=== PATIENT | male | born 1990 | race Caucasian/White ===

== ENCOUNTER 2023-02-23 17:54 | Emergency (ER) | payer OTHER, SELFPAY ==
[2023-02-23 18:06] VITALS: BP 142/93; PULSE 103; RESP 18; TEMP 36.3; O2SAT 97
[2023-02-23 18:07] VITALS: BP 142/93; PULSE 103; RESP 18; TEMP 36.3; O2SAT 97
--- NOTE | 2023-02-23 18:28 | ED.EAR ---
HPI - Ear Problem General Chief complaint: Ear Stated complaint: Right Ear Irritation Time Seen by Provider: 02/23/23 18:18 Source: patient and RN notes reviewed Mode of arrival: ambulatory Limitations: no limitations History of Present Illness HPI Narrative: Patient presents today complaining of mild right ear pain with clear discharge x2 days with muffled hearing. Denies recent illness. He has tried no [id number] interventions prior to arrival. Related Data Allergies Allergy/AdvReac Type Severity Reaction Status Date / Time cefaclor [From Ceclor] AdvReac Mild Hives Verified 02/23/23 18:19 Review of Systems Review of Systems: CONSTITUTIONAL: Denies body aches, fever, chills, or sweats. EYES: Denies visual changes, redness, or discharge. ENT: Denies rhinorrhea, congestion, sore throat. + right ear discomfort and drainage CARDIOVASCULAR: Denies chest pain, palpitations, or edema. RESPIRATORY: Denies cough or dyspnea. GASTROINTESTINAL: Denies abdominal pain, nausea, vomiting, or diarrhea. GENITOURINARY: Denies dysuria or hematuria. SKIN: Denies rash, itching, or wounds. MUSCULOSKELETAL: Denies back pain, joint pain, or myalgia. NEUROLOGIC: Denies headache, numbness, tingling, or weakness. PSYCH: Denies depression or anxiety. PMFSH Comments At time of signature, I have reviewed and agree with nursing past medical, surgical, social and family history unless otherwise noted. Please see nursing chart for further information. There is no relevant family history pertinent to the presenting complaint Exam Narrative: GENERAL: Well-appearing, well-nourished, and in no acute distress. HEAD: Normocephalic, atraumatic. EYES: EOMI. No redness or drainage. Conjunctivae normal. ENT: Mucous membranes pink and moist. Nares clear. No rhinorrhea. TMs normal bilaterally. Right ear canal is moist with clear fluid and scantly erythematous.+ mild tragal tenderness. The robin is slightly erythematous and edematous with crusting clear drainage. NECK: Normal AROM. CHEST: No respiratory distress. EXTREMITIES: Normal range of motion. No edema. SKIN: Warm, dry, no rash. Capillary refill normal. Normal skin turgor. NEURO: No focal deficits. Alert and oriented x3. Gait steady. PSYCH: Normal affect. No signs of depression or anxiety. Course Course Level of Care: Express Care Visit Vital Signs Vital signs: Vital Signs Temperature 97.3 F L 02/23/23 18:06 Pulse Rate 103 H 02/23/23 18:06 Respiratory Rate 18 02/23/23 18:06 Blood Pressure 142/93 H 02/23/23 18:06 Pulse Oximetry 97 02/23/23 18:06 Oxygen Delivery Room Air 02/23/23 18:06 Temperature 97.3 F L 02/23/23 18:07 Pulse Rate 103 H 02/23/23 18:07 Respiratory Rate 18 02/23/23 18:07 Blood Pressure 142/93 H 02/23/23 18:07 Pulse Oximetry 97 02/23/23 18:07 Oxygen Delivery Room Air 02/23/23 18:07 Reviewed Medical Decision Making MDM Narrative Medical decision making narrative: Patient will be treated with Ciprodex for his otitis externa. Will also give him a prescription for mupirocin to apply to the external portion of the ear that the drops will not cover. Differential Diagnosis Differential Diagnosis: Otitis media, otitis externa, ruptured TM, serous otitis, eustachian tube dysfunction, cerumen impaction Vital Signs Vital Signs: Vital Signs Temperature 97.3 F L 02/23/23 18:06 Pulse Rate 103 H 02/23/23 18:06 Respiratory Rate 18 02/23/23 18:06 Blood Pressure 142/93 H 02/23/23 18:06 Pulse Oximetry 97 02/23/23 18:06 Oxygen Delivery Room Air 02/23/23 18:06 Temperature 97.3 F L 02/23/23 18:07 Pulse Rate 103 H 02/23/23 18:07 Respiratory Rate 18 02/23/23 18:07 Blood Pressure 142/93 H 02/23/23 18:07 Pulse Oximetry 97 02/23/23 18:07 Oxygen Delivery Room Air 02/23/23 18:07 Critical Care Time Critical Care Time Critical Care Time: No Discharge Plan Discharge Clinical Impression
== END 2023-02-23 18:36 | disposition home or self-care (01) ==
PROVIDERS: Emergency Provider Nurse Practitioner
DX: H60.501 Unspecified acute noninfective otitis externa, right ear (principal)
CPT/HCPCS: 99203; G0463

== ENCOUNTER 2024-03-02 15:17 | Emergency (ER) | payer SELFPAY ==
--- NOTE | ~2024-03-02 | XR_ITS ---
CHEST RADIOGRAPH, PA AND LATERAL CLINICAL HISTORY: productive cough . COMPARISON: None available TECHNIQUE: PA and lateral views of the chest. FINDINGS The cardiomediastinal silhouette is unremarkable. The lungs are clear. Visualized osseous structures and soft tissues are unremarkable. IMPRESSION: No focal infiltrate or effusion. Reviewed, dictated and finalized at location A. [facility] ADMINISTRATOR
[2024-03-02 16:07] VITALS: BP 143/89; PULSE 114; RESP 18; TEMP 36.5; O2SAT 99
--- NOTE | 2024-03-02 16:20 | ED_ITS ---
HPI - URI/Sore Throat General Chief Complaint: Upper Respiratory Infection <Brooke Camp PA-C - Last Filed: 03/03/24 14:46> Stated Complaint: COUGH,CONGESTION <STEVE Sterling Last Filed: 03/03/24 14:46> Time Seen by Provider: 03/02/24 16:20 <Brooke Camp PA-C - Last Filed: 03/03/24 14:46> Focused HPI: This is a 33 year old male that presents to the ER for cough, congestion. Ongoing over the last couple of days. Reports subjective fevers. Reports a headache, otalgia. GENERAL: Well-appearing, well-nourished, and in no acute distress. HEAD: Normocephalic, atraumatic. CHEST: Clear to auscultation. ?No respiratory distress. HEART: Regular rate and rhythm.? NEURO: ?Alert and oriented x3. Patient screened in triage and initial orders placed.? ?Additional care and disposition to be based upon?diagnostic testing and treatment. <STEVE Sterling Last Filed: 03/03/24 14:46> Source: patient <STEVE House Last Filed: 03/02/24 20:16> Mode of arrival: ambulatory <STEVE House Last Filed: 03/02/24 20:16> Limitations: no limitations <STEVE House Last Filed: 03/02/24 20:16> History of Present Illness HPI Narrative: Agree with triage note above <STEVE House Last Filed: 03/02/24 20:16> Related Data Allergies/Adverse Reactions: Allergies Allergy/AdvReac Type Severity Reaction Status Date / Time cefaclor (From [facility]) AdvReac Mild Hives Verified 03/02/24 15:17 <STEVE Sterling Last Filed: 03/03/24 14:46> Review of Systems Review of Systems: All systems as dictated in HPI <STEVE House Last Filed: 03/02/24 20:16> PMFSH Past Medical History Medical History: Medical History (Updated 03/03/24 @ 14:46 by Brooke Camp PA-C) History of hypertension <Brooke Camp PA-C - Last Filed: 03/03/24 14:46> Social History Social History: Social History (Updated 03/03/24 @ 14:46 by Brooke Camp PA-C) Substance use: never <Brooke Camp PA-C - Last Filed: 03/03/24 14:46> Exam Narrative: GENERAL: Well-appearing, well-nourished, and in no acute distress. HEAD: Normocephalic, atraumatic. EYES: PERRLA and EOMI. ENT: Nares clear, no rhinorrhea or epistaxis. Mucous membranes moist. Oropharynx without tonsillar hypertrophy exudate or other lesions. NECK: Supple. No adenopathy or masses. CHEST: No respiratory distress. Clear to auscultation. No wheezes rales or rhonchi HEART: Regular rate and rhythm. No murmur heard. Normal peripheral pulses. ABDOMEN: Soft, nontender, nondistended, normal active bowel sounds. MSK: Normal range of motion. No edema. SKIN: Warm, dry, no rash. NEURO: Alert and oriented x4. No focal deficits. PSYCH: Normal mood and affect. <Janes Pickens PA-C - Last Filed: 03/02/24 20:16> Course Vital Signs Vital signs: Vital Signs Temperature 97.7 F 03/02/24 16:07 Pulse Rate 114 H 03/02/24 16:07 Respiratory Rate 18 03/02/24 16:07 Blood Pressure 143/89 H 03/02/24 16:07 Pulse Oximetry 99 03/02/24 16:07 Temperature 98.2 F 03/02/24 20:19 Pulse Rate 101 H 03/02/24 20:19 Respiratory Rate 16 03/02/24 20:19 Blood Pressure 143/94 H 03/02/24 20:19 Pulse Oximetry 96 03/02/24 20:19 Oxygen Delivery Room Air 03/02/24 20:18 <Brooke Camp PA-C - Last Filed: 03/03/24 14:46> Vital Signs Temperature 97.7 F 03/02/24 16:07 Pulse Rate 114 H 03/02/24 16:07 Respiratory Rate 18 03/02/24 16:07 Blood Pressure 143/89 H 03/02/24 16:07 Pulse Oximetry 99 03/02/24 16:07 Temperature 98.2 F 03/02/24 20:19 Pulse Rate 101 H 03/02/24 20:19 Respiratory Rate 16 03/02/24 20:19 Blood Pressure 143/94 H 03/02/24 20:19 Pulse Oximetry 96 03/02/24 20:19 Oxygen Delivery Room Air 03/02/24 20:18 <Janes Pickens PA-C - Last Filed: 03/02/24 20:16> MDM - URI/Sore Throat MDM Narrative Medical decision making narrative: This is a 33-year-old male who presents to the ED for chief complaint of upper respiratory infection symptoms including cough and congestion. Vitals are stable. Viral swabs are negative. Chest x-ray shows no acute findings. Presentation consistent with viral syndrome. Patient will be discharged in stable condition. Supportive measures discussed and return precautions given. Patient is understanding and agreeable with plan for discharge with PCP follow-up. <STEVE Hosue Last Filed: 03/02/24 20:16> Differential Diagnosis Differential diagnosis: Likely upper respiratory infection, otitis media, sinusitis, viral infection, bronchitis, influenza and pharyngitis <Janes Pickens PA-C - Last Filed: 03/02/24 20:16> Lab Data Labs: Lab Results 03/02/24 Range/Units 16:10 Influenza A (RT-PCR) Negative (Negative) Influenza B (RT-PCR) Negative (Negative) RSV (RT-PCR) Negative (Negative) SARS-CoV-2 RNA (RT-PCR) Negative (Negative) <Brooke Camp PA-C - Last Filed: 03/03/24 14:46> Lab Results 03/02/24 Range/Units 16:10 Influenza A (RT-PCR) Negative (Negative) Influenza B (RT-PCR) Negative (Negative) RSV (RT-PCR) Negative (Negative) SARS-CoV-2 RNA (RT-PCR) Negative (Negative) <STEVE House Last Filed: 03/02/24 20:16> Imaging Data Radiologist's impression: ITS Impressions Chest X-Ray 03/02/24 17:16 IMPRESSION: No focal infiltrate or effusion. <STEVE Sterling Last Filed: 03/03/24 14:46> Critical Care Time Critical Care Time Critical Care Time: No <STEVE Sterling Last Filed: 03/03/24 14:46> Discharge Plan Discharge Clinical Impression: Upper respiratory infection Qualifiers: URI type: unspecified viral URI Qualified Code(s): J06.9 - Acute upper respiratory infection, unspecified <STEVE Sterling Last Filed: 03/03/24 14:46> Patient Disposition: Home, Self-Care <STEVE Sterling Last Filed: 03/03/24 14:46> Condition: Stable <STEVE Sterling Last Filed: 03/03/24 14:46> Instructions: Antibiotic Form, Viral Syndrome (ED) <STEVE Sterling Last Filed: 03/03/24 14:46> Additional Instructions: You were seen in the ER today for cough congestion. Your workup is reassuring. X-rays clear and viral swabs are all negative. This is probably still a viral illness which will resolve on its own in the next week. Continue to stay well hydrated. Use Tessalon Perles as needed for cough. If you have any new or worsening symptoms please return to the ER for further evaluation. <Brooke Camp PA-C - Last Filed: 03/03/24 14:46> Patient Language: Ivorian <STEVE Sterlnig Last Filed: 03/03/24 14:46> Prescriptions: New benzonatate 200 mg capsule 200 mg PO BID PRN (Reason: cough) Qty: 20 0RF No Action mupirocin 2 % ointment 1 applic topical BID 7 Days Qty: 22 0RF ciprofloxacin-dexamethasone 0.3-0.1 % drops,suspension 4 drp RIGHT EAR Q12H 7 Days Qty: 7.5 0RF <STEVE Sterling Last Filed: 03/03/24 14:46> Follow-up/Referrals: [facility], [Primary Care Provider] - <Brooke Camp PA-C - Last Filed: 03/03/24 14:46> Stand Alone Forms: Work/School Release IP <Brooke Camp PA-C - Last Filed: 03/03/24 14:46> Time of Disposition: 20:12 <Brooke Camp PA-C - Last Filed: 03/03/24 14:46> 20:12 <Janes Pickens PA-C - Last Filed: 03/02/24 20:16>
[2024-03-02 16:50] LABS: Influenza A QL RT-PCR Negative (Negative); Influenza B QL RT-PCR Negative (Negative); RSV RNA, RT-PCR Negative (Negative); SARS-CoV-2 RNA PCR Negative (Negative)
[2024-03-02 20:19] VITALS: BP 143/94; PULSE 101; RESP 16; TEMP 36.8; O2SAT 96
--- OUTSIDE RECORDS SUMMARY | 2024-03-09 02:34 | XMS_ITS | Continuity of Care Document ---
Author Name [facility] Organization [facility] Care Team Providers Care Data Integration Developer Name Role Phone [facility] Unavailable Unavailable Problems Combined list of problems from Department of Defense and Veterans Affairs facilities. It does not include entries that were removed or entered in error. Problem Status Onset Date Problem Type Date of Resolution Comments Source Morbid obesity Active 4 Diagnosis [facility] Obstructive sleep apnea Active 4 Diagnosis [facility] Hypertension Active 4 Diagnosis [facility] Morbid obesity Active 4 Diagnosis [facility] Obstructive sleep apnea Active 4 Diagnosis [facility] ASSESSMENT, PRE-DEPLOYMENT, DOCUMENTED ON [id number] Active 4 Diagnosis [facility] Hyperlipidemia Active 4 Diagnosis [facility] Obesity, class 3 Active 4 Diagnosis [facility] Encounter for issue of other medical certificate [facility] for issue of repeat prescription Inactive 1 Condition [facility] Encounter for immunization Inactive 1 Condition DoD Sprain of other specified parts of left knee Active 1 Condition DoD Other sprain of left hip Inactive 1 Condition DoD Pain in right ankle and joints of right foot Inactive 0 Condition DoD Pain in left knee Active 0 Condition DoD Cough Inactive 0 Condition DoD Nasal congestion Inactive 0 Condition DoD Dietary counseling and surveillance Active 9 Condition DoD Cellulitis of left finger Active Condition DoD 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 Inactive Condition DoD refractive error - hypermetropia Active Condition DoD visit for: services flight physical Active Condition DoD upper respiratory infection Inactive Condition DoD Outpatient Physician Consultation Active Condition DoD closed fracture phalanges right first toe Inactive Condition DoD closed fracture right first toe proximal phalanx Inactive Condition DoD visit for: screening exam hypertension Inactive Condition DoD visit for: services physical Active Condition DoD Patient Education Active Condition DoD Guidance: Concerns About Unsafe Sexual Practices Inactive Condition DoD visit for: administrative purpose Inactive Condition DoD joint pain, localized in the knee Active Condition DoD visit for: services physical accession Active Condition DoD ASSESSMENT, PRE-DEPLOYMENT, [place]ED ON [id number] Active Condition [facility] Chondromalacia, left knee Active Condition [facility] Hyperlipidemia Active Condition [facility] Hypertension Active Condition [facility] Morbid obesity Active Condition [facility] Obstructive sleep apnea Active Condition [facility] Prediabetes Active Condition [facility] Medications Combined list of outpatient medications from Department of Defense and Veterans Affairs facilities.Medications provided include 1) outpatient medications from the last 15 months, and 2) patient-reported medications. Medication Details Route Status Patient Instructions Prescription Expires Prescription Number Last Dispense Date Ordering Provider Order Date Order Qty Source amLODIPine 10 mg tablet 10 mg, Oral, # 30 EA, 3 total refill(s ), Hard Stop Oral (given by mouth) Ordered 02/10/2025 30.0 Ambul at ory Pharmac y CIPROFLOXAC IN-DEXAMETH ASONE (ciprofloxa luigi HCl/dexamet hasone), 0.3 %-0.1%, DROPS SUSP, OTIC (EAR), SANDOZ, 7.5 ml DROP BTL Active [id number] 02/25/20 2 3 2022 7.5 Pharmac y Data Transac tion Service Facilit y dexAMETHaso ne 0.5 mg tablet See Instruct ions, Oral, # 2 EA, 0 total refill(s ), Hard Stop Oral (given by mouth) Complet ed 02/13/2024 2.0 Ambulat ory Pharmac y Diclofenac Sodium 0.01mg/mg, Gel/Jelly, Topical Avoid exposure to sun.For external use.Do not take if . Active 05/29/2024 [id number] 4 2023 100 [facility] [place] ([facility]) meloxicam 15 mg oral tablet 1 tab(s), Oral, Daily, # 30 tab(s), 0 total refill(s ), Maintena nce, 1 tab(s) Oral Daily, Pharmacy : [facility] Oral (given by mouth) Discont inued 08/01/2023 30.0 [facility] MUPIROCIN (MUPIROCIN) , 2%, OINT.(GM), TOPICAL, TEVA [place], 22 g TUBE Active [id number] 3 2022 22 Pharmac y Data Transac tion Service Facilit y Voltaren 1% topical gel See instruct ions, Apply 2 grams (upper extremit ies) or 4 grams (lower extremit ies) to affected area topicall y four times daily as needed for pain. Max total body dose of 32 grams per day, # 100 g, 0 total refill(s ), Maintena nce, Apply 2 grams (upper extremit ies) or 4 grams (lower extremit ies) to affected area topicall y four times daily as needed for pain. Max total body dose of 32 grams per day, Pharmacy : [facility] Discont inued 06/26/2023 100.0 [facility] Allergies, Adverse Reactions, Alerts Combined list of allergies from Department of Defense and Veterans Affairs facilities. It does not include entries that were removed or entered in error. Substance Category Reaction Severity Reaction type Status Date Reported Comments Source CECLOR (CEFACLOR) Drug allergy (disorder) Unknown active 0 [place] [address] cefaclor Propensity to adverse reactions to substance Unknown Active 0 [facility] Immunizations Combined list of available immunizations from the Department of Defense and Veterans Affairs facilities. Immunization Series Date Given Administered By Site Reaction Lot Number CVX Code Drug In Service Education Teacher Status Comments Source influenza virus vaccine, inactivated 2023 IHSAN HORTA [id number] complet ed influenza virus vaccine, inactivat ed 12/18/23 Recorded [facility] influenza virus vaccine, inactivated 2022 IHSAN HORTA [place], right (delt oid) [id number] [employer] complet ed influenza virus vaccine, inactivat ed 01/07/23 Given [facility] SARS-COV-2 (COVID-19) vaccine, mRNA, spike protein, LNP, preservative free, 30 mcg/0.3mL dose 2 2021 [id number] Pfizer, Inc (PFR) complet ed SARS-COV- 2 (COVID-19 ) vaccine, mRNA, spike protein, LNP, preservat danyell free, 30 mcg/0.3mL dose DoD COVID Vaccine Pfizer 2021 ALEXRGARCIAFA NTAUZZI [id number] complet ed Result Comment: Route: Unknown Manufactu rer: [employer] (PFR) 0055C[facility]3 [facility] Influenza, injectable, quadrivalent, preservative free 1 2020 [id number] 150 InstantLuxe (SKB) complet ed Influenza , injectabl e, quadrival ent, preservat danyell free DoD influenza, injectable, quadrivalent- pf 2020 ALEXRGARCIAFA NTAUZZI [id number] 150 complet ed Result Comment: Route: Unknown Manufactu rer: I Do Now I Don't (SKB) 0055C-3 [facility] SARS-CoV-2 (COVID-19) Ad26 vaccine, rec 2020 [id number] complet ed SARS-CoV- 2 (COVID-19 ) Ad26 vaccine, rec 05/05/20 Given Ambulat ory Pharmac y SARS-COV-2 (COVID-19) vaccine, vector non-replicati ng, recombinant spike protein-Ad26, preservative free, 0.5 mL 1 2020 [id number] 212 [facility] (JSN) comple t ed SARS-COV- 2 (COVID-19 ) vaccine, vector non-repli cating, recombina nt spike protein-A d26, preservat danyell free, 0.5 mL DoD influenza, injectable, quadrivalent- pf 2019 [id number] 150 Seqirus complet ed influenza , injectabl e, quadrival ent-pf 12/25/19 Given Ambulat ory Pharmac y Influenza, injectable, quadrivalent, preservative free 1 2019 [id number] 506 150 Seqirus (SEQ) complet ed Influenza , injectabl e, quadrival ent, preservat danyell free DoD influenza, seasonal, [place], quadrivalent, 0.5mL dose, no preservative 1 2019 [id number] 201 Sanofi Pasteur (PMC) complet ed influenza , seasonal, [place], quadrival ent, 0.5mL dose, no preservat danyell DoD poliovirus vaccine, inactivated 2019 [id number] 10 sanofi pasteur complet ed polioviru s vaccine, inactivat ed 08/05/19 Given Ambulat ory Pharmac y measles virus vaccine 0 2019 05 () Not Given measles virus vaccine DoD rubella virus vaccine 0 2019 06 () Not Given rubella virus vaccine DoD mumps virus vaccine 0 2019 07 () Not Given mumps virus vaccine DoD poliovirus vaccine, inactivated 2 2019 [id number] 10 Sanofi Pasteur (PMC) complet ed polioviru s vaccine, inactivat ed DoD typhoid Vi capsular polysaccharid e vac 2019 [id number] 101 sanofi pasteur complet ed typhoid Vi capsular polysacch aride vac 07/07/19 Given Ambulat ory Pharmac y yellow fever vaccine 2019 [id number] 37 sanofi pasteur complet ed yellow fever vaccine 07/07/19 Given Ambulat ory Pharmac y yellow fever vaccine 1 2019 [id number] 37 Sanofi Pasteur (PMC) complet ed yellow fever vaccine DoD typhoid Vi capsular polysaccharid e vaccine 2 2019 [id number] 101 Sanofi Pasteur (PMC) complet ed typhoid Vi capsular polysacch aride vaccine DoD tetanus-dipht h toxoids (Td) adult/adol 2019 [id number] 09 sanofi pasteur complet ed tetanus-d iphth toxoids (Td) adult/ado l 04/23/19 Given Ambulat ory Pharmac y tetanus and diphtheria toxoids, adsorbed, preservative free, for adult use (2 Lf of tetanus toxoid and 2 Lf of diphtheria toxoid) 2 2019 [id number] 09 Sanofi Pasteur (PMC) complet ed tetanus and diphtheri a toxoids, adsorbed, preservat danyell free, for adult use (2 Lf of tetanus toxoid and 2 Lf of diphtheri a toxoid) DoD influenza, injectable, quadrivalent- pf 2018 [id number] 150 Seqirus complet ed influenza , injectabl e, quadrival ent-pf 12/25/18 Given Ambulat ory Pharmac y Influenza, injectable, quadrivalent, preservative free 11 10/31/ 2019 [id number] 150 Seqirus (SEQ) complet ed Influenza , injectabl e, quadrival ent, preservat danyell free DoD influenza, injectable, quadrivalent- pf 2017 [id number] 150 GlaxoSmithKli ne complet ed influenza , injectabl e, quadrival ent-pf 12/16/17 Given Ambulat ory Pharmac y Influenza, injectable, quadrivalent, preservative free 0 2017 [id number] 150 SmithKline (SKB) complet ed Influenza , injectabl e, quadrival ent, preservat danyell free DoD Influenza, inj, MDCK, quadrivalent- pf [id number] 171 Seqirus complet ed Influenza , inj, MDCK, quadrival ent-pf 12/10/16 Given Ambulat ory Pharmac y Influenza, injectable, Madin [place] Canine Kidney, preservative free, quadrivalent 9 [id number] 171 Seqirus (SEQ) comple t ed Influenza , injectabl e, Madin [place] Canine Kidney, preservat danyell free, quadrival ent DoD anthrax vaccine 2015 [id number] 24 Emergent Biosolutions complet ed anthrax vaccine 02/13/16 Given Ambulat ory Pharmac y anthrax vaccine 3 2015 [id number] 24 [employer]gent [employer] [place] (MIP) complet ed anthrax vaccine DoD influenza, seasonal, injectable-pf 2015 [id number] 140 GlaxoSmithKli ne complet ed influenza , seasonal, injectabl e-pf 12/30/15 Given Ambulat ory Pharmac y Influenza, seasonal, injectable, preservative free 8 2015 [id number] 140 SmithKline (SKB) complet ed Influenza , seasonal, injectabl e, preservat danyell free DoD anthrax vaccine 2015 [id number] 24 [employer]gent [employer] complet ed anthrax vaccine 08/09/15 Given Ambulat ory Pharmac y anthrax vaccine 2 2015 [id number] 24 [employer] [place] (MIP) complet ed anthrax vaccine DoD anthrax vaccine 2015 [id number] 24 Emergent Biosolutions complet ed anthrax vaccine 06/17/15 Given Ambulat ory Pharmac y vaccinia (smallpox) vaccine 2015 VV03-01 9-C 75 sanofi pasteur complet ed vaccinia (smallpox ) vaccine 06/17/15 Given Ambulat ory Pharmac y anthrax vaccine 1 2015 [id number] 24 Emergent BioDefense [facility] complet ed anthrax vaccine DoD vaccinia (smallpox) vaccine 0 2015 VV03-01 9-C 75 Sanofi Pasteur (PMC) complet ed vaccinia (smallpox ) vaccine DoD Jamaican Encephalitis IM 2015 [id number] [id number] 134 Valneva complet ed Jamaican Encephali tis IM 06/02/15 Given Ambulat ory Pharmac y Jamaican Encephalitis vaccine for intramuscular administratio n 3 2015 [id number] 4E 134 EpiCrystals Biomedical (INT) complet ed [place] Encephali tis vaccine for intramusc ular administr ation DoD influenza, live, intranasal,qu adrivalent 2014 [id number] 149 Incredible Labs Inc comple t ed influenza , live, intranasa l,quadriv alent 12/22/14 Given Ambulat ory Pharmac y typhoid Vi capsular polysaccharid e vac 2014 [id number] 101 sanofi pasteur complet ed typhoid Vi capsular polysacch aride vac 12/22/14 Given Ambulat ory Pharmac y typhoid Vi capsular polysaccharid e vaccine 1 2014 [id number] 101 Sanofi Pasteur (PMC) complet ed typhoid Vi capsular polysacch aride vaccine DoD influenza, live, intranasal, quadrivalent 7 2014 [id number] 149 Thinque Systems, Inc. (MED) complet ed influenza , live, intranasa l, quadrival ent DoD Jamaican Encephalitis IM 2014 [id number] 3E 134 Valneva complet ed Jamaican Encephali tis IM 05/14/14 Given Ambulat ory Pharmac y Jamaican Encephalitis vaccine for intramuscular administratio n 2 2014 [id number] 3E 134 IntercEffector Therapeutics Biomedical (INT) complet ed Jamaican Encephali tis vaccine for intramusc ular administr ation DoD Jamaican Encephalitis IM 2014 [id number] 0E 134 Valneva complet ed Jamaican Encephali tis IM 03/19/14 Given Ambulat ory Pharmac y Jamaican Encephalitis vaccine for intramuscular administratio n 0 2014 [id number] 0E 134 Intercell Biomedical (INT) complet ed [place] Encephali tis vaccine for intramusc ular administr ation DoD influenza, live, intranasal,qu adrivalent 2013 [id number] 149 Medimmune Inc comple t ed influenza , live, intranasa l,quadriv alent 12/16/13 Given Ambulat ory Pharmac y influenza, live, intranasal, quadrivalent 6 2013 [id number] 149 MedImmune, Inc. (MED) complet ed influenza , live, intranasa l, quadrival ent DoD influenza, live, intranasal,qu adrivalent 2012 [id number] 149 Medimmune Inc comple t ed influenza , live, intranasa l,quadriv alent 12/01/12 Given Ambulat ory Pharmac y influenza, live, intranasal, quadrivalent 0 2012 [id number] 149 MedImmune, Inc. (MED) complet ed influenza , live, intranasa l, quadrival ent DoD measles virus vaccine 0 2012 05 () Not Given measles virus vaccine DoD rubella virus vaccine 0 2012 06 () Not Given rubella virus vaccine DoD influenza virus vaccine, live 2011 [id number] 111 Medimmune Inc comple t ed influenza virus vaccine, live 11/30/11 Given Ambulat ory Pharmac y influenza virus vaccine, live, attenuated, for intranasal use 1 2011 [id number] 111 MedImmune, Inc. (MED) complet ed influenza virus vaccine, live, attenuate d, for intranasa l use DoD influenza virus vaccine, live 2010 [id number] 111 Medimmune Inc comple t ed influenza virus vaccine, live 11/21/10 Given Ambulat ory Pharmac y influenza virus vaccine, live, attenuated, for intranasal use 3 2010 [id number] 111 MedImmune, Inc. (MED) complet ed influenza virus vaccine, live, attenuate d, for intranasa l use DoD hepatitis A-hepatitis B vaccine 2009 [id number] 6BB 104 GlaxoSmithKli vt complet ed hepatitis A-hepatit is B vaccine 01/31/10 Given Ambulat ory Pharmac y hepatitis A and hepatitis B vaccine 3 2009 [id number] 6BB 104 [facility] hepatitis A and hepatitis B vaccine DoD influenza virus vaccine, live 2009 [id number] 111 Medimmune Inc comple t ed influenza virus vaccine, live 01/17/10 Given Ambulat ory Pharmac y influenza virus vaccine, live, attenuated, for intranasal use 1 2009 [id number] 111 Thinque Systems, Inc. (MED) complet ed influenza virus vaccine, live, attenuate d, for intranasa l use DoD hepatitis A-hepatitis B vaccine 2009 [id number] 7AA 104 GlaxoSmithKli ne complet ed hepatitis A-hepatit is B vaccine 05/02/09 Given Ambulat ory Pharmac y hepatitis A and hepatitis B vaccine 2 2009 [id number] 7AA 104 SmithKline (SKB) complet ed hepatitis A and hepatitis B vaccine DoD hepatitis A-hepatitis B vaccine 2009 [id number] 4AA 104 GlaxoSmithKli ne complet ed hepatitis A-hepatit is B vaccine 03/17/09 Given Ambulat ory Pharmac y measles, mumps and rubella virus vaccine 1 2009 03 () Not Given measles, mumps and rubella virus vaccine DoD varicella virus vaccine 1 2009 21 () Not Given varicella virus vaccine DoD hepatitis A and hepatitis B vaccine 1 2009 [id number] 4AA 104 SmithKline (SKB) complet ed hepatitis A and hepatitis B vaccine DoD tuberculin purified protein derivative 2009 [id number] 96 sanofi pasteur complet ed tuberculi n purified protein derivativ e 03/13/09 Given Ambulat ory Pharmac y meningococcal A,C,Y,W-135 (MCV4P) 2009 [id number] 114 sanofi pasteur complet ed meningoco ccal A,C,Y,W-1 35 (MCV4P) 03/11/09 Given Ambulat ory Pharmac y influenza virus vaccine,split 2009 [id number] 1A 15 CSL Behring complet ed influenza virus vaccine,s plit 03/11/09 Given Ambulat ory Pharmac y poliovirus vaccine, inactivated 2009 [id number] 10 sanofi pasteur complet ed polioviru s vaccine, inactivat ed 03/11/09 Given Ambulat ory Pharmac y Novel influenza-H1N 1-09, injectable 2009 [id number] 1 127 Novartis Pharmaceutica complet ed Novel influenza -[id number], injectabl e 03/11/09 Given Ambulat ory Pharmac y tetanus, diphtheria, acellular pertu is 2009 [id number] 5CA 115 GlaxoSmithKli ne complet ed tetanus, diphtheri a, acellular pertussis 03/11/09 Given Ambulat ory Pharmac y poliovirus vaccine, inactivated 1 2009 [id number] 10 Sanofi Pasteur (PMC) complet ed polioviru s vaccine, inactivat ed DoD influenza virus vaccine, split virus (incl. purified surface antigen)-reti red CODE 1 2009 [id number] 1A 15 [employer]. (CS) complet ed influenza virus vaccine, split virus (incl. purified surface antigen)- retired CODE DoD meningococcal polysaccharid e (groups A, C, Y and W-135) diphtheria toxoid conjugate vaccine (MCV4P) 1 2009 [id number] 114 Sanofi Pasteur (PMC) complet ed meningoco ccal polysacch aride (groups A, C, Y and W-135) diphtheri a toxoid conjugate vaccine (MCV4P) DoD tetanus toxoid, reduced diphtheria toxoid, and acellular pertu is vaccine, adsorbed 1 2009 [id number] 5CA 115 InstantLuxe (SKB) complet ed tetanus toxoid, reduced diphtheri a toxoid, and acellular pertussis vaccine, adsorbed DoD Novel influenza-H1N 1-09, injectable 1 2009 [id number] 1 127 Novartis Nominum Scotty. (NOV) complet ed Novel influenza -U0Q5-99, injectabl e DoD Results Combined list of recent chemistry, hematology and other laboratory results from Department of Defense and Veterans Affairs, ranging from 15 months to all on record, depending upon the facility. Order Name Results Value Reference Range Date Interpretation Specimen Comments Source Infectiou s Disease HIV-1/O/2 Non-Re active 7 ( 4 10:11 AM) 06/25 N Interpretiv e Data: INTERPRETAT ION: This method is a screening procedure for the detection of HIV p24 Antigen and Antibodies to HIV-1, including Group O, and/or HIV-2. NON-REACTIV E: HIV-1 antigen and HIV-1 / HIV-2 antibodies were not detected. No laboratory evidence of HIV infection. A negative test result does not exclude the possibility of exposure to or infection with HIV. HIV antibodies and/or p24 antigen may be undetectabl e in some stages of the infection and in some clinical conditions. If acute HIV infection is suspected, consider submitting another specimen to a reference laboratory for HIV-1 RNA. SCREEN REACTIVE - CONFIRMATIO N TO FOLLOW: Possible presence of HIV-1antibo dies, HIV-2 antibodies and/or HIV-1 p24 antigen. Specimen will reflex to the confirmatio n testing that fulfills the Center for Disease Control and Prevention' s HIV diagnostic algorithm. Refer to [facility] Lab Guide for additional information : [email or web address] x Testing performed by [employer] in[facility] richardson. [facility] Chemistry eGFR CKD EPI 91 mL/min /1.73_ m2 05/07 Interpretiv e Data: Estimated Glomerular Filtration Rate (eGFR) calculated using the 2020 Chronic Kidney Disease-Epi demiology (CKD-EPI) Collaborati on creatinine equation; units of measure are mL/min/1.73 m2. Results are only valid for adults (>=18 years) whose serum creatinine is in steady state. eGFR calculation s are not valid for patients with acute kidney injury and for patients on dialysis. Creatinine- based estimates of kidney function may also be inaccurate in patients with reduced creatinine generation due to decreased muscle mass (e.g., malnutritio n, severe hypoalbumin emia, sarcopenia, chronic neuromuscul ar disease, amputations , severe heart failure or liver disease) and in patients with increased creatinine generation due to increased muscle mass (e.g., muscle builders, anabolic steroids) or increased dietary intake. CKD is diagnosed based on abnormaliti es of kidney structure or function, present for >3 months, with implication s for health and disease. CKD is classified and staged based on cause, eGFR and albuminuria (quantified as urine albumin to creatinine ratio). An eGFR >60 mL/min/1.73 m2 in the absence of increased urine albumin excretion or structural abnormaliti es does not CKD. eGFR provides only an estimate of measured GFR within +/- 30% for most patients. As mentioned, nutritional status and muscle mass, among many factors, may lead to inaccuracy in the estimate. Consider ordering the creatinine- cystatin C panel if better accuracy is needed for clinical decision-adeel minor. eGFR (mL/min/1.7 3 m2) CKD stage Interpretat ion Normal 60-89 Mild decrease 45-59 Mild to moderate decrease 30-44 Moderate to severe decrease 15-29 Severe decrease <15 Kidney failure [facility] Hemoglobin A1c 5.8 % 4.0 - 5.6 05/07 H Interpretiv e Data: Normal: 4.0 - 5.6% Increased Risk: 5.7 - 6.4% Diabetic Range: e 6.5% For patients without diabetes, the normal range for the hemoglobin A1c test is between 4% and 5.6%. Hemoglobin A1c levels between 5.7% and 6.4% indicate increased risk of diabetes, and levels of 6.5% or higher indicate diabetes. Because studies have repeatedly shown that out-of-cont rol diabetes results in complicatio ns from the disease, the goal for people with diabetes is a hemoglobin A1c less than 7%. The higher the hemoglobin A1c, the higher the risks of developing complicatio ns related to diabetes. If confirmatio n is needed, consider recalling the patient and ordering Hemoglobin Electrophor esis. [facility] eAvg Glucose 120 mg/dL 05/07 [facility] TSH 1.760 mIU/L 0.270 - 4.200 05/07 N Interpretiv e Data: Recommend: TPO/Thyrope roxidase Antibody when TSH result is > 4.2 uIU/mL [facility] Protein Total 7.2 g/dL 6.4 - 8.3 05/07 N [facility] Sodium 139 mmol/L 136 - 145 05/07 N [facility] Potassium Lvl 3.5 mmol/L 3.5 - 5.1 05/07 N [facility] Glucose Lvl 83 mg/dL 74 - 99 05/07 N [facility] Creatinine Level 1.10 mg/dL 0.72 - 1.25 05/07 N [facility] CO2 25 mmol/L 22 - 29 05/07 N [facility] Chloride 101 mmol/L 98 - 107 05/07 N [facility] Calcium 9.4 mg/dL 8.4 - 10.2 05/07 N [facility] BUN/Creat Ratio 11 mg/dL 12 - 20 05/07 L [facility] BUN 12 mg/dL 8 - 26 05/07 N [facility] Bilirubin Total 0.6 mg/dL 0.2 - 1.2 05/07 N [facility] AST 44 U/L 5 - 34 05/07 H [facility] ALT 96 U/L 5 - 55 05/07 H [facility] Alk Phos 64 U/L 40 - 150 05/07 N [facility] Albumin 4.10 g/dL 3.50 - 5.20 05/07 N [facility] AGAP 13.00 0.00 - 15.00 05/07 N [facility] Triglycerid es 137 mg/dL 7 - 149 05/07 N Interpretiv e Data: AGES 0-9: Desirable: < 75 mg/dL Borderline High: 75-99 mg/dL High: >/= 100 mg/dL AGES 10-19: Desirable: < 90 mg/dL Borderline High: 90-129 mg/dL High: >/= 130 mg/dL ADULTS: Desirable: < 150 mg/dL Borderline High: 150-199 mg/dL High: >/= 240 mg/dL Very High: >/= 500 mg/dL [facility] LDL/HDL 3 05/07 [facility] LDL 163 mg/dL 100 - 130 05/07 H Interpretiv e Data: AGES 0-19: Desirable: < 110 mg/dL Borderline High: 110-129 mg/dL High: >/= 130 mg/dL ADULTS: Desirable: <100 mg/dL Near/above optimal: 100-130 mg/dL Borderline High: 131-159 mg/dL High: 160-189 mg/dL Very High: e190 mg/dL [facility] Chemistry HDL Cholesterol 50 mg/dL 40 - 59 05/07 N Interpretiv e Data: HDL (HIGH DENSITY LIPOPROTEIN ): ADULTS: Low: < 40 mg/dL High: >/= 60 mg/dL AGES 0 -19: Low: < 40 mg/dL Borderline Low: 40 - 45 mg/dL Acceptable: > 45 mg/dL [facility] Chemistry Cholesterol Total 218 mg/dL 05/07 H Interpretiv e Data: According to the [place] [employer] : AGES 0-19: Desirable: < 170 mg/dL Borderline High: 170-199 mg/dL High Blood Cholesterol : >/= 200 mg/dL ADULTS: Desirable < 200 mg/dL Borderline High: 200-239 mg/dL High Blood Cholesterol : >/= 240 mg/dL [facility] Chemistry Chol/HDL 4 mg/dL 05/07 [facility] Vital Signs Combined list of inpatient and outpatient Vital Signs from Department of Defense and Veterans Affairs, ranging from 12 months to all on record, depending upon the facility. Vital Sign Value Date Comments Source Peripheral Pulse Rate 97bpm 12/11/2023 13:40:00 Ambulatory Pharmacy Respiratory Rate 18br/min 12/11/2023 13:40:00 Ambulatory Pharmacy Temperature Oral 36.8Cel 12/11/2023 13:40:00 Ambulatory Pharmacy BP Site 12/11/2023 13:40:00 Ambul atory Pharmacy Blood Pressure Manual 12/11/2023 13:40:00 Ambulatory Pharmacy Systolic Blood Pressure 154mm[Hg] 12/11/2023 13:40:00 Ambulatory Pharmacy Diastolic Blood Pressure 89mm[Hg] 12/11/2023 13:40:00 Ambulatory Pharmacy Mean Arterial Pressure, Calc 111mm[Hg] 12/11/2023 13:40:00 Ambulatory P harmacy Systolic Blood Pressure 128mm[Hg] 05/03/2023 15:08:00 Ambulatory Pharmacy Diastolic Blood Pressure 89mm[Hg] 05/03/2023 15:08:00 Ambulatory Pharmacy Mean Arterial Pressure, Calc 102mm[Hg] 05/03/2023 15:08:00 Ambulatory P harmacy Peripheral Pulse Rate 110bpm 05/03/2023 15:08:00 Ambulatory Pharmacy Respiratory Rate 16br/min 05/03/2023 15:08:00 Ambulatory Pharmacy BP Site 05/03/2023 15:08:00 Ambul atory Pharmacy Blood Pressure Manual 05/03/2023 15:08:00 Ambulatory Pharmacy Systolic Blood Pressure 134mm[Hg] 12/11/2023 13:47:00 Ambulatory Pharmacy Diastolic Blood Pressure 86mm[Hg] 12/11/2023 13:47:00 Ambulatory Pharmacy BP Site 12/11/2023 13:47:00 Ambul atory Pharmacy Mean Arterial Pressure, Calc 102mm[Hg] 12/11/2023 13:47:00 Ambulatory P harmacy Systolic Blood Pressure 151mm[Hg] 02/12/2024 14:44:00 Ambulatory Pharmacy Diastolic Blood Pressure 77mm[Hg] 02/12/2024 14:44:00 Ambulatory Pharmacy Peripheral Pulse Rate 116bpm 02/12/2024 14:44:00 Ambulatory Pharmacy Vital Signs Comments 02/12/2024 14:44:00 Ambulatory Pharmacy Mean Arterial Pressure, Calc 102mm[Hg] 02/12/2024 14:44:00 Ambulatory P harmacy Temperature Oral 36.8Cel 02/12/2024 14:44:00 Ambulatory Pharmacy Respiratory Rate 16br/min 02/12/2024 14:44:00 Ambulatory Pharmacy Encounters Combined list of: 1) Encounters from Department of Veterans Affairs facilities going back up to thelast 18 months. 2) Encounters from the Department of Defense facilities going back up to 280 months. Location Location Details Encounter Type Encounter Number Reason For Visit Attending Provider ADM Date DC Date Status Disposition [place] [address](Opt ometry Clinic [facility]) OUTPATIENT [id number] SAMINA WEST 03/18 Released w/o Limitations [facility] [place] [address](O ptometr y Clinic [facility] [address]([facility]) OUTPATIENT [id number] -0900 F/U BILAT KNEE PAIN (320/20 2) JEFFERSON AGUILAR 04/05 Released with Work/Duty Limitations [facility] [place] [address](T [facility] d) [facility] Geovani CALLAWAY ([facility])(Hea lthcare Integrato rs) OUTPATIENT [id number] FTAC Feb 03 RICKY CHONG 02/01 Released w/o Limitations [facility] Geov[facility] CALL[place] ([facility])(H ealthca re Integra tors) [facility] Medical [facility] Geovani CALL[facility]AY [facility]Sco tt Flight Medicine Tm) OUTPATIENT [id number] FTAC - Vitals KWABENA MEDINA 02/02 Released w/o Limitations [facility] Geovani CALLAWAY ([facility])(S cott Flight Medicin e Tm) [address] [place] [address] Group Geovani CALLAWAY ([facility])(Fam autumn Med Tm B Non-AD BCC) OUTPATIENT [id number] [facility]/PHA RAMIN JARRELL 02/12 Released w/o Limitations [address] [place] [address] Group Ge[employer] CALL[place]AY ([facility])(F amily Med Tm B Non-AD BCC) [address] [place] [address] Group [facility] GILLILANDB ([facility])(Fam autumn Med Tm B Non-AD BCC) OUTPATIENT [id number] PHA Require ments RAMIN JARRELL 02/22 Released w/o Limitations [facility] Ge[facility] GILLILANDB ([facility])(F amily Med Tm B Non-AD BCC) [facility] Ge[facility] GILLILANDB ([facility])(Fam autumn Med Tm B Non-AD BCC) OUTPATIENT [id number] f/u for back issues, er visit [phone] RAMIN JARRELL 06/13 Released w/o Limitations [address] [place] [address] Group Ge[facility] GILLILAND[facility] ([facility])(F amily Med Tm B Non-AD BCC) [address] [place] [address] Ge[facility]ani GILLILANDB ([facility])(Fam autumn Med Tm B Non-AD BCC) OUTPATIENT [id number] right foot, big toe pain, ROLDAN BEJARANO 01/24 Released with Work/Duty Limitations [facility] Group Ge[facility] [place] ([facility])(F amily Med Tm B Non-AD BCC) [address] [place] [address] Ge[facility]ani GILILLANDB ([facility])(Phy sical Therapy) OUTPATIENT [id number] right great toe HERSON CHOE 01/24 Released with Work/Duty Limitations [address] [place] [address] Group Ge[facility]ani GILLILANDB ([facility])(P hysical Therapy ) [address] [place] [address] [employer] GILLILAND[facility] ([facility])(Fam autumn Med Tm B Non-AD BCC) TELE CONSULT [id number] Notes Entered by: YIAMA MARTIN 30 Jan 2012 1030 ------- ------- ------- ------- -- Network Results -Podiat ry 2 ROLDAN BEJARANO 01/[address] [place] [address] [facility] ([facility])(F amily Med Tm B Non-AD BCC) [address] [place] [address] [facility] GILLIL[facility] ([facility])(Fam autumn Med Tm B Non-AD BCC) TELE CONSULT [id number] Notes Entered by: JEANCARLOS SMITH 09 Mar 2012 193 ------- ------- ------- ------- -- DHC/PHA ROLDAN BEJARANO 03/10 [employer] Geovani GILLILANDBenson ([facility])(F amily Med Tm B Non-AD BCC) [employer] Geovani [place] ([facility])(Fam autumn Med Tm B Non-AD BCC) OUTPATIENT [id number] yr face to face PHA [phone] ROLDAN BEJARANO 03/24 Released w/o Limitations [employer] Geovani GILLILANDBenson ([facility])(F amily Med Tm B Non-AD BCC) [employer]([facility] Clinic) OUTPATIENT [id number] elizabeth pope/TRENTON Emmanuel 07/01 Released w/o Limitations [employer]([facility]) [employer](Opt ometry Clinic) OUTPATIENT [id number] eYE EXAM SABAS GUIDRY 12/15 Released w/o Limitations [employer](O ptometr y Clinic) [employer]([facility]) OUTPATIENT [id number] Notes Entered by: FIDEL VILLEGAS 16 Apr 2013 08 ------- ------- ------- ------- -- FIDEL Neal 04/15 Released w/o Limitations [employer](P ublic Health) [employer](Opt ometry Clinic) OUTPATIENT [id number] SHRADDHA Heck 05/14 Released w/o Limitations [employer](O ptometr y Clinic) [employer]([facility]) OUTPATIENT [id number] Notes Entered by: JUDY FRANKLIN 24 May 2014 1231 ------- ------- ------- ------- -- JUDY WEAVER 05/24 Released w/o Limitations [employer](P ublic Health) [employer](Aer omedical Services) OUTPATIENT [id number] Notes Entered by: SELWYN MULLINS 05 Jan 2015 1553 ------- ------- ------- ------- -- Finger pain ANGEL LUISDee JEANCARLOS Knowles 01/05 Released w/o Limitations [facility] Service s) [facility]) OUTPATIENT [id number] Notes Entered by: ROCCO AGUILAR 23 Jun 2015 1516 ------- ------- ------- ------- -- Web Manuel COLBY AGUILAR 06/22 Released w/o Limitations [facility]) [facility]) OUTPATIENT [id number] Notes Entered by: KATELYNN LEPE 30 Jan 2016 1055 ------- ------- ------- ------- -- Blurry Vision MARY HUMPHRIES 01/29 Released w/o Limitations [facility]) [facility]) TELE CONSULT [id number] Notes Entered by: Mario RODRIGUEZ 22 May 2016 1347 ------- ------- ------- ------- -- PCS DAISYAN STEWART VILLAVICENCIO 05/22 Other Not Elsewhere Classified [facility]) [facility]) OUTPATIENT [id number] Notes Entered by: Benson BARDALES 13 Jul 2016 1456 ------- ------- ------- ------- -- PRASAD KIM 07/13 Released w/o Limitations [facility]) [facility](In and Out Hayes Jara) TELE CONSULT [id number] Notes Entered by: CARA HOLLAND 01 Aug 20164 ------- ------- ------- ------- -- Medical Out-Pro cessing CARA HOLLAND 08/01 Advice Assessment [employer](I n and Out Process ing [place]) [facility] In & Out-Proce ssing Clinic) TELE CONSULT [id number] Notes Entered by: FIDELIA LASSITER 15 Sep 2016 1728 ------- ------- ------- ------- -- Chema warner In Process ing LUCIANA LASSITER 09/15 [facility] In & Out-Pro cessing Clinic) [facility] Clinical Pharmacy Care) OUTPATIENT [id number] Notes Entered by: OLVIN BOOTH ED 02 Jan 2017 0844 ------- ------- ------- ------- -- cold clinic ROBERTO CARLOS SANTIAGO 01/02 [facility] Limitations [facility] Clinica l Pharmac y Care) [facility] [place] ([facility] OUTPATIENT [id number] right ankle pain MINNIE STUART 09/02 Released w/o Limitations [facility]([facility] Home Port Clinic ([facility])) [facility] OP Medicine Clinic) OUTPATIENT [id number] Notes Entered by: CELESTE GIPSON 23 Sep 2017 1310 ------- ------- ------- ------- -- CELESTE Guevara 09/23 [facility] w/o Limitations [facility] Base OP Medicin e Clinic) [facility] Element C-1) OUTPATIENT [id number] PARIS MURRY 09/24 Released w/o Limitations [facility] Element C-1) [facility] Emergency [facility]) OUTPATIENT [id number] Notes Entered by: AMOR LEW 29 Jan 2018 1155 ------- ------- ------- ------- -- 27y/o M Clogged ear STEF BARRERA 01/29 Released w/o Limitations [facility] Emergen cy Room) [facility] Element C-1) OUTPATIENT [id number] ! 1200 ongoing R ankle issues HERSON MARY 03/07 Released w/o Limitations [facility] Element C-1) [facility] Element C-1) TELE CONSULT [id number] Notes Entered by: BHARATI TYSON 12 Mar 2018 1046 ------- ------- ------- ------- -- Profile extensi on IRWIN KONG 03/12 [facility] Element C-1) [facility] Physical Therapy) OUTPATIENT [id number] right ankle pain STEVE LUNDBERG 04/08 Released w/o Limitations [facility](N Physica l Therapy ) [facility] Physical Therapy) OUTPATIENT [id number] r ankle STEVE LUNDBERG 08/01 Released w/o Limitations [facility](N Physica l Therapy ) [facility] Physical Therapy) OUTPATIENT [id number] L knee, R ankle FTR w/ KIRSTEN Campos 08/12 Released w/o Limitations [facility](N Physica l Therapy ) [facility] Physical Therapy) OUTPATIENT [id number] KEVYN NICHOLS 08/18 Released w/o Limitations [facility](N Physica l Therapy ) [facility] Physical Therapy) OUTPATIENT [id number] STEVE LUNDBERG 09/03 Released w/o Limitations [facility] Physica l Therapy ) [facility] Base OP Medicine Clinic) OUTPATIENT [id number] Notes Entered by: VASILE BARDALES 10 Sep 2018 1031 ------- ------- ------- ------- -- A VASILE BARDALES 09/10 Released w/o Limitations [facility] Base OP Medicin e Clinic) [facility] Physical Therapy) OUTPATIENT [id number] [facility] LIV 09/30 Released w/o Limitations [facility] Physica l Therapy ) [facility] Physical Therapy) OUTPATIENT [id number] [facility] LIV 10/02 Released w/o Limitations [facility] Physica l Therapy ) [facility] Disenroll ment) OUTPATIENT [id number] VIRTUAL PHA ARJUN EBN M 10/08 Released w/o Limitations [facility] Disenro llment) [facility] Physical Therapy) OUTPATIENT [id number] [facility] LIV 10/14 Released w/o Limitations [facility] Physica l Therapy ) [facility] Physical Therapy) OUTPATIENT [id number] [facility] LIV 10/16 Released w/o Limitations [facility] Physica l Therapy ) [facility] Physical Therapy) OUTPATIENT [id number] [facility] LIV 10/23 Released w/o Limitations [facility] Physica l Therapy ) [facility] Physical Therapy) OUTPATIENT [id number] lower back follow up/Maj Lundberg's patient MARLYS HENAO 11/05 Released w/o Limitations [facility] Physica l Therapy ) [facility] Physical Therapy) OUTPATIENT [id number] [facility] LIV 11/17 Released w/o Limitations [facility] Physica l Therapy ) [facility] Physical Therapy) OUTPATIENT [id number] knee ETHEL CHAUHANDee GUILLERMO 11/20 Released w/o Limitations [facility] Physica l Therapy ) [facility] Physical Therapy) OUTPATIENT [id number] knee LUCIANA BELL LIV 11/24 Released w/o Limitations [facility] Physica l Therapy ) [facility] Physical Therapy) OUTPATIENT [id number] Resched uled Nov MARLYS HENAO 12/09 Released w/o Limitations [facility] Physica l Therapy ) [facility] Physical Therapy) OUTPATIENT [id number] alter g TIENKIRSTEN 01/16 Released w/o Limitations [facility] Physica l Therapy ) [facility] Physical Therapy) OUTPATIENT [id number] AlterG (sched more Txs & sched f/u /Col ) SANDRA MCCLAIN 03/05 Released w/o Limitations [facility] Physica l Therapy ) [facility] Physical Therapy) OUTPATIENT [id number] Fatmata DAVIS, MCKEON D 03/10 Released w/o Limitations [facility] Physica l Therapy ) [facility] Physical Therapy) OUTPATIENT [id number] AlterG DAVIS, MCKEON D 03/13 Released w/o Limitations [facility] Physica l Therapy ) [facility] Physical Therapy) OUTPATIENT [id number] SegundoLUCIANA REMY LIV 03/17 Released w/o Limitations [facility] Physica l Therapy ) [facility] Physical Therapy) OUTPATIENT [id number] SegundoLUCIANA REMY LIV 03/19 Released w/o Limitations [facility] Physica l Therapy ) [facility] Physical Therapy) OUTPATIENT [id number] LINDA Hoffman 03/26 Released w/o Limitations [facility] Physica l Therapy ) [facility] Physical Therapy) OUTPATIENT [id number] ftr followi carin Pope (Col Henao's patient ) NOE HOWELL 04/02 Released w/o Limitations [facility] Physica l Therapy ) [facility] Physical Therapy) OUTPATIENT [id number] L knee MCCLAIN, SANDRA C 04/15 Released w/o Limitations [facility] Physica l Therapy ) [facility] Physical Therapy) OUTPATIENT [id number] L knee MCCLAIN, SANDRA C 04/17 Released w/o Limitations [facility] Physica l Therapy ) [facility] Optometry ) OUTPATIENT [id number] annual eye exam/gl COLBY Macario 04/23 Released w/o Limitations [facility] Optomet ry) [facility](N Physical Therapy) OUTPATIENT [id number] L knee w in clinic ftr, not post op allowed by NOE Burnett 04/24 Released w/o Limitations [facility](N Physica l Therapy ) [facility] OP Medicine Clinic) TELE CONSULT [id number] Notes Entered by: DESHAWN MILES MIN 08 Jul 2019 0853 ------- ------- ------- ------- -- 422 - PCS RAMAN Shaw 07/07 [facility] OP Medicin e Clinic) [facility] OP Medicine Clinic) OUTPATIENT [id number] DRDONNELL [phone] VASILE BARDALES 07/12 Released w/o Limitations [facility] Base OP Medicin e Clinic) Theater Facility OUTPATIENT [id number] Theater Provider 11/26 Released w/o Limitations [facility] OUTPATIENT [id number] Theater Provider 11/29 Released w/o Limitations [facility] OUTPATIENT [id number] Theater Provider 12/27 Released w/o Limitations [facility] OUTPATIENT [id number] Theater Provider 01/03 Released w/o Limitations [facility] OUTPATIENT [id number] Theater Provider 03/10 Released w/o Limitations [facility] OUTPATIENT [id number] Theater Provider 03/24 Released with Work/Duty Limitations [facility] OUTPATIENT [id number] Theater Provider 05/05 Released w/o Limitations [facility] OUTPATIENT [id number] Theater Provider 05/07 Admitted Theater Facilit y [facility] Medical [facility]) OUTPATIENT [id number] MHA/PHA LAMINE Mcgovern 05/11 Released w/o Limitations [facility] Medical [facility]) Theater Facility OUTPATIENT [id number] Theater Provider 05/16 Released with Work/Duty Limitations [facility] OUTPATIENT [id number] Theater Provider 05/16 Released with Work/Duty Limitations [facility] Theater Facility OUTPATIENT [id number] Theater Provider 08/30 Released w/o Limitations Theater Facilit y [place] [facility] Clinic) OUTPATIENT [id number] 5 Flores BELLA 2 RATNA MARES 10/12 [place]ased w/o Limitations [place] [facility]) [place] [facility] Flight Medicine) OUTPATIENT [id number] physica l therapy referra l (cont issue from [facility]) OLVIN ROBINS 10/14 Released w/o Limitations [place] [facility] Flight Medicin e) [place] [facility] Physical Medicine) OUTPATIENT [id number] JASMYN RODRIGUEZ PT 11/24 Released w/o Limitations [place] [facility] Physica l Medicin e) [place] [facility] Physical Medicine) OUTPATIENT [id number] With TSgt Nohemi at the gym 929 JEANCARLOS RECINOS 11/28 Released w/o Limitations [place] [facility] Physica l Medicin e) [place] [facility]) OUTPATIENT [id number] 1 JENA [id number] RATNA MARES P 12/11 Released w/o Limitations [place] [facility]) [place]( Pandemic Virus) TELE CONSULT [id number] Notes Entered by: Magnolia GAGE 10 Mar 2021 1311 ------- ------- ------- ------- -- KARELY SERRANO 03/10 [place] [facility] Virus) [place] [facility] Physical Medicine) OUTPATIENT [id number] JASMYN RODRIGUEZ PT 04/20 Released w/o Limitations [place] [facility] Physica l Medicin e) [place] [facility]) OUTPATIENT [id number] Notes Entered by: SE TAWANA MARES P 27 Apr 2021 1354 ------- ------- ------- ------- -- flores krishna [facility] [phone] RATNA MARES 04/27 Released w/o Limitations [place] [facility]) [place] [facility] Physical Medicine) OUTPATIENT [id number] JASMYN RODRIGUEZ PT 05/30 Released w/o Limitations [place] [facility] Physica l Medicin e) [place] [facility]) OUTPATIENT [id number] PHAQ REVIEW [place] 06/13 Released w/o Limitations [place] [facility]) [place] [facility] Physical Medicine) TELE CONSULT [id number] RAYMONDJASMYN TORRES PT 07/19 [place] [facility] Physica l Medicin e) [place] [facility] Physical Medicine) OUTPATIENT [id number] Previou s Col Skabelu nd patient DANILO HERNÁNDEZ 08/09 Released w/o Limitations [place] [facility] Physica l Medicin e) [place] [facility] Physical Medicine) OUTPATIENT [id number] DANILO HERNÁNDEZ 08/23 Released w/o Limitations [place] [facility] Physica l Medicin e) [place]( B Optometry ) OUTPATIENT [id number] roucatalina jonas eye exam/ 5 7213 SABAS GUIDRY 09/15 Released w/o Limitations [place] [facility] Optomet ry) [place] [facility] BHOP) OUTPATIENT [id number] sleep disorde r MOI GANT 10/02 Released w/o Limitations [place] [facility] BHOP) [place] [facility]) TELE CONSULT [id number] Notes Entered by: JOHN PAUL LIND 04 Oct 2021 0838 ------- ------- ------- ------- -- Sleep Apnea Inquiry WILLA VAIL JR 10/03 [place]) [place] [facility] Physical Medicine) OUTPATIENT [id number] RENEA ZABALA 10/12 Released w/o Limitations [place] [facility] Physica l Medicin e) [place]( Pandemic Virus) TELE CONSULT [id number] Notes Entered by: RAMSEY WHEELER 16 Oct 2021 1131 ------- ------- ------- ------- -- BML-FAWADShailesh AGUIRREMEDELMINNIE AgudeloAISHA 10/16 Released to Self Care [facility] [place] [facility] jose Virus) [place]( [facility] Medicine [facility]) OUTPATIENT [id number] [phone] Dr. Loni méndez said to message you to get a sleep study done WILLA VAIL JR 11/15 Released w/o Limitations [place] [facility]) [place] [facility] Medicine [facility]) OUTPATIENT [id number] [phone] Follow Up with PCM ОЛЕГ Mojica 01/03 Released w/o Limitations [place] [facility]) [place]( [facility]) TELE CONSULT [id number] Notes Entered by: JOSHUA CHAPIN UNITejinder 09 Jan 2022 0905 ------- ------- ------- ------- -- Report from Sleep Clinic [facility] 022 WILLA VAIL JR 01/09 [place] [facility] [place] Medicine [facility]) OUTPATIENT [id number] Notes Entered by: LILIAN HANKS 11 Jan 2022 0837 ------- ------- ------- ------- -- 3-day BP check [place] 01/10 Released w/o Limitations [place]([facility] [place] [facility]) OUTPATIENT [id number] SM yes// appt f/u ОЛЕГ STEWART 01/29 Released w/o Limitations [place]([facility] [place]) OUTPATIENT [id number] [phone] Maj Stewart request ed a face to face meeting ОЛЕГ STEWART 02/06 Released w/o Limitations [place]([facility] [place] [facility] Nutrition al Medicine) OUTPATIENT [id number] Essenti al (primar y) hyperte nsKAREN Paniagua 02/09 Released w/o Limitations [place]([facility] [place]) TELE CONSULT [id number] Notes Entered by: ОЛЕГ STEWART 09 Feb 2022 1656 ------- ------- ------- ------- -- Lab results ОЛЕГ STEWART 02/09 [place] [place] [facility]) OUTPATIENT [id number] Weight Managem ent f/u BALA GLASS 03/19 Released w/o Limitations [place] [place]) TELE CONSULT [id number] Notes Entered by: ОЛЕГ STEWART 19 Mar 2022 1348 ------- ------- ------- ------- -- Lab results KATH WADDELL 03/[address] [place]([facility] [place] [facility] Physical Medicine) OUTPATIENT [id number] RENEA ZABALA 04/04 Released w/o Limitations [place]([facility] [place] [facility] Nutrition [facility]) OUTPATIENT [id number] Weight loss f/u BALA GLASS 05/10 Released w/o Limitations [place] [place] [facility]) OUTPATIENT [id number] (rebmonica mack ) f/u appt/ 1 [id number] ОЛЕГ STEWART 06/12 Released w/o Limitations [place]([facility] [place]) OUTPATIENT [id number] Notes Entered by: SE TAWANA MARES P 13 Jun 2022 0821 ------- ------- ------- ------- -- flores krishna [facility] [phone] RATNA MARES 06/12 Released w/o Limitations [place]([facility]) [place] [facility] Nutrition [facility]) OUTPATIENT [id number] Weight Managem ent f/u BALA GLASS 07/02 Released w/o Limitations [place] [place] [facility] Nutrition [facility]) OUTPATIENT [id number] weight loss f/u BALA GLASS 08/31 Released w/o Limitations [place] [place] [facility] OUTPATIENT [id number] PHAQ WILLA DAS JR 08/31 Released w/o Limitations [place]([facility] [place] [facility] Physical Medicine) OUTPATIENT [id number] JAY ARMSTRONG 09/04 Released w/o Limitations [place] [place] [facility] Physical Medicine) OUTPATIENT [id number] JAY ARMSTRONG 09/21 Released w/o Limitations [place] [place] [facility] Physical Medicine) OUTPATIENT [id number] JAY ARMSTRONG 09/26 Released w/o Limitations [place] [id number] th [facility] [facility] Between Visit [id number] 01/29 Discharge Disposition: Home or Self Care [facility] Out[facility] [id number] [facility] er for issue of other medical certifi pierce [place]OPLES RPUTNAM 02/09 Discharge Disposition: Home or Self Care 7379C-L [facility] [id number] Obesity , class 3 CHIKIS MMENDOZA 02/09 Discharge Disposition: Home or Self Care [address] [place] [address] [facility] [phone] Essenti al (primar y) hyperte nsion,O bstruct danyell sleep apnea (adult) (pediat ghanshyam), AURELIA Sagastume, PRE-[place] [id number], Hyperli pidemia , unspeci fied,Mo rbid (severe ) obesity due to excess calorie s SANDRA ORGAN 02/11 Discharge Disposition: Home or Self Care [address] [place] [address] [facility] [phone] Morbid (severe ) obesity due to excess calorie s,Obstr uctive sleep apnea (adult) (pediat ghanshyam) SANDRA ORGAN 02/13 Discharge Disposition: Home or Self Care [address] [place] [address] Procedures Combined list of: 1) Procedures from Department of Veterans Affairs facilities going back up to thelast 18 months, not all VA non-surgical procedures are included; 2) All procedures from the Department of Defense facilities. Procedure Procedure Type Code Date Perfomer Comments Sourc e ADMINISTRATION OF PATIENT-FOCUSED HEALTH RISK ASSESSMENT INSTRUMENT (EG, HEALTH HAZARD APPRAISAL) WITH SCORING AND DOCUMENTATION, PER STANDARDIZED INSTRUMENT 2016 [facility] INCISION AND DRAINAGE OF ABSCESS (EG, CARBUNCLE, SUPPURATIVE HIDRADENITIS, CUTANEOUS OR SUBCUTANEOUS ABSCESS, CYST, FURUNCLE, OR PARONYCHIA); SIMPLE OR SINGLE 2014 DoD OPHTHALMIC ULTRASOUND, ECHOGRAPHY, DIAGNOSTIC; CORNEAL PACHYMETRY, UNILATERAL OR BILATERAL (DETERMINATION OF CORNEAL THICKNESS) 2014 DoD FITTING OF SPECTACLES, EXCEPT FOR APHAKIA; MONOFOCAL 2012 DoD THERAPEUTIC PROCEDURE, 1 OR MORE AREAS, EACH 15 MINUTES; GAIT TRAINING (INCLUDES STAIR CLIMBING) 2011 [facility] ADMINISTRATION OF PATIENT-FOCUSED HEALTH RISK ASSESSMENT INSTRUMENT (EG, HEALTH HAZARD APPRAISAL) WITH SCORING AND DOCUMENTATION, PER STANDARDIZED INSTRUMENT 2020 [facility] FITTING OF SPECTACLES, EXCEPT FOR APHAKIA; MONOFOCAL 2009 [facility] THERAPEUTIC, PROPHYLACTIC, OR DIAGNOSTIC INJECTION (SPECIFY SUBSTANCE OR DRUG); SUBCUTANEOUS OR INTRAMUSCULAR 2009 [facility] THERAPEUTIC PROCEDURE, 1 OR MORE AREAS, EACH 15 MINUTES; THERAPEUTIC EXERCISES TO DEVELOP STRENGTH AND ENDURANCE, RANGE OF MOTION AND FLEXIBILITY 2022 [facility] THERAPEUTIC PROCEDURE, 1 OR MORE AREAS, EACH 15 MINUTES; THERAPEUTIC EXERCISES TO DEVELOP STRENGTH AND ENDURANCE, RANGE OF MOTION AND FLEXIBILITY 2022 [facility] ADMINISTRATION OF PATIENT-FOCUSED HEALTH RISK ASSESSMENT INSTRUMENT (EG, HEALTH HAZARD APPRAISAL) WITH SCORING AND DOCUMENTATION, PER STANDARDIZED INSTRUMENT 2022 [facility] THERAPEUTIC PROCEDURE,1 OR MORE AREAS,EACH 15 MINUTES;NEUROMUSCULA R REEDUCATION OF MOVEMENT,BALANCE,SALVAGE GRINDER RDINATION,KINESTHETI C SENSE,POSTURE,AND/OR PROPRIOCEPTION FOR SITTING AND/OR STANDING ACTIVITIES 2022 [facility] MEDICAL NUTRITION THERAPY; RE-ASSESSMENT AND INTERVENTION, INDIVIDUAL, [id number] WITH THE PATIENT, EACH 15 MINUTES 2022 [facility] MEDICAL NUTRITION THERAPY; RE-ASSESSMENT AND INTERVENTION, INDIVIDUAL, [id number] WITH THE PATIENT, EACH 15 MINUTES 2022 [facility] ADMINISTRATION OF PATIENT-FOCUSED HEALTH RISK ASSESSMENT INSTRUMENT (EG, HEALTH HAZARD APPRAISAL) WITH SCORING AND DOCUMENTATION, PER STANDARDIZED INSTRUMENT 2022 [facility] MEDICAL NUTRITION THERAPY; RE-ASSESSMENT AND INTERVENTION, INDIVIDUAL, [id number] WITH THE PATIENT, EACH 15 MINUTES 2022 [facility] THERAPEUTIC PROCEDURE,1 OR MORE AREAS,EACH 15 MINUTES;NEUROMUSCULA R REEDUCATION OF MOVEMENT,BALANCE,SALVAGE GRINDER RDINATION,KINESTHETI C SENSE,POSTURE,AND/OR PROPRIOCEPTION FOR SITTING AND/OR STANDING ACTIVITIES 2022 [facility] TELE ASSESS & MGT SRV PROV QUAL NONPHYS HLTH CARE PRO TO EST PAT,PARENT,GUARD NOT ORIG REL ASSESS & MGT SRV PROV W/IN PREV 7 DAYS NOR LEAD ASSESS & MGT SRV/PX W/IN NXT 24 HR/SOON APT;5-10 MIN MED DIS 2022 [facility] MEDICAL NUTRITION THERAPY; GROUP (2 OR MORE INDIVIDUAL(S)), EACH 30 MINUTES 2021 [facility] ELECTROCARDIOGRAM, ROUTINE ECG WITH AT LEAST 12 LEADS; WITH INTERPRETATION AND REPORT 2021 [facility] THERAPEUTIC PROCEDURE, 1 OR MORE AREAS, EACH 15 MINUTES; THERAPEUTIC EXERCISES TO DEVELOP STRENGTH AND ENDURANCE, RANGE OF MOTION AND FLEXIBILITY 2021 [facility] BRIEF EMOTIONAL/BEHAVIORAL ASSESSMENT (EG, DEPRESSION INVENTORY, ATTENTION-DEFICIT/HY PERACTIVITY DISORDER [ADHD] SCALE), WITH SCORING AND DOCUMENTATION, PER STANDARDIZED INSTRUMENT 2021 [facility] OPHTHALMIC ULTRASOUND, ECHOGRAPHY, DIAGNOSTIC; CORNEAL PACHYMETRY, UNILATERAL OR BILATERAL (DETERMINATION OF CORNEAL THICKNESS) 2021 [facility] NEEDLE INSERTION(S) WITHOUT INJECTION(S); 3 OR MORE MUSCLES 2021 [facility] NEEDLE INSERTION(S) WITHOUT INJECTION(S); 1 OR 2 MUSCLE(S) 2021 [facility] ADMINISTRATION OF PATIENT-FOCUSED HEALTH RISK ASSESSMENT INSTRUMENT (EG, HEALTH HAZARD APPRAISAL) WITH SCORING AND DOCUMENTATION, PER STANDARDIZED INSTRUMENT 2021 [facility] RE-EVAL,PHYSICAL THERAPY EST PLAN OF CARE,REQ:EXAM,REV,HX & USE,STAND TESTS &MARGY REQ;REV PLAN OF CARE USING STAND PAT ASSESS INSTR &/MARGY ASSESS FUNC OUTCOME TYP,20 MIN SPENT [id number] W PAT&/FAM 2021 [facility] BRIEF COMM TECH-BASE SERV,E.G. VIRT CHK-IN,BY PHYS/OTH QUAL HCP,RPT E&M SERV,PROV TO EST PT,NOT ORIG FRM REL E/M SERV PROV W/IN PREV 7DAY NOR LEAD TO E/M SRV/PX W/IN NEXT 24HR/SOON FARTUN; 5-10 MIN DISC 2021 DoD THERAPEUTIC PROCEDURE, 1 OR MORE AREAS, EACH 15 MINUTES; THERAPEUTIC EXERCISES TO DEVELOP STRENGTH AND ENDURANCE, RANGE OF MOTION AND FLEXIBILITY 2021 DoD BRIEF COMM TECH-BASE SERV,E.G. VIRT CHK-IN,BY PHYS/OTH QUAL HCP,RPT E&M SERV,PROV TO EST PT,NOT ORIG FRM REL E/M SERV PROV W/IN PREV 7DAY NOR LEAD TO E/M SRV/PX W/IN NEXT 24HR/SOON FARTUN; 5-10 MIN DISC 2020 DoD THERAPEUTIC PROCEDURE, 1 OR MORE AREAS, EACH 15 MINUTES; THERAPEUTIC EXERCISES TO DEVELOP STRENGTH AND ENDURANCE, RANGE OF MOTION AND FLEXIBILITY 2020 DoD THERAPEUTIC PROCEDURE, 1 OR MORE AREAS, EACH 15 MINUTES; THERAPEUTIC EXERCISES TO DEVELOP STRENGTH AND ENDURANCE, RANGE OF MOTION AND FLEXIBILITY 2020 [facility] ADMINISTRATION OF PATIENT-FOCUSED HEALTH RISK ASSESSMENT INSTRUMENT (EG, HEALTH HAZARD APPRAISAL) WITH SCORING AND DOCUMENTATION, PER STANDARDIZED INSTRUMENT 2020 [facility] ADMINISTRATION OF PATIENT-FOCUSED HEALTH RISK ASSESSMENT INSTRUMENT (EG, HEALTH HAZARD APPRAISAL) WITH SCORING AND DOCUMENTATION, PER STANDARDIZED INSTRUMENT 2019 [facility] PSYCHOLOGICAL OR NEUROPSYCHOLOGICAL TEST ADMINISTRATION, WITH SINGLE AUTOMATED, STANDARDIZED INSTRUMENT VIA ELECTRONIC PLATFORM, WITH AUTOMATED RESULT ONLY 2019 [facility] PSYCHIATRIC EVALUATION OF HOSPITAL RECORDS, OTHER PSYCHIATRIC REPORTS, PSYCHOMETRIC AND/OR PROJECTIVE TESTS, AND OTHER ACCUMULATED DATA FOR MEDICALDIAGNOSTIC PURPOSES 2019 DoD THERAPEUTIC PROCEDURE, 1 OR MORE AREAS, EACH 15 MINUTES; GAIT TRAINING (INCLUDES STAIR CLIMBING) 2019 [facility] FITTING OF SPECTACLES, EXCEPT FOR APHAKIA; MONOFOCAL 2019 DoD THERAPEUTIC PROCEDURE,1 OR MORE AREAS,EACH 15 MINUTES;NEUROMUSCULA R REEDUCATION OF MOVEMENT,BALANCE,SALVAGE GRINDER RDINATION,KINESTHETI C SENSE,POSTURE,AND/OR PROPRIOCEPTION FOR SITTING AND/OR STANDING ACTIVITIES 2019 DoD THERAPEUTIC PROCEDURE,1 OR MORE AREAS,EACH 15 MINUTES;NEUROMUSCULA R REEDUCATION OF MOVEMENT,BALANCE,SALVAGE GRINDER RDINATION,KINESTHETI C SENSE,POSTURE,AND/OR PROPRIOCEPTION FOR SITTING AND/OR STANDING ACTIVITIES 2019 DoD THERAPEUTIC PROCEDURE, 1 OR MORE AREAS, EACH 15 MINUTES; THERAPEUTIC EXERCISES TO DEVELOP STRENGTH AND ENDURANCE, RANGE OF MOTION AND FLEXIBILITY 2019 DoD THERAPEUTIC PROCEDURE, 1 OR MORE AREAS, EACH 15 MINUTES; GAIT TRAINING (INCLUDES STAIR CLIMBING) 2019 DoD THERAPEUTIC PROCEDURE, 1 OR MORE AREAS, EACH 15 MINUTES; GAIT TRAINING (INCLUDES STAIR CLIMBING) 2019 DoD THERAPEUTIC PROCEDURE, 1 OR MORE AREAS, EACH 15 MINUTES; GAIT TRAINING (INCLUDES STAIR CLIMBING) 2019 DoD THERAPEUTIC PROCEDURE, 1 OR MORE AREAS, EACH 15 MINUTES; GAIT TRAINING (INCLUDES STAIR CLIMBING) 2019 DoD THERAPEUTIC PROCEDURE, 1 OR MORE AREAS, EACH 15 MINUTES; GAIT TRAINING (INCLUDES STAIR CLIMBING) 2019 DoD THERAPEUTIC PROCEDURE, 1 OR MORE AREAS, EACH 15 MINUTES; GAIT TRAINING (INCLUDES STAIR CLIMBING) 2019 DoD THERAPEUTIC PROCEDURE, 1 OR MORE AREAS, EACH 15 MINUTES; GAIT TRAINING (INCLUDES STAIR CLIMBING) 2018 DoD THERAPEUTIC PROCEDURE, 1 OR MORE AREAS, EACH 15 MINUTES; THERAPEUTIC EXERCISES TO DEVELOP STRENGTH AND ENDURANCE, RANGE OF MOTION AND FLEXIBILITY 2018 DoD THERAPEUTIC PROCEDURE,1 OR MORE AREAS,EACH 15 MINUTES;NEUROMUSCULA R REEDUCATION OF MOVEMENT,BALANCE,SALVAGE GRINDER RDINATION,KINESTHETI C SENSE,POSTURE,AND/OR PROPRIOCEPTION FOR SITTING AND/OR STANDING ACTIVITIES 2018 DoD THERAPEUTIC PROCEDURE,1 OR MORE AREAS,EACH 15 MINUTES;NEUROMUSCULA R REEDUCATION OF MOVEMENT,BALANCE,SALVAGE GRINDER RDINATION,KINESTHETI C SENSE,POSTURE,AND/OR PROPRIOCEPTION FOR SITTING AND/OR STANDING ACTIVITIES 2018 DoD THERAPEUTIC PROCEDURE,1 OR MORE AREAS,EACH 15 MINUTES;NEUROMUSCULA R REEDUCATION OF MOVEMENT,BALANCE,SALVAGE GRINDER RDINATION,KINESTHETI C SENSE,POSTURE,AND/OR PROPRIOCEPTION FOR SITTING AND/OR STANDING ACTIVITIES 2018 DoD STRAPPING; KNEE 2018 DoD THERAPEUTIC ACTIVITIES, DIRECT (ONE-ON-ONE) PATIENT CONTACT (USE OF DYNAMIC ACTIVITIES TO IMPROVE FUNCTIONAL PERFORMANCE), EACH 15 MINUTES 2018 DoD THERAPEUTIC ACTIVITIES, DIRECT (ONE-ON-ONE) PATIENT CONTACT (USE OF DYNAMIC ACTIVITIES TO IMPROVE FUNCTIONAL PERFORMANCE), EACH 15 MINUTES 2018 [facility] ADMINISTRATION OF PATIENT-FOCUSED HEALTH RISK ASSESSMENT INSTRUMENT (EG, HEALTH HAZARD APPRAISAL) WITH SCORING AND DOCUMENTATION, PER STANDARDIZED INSTRUMENT 2018 DoD THERAPEUTIC ACTIVITIES, DIRECT (ONE-ON-ONE) PATIENT CONTACT (USE OF DYNAMIC ACTIVITIES TO IMPROVE FUNCTIONAL PERFORMANCE), EACH 15 MINUTES 2018 DoD THERAPEUTIC ACTIVITIES, DIRECT (ONE-ON-ONE) PATIENT CONTACT (USE OF DYNAMIC ACTIVITIES TO IMPROVE FUNCTIONAL PERFORMANCE), EACH 15 MINUTES 2018 DoD THERAPEUTIC ACTIVITIES, DIRECT (ONE-ON-ONE) PATIENT CONTACT (USE OF DYNAMIC ACTIVITIES TO IMPROVE FUNCTIONAL PERFORMANCE), EACH 15 MINUTES 2018 [facility] ONLINE ASSESS &MANAG SERV PROVIDE,A QUAL NONPHYS HCP TO AN ESTABLISHED PAT/GUARDIAN,NOT ORIGINAT [facility] RELAT ASSESS &MANAG SERV PROVIDE W/IN THE PREV 7 DAYS,USE THE [employer] 2018 [facility] RE-EVAL,PHYSICAL THERAPY EST PLAN OF CARE,REQ:EXAM,REV,HX & USE,STAND TESTS &MARGY REQ;REV PLAN OF CARE USING STAND PAT ASSESS INSTR &/MARGY ASSESS FUNC OUTCOME TYP,20 MIN SPENT [id number] W PAT&/FAM 2018 [facility] THERAPEUTIC PROCEDURE, 1 OR MORE AREAS, EACH 15 MINUTES; THERAPEUTIC EXERCISES TO DEVELOP STRENGTH AND ENDURANCE, RANGE OF MOTION AND FLEXIBILITY 2018 [facility] THERAPEUTIC PROCEDURE, 1 OR MORE AREAS, EACH 15 MINUTES; THERAPEUTIC EXERCISES TO DEVELOP STRENGTH AND ENDURANCE, RANGE OF MOTION AND FLEXIBILITY 2018 [facility] THERAPEUTIC PROCEDURE, 1 OR MORE AREAS, EACH 15 MINUTES; THERAPEUTIC EXERCISES TO DEVELOP STRENGTH AND ENDURANCE, RANGE OF MOTION AND FLEXIBILITY 2018 [facility] CRUTCHES UNDERARM, OTHER THAN WOOD, ADJUSTABLE OR FIXED, PAIR, WITH PADS, TIPS AND HANDGRIPS 2018 [facility] THERAPEUTIC PROCEDURE, 1 OR MORE AREAS, EACH 15 MINUTES; THERAPEUTIC EXERCISES TO DEVELOP STRENGTH AND ENDURANCE, RANGE OF MOTION AND FLEXIBILITY 2018 [facility] ADMINISTRATION OF PATIENT-FOCUSED HEALTH RISK ASSESSMENT INSTRUMENT (EG, HEALTH HAZARD APPRAISAL) WITH SCORING AND DOCUMENTATION, PER STANDARDIZED INSTRUMENT 2017 [facility] Corneal Pachymetry, Bilateral With Interpret And Report Corneal Pachymetry, Bilateral With Interpret And Report [id number] 2014 SHRADDHA MCCRACKEN [facility] Spectacles Services Fitting Monofocal Except For Aphakia Spectacles Services Fitting Monofocal Except For Aphakia 61659 2014 SHRADDHA MCCRACKEN Determination Of Refractive State Determination Of Refractive State 65045 2014 SHRADDHA MCCRACKEN Ophthalmological Prior Patient Start Comprehensive Care Ophthalmological Prior Patient Start Comprehensive Care 29984 2014 SHRADDHA MCCRACKEN [facility] Spectacles Services Fitting Monofocal Except For Aphakia Spectacles Services Fitting Monofocal Except For Aphakia 64213 2012 SABAS GUIDRY Determination Of Refractive State Determination Of Refractive State 63050 2012 SABAS GUIDRY Ophthalmological New Patient Start Comprehensive Care Ophthalmological New Patient Start Comprehensive Care 22892 2012 SABAS GUIDRY [facility] Physical Therapy Gait Training Physical Therapy Gait Training 24317 2011 HERSON CHOE Gait training 20 minutes DoD Spectacles Services Fitting Monofocal Except For Aphakia Spectacles Services Fitting Monofocal Except For Aphakia 39968 2009 SAMINA WEST [facility] Physical Therapy Neuromuscular Re-education Physical Therapy Neuromuscular Re-education 94212 2019 SANDRA MCCLAIN Physical Therapy: ___ Se ion Segments, 15 Minutes Each Physical Therapy: ___ Session Segments, 15 Minutes Each 61993 2019 SANDRA MCCLAIN Physical Therapy Gait Training Physical Therapy Gait Training 74052 2019 SANDRA MCCLAIN PT A e ment Kinetic Training PT Assessment Kinetic Training 73792 2018 [facility] Exerc[facility] Aquatic Exercises 84263 10/23 [facility] A e ment Kinetic Training PT Assessment Kinetic Training 14441 2018 [facility] Aquatic Exercises Aquatic Exercises 06873 10/16 [facility] PT A e ment Kinetic Training PT Assessment Kinetic Training 24016 2018 [facility] [place] [facility] Aquatic Exercises Aquatic Exercises 60270 10/14 [facility] [place] Preventive Medicine Administration Of Health Risk Questionnaire Patient-Focused Preventive Medicine Administration Of Health Risk Questionnaire Patient-Focused 92668 2018 NEENA MCDONNELL [facility] PT A e ment Kinetic Training PT Assessment Kinetic Training 61520 2018 [facility] Aquatic Exercises Aquatic Exercises 05872 10/02 [facility] PT A e ment Kinetic Training PT Assessment Kinetic Training 06776 2018 [facility] [place] Aquatic Exercises Aquatic Exercises 44699 09/30 [facility] Preventive Medicine Administration Of Health Risk Questionnaire Patient-Focused Preventive Medicine Administration Of Health Risk Questionnaire Patient-Focused 76448 2018 VASILE BARDALES Internet Med Svc Qual Nonphys Healthcare Prof Up To 7 Days Estab Patient Internet Med Svc Qual Nonphys Healthcare Prof Up To 7 Days Estab Patient 36557 2018 VASILE BARDALES Physical Therapy Service Re-Evaluation Physical Therapy Service Re-Evaluation 49024 2018 STEVE LUNDBERG Physical Therapy: ___ Se ion Segments, 15 Minutes Each Physical Therapy: ___ Session Segments, 15 Minutes Each 92173 2018 NICHOLS, PEDRO [facility] Physical Therapy: ___ Se ion Segments, 15 Minutes Each Physical Therapy: ___ Session Segments, 15 Minutes Each 38242 2018 TIEN KIRSTEN EAGLE [facility] Physical Therapy: ___ Se ion Segments, 15 Minutes Each Physical Therapy: ___ Session Segments, 15 Minutes Each 35159 2018 STEVE LUNDBERG [facility] Physical Therapy Service Evaluation Low Complexity Physical Therapy Service Evaluation Low Complexity 46924 2018 STEVE LUNDBERG Physical Therapy: ___ Se ion Segments, 15 Minutes Each Physical Therapy: ___ Session Segments, 15 Minutes Each 21894 2018 STEVE LUNDBERG Osteopathic Manip Treatment (OMT) 1-2 Body Regions Involved Osteopathic Manip Treatment (OMT) 1-2 Body Regions Involved 27144 2018 STEVE LUNDBERG Physical Therapy Service Evaluation Low Complexity Physical Therapy Service Evaluation Low Complexity 89834 2018 STEVE LUNDBERG Preventive Medicine Administration Of Health Risk Questionnaire Patient-Focused Preventive Medicine Administration Of Health Risk Questionnaire Patient-Focused 24961 2017 CELESTE GIPSON Internet Med Svc Qual Nonphys Healthcare Prof Up To 7 Days Estab Patient Internet Med Svc Qual Nonphys Healthcare Prof Up To 7 Days Estab Patient 88062 2017 CELESTE GIPSON Preventive Medicine Administration Of Health Risk Questionnaire Patient-Focused Preventive Medicine Administration Of Health Risk Questionnaire Patient-Focused 98639 2016 PRASAD STONE [facility] Incision And Drainage Of Skin Absce , Simple Incision And Drainage Of Skin Abscess, Simple 98474 2014 JEANCARLOS CARRERA [facility] Preventive Medicine Administration Of Health Risk Questionnaire Patient-Focused Preventive Medicine Administration Of Health Risk Questionnaire Patient-Focused 53927 LAMINE MENDOZA [facility] Physical Therapy Service Re-Evaluation Physical Therapy Service Re-Evaluation 01379 MARLYS HENAO Orthopedic Strapping Knee Orthopedic Strapping Knee 69242 MARLYS HENAO Physical Therapy: ___ Se ion Segments, 15 Minutes Each Physical Therapy: ___ Session Segments, 15 Minutes Each 64415 LUCIANA BELL [facility] Physical Therapy Neuromuscular Re-education Physical Therapy Neuromuscular Re-education 61513 LUCIANA BELL [facility] Physical Therapy Gait Training Physical Therapy Gait Training 97869 KIRSTEN CHAUHAN [facility] Ophthalmological New Patient Start Comprehensive Care Ophthalmological New Patient Start Comprehensive Care 90377 TREVON COLBY PIETRO [facility] Determination Of Refractive State Determination Of Refractive State 92916 COLBY LESTER [facility] Spectacles Services Fitting Monofocal Except For Aphakia Spectacles Services Fitting Monofocal Except For Aphakia 51781 COLBY LESTER [facility] Psychiatric Diagnostic Evaluation Review of Records and Reports Psychiatric Diagnostic Evaluation Review of Records and Reports 21232 AILYN ROA [facility] Psychometric Neuropsych Testing Battery Admin By Computer Psychometric Neuropsych Testing Battery Admin By Computer 35257 URSULA COLES [facility] Physical Therapy Service Evaluation Moderate Complexity Physical Therapy Service Evaluation Moderate Complexity 22091 JASMYN RODRIGUEZ PT [facility] Brief communication technology-based service, e.g. virtual check-in, by a physician or other qualified health care profsumi trejo who can report evaluation and management services, provided to an established patient, not originating from a related E/M service provided within the previous 7 days nor leading to an E/M service or procedure within the next 24 hours or soonest available appointment; 5-10 minutes of medical discu ion RATNA MARES [facility] Musculoskeletal Needle Insertion Without Injection 1 Or 2 Muscles Musculoskeletal Needle Insertion Without Injection 1 Or 2 Muscles [id number] DANILO HERNÁNDEZ [facility] Patient Training And Self-Care Skills Each 15 Minutes Patient Training And Self-Care Skills Each 15 Minutes [id number] DANILO HERNÁNDEZ [facility] Musculoskeletal Needle Insertion Without Injection 3 Or More Muscles Musculoskeletal Needle Insertion Without Injection 3 Or More Muscles [id number] DANILO HERNÁNDEZ [facility] Scanning Computerized Ophthalmic Diagnostic Imaging Optic Nerve Scanning Computerized Ophthalmic Diagnostic Imaging Optic Nerve 32846 SABAS GUIDRY [facility] Corneal Pachymetry Corneal Pachymetry 34298 SABAS GUIDRY [facility] Health Behavior Intervention Individual Initial 30 Minutes Health Behavior Intervention Individual Initial 30 Minutes 11635 MOI GANT [facility] Health Behavior A e ment / Re-A e ment Health Behavior Assessment / Re-Assessment 69479 MOI GANT [facility] Psychometric Emotional / Behavioral A e ment Psychometric Emotional / Behavioral Assessment 96231 MOI GANT [facility] Electrocardiogram Electrocardiogram 99243 ОЛЕГ STEWART [facility] Medical Nutrition Therapy Group (2 or More Individuals) Each 30 Minutes Medical Nutrition Therapy Group (2 or More Individuals) Each 30 Minutes [id number] KAREN PANDA [facility] Non-Physician Phone Call To Patient/Provider Brief (5-10min) Non-Physician Phone Call To Patient/Provider Brief (5-10min) [id number] KATH WADDELL 1.) Contact number: [phone] 2.) Verified pt by full name and 3.) Provider has reviewed results and authorized prepared foods production team member to release results to the patient 4.) Lab results are copied to this encounter 5.) Pt advised the following regarding results from their PCM/Healthcare team: Per Dr. Stewart This patients Liver enzymes remain elevated. I need to begin a workup for it. Can you have this patient come see me in person for apt. No need for labs ahead of time. I may adjust them based on his fam and medical history 6.) Did pt have further questions/conc erns that required f/u with PCM? No; booked the patient for 2 MAR @1000. Strictly advised return precautions (abd pain, jaundice, etc). 7.) Pt verbalized understanding of plan of care, verbalized intent to comply, and had no further questions or concerns [facility] Medical Nutrition Therapy Re-a e ment And Intervention Each 15 Minutes Medical Nutrition Therapy Re-assessment And Intervention Each 15 Minutes [id number] BALA GLASS [facility] Physical Therapy Service Evaluation Low Complexity Physical Therapy Service Evaluation Low Complexity 76706 JAY ARMSTRONG [facility] No data available for this section Ambulato ry Pharmacy Social History Combined list of available smoking, tobacco, and other social history from [facility] Defense and Veterans Affairs facilities. Social History Type Response Date Comment Sour e Male 06/09/2020 Ambulatory Pha rmacy This section is an empty social history section. DoD Tobacco Cigarette use: Never-cigarette user. Other Tobacco use: Never-other tobacco user (not cigarettes). Ambulatory Pharma cy Sexual Orientation Ambula tory Pharmacy Gender identity Ambulator y Pharmacy Assessment and Plan Combined list of future care activities from Department of Defense and Veterans Affairs facilities (e.g., assessment and plan notes, appointments, orders, and referrals). Additional future care activities may be listed in the Plan of Care section. Result Assessment and Plan Date Source Assessment and Plan Extracted from:Title : Virtual MHA/PHA [facility] Clinic Note Author: SHELTON ISIDRO NP Date: 02/10/24 1.?Encounter for issue of other medical certificate ? ? Reviewed documentation of height and weight, current medical conditions and deployment related health problems, to include screening for traumatic brain injury exposure, allergies, medications, required immunizations, medical readiness laboratory tests, audiology, and optometry examinations. Completed screenings and provided patient education as appropriate. ? Assessed responses to AUDIT= ?4, PCL-C=?0, PHQ-8=0?(no elevated risk) screening tools, at this time no tasking or consults needed.?Larriman Helper is?aware of services available (911, ?One source, [employer], Walk in , Walk in ER, Notify chain of command, etc) and how to contact them if needed. Larriman Helper denies suicidal and homicidal ideation.? ? Preventative services reviewed and discussed per age, race, and gender. Reviewed immunization history and assessed immunization status. Reviewed physical activity including aerobic and isometric exercises. ?Reviewed risk sexual risk factors and previous STD testing date, including HIV, and assessed as not at significant risk for acquiring STDs including HIV infection. Reviewed readiness labs and examinations needed including recommendation for lipid screening every 5 years beginning at age 35. Compared medications reported by Larriman Helper to active medication list in?[facility] and any variances were documented.? ? Any complaints or issues identified while conducting the PHA have been addressed and or referred back to the Larriman Helper's PCM for care. ? ? 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 Profile for RUMA, deployable with waiver until 09/12/2024.?Larriman Helper advised to follow up with PCM, Behavioral Health, /911, or [facility] One Source as needed for continuation of care, and/or further evaluation during exacerbations of physical and/or psychological illness or injury. See PHA document for additional information. Sixteen?minutes of total time spent reviewing records, discussing health concerns and preventative health measures with Larriman Helper. ? ? Extracted from:Title: [facility] Obesity Author: KWABENA CHOE PA Date: 12/11/23 1.?Morbid obesity 33? y/o ADAF male with morbid obesity (BMI 47).? Concern for underlying metabolic disorder.? Has previously completed group lifestyle balance course.? Discussed that weight loss could greatly aid in relief of chronic knee pain.? Recommend further evaluation with endocrinology, consult placed. - Follow-up appointment made with [facility] - F/u with PCM after Endo evaluation ? Ordered: Referral Request 2.0 - DoD ? 2.?BMI 30+ - obesity see above Ordered: Referral Request 2.0 - DoD ? Capt Kwabena Choe, BSC, PAMercedesC [facility] ([facility]) Geovani CALLAWAY? ? Please note that this dictation was completed with computer voice recognition software, [employer]. Quite often unanticipated grammatical, syntax, homophones, and other interpretive errors are inadvertently transcribed by the computer software. Please disregard these errors and excuse any errors that have escaped final proofreading.? If are any questions regarding documentation, please contact this provider directly.? ? ? 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 PHA Type:?Non-Fly? Qualification:? ? World Wide Qualified? Profile:? None? IMR Status:? Green? Waivers:? None? Arming Status: ? administrative appeals tribunal member does not arm? 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 ? Reviewed servicer travel trailers's PHAQ and EHR for the past twelve months?to include?reported height, weight, current medical conditions and deployment related health problems, traumatic brain injury screening,?medications, allergies,?immunizations, medical readiness laboratory tests and occupational health records.? Completed screenings and provided patient education as appropriate. ? MHA completed in [facility] and copied to this record.? Larriman Helper is aware of services available ([phone], One source, [facility], [employer],?, , embedded squadron resources,?emergency room, first shirt or others in?chain of command, etc) and how to contact them if needed. Larriman Helper denies suicidal and homicidal ideation. ? Preventative services reviewed and discussed per age, race, and gender. Reviewed immunization history and assessed immunization status. Reviewed physical activity,?sexual risk factors and previous STD testing date, including HIV. Reviewed readiness labs and occupational health examinations required. Compared medications reported by Larriman Helper to active medication list in [facility] and any variances were reconciled. ? Time spent in pt care, counseling and reviewing chart was approximately?20min. Patient informed PHA complete and ASIMS updated. Any complaints or issues identified while conducting the PHA have been addressed and/or the servicer travel trailers was instructed to return to their PCM for care. ? ? ? //SIGNED// ROSALINA CORRALES, Lt Col, [employer], [employer], FS? Family Physician/Flight Surgeon Phase 2 Medical Readiness Cell [employer]? (P) [phone] ? 2.?Hyperlipidemia April 2023 XEK=987, moderate HLP, not in statin benefit but will be due for 1 year repeat abnormal Fasting lipids UTD -to f/u with PCM ??annually, sooner as needed ? ? 3.?Prediabetes 2022 OjaZ9i=3.8, c/w prediabetes -counseled aerobic exercise and modest weight loss would greatly help with prediabetes -annual HgbA1c UTD -to f/u with PCM annually, sooner as needed ? 4.?Obstructive sleep apnea, Severe (2021 IUW=336) 27 Nov 2021 PSG with GYB=629, severe RUMA, has been on CPAP in interim but will need DW469 for AHI>15 -message sent to PCM team, and member CC'd at his request ? ? BASE Geovani Extracted from:Title: [facility] - Obesity/Pain of Left Knee Author: IVETTE ANGELES PA Date: 05/03/23 1.?Obesity patient presents to clinic with elevated vital signs and BMI of 47.21.? Patient states that he has been counseled?approximately one year ago prior to the PCS regarding his elevated blood pressure and had labs collected. denies any chest pain, shortness of breath, lightheadedness/dizziness, headache or visual changes.? Discussed with the patient: ? - Expressed patient is BMI may be contributing to joint pain and expressed that he should follow-up with health motions for treatment. patient's blood pressure does remain < JNC 8 goal of 140/90. - Ordering labs to assess for diabetes, thyroid disorder, kidney and liver function. - Advised patient to use at home blood pressure cuff machine and log results and journal daily. - Follow-up with PCN next 4-6 weeks for reassessment. ? Patient verbalized understanding and agrees?with plan. All questions were answered. ? Ordered: Comprehensive Metabolic Panel Hemoglobin A1c Lipid Panel TSH w/ Reflex FT4 and Total T3 ? 2.?Pain of left knee joint Chronic and unstable. ? Patient with history of multiple injuries to left knee which includes fractures to meniscus strain LCL.? Patient states he has tried physical therapy multiple times asked me to have acute pain to knee.? Physical therapy suggested patient follow PCM discussed he needs to receive thorough assessment to rule out surgical intervention. ? - ordered x-ray of left knee for further assessment. - Referral placed to ortho. ? Ordered: XR Knee Weight Bearing 3+ Left Referral Request 2.0 - DoD ? 3.?Low back pain Pt. has mechanical back pain?without significant radiculopathy.?Physical Exam is?unremarkable and there are no red flags.??Will treat conservatively. -- Discussed use of?superficial heat for muscle spasms/pain -- Acetaminophen/NSAIDs for pain/swelling --? ? ?We discussed that muscle relaxants have not been proven to reduced the severity or duration of back pain. ? --Remain physically active?with an emphasis on core strengthening, bed rest is not recommended.??Back exercises may be useful in preventing recurrence. ?Resume normal activity as quickly as possible.? ? -- If symptoms persist may consider Physical Therapy referral ? -- No indication for imaging currently.? If symptoms persist beyond 4-6 weeks will need to re-assess. ? ? Return to clinic for persistent/increasing symptoms or for any red flags (bowel bladder issues, foot drop, extreme pain, etc) ? Patient aware to call 911 or go to the nearest emergency room/urgent care for any urgent/emergent concerns or call?[phone] and leave message with the clinic for any other concerns. Patient can also access [employer] at [email or web address] to leave message with PCM Team. ? Please note that this dictation was completed with [employer] dictation microphone and software and unintentional errors may be present. Efforts were made to check spelling and grammatical errors. ?If there are questions about the note please do not hesitate to ask. ? Capt Ivette Angeles PA-C [facility] [address], [place] ? Future Appointments Appointment Date: 04/06/2024 11:00:00 AM Scheduled Provider: CHIKIS HENDERSON LCSW Location: [address] [place] [address] Appointment Type: FTR Future Scheduled TestsLaboratoryHIV-1/O/2 01/30/24Isohemagglutinin, Point Titer [id number] 01/30/24Repository Sample, Serum 01/30/24Physical TherapyPhysical Therapy (PT) Outpatient Additional Treatment 03/12/23 03/09/2024 Ambulatory Pharmacy Functional Status Combined list of recent functional and cognitive assessments recorded at [facility] ([facility] Functional [place] Measurement (FIM) Scale: 1 = Total Assistance (Subject = 0% +), 2 = Maximal Assistance (Subject = 25% +), 3 = Moderate Assistance (Subject = 50% +), 4 = Minimal Assistance (Subject = 75% +), 5 = Supervision, 6 = Modified [place] (Device), 7 = Complete [place] (Timely, Safely). Assessment Date/Time Source Assessment Type Assessment Skill Assessment Score Assessment Details No data available for this section
--- OUTSIDE RECORDS SUMMARY | 2024-03-09 02:37 | XMS_ITS ---
Author Organization [id number] [employer] Address [address] [place] [address] [place] [address] Phone Care Team Providers Care Application Processor Name Role Phone DEF_PROV, DEF_PROV Unavailable Unavailable Vital Signs Vitals Values(11/27/2023) Weight 0 kg Height 0 cm BMI 0 kg/m2 Systolic BP 134 mmHg Diastolic BP 85 mmHg Respiratory Rate 0 /min Pulse Oximetry 0 % Inhaled Oxygen Concentration 0 % Heart Rate 0 /min Body Temperature 0 Chloe Encounters Encounter Diagnosis Code CodeSystem Performer Location Date Status No Encounter Plan of Care Planned Activity Date Code Code System Tooth Surf [place] atment Case No Planned Activity Treatment Case Case Name Priority Status Date Creation DRC 1 Optional Create 06/09/2020 DRC 2 Eventual (Future) Create 06/09/2020 DRC 3 Immediate Create 06/09/2020 DRC Status Date Set Class Status Description Source Exam 11/27/2023 1 Deployable [employer] No den anna treatment required and current dental exam NDJELAU Y 11/27/2023 1 Deployable [employer] No den anna treatment required and current dental exam NDJELAU 06/03/2021 4 Non-Deployable Unknown denta l classification due to need of exam System Procedures Procedure Date Code Code System Status Tooth Surf Periodic oral evaluation 11/27/2023 D0120 CDT Completed Prophylaxis-adult 11/27/2023 D1110 CDT Completed Panoramic image 11/27/2023 D0330 CDT Completed Oral hygiene instruction 11/27/2023 D1330 CDT Completed Topical Application Fluoride Varnish 11/27/2023 D1206 CDT C ompleted Caries risk assessment-low 11/27/2023 D0601 CDT Completed Patient treated 11/27/2023 W9999 CDT Completed Oral cancer screen-low risk 11/27/2023 W0401 CDT Completed Periodontal disease screen-low 11/27/2023 W0901 CDT Complet ed Immunizations Vaccine CVX code Administration Date Status Immunization records are not included. Problems SNOMED Code Patient Problem Status Date Diagnosed Tooth Surf Missing tooth, more than a year Valid 4 1 Missing tooth, more than a year Valid 4 16 Missing tooth, more than a year Valid 4 17 Missing tooth, more than a year Valid 4 32 Allergies, adverse reactions, alerts Substance Event Type Code System Code Severity Onset Date Chyna ction Status No Allergies Medications RxNorm Code Product Brand Name Strength Dose Route Frequency Da te Started Status No Medications Instructions Visit Date Instructions Instructions not shown. Reason for Referral None Social History Social History Element Description SNOMED-CT Start Date R ecord Date Sex Male Results Test Result Ref. Range Abnormal Flag Date Performed Set Order Code No Lab Results Functional Status Functional Status Description SNOMED-CT Condition Status Date No Functional Status. Mental Status Status Date No Mental Status. Health Concerns Section No Known Health Concerns on 11/27/2023 Medical Equipment Patient has no history of implantable devices Goals Section Goal Date Code Code System No Active Goals
--- OUTSIDE RECORDS SUMMARY | 2024-03-09 02:37 | XMS_ITS | Continuity of Care Document ---
Author Name [facility] Organization [facility] Care Team Providers Care Non Acoustic Operator Name Role Phone [facility] Unavailable Unavailable Problems [...] Diagnosis [facility] ASSESSMENT, PRE-DEPLOYMENT, DOCUMENTED ON PU4054 Active 4 Diagnosis [facility] Hyperlipidemia Active 4 Diagnosis [facility] Obesity, class 3 Active 4 Diagnosis [facility] Encounter for issue of other medical certificate Active [address] [facility] Encounter for issue of repeat prescription Inactive 1 Condition DoD Encounter for immunization Inactive 1 Condition DoD [...] counseling and surveillance Active 9 Condition DoD ASSESSMENT, PRE-DEPLOYMENT, DOCUMENTED ON BD8700 Active Condition Ambulatory [facility] Chondromalacia, left knee Active Condition [facility] Hyperlipidemia Active Condition [facility] Hypertension Active Condition [facility] Morbid obesity Active Condition [facility] Obstructive sleep apnea Active Condition [facility] Prediabetes Active Condition [facility] Cellulitis of left finger Active Condition [facility] 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 Inactive Condition DoD refractive error - hypermetropia Active Condition DoD visit for: services flight physical Active Condition DoD upper respiratory infection Inactive Condition [facility] Outpatient Physician Consultation Active Condition DoD closed fracture phalanges right first toe Inactive Condition DoD closed fracture right first toe proximal phalanx Inactive Condition [facility] visit for: screening exam hypertension Inactive Condition DoD visit for: services physical Active Condition DoD Patient Education Active Condition [facility] Guidance: Concerns About Unsafe Sexual Practices Inactive Condition [facility] visit for: administrative purpose Inactive Condition DoD joint pain, localized in the knee Active Condition DoD visit for: services physical accession Active Condition DoD Medications Combined list of outpatient medications from [...] (EAR), SANDOZ, 7.5 ml DROP BTL Active [id number] 02/25/20 2 3 2022 7.5 Pharmac y Data Transac tion Service Facilit y dexAMETHaso ne 0.5 mg tablet See Instruct ions, Oral, # 2 EA, 0 total refill(s ), Hard Stop Oral (given by mouth) Complet ed 02/13/2024 2.0 Ambulat ory Pharmac y Diclofenac Sodium 0.01mg/mg, Gel/Jelly, Topical Avoid exposure to sun.For external use.Do not take if . Active 05/29/2024 [id number] 4 2023 100 [facility]) meloxicam 15 mg oral tablet 1 tab(s), Oral, Daily, # 30 tab(s), 0 total refill(s ), Maintena nce, 1 tab(s) Oral Daily, Pharmacy : [facility] Oral (given by mouth) Discont inued 08/01/2023 30.0 00[facility] MUPIROCIN (MUPIROCIN) , 2%, OINT.(GM), TOPICAL, TEVA [place], 22 g TUBE Active 0000144 3 2022 22 Pharmac y Data Transac [...] of 32 grams per day, Pharmacy : [facility] Discont inued 06/26/2023 100.0 [facility] Allergies, Adverse Reactions, Alerts Combined list of allergies from Department of Defense and Veterans Affairs facilities. It does not include entries that were removed or entered in error. Substance Category Reaction Severity Reaction type Status Date Reported Comments Source CECLOR (CEFACLOR) Drug allergy (disorder) Unknown active 0 [place] [address] cefaclor Propensity to adverse reactions to substance Unknown Active 0 Ambulatory Pharmacy Immunizations Combined list of available immunizations from the Department of Defense and Veterans Affairs facilities. Immunization Series Date Given Administered By Site Reaction Lot Number CVX Code Drug Guard Immigration Status Comments Source influenza virus vaccine, inactivated 2023 IHSAN HORTA [id number] complet ed influenza virus vaccine, inactivat ed 12/18/23 Recorded 0055C[facility] influenza virus vaccine, inactivated 2022 IHSAN Floydul [place], right (delt oid) [id number] [email or web address] complet ed influenza virus vaccine, inactivat ed 01/07/23 Given 0055C[facility] COVID Vaccine Pfizer 2021 IHSAN HORTA [id number] complet ed Result Comment: Route: Unknown Manufactu rer: Pfizer, Inc (PFR) 0055C-3 [facility] SARS-COV-2 (COVID-19) vaccine, mRNA, spike protein, LNP, preservative free, 30 mcg/0.3mL dose 2 2021 [id number] Pfizer, Inc (PFR) complet ed SARS-COV- 2 (COVID-19 ) vaccine, mRNA, spike protein, LNP, preservat danyell free, 30 mcg/0.3mL dose DoD influenza, injectable, quadrivalent- pf 2020 MOHSENJEROMEASPENDARSHANAMagnus RULA [id number] 150 complet ed Result Comment: Route: Unknown Manufactu rer: Wuzzuf e (SKB) 0055C-3 [facility] Influenza, injectable, quadrivalent, preservative free 1 2020 [id number] 150 SRE [place] - 2 (SKB) complet ed Influenza , injectabl e, quadrival ent, preservat danyell free DoD SARS-CoV-2 (COVID-19) Ad26 vaccine, rec 2020 [id number] complet ed SARS-CoV- 2 (COVID-19 ) Ad26 vaccine, rec 05/05/20 Given Ambulat ory Pharmac y SARS-COV-2 (COVID-19) vaccine, vector non-replicati ng, recombinant spike protein-Ad26, preservative free, 0.5 mL 1 2020 [id number] 212 [facility] (JSN) comple t ed SARS-COV- 2 (COVID-19 ) vaccine, vector non-repli cating, recombina nt spike protein-A d26, preservat danyell free, 0.5 mL DoD influenza, injectable, quadrivalent- pf 2019 [id number] 150 Seqirus complet ed influenza , injectabl e, quadrival ent-pf 12/25/19 Given Ambulat ory Pharmac y Influenza, injectable, quadrivalent, preservative free 1 2019 [id number] 150 Seqirus (SEQ) complet ed Influenza , injectabl e, quadrival ent, preservat danyell free DoD influenza, seasonal, [place], quadrivalent, 0.5mL dose, no preservative 1 2019 [id number] 201 Sanofi Pasteur (PMC) complet ed influenza , seasonal, [place], quadrival ent, 0.5mL dose, no preservat danyell DoD poliovirus vaccine, inactivated 2019 [id number] 10 sanofi pasteur complet ed polioviru s vaccine, inactivat ed 08/05/19 Given Ambulat ory Pharmac y measles virus vaccine 0 2019 05 () Not Given measles virus vaccine DoD rubella virus vaccine 0 2019 06 () Not Given rubella virus vaccine DoD mumps virus vaccine 0 2019 07 () Not Given mumps virus vaccine DoD poliovirus vaccine, inactivated 2 2019 [id number] 10 Sanofi Pasteur (PMC) complet ed polioviru s vaccine, inactivat ed DoD typhoid Vi capsular polysaccharid e vac 2019 [id number] 101 sanofi pasteur complet ed typhoid Vi capsular polysacch aride vac 07/07/19 Given Ambulat ory Pharmac y yellow fever vaccine 2019 [id number] 37 sanofi pasteur complet ed yellow fever vaccine 07/07/19 Given Ambulat ory Pharmac y yellow fever vaccine 1 2019 [id number] 37 Sanofi Pasteur (PMC) complet ed yellow fever vaccine DoD typhoid Vi capsular polysaccharid e vaccine 2 2019 [id number] 101 Sanofi Pasteur (PMC) complet ed typhoid Vi capsular polysacch aride vaccine DoD tetanus-dipht h toxoids (Td) adult/adol 2019 [id number] 09 sanofi pasteur complet ed tetanus-d iphth toxoids (Td) adult/ado l 04/23/19 Given Ambulat ory Pharmac y tetanus and diphtheria toxoids, adsorbed, preservative free, for adult use (2 Lf of tetanus toxoid and 2 Lf of diphtheria toxoid) 2 2019 [id number] 09 Sanofi Pasteur (PMC) complet ed tetanus and diphtheri a toxoids, adsorbed, preservat danyell free, for adult use (2 Lf of tetanus toxoid and 2 Lf of diphtheri a toxoid) DoD influenza, injectable, quadrivalent- pf 2018 [id number] 517 150 Seqirus complet ed influenza , injectabl e, quadrival ent-pf 12/25/18 Given Ambulat ory Pharmac y Influenza, injectable, quadrivalent, preservative free 11 10/31/ 2019 [id number] 517 150 Seqirus (SEQ) complet ed Influenza [...] Ambulat ory Pharmac y Influenza, injectable, Madin Imboden Canine Kidney, preservative free, quadrivalent 9 [id number] 171 Seqirus (SEQ) comple t ed Influenza , injectabl e, Madin [place] Canine Kidney, preservat danyell free, quadrival ent DoD anthrax vaccine 2015 [id number] 24 Emergent Biosolutions complet ed anthrax vaccine 02/13/16 Given Ambulat ory Pharmac y anthrax vaccine 3 2015 [id number] 24 Emergent [employer] [place] (MIP) complet ed anthrax vaccine DoD influenza, seasonal, injectable-pf 2015 [id number] 140 GlaxoSmithKli ne complet ed influenza , seasonal, injectabl e-pf 12/30/15 Given Ambulat ory Pharmac y Influenza, seasonal, injectable, preservative free 8 2015 [id number] 140 SmithKline (SKB) complet ed Influenza , seasonal, injectabl e, preservat danyell free DoD anthrax vaccine 2015 [id number] 24 Emergent Biosolutions complet ed anthrax vaccine 08/09/15 Given Ambulat ory Pharmac y anthrax vaccine 2 2015 [id number] 24 [employer]gent [employer] [place] (MIP) complet ed anthrax vaccine DoD anthrax vaccine 2015 [id number] 24 Emergent Biosolutions complet ed anthrax vaccine 06/17/15 Given Ambulat ory Pharmac y vaccinia (smallpox) vaccine 2015 VV03-01 9-C 75 sanofi pasteur complet ed vaccinia (smallpox ) vaccine 06/17/15 Given Ambulat ory Pharmac y anthrax vaccine 1 2015 [id number] 24 Emergent BioDefense [facility] complet ed anthrax vaccine DoD vaccinia (smallpox) vaccine 0 2015 VV03-01 9-C 75 Sanofi Pasteur (PMC) complet ed vaccinia (smallpox ) vaccine DoD Kenyan Encephalitis IM 2015 [id number] 4E 134 Valneva complet ed Kenyan Encephali tis IM 06/02/15 Given Ambulat ory Pharmac y Ken[place] Encephalitis vaccine for intramuscular administratio n 3 2015 [id number] 4E 134 XINTEC Biomedical (INT) complet ed Ken[place] Encephali tis vaccine for intramusc ular administr ation DoD influenza, live, intranasal,qu adrivalent 2014 [id number] 149 SurIDx Inc comple t ed influenza , live, [...] DoD influenza, live, intranasal, quadrivalent 7 2014 [id number] 149 Winking Entertainment, Inc. (MED) complet ed influenza , live, intranasa l, quadrival ent DoD Kenyan Encephalitis IM 2014 [id number] 3E 134 Valneva complet ed Kenyan Encephali tis IM 05/14/14 Given Ambulat ory Pharmac y Ken[place] Encephalitis vaccine for intramuscular administratio n 2 2014 [id number] 3E 134 IntercPGA TOUR Superstore [employer]ical (INT) complet ed Kenyan Encephali tis vaccine for intramusc ular administr ation DoD Kenyan Encephalitis IM 2014 [id number] 0E 134 Valneva complet ed Kenyan Encephali tis IM 03/19/14 Given Ambulat ory Pharmac y Kenyan Encephalitis vaccine for intramuscular administratio n 0 2014 [id number] 0E 134 Intercell Biomedical (INT) complet ed Ken[place] Encephali tis vaccine for intramusc ular administr ation DoD influenza, live, intranasal,qu adrivalent 2013 [id number] 149 Medimmune Inc comple t ed influenza , live, intranasa l,quadriv alent 12/16/13 Given Ambulat ory Pharmac y influenza, live, intranasal, quadrivalent 6 2013 [id number] 149 MedImmune, Inc. (MED) complet ed influenza , live, intranasa l, quadrival ent DoD influenza, live, intranasal,qu adrivalent 2012 [id number] 149 Medimmune Inc comple t ed influenza , live, intranasa l,quadriv alent 12/01/12 Given Ambulat ory Pharmac y influenza, live, intranasal, quadrivalent 0 2012 [id number] 149 MedImmune, Inc. (MED) complet ed influenza , live, intranasa l, quadrival ent DoD measles virus vaccine 0 2012 05 () Not Given measles virus vaccine DoD rubella virus vaccine 0 2012 06 () Not Given rubella virus vaccine DoD influenza virus vaccine, live 2011 [id number] 111 Medimmune Inc comple t ed influenza virus vaccine, live 11/30/11 Given Ambulat ory Pharmac y influenza virus vaccine, live, attenuated, for intranasal use 1 2011 [id number] 111 MedImmune, Inc. (MED) complet ed influenza virus vaccine, live, attenuate d, for intranasa l use DoD influenza virus vaccine, live 2010 [id number] 111 Medimmune Inc comple t ed influenza virus vaccine, live 11/21/10 Given Ambulat ory Pharmac y influenza virus vaccine, live, attenuated, for intranasal use 3 2010 [id number] 111 MedImmune, Inc. (MED) complet ed influenza virus vaccine, live, attenuate d, for intranasa l use DoD hepatitis A-hepatitis B vaccine 2009 [id number] [id number] 104 GlaxoSmithKli pr complet ed hepatitis A-hepatit is B vaccine 01/31/10 Given Ambulat ory Pharmac y hepatitis A and hepatitis B vaccine 3 2009 [id number] 6BB [facility] hepatitis A and hepatitis B vaccine DoD influenza virus vaccine, live 2009 [id number] 111 Medimmune Inc comple t ed influenza virus vaccine, live 01/17/10 Given Ambulat ory Pharmac y influenza virus vaccine, live, attenuated, for intranasal use 1 2009 [id number] 111 Winking Entertainment, Inc. (MED) complet ed influenza virus vaccine, [...] vaccine DoD tuberculin purified protein derivative 2009 [id number] 96 sanofi pasteur complet ed tuberculi n purified protein derivativ e 03/13/09 Given Ambulat ory Pharmac y meningococcal A,C,Y,W-135 (MCV4P) 2009 [id number] 114 sanofi pasteur complet ed meningoco ccal A,C,Y,W-1 35 (MCV4P) 03/11/09 Given Ambulat ory Pharmac y influenza virus vaccine,split 2009 [id number] 1A 15 CSL Behring complet ed influenza virus vaccine,s plit 03/11/09 Given Ambulat ory Pharmac y poliovirus vaccine, inactivated 2009 D0052 10 sanofi pasteur complet ed polioviru s vaccine, inactivat ed 03/11/09 Given Ambulat ory Pharmac y Novel influenza-H1N 1-09, injectable 2009 [id number] 1 127 Novartis Pharmaceutica complet ed Novel influenza -E1N8-67, injectabl e 03/11/09 Given Ambulat ory Pharmac y tetanus, diphtheria, acellular pertu is 2009 [id number] 5CA 115 GlaxoSmithKli ne complet ed tetanus, diphtheri a, acellular pertussis 03/11/09 Given Ambulat ory Pharmac y poliovirus vaccine, inactivated 1 2009 D0052 10 Sanofi Pasteur (PMC) complet ed polioviru s vaccine, inactivat ed DoD influenza virus vaccine, split virus (incl. purified surface antigen)-reti red CODE 1 2009 [id number] 1A 15 [employer], Zartis. (CS) complet ed influenza virus vaccine, split virus (incl. purified surface antigen)- retired CODE DoD meningococcal polysaccharid e (groups A, C, Y and W-135) diphtheria toxoid conjugate vaccine (MCV4P) 1 2009 [id number] 114 Sanofi Pasteur (PMC) complet ed meningoco ccal polysacch aride (groups A, C, Y and W-135) diphtheri a toxoid conjugate vaccine (MCV4P) DoD tetanus toxoid, reduced diphtheria toxoid, and acellular pertu is vaccine, adsorbed 1 2009 [id number] 5CA 115 SRE [place] - 2 (SKB) complet ed tetanus toxoid, reduced diphtheri a toxoid, and acellular pertussis vaccine, adsorbed DoD Novel influenza-H1N 1-09, injectable 1 2009 [id number] 1 127 Novartis [employer] [place]. (NOV) complet ed Novel influenza -M8T9-49, injectabl e DoD Results Combined list of [...] Prevention' s HIV diagnostic algorithm. Refer to [facility] Lab Guide for additional information : [email or web address] x Testing performed by [employer] inaTelegent Systemsalana richardson. Ambulator y Pharmacy Chemistry eGFR CKD [...] ADM Date DC Date Status Disposition [place] [address](Opt ometry Clinic [facility]) OUTPATIENT [id number] SAMINA WEST 03/18 Released w/o Limitations [facility] [place] [address](O ptometr y Clinic [facility]) [place] [address]([facility]) OUTPATIENT [id number] -0900 F/U BILAT KNEE PAIN (320/20 2) JEFFERSON AGUILAR 04/05 Released with Work/Duty Limitations [facility] [place] [address](T [facility]) [facility] ([facility])(Hea lthcare Integrato rs) OUTPATIENT [id number] FTAC Feb 03 RICKY CHONG 02/01 Released w/o Limitations [facility] ([facility])(H ealthca re Integra tors) [facility] Medical [facility]Sco tt Flight Medicine Tm) OUTPATIENT [id number] FTAC - Vitals KWABENA MEDINA 02/02 Released w/o Limitations [facility] ([facility])(S cott Flight Medicin e Tm) [address] [place] [address] Group [facility] ([facility])(Fam autumn Med Tm B Non-AD BCC) OUTPATIENT [id number] [facility]/PHA RAMIN JARRELL 02/12 Released w/o Limitations [address] [place] [address] [facility] ([facility])(F amily Med Tm B Non-AD BCC) [address] [place] [address] [facility] ([facility])(Fam autumn Med Tm B Non-AD BCC) OUTPATIENT [id number] PHA Require ments RAMIN JARRELL 02/22 Released w/o Limitations [facility] ([facility])(F amily Med Tm B Non-AD BCC) [facility] ([facility])(Fam autumn Med Tm B Non-AD BCC) OUTPATIENT [id number] f/u for back issues, er visit [phone] RAMIN JARRELL 06/13 Released w/o Limitations [address] [place] [address] [facility] ([facility])(F amily Med Tm B Non-AD BCC) [address] [place] [address] [facility] ([facility])(Fam autumn Med Tm B Non-AD BCC) OUTPATIENT [id number] right foot, big toe pain, ROLDAN BEJARANO 01/24 Released with Work/Duty Limitations [facility] [place] ([facility])(F amily Med Tm B Non-AD BCC) [address] [place] [address] [facility] ([facility])(Phy sical Therapy) OUTPATIENT [id number] right great toe HERSON CHOE 01/24 Released with Work/Duty Limitations [address] [place] [address] Group [facility] ([facility])(P hysical Therapy ) [address] [place] [address] [facility] ([facility])(Fam autumn Med Tm B Non-AD BCC) TELE CONSULT [id number] Notes Entered by: YAIMA AMRTIN 30 Jan 2012 1030 ------- ------- ------- ------- -- Network Results -Podiat ry 2 ROLDAN BEJARANO 01/[address] [place] [address] [facility] ([facility])(F amily Med Tm B Non-AD BCC) [address] [place] [address] [facility] ([facility])(Fam autumn Med Tm B Non-AD BCC) TELE CONSULT [id number] Notes Entered by: JEANCARLOS SMITH 09 Mar 2012 193 ------- ------- ------- ------- -- DHC/PHA ROLDAN BEJARANO 03/10 [facility] ([facility])(F amily Med Tm B Non-AD BCC) [facility] [place] ([facility])(Fam autumn Med Tm B Non-AD BCC) OUTPATIENT [id number] 3 yr face to face PHA [id number] ROLDAN BEJARANO 03/24 Released w/o Limitations [facility] ([facility])(F amily Med Tm B Non-AD BCC) [employer]([facility]) OUTPATIENT [id number] elizabeth pope/TRENTON Emmanuel 07/01 Released w/o Limitations [employer]([facility]) [facility](Opt ometry Clinic) OUTPATIENT [id number] eYE EXAM SABAS GUIDRY 12/15 Released w/o Limitations [facility](O ptometr y Clinic) [employer] [employer] [facility]) OUTPATIENT [id number] Notes Entered by: FIDEL VILLEGAS 16 Apr 2013 08 ------- ------- ------- ------- -- FIDEL Neal 04/15 Released w/o Limitations [facility](P ublic Health) [facility](Opt ometry Clinic) OUTPATIENT [id number] SHRADDHA Heck 05/14 Released w/o Limitations [facility](O ptometr y Clinic) [employer]([facility]) OUTPATIENT [id number] Notes Entered by: JUDY FRANKLIN 24 May 2014 1231 ------- ------- ------- ------- -- JUDY WEAVER 05/24 Released w/o Limitations [employer](P ublic Health) [facility](Aer omedical Services) OUTPATIENT [id number] Notes Entered by: SELWYN MULLINS 05 Jan 2015 1553 ------- ------- ------- ------- -- Finger pain ANGEL LUISDee JEANCARLOS Knowles 01/05 Released w/o Limitations [facility]) OUTPATIENT [id number] Notes Entered by: ROCCO AGUILAR 23 Jun 2015 1516 ------- ------- ------- ------- -- Web Manuel COLBY AGUILAR 06/22 Released w/o Limitations [facility]) [facility]) OUTPATIENT [id number] Notes Entered by: KATELYNN LEPE 30 Jan 2016 1055 ------- ------- ------- ------- -- Blurry Vision MARY HUMPHRIES 01/29 Released w/o Limitations [facility]) [facility]) TELE CONSULT [id number] Notes Entered by: Mario RODRIGUEZ 22 May 2016 1347 ------- ------- ------- ------- -- PCS DAIYSAN STEWART VILLAVICENCIO 05/22 Other Not Elsewhere Classified [facility]) [facility]) OUTPATIENT [id number] Notes Entered by: Benson BARDALES 13 Jul 2016 1456 ------- ------- ------- ------- -- PRASAD KIM 07/13 Released w/o Limitations [facility]) [facility](In and Out Hayes Jara) TELE CONSULT [id number] Notes Entered by: CARA HOLLAND 01 Aug 20164 ------- ------- ------- ------- -- Medical Out-Pro cessing CARA HOLLAND 08/01 Advice Assessment [facility](I n and Out Process ing [place]) [facility] In & Out-Proce ssing Clinic) TELE CONSULT [id number] Notes Entered by: FIDELIA LASSITER 15 Sep 2016 1728 ------- ------- ------- ------- -- Chema warner In Process ing LUCIANA LASSITER 09/15 [facility] In & Out-Pro cessing Clinic) [facility] Clinical Pharmacy Care) OUTPATIENT [id number] Notes Entered by: OLVIN BOOTH ED 02 Jan 2017 0844 ------- ------- ------- ------- -- cold clinic ROBERTO CARLOS SANTIAGO 01/02 [facility] Clinica l Pharmac y Care) [facility] ([facility] OUTPATIENT [id number] right ankle pain MINNIE STUART 09/02 Released w/o Limitations [facility] ([facility])) [facility] OP Medicine Clinic) OUTPATIENT [id number] Notes Entered by: CELESTE GIPSON 23 Sep 2017 1310 ------- ------- ------- ------- -- CELESTE Guevara 09/23 [facility] w/o Limitations [facility] Base OP Medicin e Clinic) [facility] Element C-1) OUTPATIENT [id number] PARIS MURRY 09/24 Released w/o Limitations [facility] Element C-1) [facility] Emergency Room) OUTPATIENT [id number] Notes Entered by: AMOR LEW 29 Jan 2018 1155 ------- ------- ------- ------- -- 27y/o M Clogged ear STEF BARRERA 01/29 Released w/o Limitations [facility] Emergen cy Room) [facility] Element C-1) OUTPATIENT [id number] 9 ! 1200 ongoing R ankle issues HERSON MARY 03/07 Released w/o Limitations [facility] Element C-1) [facility] Element C-1) TELE CONSULT [id number] Notes Entered by: BHARATI TYSON 12 Mar 2018 1046 ------- ------- ------- ------- -- Profile extensi on IRWIN KONG 03/12 [facility] Element C-1) [facility] Physical Therapy) OUTPATIENT [id number] right ankle pain STEVE LUNDBERG 04/08 Released w/o Limitations [facility](N Physica l Therapy ) [facility] Physical Therapy) OUTPATIENT [id number] r ankle STEVE LUNDBERG 08/01 Released w/o Limitations [facility] Phys[facility] ) [facility] Physical Therapy) OUTPATIENT [id number] L knee, R ankle FTR w/ KIRSTEN Campos 08/12 Released w/o Limitations [facility] ) [facility] Physical Therapy) OUTPATIENT [id number] KEVYN NICHOLS 08/18 Released w/o Limitations [facility] Therapy ) [facility] Physical Therapy) OUTPATIENT [id number] STEVE LUNDBERG 09/03 Released w/o Limitations [facility] Phys[facility] Therapy ) [facility]) OUTPATIENT [id number] Notes Entered by: VASILE BARDALES 10 Sep 2018 1031 ------- ------- ------- ------- -- A VASILE BARDALES 09/10 Released w/o Limitations [facility]) [facility] Physical Therapy) OUTPATIENT [id number] [facility] 09/30 Released w/o Limitations [facility] Phys[facility] Therapy ) [facility] Physical [facility]) OUTPATIENT [id number] [facility] LIV 10/02 Released w/o Limitations [facility] Phys[facility] Therapy ) [facility] Disenroll ment) OUTPATIENT [id number] VIRTUAL PHA ARJUN BEN M 10/08 Released w/o Limitations [facility] Disenro llment) [facility] Physical Therapy) OUTPATIENT [id number] [facility] 10/14 Released w/o Limitations [facility] Phys[facility] Therapy ) [facility] Physical [facility]) OUTPATIENT [id number] [facility] 10/16 Released w/o Limitations [facility] Phys[facility] Therapy ) [facility] Physical Therapy) OUTPATIENT [id number] [facility] 10/23 Released w/o Limitations [facility] Phys[facility] Therapy ) [facility] Physical Therapy) OUTPATIENT [id number] lower back follow up/Maj Lundberg's patient MARLYS HENAO 11/05 Released w/o Limitations [facility] Phys[facility] Therapy ) [facility] Physical Therapy) OUTPATIENT [id number] [facility] LIV 11/17 Released w/o Limitations [facility] Phys[facility] Therapy ) [facility] Physical Therapy[facility] OUTPATIENT [id number] knee ETHEL CHAUHANDee GUILLERMO 11/20 Released w/o Limitations [facility] Phys[facility] Therapy ) [facility] Physical Therapy) OUTPATIENT [id number] knee LUCIANA BELL LIV 11/24 Released w/o Limitations [facility] Phys[facility] Therapy ) [facility] Physical Therapy) OUTPATIENT [id number] Resched uled Nov MARLYS HENAO 12/09 Released w/o Limitations [facility] Phys[facility] Therapy ) [facility] Physical Therapy) OUTPATIENT [id number] alter g TIENKIRSTEN 01/16 Released w/o Limitations [facility] Phys[facility] Therapy ) [facility] Physical Therapy) OUTPATIENT [id number] AlterG (sched more Txs & sched f/u /Col ) SANDRA MCCLAIN 03/05 Released w/o Limitations [facility] Phys[facility] Therapy ) [facility] Physical Therapy) OUTPATIENT [id number] Fatmata DAVIS, MCKEON D 03/10 Released w/o Limitations [facility] Phys[facility] Therapy ) [facility] Physical Therapy) OUTPATIENT [id number] AlterG DAVIS, MCKEON D 03/13 Released w/o Limitations [facility] Phys[facility] Therapy ) [facility] Physical Therapy) OUTPATIENT [id number] SegundoLUCIANA REMY LIV 03/17 Released w/o Limitations [facility] Physica [facility] Therapy ) [facility] Physical Therapy) OUTPATIENT [id number] SegundoLUCIANA REMY LIV 03/19 Released w/o Limitations [facility] Phys[facility] Therapy ) [facility] Physical Therapy) OUTPATIENT [id number] LINDA Hoffman 03/26 Released w/o Limitations [facility] Phys[facility] Therapy ) [facility] Physical Therapy) OUTPATIENT [id number] 4 ftr followi carin Pope (Col Henao's patient ) NEO HOWELL 04/02 Released w/o Limitations [facility] Phys[facility] Therapy ) [facility] Physical Therapy) OUTPATIENT [id number] 4 L knee MCCLAIN, SANDRA C 04/15 Released w/o Limitations [facility] Phys[facility] Therapy ) [facility] Physical Therapy) OUTPATIENT [id number] 9 L knee MCCLAIN, SANDRA C 04/17 Released w/o Limitations [facility] Physica [facility] Therapy ) [facility] Optometry ) OUTPATIENT [id number] annual eye exam/gl COLBY Macario 04/23 Released w/o Limitations [facility] Optomet ry) [facility](N Physical Therapy) OUTPATIENT [id number] L knee w in clinic ftr, not post op allowed by NOE Burnett 04/24 Released w/o Limitations [facility](N Physica l Therapy ) [facility] OP Medicine Clinic) TELE CONSULT [id number] Notes Entered by: DESHAWN MILES MIN 08 Jul 2019 0853 ------- ------- ------- ------- -- 422 - PCS RAMAN Shaw 07/07 [facility] OP Medicin e Clinic) [facility] OP Medicine Clinic) OUTPATIENT [id number] DRDONNELL [id number] [id number] VASILE BARDALES 07/12 Released w/o Limitations [facility] Base OP Medicin e Clinic) Theater Facility OUTPATIENT [id number] Theater Provider 11/26 Released w/o Limitations [facility] OUTPATIENT [id number] Theater Provider 11/29 Released w/o Limitations [facility] OUTPATIENT [id number] Theater Provider 12/27 Released w/o Limitations [facility] OUTPATIENT [id number] Theater Provider 01/03 Released w/o Limitations [facility] OUTPATIENT [id number] Theater Provider 03/10 Released w/o Limitations [facility] OUTPATIENT [id number] Theater Provider 03/24 Released with Work/Duty Limitations [facility] OUTPATIENT [id number] Theater Provider 05/05 Released w/o Limitations [facility] OUTPATIENT [id number] Theater Provider 05/07 Admitted Theater Facilit y [facility] Medical [facility]) OUTPATIENT [id number] MHA/PHA LAMINE Mcgovern 05/11 Released w/o Limitations [facility] Medical [facility]) Theater Facility OUTPATIENT [id number] Theater Provider 05/16 Released with Work/Duty Limitations Theater [facility] Theater Facility OUTPATIENT [id number] Theater Provider 05/16 Released with Work/Duty Limitations [facility] Theater Facility OUTPATIENT [id number] Theater Provider 08/30 Released w/o Limitations Theater Facilit y [place] Clinic) OUTPATIENT [id number] 5 Flores BELLA 2 RATNA MARES 10/12 [place]ased w/o Limitations [place] [facility]) [place] Flight Medicine) OUTPATIENT [id number] physica l therapy referra l (cont issue from [facility]) OLVIN ROBINS 10/14 Released w/o Limitations [place] [facility] Flight Medicin e) [place] Physical Medicine) OUTPATIENT [id number] JASMYN RODRIGUEZ PT 11/24 Released w/o Limitations [place] [facility]) [place] [facility] Physical Medicine) OUTPATIENT [id number] 5 With TSgt Nohemi at the gym 929 JEANCARLOS RECINOS 11/28 Released w/o Limitations [place] [facility] Medicin e) [place] [facility]) OUTPATIENT [id number] 1 JENA [id number] RATNA MARES P 12/11 Released w/o Limitations [place] [facility]) [place]( Pandemic Virus) TELE CONSULT [id number] Notes Entered by: Magnolia GAGE 10 Mar 2021 1311 ------- ------- ------- ------- -- KARELY SERRANO 03/10 [place] [facility]) [place] [facility] Physical Medicine) OUTPATIENT [id number] JASMYN RODRIGUEZ PT 04/20 Released w/o Limitations [place] [facility] Medicin [facility]) [place] [facility]) OUTPATIENT [id number] Notes Entered by: SE TAWANA MARES P 27 Apr 2021 1354 ------- ------- ------- ------- -- flores krishna [facility] [phone] RATNA MRAES 04/27 Released w/o Limitations [place] [facility]) [place] [facility] Physical Medicine) OUTPATIENT [id number] JASMYN RODRIGUEZ PT 05/30 Released w/o Limitations [place] [facility] Medicin [facility]) [place] [facility]) OUTPATIENT [id number] PHAQ REVIEW [place] 06/13 Released w/o Limitations [place] [facility]) [place] [facility] Physical Medicine) TELE CONSULT [id number] RAYMONDJASMYN TORRES PT 07/19 [place] [facility] Phys[facility] Medicin e[facility] [place] [facility] Physical Medicine) OUTPATIENT [id number] Previou s Col [place] nd patient DANILO HERNÁNDEZ 08/09 Released w/o Limitations [place] [facility] Phys[facility] Medicin e) [place] [facility] Physical Medicine) OUTPATIENT [id number] DANILO HERNÁNDEZ 08/23 Released w/o Limitations [place] [facility] Phys[facility] Medicin e) [place]( B Optometry ) OUTPATIENT [id number] 5 roucatalina jonas eye exam/ 5 7213 SABAS GUIDRY 09/15 Released w/o Limitations [place] [facility] Optomet ry) [place] [facility] BHOP) OUTPATIENT [id number] sleep disorde r MOI GANT 10/02 Released w/o Limitations [place] [facility] BHOP) [place] [facility]) TELE CONSULT [id number] Notes Entered by: JOHN PAUL LIND 04 Oct 2021 0838 ------- ------- ------- ------- -- Sleep Apnea Inquiry WILLA VAIL JR 10/03 [place] [facility]) [place] [facility] Physical Medicine) OUTPATIENT [id number] RENEA ZABALA 10/12 Released w/o Limitations [place] [facility] Phys[facility] Medicin e) [place]( Pandemic Virus) TELE CONSULT [id number] Notes Entered by: RAMSEY WHEELER 16 Oct 2021 1131 ------- ------- ------- ------- -- BML-FAWADShailesh AGUIRREMEDELMINNIE AgudeloAISHA 10/16 Released to Self Care [place] [facility]) [place] [facility] Medicine [facility]) OUTPATIENT [id number] [phone] Dr. Loin méndez said to message you to get a sleep study done WILLA VAIL JR 11/15 Released w/o Limitations [place] [facility]) [place] [facility] [place] [facility]) OUTPATIENT [id number] [phone] Follow Up with PCM ОЛЕГ Mojica 01/03 Released w/o Limitations [place] [facility]) [place] t Center) TELE CONSULT [id number] Notes Entered by: JOSHUA CHAPIN UNITejinder 09 Jan 2022 0905 ------- ------- ------- ------- -- Report from Sleep Clinic [facility] 022 WILLA VAIL JR 01/09 [place] [facility] [place] Medicine [facility]) OUTPATIENT [id number] Notes Entered by: LILIAN HANKS 11 Jan 2022 0837 ------- ------- ------- ------- -- 3-day BP check [place] 01/10 Released w/o Limitations [place] [facility]) [place] [facility] [place] [facility]) OUTPATIENT [id number] SM yes// appt f/u ОЛЕГ STEWART 01/29 Released w/o Limitations [place] [facility]) [place] [facility] Medicine [facility]) OUTPATIENT [id number] [phone] Maj Stewart request ed a face to face meeting ОЛЕГ STEWART 02/06 Released w/o Limitations [place] [facility]) [place] [facility] Nutrition al Medicine) OUTPATIENT [id number] Essenti al (primar y) hyperte nsKAREN Pnaiagua 02/09 Released w/o Limitations [place] [facility] Nutriti onal Medicin e) [place] [facility] Medicine Clinic) TELE CONSULT [id number] Notes Entered by: ОЛЕГ STEWART 09 Feb 2022 1656 ------- ------- ------- ------- -- Lab results ОЛЕГ STEWART 02/09 [place] [facility]) [place] [facility] Nutrition al Medicine) OUTPATIENT [id number] Weight Managem ent f/u BALA GLASS 03/19 Released w/o Limitations [place] [facility] Nutrit[facility] onal Medicin e) [place] [facility] Medicine [facility]) TELE CONSULT [id number] Notes Entered by: ОЛЕГ STEWART 19 Mar 2022 1348 ------- ------- ------- ------- -- Lab results KATH WADDELL 03/19 Referred for Appointment [place] [facility]) [place] [facility] Physical Medicine) OUTPATIENT [id number] RENEA ZABALA 04/04 Released w/o Limitations [place] [facility] Physica l Medicin e) [place] [facility] Nutrition al Medicine) OUTPATIENT [id number] Weight loss f/u BALA GLASS 05/10 Released w/o Limitations [place] [facility] Nutriti onal Medicin e) [place] [facility]) OUTPATIENT [id number] (rebmonica mack ) f/u appt/ 8 [phone] ОЛЕГ STEWART 06/12 Released w/o Limitations [place] [facility]) [place] [facility]) OUTPATIENT [id number] Notes Entered by: SE TAWANA MARES P 13 Jun 2022 0821 ------- ------- ------- ------- -- flores krishna [facility] [phone] RATNA MARES 06/12 Released w/o Limitations [place] [facility]) [place] [facility] Nutrition al Medicine) OUTPATIENT [id number] Weight Managem ent f/u BALA GLASS 07/02 Released w/o Limitations [place] [facility](B Nutriti onal Medicin e) [place] [facility] Nutrition al Medicine) OUTPATIENT [id number] weight loss f/u BALA GLASS 08/31 Released w/o Limitations [place] [facility](B Nutriti onal Medicin e) [place] [facility]) OUTPATIENT [id number] PHAQ WILLA DAS JR 08/31 Released w/o Limitations [place] [facility]) [place] [facility] Physical Medicine) OUTPATIENT [id number] JAY ARMSTRONG 09/04 Released w/o Limitations [place] [facility] Physica l Medicin e) [place] [facility] Physical Medicine) OUTPATIENT [id number] JAY ARMSTRONG 09/21 Released w/o Limitations [place] [facility] Physica l Medicin e) [place] [facility] Physical Medicine) OUTPATIENT [id number] JAY ARMSTRONG 09/26 Released w/o Limitations [place] [facility] Physica l Medicin e) [id number] th MEDGRP-Ri michelle Between Visit [id number] 01/29 Discharge Disposition: Home or Self Care [facility]55C[facility] Outpatient [id number] [facility] er for issue of other medical certifi pierce [place] RPUTNAM 02/09 Discharge Disposition: Home or Self Care [id number] [facility] [id number] Obesity , class 3 CHIKIS MMENDOZA 02/09 Discharge Disposition: Home or Self Care [address] [place] [address] [facility] [id number] Essenti al (primar y) hyperte nsion,O bstruct danyell sleep apnea (adult) (pediat ghanshyam), AURELIA Sagastume, PRE-DEP LOYMENT , BARBARA DIAMOND ON [id number], Hyperli pidemia , unspeci fied,Mo rbid (severe ) obesity due to excess calorie s SANDRA ORGAN 02/11 Discharge Disposition: Home or Self Care [address] [place] [address] [facility] [id number] Morbid (severe ) obesity due to excess calorie s,Obstr uctive sleep apnea (adult) (pediat ghanshyam) SANDRA ORGAN 02/13 Discharge Disposition: Home or Self Care [address] [place] [address] Procedures Combined list of: 1) Procedures from Department of Veterans Affairs facilities going back up to thelast 18 months, not all VA non-surgical procedures are included; 2) All procedures from the Department of Defense facilities. Procedure Procedure Type Code Date Perfomer Comments Sourc e No data available for this section [facility] ADMINISTRATION OF PATIENT-FOCUSED HEALTH RISK ASSESSMENT INSTRUMENT (EG, HEALTH HAZARD APPRAISAL) WITH SCORING AND DOCUMENTATION, PER STANDARDIZED INSTRUMENT 2016 DoD INCISION AND DRAINAGE OF ABSCESS (EG, CARBUNCLE, SUPPURATIVE HIDRADENITIS, CUTANEOUS OR SUBCUTANEOUS ABSCESS, CYST, FURUNCLE, OR PARONYCHIA); SIMPLE OR SINGLE 2014 DoD OPHTHALMIC ULTRASOUND, ECHOGRAPHY, DIAGNOSTIC; CORNEAL PACHYMETRY, UNILATERAL OR BILATERAL (DETERMINATION OF CORNEAL THICKNESS) 2014 DoD FITTING OF SPECTACLES, EXCEPT FOR APHAKIA; MONOFOCAL 2012 DoD THERAPEUTIC PROCEDURE, 1 OR MORE AREAS, EACH 15 MINUTES; GAIT TRAINING (INCLUDES STAIR CLIMBING) 2011 [facility] ADMINISTRATION OF PATIENT-FOCUSED HEALTH RISK ASSESSMENT INSTRUMENT (EG, HEALTH HAZARD APPRAISAL) WITH SCORING AND DOCUMENTATION, PER STANDARDIZED INSTRUMENT 2020 [facility] FITTING OF SPECTACLES, EXCEPT FOR APHAKIA; MONOFOCAL 2009 [facility] THERAPEUTIC, PROPHYLACTIC, OR DIAGNOSTIC INJECTION (SPECIFY SUBSTANCE OR DRUG); SUBCUTANEOUS OR INTRAMUSCULAR 2009 [facility] THERAPEUTIC PROCEDURE, 1 OR MORE AREAS, EACH 15 MINUTES; THERAPEUTIC EXERCISES TO DEVELOP STRENGTH AND ENDURANCE, RANGE OF MOTION AND FLEXIBILITY 2022 [facility] THERAPEUTIC PROCEDURE, 1 OR MORE AREAS, EACH 15 MINUTES; THERAPEUTIC EXERCISES TO DEVELOP STRENGTH AND ENDURANCE, RANGE OF MOTION AND FLEXIBILITY 2022 [facility] ADMINISTRATION OF PATIENT-FOCUSED HEALTH RISK ASSESSMENT INSTRUMENT (EG, HEALTH HAZARD APPRAISAL) WITH SCORING AND DOCUMENTATION, PER STANDARDIZED INSTRUMENT 2022 [facility] THERAPEUTIC PROCEDURE,1 OR MORE AREAS,EACH 15 MINUTES;NEUROMUSCULA R REEDUCATION OF MOVEMENT,BALANCE,ROAD MANAGER RDINATION,KINESTHETI C SENSE,POSTURE,AND/OR PROPRIOCEPTION FOR SITTING AND/OR STANDING ACTIVITIES 2022 [facility] MEDICAL NUTRITION THERAPY; RE-ASSESSMENT AND INTERVENTION, INDIVIDUAL, [id number] WITH THE PATIENT, EACH 15 MINUTES 2022 [facility] MEDICAL NUTRITION THERAPY; RE-ASSESSMENT AND INTERVENTION, INDIVIDUAL, [id number] WITH THE PATIENT, EACH 15 MINUTES 2022 [facility] ADMINISTRATION OF PATIENT-FOCUSED HEALTH RISK ASSESSMENT INSTRUMENT (EG, HEALTH HAZARD APPRAISAL) WITH SCORING AND DOCUMENTATION, PER STANDARDIZED INSTRUMENT 2022 [facility] MEDICAL NUTRITION THERAPY; RE-ASSESSMENT AND INTERVENTION, INDIVIDUAL, [id number] WITH THE PATIENT, EACH 15 MINUTES 2022 [facility] THERAPEUTIC PROCEDURE,1 OR MORE AREAS,EACH 15 MINUTES;NEUROMUSCULA R REEDUCATION OF MOVEMENT,BALANCE,ROAD MANAGER RDINATION,KINESTHETI C SENSE,POSTURE,AND/OR PROPRIOCEPTION FOR SITTING AND/OR STANDING ACTIVITIES 2022 [facility] TELE ASSESS & MGT SRV PROV QUAL NONPHYS HLTH CARE PRO TO EST PAT,PARENT,GUARD NOT ORIG REL ASSESS & MGT SRV PROV W/IN PREV 7 DAYS NOR LEAD ASSESS & MGT SRV/PX W/IN NXT 24 HR/SOON APT;5-10 MIN MED DIS 2022 [facility] MEDICAL NUTRITION THERAPY; GROUP (2 OR MORE INDIVIDUAL(S)), EACH 30 MINUTES 2021 [facility] ELECTROCARDIOGRAM, ROUTINE ECG WITH AT LEAST 12 LEADS; WITH INTERPRETATION AND REPORT 2021 [facility] THERAPEUTIC PROCEDURE, 1 OR MORE AREAS, EACH 15 MINUTES; THERAPEUTIC EXERCISES TO DEVELOP STRENGTH AND ENDURANCE, RANGE OF MOTION AND FLEXIBILITY 2021 [facility] BRIEF EMOTIONAL/BEHAVIORAL ASSESSMENT (EG, DEPRESSION INVENTORY, ATTENTION-DEFICIT/HY PERACTIVITY DISORDER [ADHD] SCALE), WITH SCORING AND DOCUMENTATION, PER STANDARDIZED INSTRUMENT 2021 [facility] OPHTHALMIC ULTRASOUND, ECHOGRAPHY, DIAGNOSTIC; CORNEAL PACHYMETRY, UNILATERAL OR BILATERAL (DETERMINATION OF CORNEAL THICKNESS) 2021 [facility] NEEDLE INSERTION(S) WITHOUT INJECTION(S); 3 OR MORE MUSCLES 2021 [facility] NEEDLE INSERTION(S) WITHOUT INJECTION(S); 1 OR 2 MUSCLE(S) 2021 [facility] ADMINISTRATION OF PATIENT-FOCUSED HEALTH RISK ASSESSMENT INSTRUMENT (EG, HEALTH HAZARD APPRAISAL) WITH SCORING AND DOCUMENTATION, PER STANDARDIZED INSTRUMENT 2021 [facility] RE-EVAL,PHYSICAL THERAPY EST PLAN OF CARE,REQ:EXAM,REV,HX & USE,STAND TESTS &MARGY REQ;REV PLAN OF CARE USING STAND PAT ASSESS INSTR &/MARGY ASSESS FUNC OUTCOME TYP,20 MIN SPENT [id number] W PAT&/FAM 2021 [facility] BRIEF COMM TECH-BASE SERV,E.G. VIRT CHK-IN,BY PHYS/OTH [...] ENDURANCE, RANGE OF MOTION AND FLEXIBILITY 2020 [facility] ADMINISTRATION OF PATIENT-FOCUSED HEALTH RISK ASSESSMENT INSTRUMENT (EG, HEALTH HAZARD APPRAISAL) WITH SCORING AND DOCUMENTATION, PER STANDARDIZED INSTRUMENT 2020 [facility] ADMINISTRATION OF PATIENT-FOCUSED HEALTH RISK ASSESSMENT INSTRUMENT (EG, HEALTH HAZARD APPRAISAL) WITH SCORING AND DOCUMENTATION, PER STANDARDIZED INSTRUMENT 2019 [facility] PSYCHOLOGICAL OR NEUROPSYCHOLOGICAL TEST ADMINISTRATION, WITH SINGLE AUTOMATED, STANDARDIZED INSTRUMENT VIA ELECTRONIC PLATFORM, WITH AUTOMATED RESULT ONLY 2019 [facility] PSYCHIATRIC EVALUATION OF HOSPITAL RECORDS, OTHER PSYCHIATRIC REPORTS, PSYCHOMETRIC AND/OR PROJECTIVE TESTS, AND OTHER ACCUMULATED DATA FOR MEDICALDIAGNOSTIC PURPOSES 2019 DoD THERAPEUTIC PROCEDURE, 1 OR MORE AREAS, EACH 15 MINUTES; GAIT TRAINING (INCLUDES STAIR CLIMBING) 2019 [facility] FITTING OF SPECTACLES, EXCEPT FOR APHAKIA; MONOFOCAL 2019 DoD THERAPEUTIC PROCEDURE,1 OR MORE AREAS,EACH 15 MINUTES;NEUROMUSCULA R REEDUCATION OF MOVEMENT,BALANCE,ROAD MANAGER RDINATION,KINESTHETI C SENSE,POSTURE,AND/OR PROPRIOCEPTION FOR SITTING AND/OR STANDING ACTIVITIES 2019 DoD THERAPEUTIC PROCEDURE,1 OR MORE AREAS,EACH 15 MINUTES;NEUROMUSCULA R REEDUCATION OF MOVEMENT,BALANCE,ROAD MANAGER RDINATION,KINESTHETI C SENSE,POSTURE,AND/OR PROPRIOCEPTION FOR SITTING AND/OR [...] MORE AREAS,EACH 15 MINUTES;NEUROMUSCULA R REEDUCATION OF MOVEMENT,BALANCE,ROAD MANAGER RDINATION,KINESTHETI C SENSE,POSTURE,AND/OR PROPRIOCEPTION FOR SITTING AND/OR STANDING ACTIVITIES 2018 DoD THERAPEUTIC PROCEDURE,1 OR MORE AREAS,EACH 15 MINUTES;NEUROMUSCULA R REEDUCATION OF MOVEMENT,BALANCE,ROAD MANAGER RDINATION,KINESTHETI C SENSE,POSTURE,AND/OR PROPRIOCEPTION FOR SITTING AND/OR STANDING ACTIVITIES 2018 DoD THERAPEUTIC PROCEDURE,1 OR MORE AREAS,EACH 15 MINUTES;NEUROMUSCULA R REEDUCATION OF MOVEMENT,BALANCE,ROAD MANAGER RDINATION,KINESTHETI C SENSE,POSTURE,AND/OR PROPRIOCEPTION FOR SITTING AND/OR STANDING ACTIVITIES 2018 [facility] STRAPPING; KNEE 2018 DoD THERAPEUTIC ACTIVITIES, DIRECT (ONE-ON-ONE) PATIENT CONTACT (USE OF DYNAMIC ACTIVITIES TO IMPROVE FUNCTIONAL PERFORMANCE), EACH 15 MINUTES 2018 DoD THERAPEUTIC ACTIVITIES, DIRECT (ONE-ON-ONE) PATIENT CONTACT (USE OF DYNAMIC ACTIVITIES TO IMPROVE FUNCTIONAL PERFORMANCE), EACH 15 MINUTES 2018 [facility] ADMINISTRATION OF PATIENT-FOCUSED HEALTH RISK ASSESSMENT INSTRUMENT (EG, HEALTH HAZARD APPRAISAL) WITH SCORING AND DOCUMENTATION, PER STANDARDIZED INSTRUMENT 2018 [facility] THERAPEUTIC ACTIVITIES, DIRECT (ONE-ON-ONE) PATIENT CONTACT (USE OF DYNAMIC ACTIVITIES TO IMPROVE FUNCTIONAL PERFORMANCE), EACH 15 MINUTES 2018 [facility]D THERAPEUTIC ACTIVITIES, DIRECT (ONE-ON-ONE) PATIENT CONTACT (USE OF DYNAMIC ACTIVITIES TO IMPROVE FUNCTIONAL PERFORMANCE), EACH 15 MINUTES 2018 [facility] THERAPEUTIC ACTIVITIES, DIRECT (ONE-ON-ONE) PATIENT CONTACT (USE OF DYNAMIC ACTIVITIES TO IMPROVE FUNCTIONAL PERFORMANCE), EACH 15 MINUTES 2018 [facility] ONLINE ASSESS &MANAG SERV PROVIDE,A QUAL NONPHYS HCP TO AN ESTABLISHED PAT/GUARDIAN,[facility] &MANAG SERV PROVIDE W/IN THE PREV 7 DAYS,USE THE [employer] NETWORK 2018 [facility] RE-EVAL,PHYSICAL THERAPY EST PLAN OF CARE,REQ:EXAM,REV,HX & USE,STAND TESTS &MARGY REQ;REV PLAN OF CARE USING STAND PAT ASSESS INSTR &/MARGY ASSESS FUNC OUTCOME TYP,20 MIN SPENT [id number] W PAT&/FAM 2018 [facility] THERAPEUTIC PROCEDURE, 1 OR MORE AREAS, EACH 15 MINUTES; THERAPEUTIC EXERCISES TO DEVELOP STRENGTH AND ENDURANCE, RANGE OF MOTION AND FLEXIBILITY 2018 [facility] THERAPEUTIC PROCEDURE, 1 OR MORE AREAS, EACH 15 MINUTES; THERAPEUTIC EXERCISES TO DEVELOP STRENGTH AND ENDURANCE, RANGE OF MOTION AND FLEXIBILITY 2018 [facility] THERAPEUTIC PROCEDURE, 1 OR MORE AREAS, EACH 15 MINUTES; THERAPEUTIC EXERCISES TO DEVELOP STRENGTH AND ENDURANCE, RANGE OF MOTION AND FLEXIBILITY 2018 [facility] CRUTCHES UNDERARM, OTHER THAN WOOD, ADJUSTABLE OR FIXED, PAIR, WITH PADS, TIPS AND HANDGRIPS 2018 [facility] THERAPEUTIC PROCEDURE, 1 OR MORE AREAS, EACH 15 MINUTES; THERAPEUTIC EXERCISES TO DEVELOP STRENGTH AND ENDURANCE, RANGE OF MOTION AND FLEXIBILITY 2018 [facility] ADMINISTRATION OF PATIENT-FOCUSED HEALTH RISK ASSESSMENT INSTRUMENT (EG, HEALTH HAZARD APPRAISAL) WITH SCORING AND DOCUMENTATION, PER STANDARDIZED INSTRUMENT 2017 [facility] Corneal Pachymetry, Bilateral With Interpret And Report Corneal Pachymetry, Bilateral With Interpret And Report 36555 2014 SHRADDHA MCCRACKEN [facility] Spectacles Services Fitting Monofocal Except For Aphakia Spectacles Services Fitting Monofocal Except For Aphakia 73420 2014 SHRADDHA MCCRACKEN [facility] Determination Of Refractive State Determination Of Refractive State 01787 2014 SHRADDHA MCCRACKEN Ophthalmological Prior Patient Start Comprehensive Care Ophthalmological Prior Patient Start Comprehensive Care 64342 2014 SHRADDHA MCCRACKEN [facility] Spectacles Services Fitting Monofocal Except For Aphakia Spectacles Services Fitting Monofocal Except For Aphakia 21696 2012 SABAS GUIDRY Determination Of Refractive State Determination Of Refractive State 49694 2012 SABAS GUIDRY Ophthalmological New Patient Start Comprehensive Care Ophthalmological New Patient Start Comprehensive Care 45952 2012 SABAS GUIDRY Physical Therapy Gait Training Physical Therapy Gait Training 21542 2011 CHOE, HERSON G Gait training 20 minutes DoD Spectacles Services Fitting Monofocal Except For Aphakia Spectacles Services Fitting Monofocal Except For Aphakia 54859 2009 SAMINA WEST [facility] Physical Therapy Neuromuscular Re-education Physical Therapy Neuromuscular Re-education 13429 2019 SANDRA MCCLAIN Physical Therapy: ___ Se ion Segments, 15 Minutes Each Physical Therapy: ___ Session Segments, 15 Minutes Each 99272 2019 SANDRA MCCLAIN Physical Therapy Gait Training Physical Therapy Gait Training 35317 2019 SANDRA MCCLAIN PT A e ment Kinetic Training PT Assessment Kinetic Training 50591 2018 [facility] Aquatic Exercises Aquatic Exercises 10355 10/23 [facility] PT A e ment Kinetic Training PT Assessment Kinetic Training 61430 2018 [facility] Aquatic Exercises Aquatic Exercises 20107 10/16 [facility] PT A e ment Kinetic Training PT Assessment Kinetic Training 59670 2018 [facility] Aquatic Exercises Aquatic Exercises 10690 10/14 [facility] Preventive Medicine Administration Of Health Risk Questionnaire Patient-Focused Preventive Medicine Administration Of Health Risk Questionnaire Patient-Focused 59915 2018 NEENA MCDONNELL [facility] PT A e ment Kinetic Training PT Assessment Kinetic Training 74619 2018 [facility] Aquatic Exercises Aquatic Exercises 58649 10/02 [facility] PT A e ment Kinetic Training PT Assessment Kinetic Training 32846 2018 [facility] Aquatic Exercises Aquatic Exercises 18762 09/30 [facility] Preventive Medicine Administration Of Health Risk Questionnaire Patient-Focused Preventive Medicine Administration Of Health Risk Questionnaire Patient-Focused 90046 2018 VASILE BARDALES Internet Med Svc Qual Nonphys Healthcare Prof Up To 7 Days Estab Patient Internet Med Svc Qual Nonphys Healthcare Prof Up To 7 Days Estab Patient 98683 2018 VASILE BARDALES Physical Therapy Service Re-Evaluation Physical Therapy Service Re-Evaluation 74650 2018 STEVE LUNDBERG Physical Therapy: ___ Se ion Segments, 15 Minutes Each Physical Therapy: ___ Session Segments, 15 Minutes Each 65098 2018 KEVYN NICHOLS [facility] Physical Therapy: ___ Se ion Segments, 15 Minutes Each Physical Therapy: ___ Session Segments, 15 Minutes Each 36632 2018 KIRSTEN CHAUHAN [facility] Physical Therapy: ___ Se ion Segments, 15 Minutes Each Physical Therapy: ___ Session Segments, 15 Minutes Each 60954 2018 STEVE LUNDBERG [facility] Physical Therapy Service Evaluation Low Complexity Physical Therapy Service Evaluation Low Complexity 83507 2018 STEVE LUNDBERG [facility] Physical Therapy: ___ Se ion Segments, 15 Minutes Each Physical Therapy: ___ Session Segments, 15 Minutes Each 42096 2018 STEVE LUNDBERG Osteopathic Manip Treatment (OMT) 1-2 Body Regions Involved Osteopathic Manip Treatment (OMT) 1-2 Body Regions Involved 60346 2018 STEVE LUNDBERG [facility] Physical Therapy Service Evaluation Low Complexity Physical Therapy Service Evaluation Low Complexity 55631 2018 STEVE LUNDBERG [facility] Preventive Medicine Administration Of Health Risk Questionnaire Patient-Focused Preventive Medicine Administration Of Health Risk Questionnaire Patient-Focused 79636 2017 CELESTE GIPSON Internet Med Svc Qual Nonphys Healthcare Prof Up To 7 Days Estab Patient Internet Med Svc Qual Nonphys Healthcare Prof Up To 7 Days Estab Patient 55988 2017 CELESTE GIPSON Preventive Medicine Administration Of Health Risk Questionnaire Patient-Focused Preventive Medicine Administration Of Health Risk Questionnaire Patient-Focused 12947 2016 PRASAD STONE [facility] Incision And Drainage Of Skin Absce , Simple Incision And Drainage Of Skin Abscess, Simple 02971 2014 JEANCARLOS CARRERA [facility] Preventive Medicine Administration Of Health Risk Questionnaire Patient-Focused Preventive Medicine Administration Of Health Risk Questionnaire Patient-Focused 15475 LAMINE MENDOZA [facility] Physical Therapy Service Re-Evaluation Physical Therapy Service Re-Evaluation 00561 MARLYS HENAO Orthopedic Strapping Knee Orthopedic Strapping Knee 61999 MARLYS HENAO [facility] Physical Therapy: ___ Se ion Segments, 15 Minutes Each Physical Therapy: ___ Session Segments, 15 Minutes Each 02613 LUCIANA BELL [facility] Physical Therapy Neuromuscular Re-education Physical Therapy Neuromuscular Re-education 16076 [facility] Physical Therapy Gait Training Physical Therapy Gait Training 14658 KIRSTEN CHAUHAN [facility] Ophthalmological New Patient Start Comprehensive Care Ophthalmological New Patient Start Comprehensive Care 26469 BEVERLYCOLBY DE LA ROSA PIETRO [facility] Determination Of Refractive State Determination Of Refractive State 60301 TREVON COLBY PIETRO [facility] Spectacles Services Fitting Monofocal Except For Aphakia Spectacles Services Fitting Monofocal Except For Aphakia 74026 SHAMIR LESTEREW PIETRO [facility] Psychiatric Diagnostic Evaluation Review of Records and Reports Psychiatric Diagnostic Evaluation Review of Records and Reports 20681 AILYN ROA [facility] Psychometric Neuropsych Testing Battery Admin By Computer Psychometric Neuropsych Testing Battery Admin By Computer 50154 URSULA COLES [facility] Physical Therapy Service Evaluation Moderate Complexity Physical Therapy Service Evaluation Moderate Complexity 47353 JASMYN RODRIGUEZ PT [facility] Brief communication technology-based service, e.g. virtual check-in, by a physician or other qualified health care profe maya who can report evaluation and management services, provided to an established patient, not originating from a related E/M service provided within the previous 7 days nor leading to an E/M service or procedure within the next 24 hours or soonest available appointment; 5-10 minutes of medical discu ion RATNA MARES [facility] Musculoskeletal Needle Insertion Without Injection 1 Or 2 Muscles Musculoskeletal Needle Insertion Without Injection 1 Or 2 Muscles 52948 DANILO HERNÁNDEZ [facility] Patient Training And Self-Care Skills Each 15 Minutes Patient Training And Self-Care Skills Each 15 Minutes 86973 DANILO HERNÁNDEZ [facility] Musculoskeletal Needle Insertion Without Injection 3 Or More Muscles Musculoskeletal Needle Insertion Without Injection 3 Or More Muscles 88302 DANILO HERNÁNDEZ [facility] Scanning Computerized Ophthalmic Diagnostic Imaging Optic Nerve Scanning Computerized Ophthalmic Diagnostic Imaging Optic Nerve 13366 SABAS GUIDRY [facility] Corneal Pachymetry Corneal Pachymetry 58065 SABAS GUIDRY [facility] Health Behavior Intervention Individual Initial 30 Minutes Health Behavior Intervention Individual Initial 30 Minutes 86024 MOI GANT [facility] Health Behavior A e ment / Re-A e ment Health Behavior Assessment / Re-Assessment 02564 MOI GANT [facility] Psychometric Emotional / Behavioral A e ment Psychometric Emotional / Behavioral Assessment 64751 MOI GANT [facility] Electrocardiogram Electrocardiogram 01810 ОЛЕГ STEWART [facility] Medical Nutrition Therapy Group (2 or More Individuals) Each 30 Minutes Medical Nutrition Therapy Group (2 or More Individuals) Each 30 Minutes 67722 KAREN PANDA [facility] Non-Physician Phone Call To Patient/Provider Brief (5-10min) Non-Physician Phone Call To Patient/Provider Brief (5-10min) 91202 KATH WADDELL 1.) Contact number: [phone] 2.) Verified pt by full name and 3.) Provider has reviewed results and authorized cdl team truck driver to release results to the patient 4.) [...] and had no further questions or concerns [facility] Medical Nutrition Therapy Re-a e ment And Intervention Each 15 Minutes Medical Nutrition Therapy Re-assessment And Intervention Each 15 Minutes 69831 BALA GLASS [facility] Physical Therapy Service Evaluation Low Complexity Physical Therapy Service Evaluation Low Complexity 70205 JAY ARMSTRONG [facility] Social History Combined list of available smoking, tobacco, and other social history from Department of Defense and Veterans Affairs facilities. Social History Type Response Date Comment [facility] e Male 06/09/2020 Ambulatory Pha rmacy Tobacco Cigarette use: Never-cigarette user. Other Tobacco use: Never-other tobacco user (not cigarettes). Ambulatory Pharma cy Sexual Orientation Ambula tory Pharmacy Gender identity Ambulator y Pharmacy This section is an empty social history section. DoD Assessment and Plan Combined list of future care activities from Department of Defense and Veterans Affairs facilities (e.g., assessment and plan notes, appointments, orders, and referrals). Additional future care activities may be listed in the Plan of Care section. Result Assessment and Plan Date Source Assessment and Plan Extracted from:Title : Virtual MHA/PHA VIPRR Clinic Note Author: SHELTON ISIDRO NP Date: [...] at this time no tasking or consults needed.?Housing Management Officer is?aware of services available (911, ?One source, [employer] Specialist Services, Walk in , Walk in ER, Notify chain of command, etc) and how to contact them if needed. Housing Management Officer denies suicidal and homicidal ideation.? ? Preventative [...] at age 35. Compared medications reported by Housing Management Officer to active medication list in?[facility]/JLV and any variances were documented.? ? Any complaints or issues identified while conducting the PHA have been addressed and or referred back to the Housing Management Officer's PCM for care. ? ? 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 Profile for RUMA, deployable with waiver until 09/12/2024.?Housing Management Officer advised to follow up with PCM, Behavioral Health, /911, or [facility] One Source as needed for continuation of care, and/or further evaluation during exacerbations of physical and/or psychological illness or injury. See PHA document for additional information. Sixteen?minutes of total time spent reviewing records, discussing health concerns and preventative health measures with Housing Management Officer. ? ? Extracted from:Title: [facility] Obesity Author: KWABENA CHOE PA Date: 12/11/23 1.?Morbid obesity 33? y/o ADAF male with morbid obesity (BMI 47).? Concern for underlying metabolic disorder.? Has previously completed group lifestyle balance course.? Discussed that weight loss could greatly aid in relief of chronic knee pain.? Recommend further evaluation with endocrinology, consult placed. - Follow-up appointment made with [facility] - F/u with PCM after Endo evaluation ? Ordered: Referral Request 2.0 - DoD ? 2.?BMI 30+ - obesity see above Ordered: Referral Request 2.0 - DoD ? Capt Kwabena Choe, BSC, PAMercedesC [facility] ([facility]) Geovani CALLAWAY? ? Please note that this dictation was completed with computer voice recognition software, [employer]. Quite often unanticipated grammatical, syntax, homophones, and other interpretive errors are inadvertently transcribed by the computer software. Please disregard these errors and excuse any errors that have escaped final proofreading.? If are any questions regarding documentation, please contact this provider directly.? ? ? 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 PHA Type:?Non-Fly? Qualification:? ? World Wide Qualified? Profile:? None? IMR Status:? Green? Waivers:? None? Arming Status: ? membership sales manager does not arm? 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 ? Reviewed fitness services manager's PHAQ and EHR for the past twelve months?to include?reported height, weight, current medical conditions and deployment related health problems, traumatic brain injury screening,?medications, allergies,?immunizations, medical readiness laboratory tests and occupational health records.? Completed screenings and provided patient education as appropriate. ? MHA completed in [facility] and copied to this record.? Housing Management Officer is aware of services available ([phone], One source, [facility], Salesforce Specialist,?, , embedded squadron resources,?emergency room, first shirt or others in?chain of command, etc) and how to contact them if needed. Housing Management Officer denies suicidal and homicidal ideation. ? Preventative services reviewed and discussed per age, race, and gender. Reviewed immunization history and assessed immunization status. Reviewed physical activity,?sexual risk factors and previous STD testing date, including HIV. Reviewed readiness labs and occupational health examinations required. Compared medications reported by Housing Management Officer to active medication list in MHSG/JLV and any variances were reconciled. ? Time spent in pt care, counseling and reviewing chart was approximately?20min. Patient informed PHA complete and ASIMS updated. Any complaints or issues identified while conducting the PHA have been addressed and/or the fitness services manager was instructed to return to their PCM for care. ? ? ? //SIGNED// ROSALINA CORRALES, Lt Col, [employer], MC, FS? Family Physician/Flight Surgeon Phase 2 Medical Readiness Cell [employer]? (P) [phone] ? 2.?Hyperlipidemia April 2023 FEG=601, moderate HLP, not in statin benefit but will be due for 1 year repeat abnormal Fasting lipids UTD -to f/u with PCM ??annually, sooner as needed ? ? 3.?Prediabetes 2022 BmfI5q=4.8, c/w prediabetes -counseled aerobic exercise and modest weight loss would greatly help with prediabetes -annual HgbA1c UTD -to f/u with PCM annually, sooner as needed ? 4.?Obstructive sleep apnea, Severe (2021 CML=427) 27 Nov 2021 PSG with JLD=239, severe RUMA, has been on CPAP in interim but will need DW469 for AHI>15 -message sent to PCM team, and member CC'd at his request ? ? BASE Geovani Extracted from:Title: [facility] - Obesity/Pain of Left Knee Author: IVETTE [...] room/urgent care for any urgent/emergent concerns or call?[phone] and leave message with the clinic for any other concerns. Patient can also access [employer] at [email or web address] to leave message with PCM Team. ? Please note that this dictation was completed with Fix[employer] dictation microphone and software and unintentional errors may be present. Efforts were made to check spelling and grammatical errors. ?If there are questions about the note please do not hesitate to ask. ? Capt Ivette Angeles PA-C [facility] [address] [employer], [place] ? Future Appointments Appointment Date: 04/06/2024 11:00:00 AM Scheduled Provider: CHIKIS HENDRESON LCSW Location: [address] [place] [address] Appointment Type: FTR Future Scheduled TestsLaboratoryHIV-1/O/2 01/30/24Isohemagglutinin, Point Titer [id number] 01/30/24Repository Sample, Serum 01/30/24Physical TherapyPhysical Therapy (PT) Outpatient Additional Treatment 03/12/23 03/09/2024 Ambulatory Pharmacy Functional Status Combined list of recent functional and cognitive assessments recorded at Department of Defense and Veterans Affairs (VA).VA Functional [place]ios Measurement (FIM) Scale: 1 = Total Assistance (Subject = 0% +), 2 = Maximal Assistance (Subject = 25% +), 3 = Moderate Assistance (Subject = 50% +), 4 = Minimal Assistance (Subject = 75% +), 5 = Supervision, 6 = Modified Palacios (Device), 7 = Complete Palacios (Timely, Safely). Assessment Date/Time Source Assessment Type Assessment Skill Assessment Score Assessment Details No data available for this section
--- OUTSIDE RECORDS SUMMARY | 2024-03-09 02:40 | XMS_ITS ---
Author Organization [facility] Address [address] [facility] [address] [place] [address] Care Team Providers Care Executive Pilot Name Role Phone Nav Aguilar Primary Care Provider REASON FOR VISIT MATCH UP WORKER Obesity jia Encounters Encounter Location Date Provider Diagnosis [facility] [address] [facility] [address] [place] [address] 01/20/2024 Nav Aguilar Plan Of Treatment No Information Progress Notes * TIMUR ELLINGTONDOB:1990 ( 33 yo M)Acc No.[id number]:01/20/2024 Patient:?TIMUR ELLINGTON :1990???Age:33 Y???Sex:Male Address:[address] [place] [id number] * true * Date:? Generated for Jeffi carin/Cecille/eTransmitting on:?03/09/2024 02:40 AM WINDER FIXER
--- OUTSIDE RECORDS SUMMARY | 2024-03-09 02:40 | XMS_ITS ---
Author Organization [facility] Address [address] [address] Care Team Providers Care Monitor Worker Name Role Phone Nav Aguilar Primary Care Provider [phone] REASON FOR VISIT High ACTh Medications Medication SIG (Take, Route, Frequency, Duration) Notes Start Date End Date Status dexAMETHasone 1 MG 1 tablet Orally at 1 1 pm for 1 days 02/27/2024 Active dexAMETHasone 4 MG 2 tablet Orally at 1 1 pm for 1 days 02/27/2024 Active Ergocalciferol 50 MCG (2000 UT) 1 capsule Orally Once a day for 90 days 02/27/2024 Active Ergocalciferol 1.25 MG (37335 UT) 1 capsule Orally twice weekly for 30 days 02/27/2024 Active Encounters Encounter Location Date Provider Diagnosis [facility] [address] [address] 02/27/2024 Nav Aguilar Abnormal laboratory test R89.9 Assessments Encounter Date Diagnosis (ICD Code) Assessment Notes Treatment Notes Treatment Clinical Notes Section Notes 02/27/2024 Abnormal laboratory test (ICD-10 - R89.9) Plan Of Treatment Medication Medication Name Sig Start Date Stop Date Notes dexAMETHasone 1 MG 1 tablet Orally at 1 1 pm for 1 days 02/27/2024 dexAMETHasone 4 MG 2 tablet Orally at 1 1 pm for 1 days 02/27/2024 Ergocalciferol 50 MCG (2000 UT) 1 capsul e Orally Once a day for 90 days 02/27/2024 Ergocalciferol 1.25 MG (72560 UT) 1 caps ule Orally twice weekly for 30 days 02/27/2024 Pending Test Test Name Order Date Sex Hormone Binding Globulin 02/27/2024 FSH AND LH 02/27/2024 IGF I, LC/MS 02/27/2024 ACTH, PLASMA 02/27/2024 TESTOSTERONE, FREE, LC/MS/MS 02/27/2024 Prolactin, Serum (ICMA) 02/27/2024 CORTISOL LC/MS 02/27/2024 Dexamethasone level (Quest [id number]) 2024 TESTOSTERONE, TOTAL, MS 02/27/2024 Future Test Test Name Order Date CORTISOL LC/MS 02/27/2024 CORTISOL LC/MS 03/09/2024 Dexamethasone level (Quest [id number]) 2024 Progress Notes * TIMUR BEYDOB:1990 ( 33 yo M)Acc No.[id number]:02/27/2024 Patient:?TIMUR BEY :1990???Age:33 Y???Sex:Male Address:[address] [place] [address] * Refills? Start dexAMETHasone Tablet, 1 MG, Orally, 1, 1 tablet, at 11 pm, 1 days, Refills=0 Start dexAMETHasone Tablet, 4 MG, Orally, 2 Tablet, 2 tablet, at 11 pm, 1 days, Refills=0 Start Ergocalciferol Capsule, 1.25 MG (85795 UT), Orally, 24 Capsule, 1 capsule, twice weekly, 30 days, Refills=0 Start Ergocalciferol Capsule, 50 MCG (2000 UT), Orally, 90 Capsule, 1 capsule, Once a day, 90 days, Refills=1 Subjective: * Chief Complaints: * ???High ACTh * Medical History:? * Surgical History:? * Hospitalization/Major Diagno stic Procedure:? * Medications:? Objective: * Vitals:? * Physical Examination:? * ? Assessment: * Assessment: 1.?Abnormal laboratory test - R89.9??? Plan: * Treatment: * Procedure Codes:? * true * Date:? Generated for Jeffi carin/Cecille/eTransmitting on:?03/09/2024 02:40 AM LIFT MECHANIC
--- OUTSIDE RECORDS SUMMARY | 2024-03-09 02:40 | XMS_ITS ---
Author Organization [facility] Address [address] [facility] [address] [place] [address] Care Team Providers Care Flue Cleaner Name Role Phone Nav Aguilar Primary Care Provider Allergies No Known Allergies Results Component Value Reference Range Notes ACTH, PLASMA (Not yet review ed by provider) Interpretation:High Performing Lab:[facility], [address] , [place], [address] Errol Ferrell M.D.,PhD Notes/Report: Received Date: NON-FASTING; NON-FASTING; NON-FASTING; NON-FASTING; NON-FAST FASTING:YES FASTING: YES ACTH, PLASMA 625 6-50 pg/mL Reference range applies only to specimens collected between 7am-10am. TSH Reviewed date:02/27/2024 11:16:39 AM Interpretation:Normal Performing Lab:[facility], [address] [place], [address] Juliet Kelley MD Notes/Report: Received Date: NON-FASTING; NON-FASTING; NON-FASTING; NON-FASTING; NON-FAST FASTING:YES FASTING: YES TSH 1.41 0.40-4.50 mIU/L Hemoglobin A1C Reviewed date:03/03/2024 10:25:47 AM Interpretation:5.9 Performing Lab:[facility], [address] [place], [address] Juliet Kelley MD Notes/Report: Received Date: [id number] NON-FASTING; NON-FASTING; NON-FASTING; NON-FASTING; NON-FAST FASTING:YES FASTING: YES HEMOGLOBIN A1c 5.9 <5.7 % of total Hgb For someone without known diabetes, a hemoglobin A1c value between 5.7% and 6.4% is consistent with prediabetes and should be confirmed with a follow-up test. For someone with known diabetes, a value <7% indicates that their diabetes is well controlled. A1c targets should be individualized based on duration of diabetes, age, comorbid conditions, and other considerations. This assay result is consistent with an increased risk of diabetes. Currently, no consensus exists regarding use of hemoglobin A1c for diagnosis of diabetes for children. Hemoglobin A1C Reviewed date:03/03/2024 10:25:47 AM Interpretation:5.9 Performing Lab:[facility], [address] [place], [address] Juliet Kelley MD Notes/Report: Received Date: [id number] NON-FASTING; NON-FASTING; NON-FASTING; NON-FASTING; NON-FAST FASTING:YES FASTING: YES HEMOGLOBIN A1c 5.9 <5.7 % of total Hgb For someone without known diabetes, a hemoglobin A1c value between 5.7% and 6.4% is consistent with prediabetes and should be confirmed with a follow-up test. For someone with known diabetes, a value <7% indicates that their diabetes is well controlled. A1c targets should be individualized based on duration of diabetes, age, comorbid conditions, and other considerations. This assay result is consistent with an increased risk of diabetes. Currently, no consensus exists regarding use of hemoglobin A1c for diagnosis of diabetes for children. CMP (Comp Metabolic Panel) Reviewed date:02/27/2024 11:10:56 AM Interpretation: Normal Performing Lab:[facility], [address] [place], [address] Juliet Kelley MD Notes/Report: Received Date: [id number] NON-FASTING; NON-FASTING; NON-FASTING; NON-FASTING; NON-FAST FASTING:YES FASTING: YES GLUCOSE 92 65-99 mg/dL Fasting reference interval UREA NITROGEN (BUN) 12 7-25 mg/dL CREATININE 0.99 0.60-1.26 mg/dL EGFR 103 > OR = 60 mL/min/1.73m2 BUN/CREATININE RATIO SEE NOTE: 6-22 (calc) Not Reported: BUN and Creatinine are within reference range. SODIUM 138 135-146 mmol/L POTASSIUM 4.1 3.5-5.3 mmol/L CHLORIDE 102 98-110 mmol/L CARBON DIOXIDE 22 20-32 mmol/L CALCIUM 10.0 8.6-10.3 mg/dL PROTEIN, TOTAL 7.6 6.1-8.1 g/dL ALBUMIN 5.1 3.6-5.1 g/dL GLOBULIN 2.5 1.9-3.7 g/dL (calc) ALBUMIN/GLOBULIN RATIO 2.0 1.0-2.5 (calc) BILIRUBIN, TOTAL 0.6 0.2-1.2 mg/dL ALKALINE PHOSPHATASE 75 36-130 U/L AST 33 10-40 U/L ALT 73 9-46 U/L CBC (H/H, RBC, INDICES, WBC, PLT) Reviewed date:02/27/2024 11:10:56 AM Interpretation: Normal Performing Lab:[facility]ANN[facility], [facility], [address], [place], [address] Juliet Kelley MD Notes/Report: Received Date: NON-FASTING; NON-FASTING; NON-FASTING; NON-FASTING; NON-FAST FASTING:YES FASTING: YES WHITE BLOOD CELL COUNT 11.4 3.8-10.8 Thousand/ uL RED BLOOD CELL COUNT 5.39 4.20-5.80 Million/uL HEMOGLOBIN 16.6 13.2-17.1 g/dL HEMATOCRIT 49.5 38.5-50.0 % MCV 91.8 80.0-100.0 fL MCH 30.8 27.0-33.0 pg MCHC 33.5 32.0-36.0 g/dL For adults, a slight decrease in the calculated MCHC value (in the range of 30 to 32 g/dL) is most likely not clinically significant; however, it should be interpreted with caution in correlation with other red cell parameters and the patient's clinical condition. RDW 13.2 11.0-15.0 % PLATELET COUNT 300 140-400 Thousand/uL MPV 10.2 7.5-12.5 fL DHEA, LC/MS/MS Reviewed date:02/27/2024 11:10:56 AM Interpretation: Normal Performing Lab:[facility],, [address] [place], [address] Ning Hyatt MD,PhD,JESSICA Notes/Report: Received Date: NON-FASTING; NON-FASTING; NON-FASTING; NON-FASTING; NON-FAST FASTING:YES FASTING: YES DHEA, UNCONJUGATED [phone] ng/dL This test was developed and its analytical performance characteristics have been determined by [facility]. It has not been cleared or approved by FDA. This assay has been validated pursuant to the CLIA regulations and is used for clinical purposes. Lipid Panel, Fasting Reviewed date:02/27/2024 11:10:56 AM Interpretation:High Performing Lab:[place], [facility], [address] [place], [address] Juliet Kelley MD Notes/Report: Received Date: NON-FASTING; NON-FASTING; NON-FASTING; NON-FASTING; NON-FAST FASTING:YES FASTING: YES CHOLESTEROL, TOTAL 233 <200 mg/dL HDL CHOLESTEROL 64 > OR = 40 mg/dL TRIGLYCERIDES 123 <150 mg/dL LDL-CHOLESTEROL 144 Reference range: <100 Desirable range <100 mg/dL for primary prevention; <70 mg/dL for patients with CHD or diabetic patients with > or = 2 CHD risk factors. LDL-C is now calculated using the Yusuf-Tabor calculation, which is a validated novel method providing better accuracy than the Friedewald equation in the estimation of LDL-C. Yusuf SS et al. SILVIO. 2013;310(19): 6944-8746 (http://education.[employer] (MXD3D).Proginet/faq/MKO906) CHOL/HDLC RATIO 3.6 <5.0 (calc) NON HDL CHOLESTEROL 169 <130 mg/dL (calc) For patients with diabetes plus 1 major ASCVD risk factor, treating to a non-HDL-C goal of <100 mg/dL (LDL-C of <70 mg/dL) is considered a therapeutic option. T4, FREE Reviewed date:02/27/2024 11:10:56 AM Interpretation: Normal Performing Lab:[facility], [address] [place], [address] Juliet Kelley MD Notes/Report: Received Date: NON-FASTING; NON-FASTING; NON-FASTING; NON-FASTING; NON-FAST FASTING:YES FASTING: YES T4, FREE 1.2 0.8-1.8 ng/dL CORTISOL LC/MS Reviewed date:02/27/2024 12:42:18 PM Interpretation:High Normal Performing Lab:[facility],, [address] [place], [address] Ning Hyatt MD,PhD,JESSICA Notes/Report: Received Date: NON-FASTING; NON-FASTING; NON-FASTING; NON-FASTING; NON-FAST FASTING:YES FASTING: YES CORTISOL, TOTAL, LC/MS 17.6 Adult Reference Ranges for Cortisol, Total: 8-10 AM 4.6-20.6 mcg/dL 4-6 PM 1.8-13.6 mcg/dL Cortisol Response to ACTH Peak >20.0 mcg/dL Peak >16.0 mcg/dL after IM injection This test was developed and its analytical performance characteristics have been determined by [facility]. It has not been cleared or approved by FDA. This assay has been validated pursuant to the CLIA regulations and is used for clinical purposes. INSULIN Reviewed date:02/27/2024 12:42:11 PM Interpretation:High Performing Lab:[facility], [address] [place], [address] Juliet Kelley MD Notes/Report: Received Date: NON-FASTING; NON-FASTING; NON-FASTING; NON-FASTING; NON-FAST FASTING:YES FASTING: YES INSULIN 53.6 Reference Range < or = 18.4 Risk: Optimal < or = 18.4 Moderate NA High >18.4 Adult cardiovascular event risk category cut points (optimal, moderate, high) are based on Insulin Reference Interval studies performed at [facility] in 2021. VITAMIN D, 25-OH (TOTAL D2/D 3) Reviewed date:02/27/2024 11:14:49 AM Interpretation:Low Performing Lab:[facility], [address] [place], [address] Juliet Kelley MD Notes/Report: Received Date: NON-FASTING; NON-FASTING; NON-FASTING; NON-FASTING; NON-FAST FASTING:YES FASTING: YES VITAMIN D,25-OH,TOTAL,IA 12 30-100 ng/mL Vitamin D Status 25-OH Vitamin D: Deficiency: <20 ng/mL Insufficiency: 20 - 29 ng/mL Optimal: > or = 30 ng/mL For 25-OH Vitamin D testing on patients on D2-supplementation and patients for whom quantitation of D2 and D3 fractions is required, the QuestAssureD(TM) 25-OH VIT D, (D2,D3), LC/MS/MS is recommended: order code 20130 (patients >2yrs). See Note 1 Note 1 For additional information, please refer to http://education.Tail-f Systems/faq/DUF065 (This link is being provided for informational/ educational purposes only.) DHEA Sulfate Reviewed date:02/27/2024 11:10:56 AM Interpretation: Normal Performing Lab:[facility], [address] [place], [address] Juliet Kelley MD Notes/Report: Received Date: NON-FASTING; NON-FASTING; NON-FASTING; NON-FASTING; NON-FAST FASTING:YES FASTING: YES DHEA SULFATE 386 93-415 mcg/dL CELIAC DISEASE COMP PANEL W/ GLIADIN AB (IGG) Reviewed date:02/27/2024 11:10:56 AM Interpretation: Normal Performing Lab:, [facility] [facility], [address] [place], [address] Timoteo Aquino Notes/Report: Received Date: NON-FASTING; NON-FASTING; NON-FASTING; NON-FASTING; NON-FAST FASTING:YES FASTING: YES INTERPRETATION No serological evidence for celiac disease is present. tTg may normalize in individuals with celiac disease who maintain a gluten free diet. If high suspicion of celiac disease, consider HLA DQ2 and DQ8 testing to rule out celiac disease. TISSUE TRANSGLUTAMINASE AB, IGA <1.0 Value Interpretation ----- <15.0 Antibody not detected > or = 15.0 Antibody detected IMMUNOGLOBULIN A 150 47-310 mg/dL TESTOSTERONE, TOTAL, MS Reviewed date:02/27/2024 11:10:56 AM Interpretation: Normal Performing Lab:[facility], [facility] [facility] [address], [address], [place], [address] Becca Wills MD,PhD Notes/Report: Received Date: NON-FASTING; NON-FASTING; NON-FASTING; NON-FASTING; NON-FAST FASTING:YES FASTING: YES TESTOSTERONE, TOTAL, MS [phone] ng/dL Men with clinically significant hypogonadal symptoms and testosterone values repeatedly in the range of the 200-300 ng/dL or less, may benefit from testosterone treatment after adequate risk and benefits counseling. For additional information, please refer to https://education.[employer]ream[employer] Software/faq/TotalTest osteroneLCMSMS (This link is being provided for informational/educational purposes only.) (Note) This test was developed and its analytical performance characteristics have been determined by [facility]. It has not been cleared or approved by the FDA. This assay has been validated pursuant to the CLIA regulations and is used for clinical purposes. [facility] [place] [address],[address] [facility] [address] Becca Wills MD, PhD REASON FOR VISIT Weight management Medications Medication SIG (Take, Route, Frequency, Duration) Notes Start Date End Date Status amLODIPine Besylate 10 MG 1 tablet Orall y Once a day for 30 days 02/11/2024 Active dexAMETHasone 1 MG 1 tablet Orally at 1 1 pm for 1 days 02/11/2024 Active Social History Tobacco Use: Social History Observation Description Date Details (start date - stop date) Never Smoker NA - NA Tobacco Control (Standard) Question Answer Notes Tobacco use: Nonsmoker Vital Signs Weight 328.4 lbs 02/11/2024 BMI 46.45 kg/m2 02/11/2024 Height 70.5 in 02/11/2024 Blood pressure systolic 140 mm Hg 02/11/20 24 Blood pressure diastolic 100 mm Hg 024 Encounters Encounter Location Date Provider Diagnosis [facility] [address] [place] [address] 02/11/2024 Nav Aguilar Abnormal weight gain R63.5 and Hypertension I10 Assessments Encounter Date Diagnosis (ICD Code) Assessment Notes Treatment Notes Treatment Clinical Notes Section Notes 02/11/2024 Abnormal weight gain (ICD-10 - R63.5) Assessment: 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 Weight gain late 20s. Plan: 1. Works with [employer] 2. Rule out secondary reasons 3. 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 1 hr to reach here. Exam: Face flushed, palmar sweating present. 02/11/2024 Hypertension (ICD-10 - I10) Plan Of Treatment Medication Medication Name Sig Start Date Stop Date Notes amLODIPine Besylate 10 MG 1 tablet Orall y Once a day for 30 days 02/11/2024 dexAMETHasone 1 MG 1 tablet Orally at 1 1 pm for 1 days 02/11/2024 Pending Test Test Name Order Date ACTH, PLASMA 02/11/2024 GLUCOSE, PLASMA FASTING 02/11/2024 Progress Notes * TIMUR BEYDOB:1990 ( 33 yo M)Acc No.[id number]:02/11/2024 Patient:?TIMUR BEY Provider:?Nav Aguilar MD :1990???Age:33 Y???Sex:Male [place] e:02/11/2024 Address:[address] [place], [place] [id number] Subjective: * Chief Complaints: * ???Weight management * HPI: ???Life Style Change Program:?HPI?What do you feel weight may be holding you back from doing??Bcos of comorbid conditions ?Weight related Co-Morbidities?Yes ?Sleep Disorders?Insomnia, Sleep Apnea ?Cardiovascular Disease?HTN, Hyperlipidemia ?Life Milestones/Events and Weight Change?No ?Eating Habits?Emotional eating, Stress Easting ?Healthy eating approach that worked in the past?Cooking meals at home, Tracking activity and calories ?Working conditions?Shift work [employer] in ?How many hours on an average do you sleep??8 ?Do you eat three meals a day??No ?Which meals do you eat??Lunch, Dinner ?Do you eats snacks?Yes ?What do you drink??Water ?Weight history?Early 20s: [address]80-72 lbs weight gain every 3-4 years ?patient expected weight goal?180 * ROS:?ROS:?As in HPI. All other systems negative (see attached history form in progress notes)?yes.? * Medical History:? * Surgical History:?Ear Operat ion * Hospitalization/Major Diagno stic Procedure:?Torn meniscus and LCL 2020 * Family History:?Father: diag nosed with DM.? * Social History:?ATobacco USe:?Tobacco Control (Standard)?Tobacco use:?Nonsmoker * Medications:?None * Allergies:?N.K.D.A.no[Allerg ies Verified] Objective: * Vitals:?Wt: 328.4 lbs, BMI:4 6.45Index, Ht: 70.5 in, BP:140/100mm Hg, HR: 80 /min. * Physical Examination:?GENERAL:?General Appearence:?well-appearing, no acute distress.?Mental Status:?alert and oriented.?HEENT:?Head:?normocephalic, atraumatic.?Eyes:?unremarkable.?Ears:?unremarkable, TM's normal bilaterally.?Nose:?unremarkable.?Mouth:?moist mucus membranes.?Throat:?clear, no erythema or exudate.?NECK:?General:?supple.?Cervical lymph nodes:?unremarkable.?Thyroid:?unremarkable.?JVD:?none.?BREASTS:?General:?no masses, tenderness, skin changes, or nipple abnormality.?Axilla:?no palpable masses.?HEART:?Rate:?regular.?Rhythm:?regular.?Heart sounds:?normal S1S2.?Murmurs:?none.?LUNGS:?Auscultation:?CTA bilaterally, no wheezing/rhonchi/rales.?ABDOMEN:?General:?soft.?Bowel sounds:?normoactive.?Tenderness:?none.?Distention:?none.?BACK:?Spine:?unremarkable.?ROM:?FROM without pain.?EXTREMITIES:?Edema:?none.?NEUROLOGICAL:?Sensory:?normal sensation.?Motor:?normal strength bilaterally.?Reflexes:?2+ bilaterally and symmetric.?Gait:?normal.? Assessment: * Assessment: 1.?Abnormal weight gain - R6 3.5 (Primary)???2.?Hypertension - I10??? Plan: * Treatment: ? Value Reference Range ?TSH 1.41 0.40-4.50 - mIU /L * This lab was reviewed by Marlen Berrios on 02/27/2024 at 11:16 AM CANVASS MANAGER ?LAB: Hemoglobin A1C* ? Value Reference Range ?HEMOGLOBIN A1c 5.9 H <5.7 - % of total Hgb * This lab was reviewed by Marlen Berrios on 03/03/2024 at 10:25 AM CANVASS MANAGER ?LAB: CMP (Comp Metabolic Panel)* ? Value Reference Range ?CREATININE 0.99 0.60-1.26 - mg/dL * ?SODIUM 138 135-146 - mmol/ L * ?POTASSIUM 4.1 3.5-5.3 - mmo l/L * ?ALT 73 H 9-46 - U/L * ?AST 33 10-40 - U/L * ?CALCIUM 10.0 8.6-10.3 - mg/d L * ?GLUCOSE 92 65-99 - mg/dL * ?ALKALINE PHOSPHATASE 75 36 -130 - U/L * ?ALBUMIN 5.1 3.6-5.1 - g/dL * ?ALBUMIN/GLOBULIN RATIO 2.0 1.0-2.5 - (calc) * ?BILIRUBIN, TOTAL 0.6 0.2-1. 2 - mg/dL * ?BUN/CREATININE RATIO SEE NOTE: 6- 22 - (calc) * ?CARBON DIOXIDE 22 20-32 - mmol/L * ?CHLORIDE 102 98-110 - mmol/ L * ?GLOBULIN 2.5 1.9-3.7 - g/dL (calc) * ?PROTEIN, TOTAL 7.6 6.1-8.1 - g/dL * ?UREA NITROGEN (BUN) 12 7-2 5 - mg/dL * ?EGFR 103 > OR = 60 - mL/ min/1.73m2 * This lab was reviewed by Michael Aguilar on 02/27/2024 at 11:10 AM CANVASS MANAGER ?LAB: CBC (H/H, RBC, INDICES, WBC, PLT)* ? Value Reference Range ?Hematocrit 16.6 13.2-17.1 - g/dL * ?Hemoglobin 49.5 38.5-50.0 - % * ?MPV 10.2 7.5-12.5 - fL * ?Platelets 300 140-400 - Tho usand/uL * ?WHITE BLOOD CELL COUNT 11.4 H 3.8-10.8 - Thousand/uL * ?RED BLOOD CELL COUNT 5.39 4. 20-5.80 - Million/uL * ?MCV 91.8 80.0-100.0 - fL * ?MCH 30.8 27.0-33.0 - pg * ?MCHC 33.5 32.0-36.0 - g/d L * ?RDW 13.2 11.0-15.0 - % * This lab was reviewed by Michael Aguilar on 02/27/2024 at 11:10 AM CANVASS MANAGER ?LAB: DHEA, LC/MS/MS* ? Value Reference Range ?DHEA, LC/MS/MS [phone] - ng/dL * This lab was reviewed by Michael Aguilar on 02/27/2024 at 11:10 AM CANVASS MANAGER ?LAB: ACTH, PLASMA ?LAB: GLUCOSE, PLASMA FASTING ?LAB: Lipid Panel, Fasting* ? Value Reference Range ?CHOLESTEROL, TOTAL 233 H <200 - mg/dL * ?HDL CHOLESTEROL 64 > OR = 40 - mg/dL * ?TRIGLYCERIDES 123 <150 - mg /dL * ?LDL-CHOLESTEROL 144 H - mg/dL (calc) * ?NON HDL CHOLESTEROL 169 H <13 0 - mg/dL (calc) * ?CHOL/HDLC RATIO 3.6 <5.0 - (calc) * This lab was reviewed by Michael Aguilar on 02/27/2024 at 11:10 AM CANVASS MANAGER ?LAB: T4, FREE* ? Value Reference Range ?T4,Free(Direct) 1.2 0.8-1.8 - ng/dL * This lab was reviewed by Michael Aguilar on 02/27/2024 at 11:10 AM CANVASS MANAGER ?LAB: CORTISOL LC/MS* ? Value Reference Range ?CORTISOL, TOTAL, LC/MS/MS 17.6 - mcg/dL * This lab was reviewed by Michael Aguilar on 02/27/2024 at 12:42 PM CANVASS MANAGER ?LAB: INSULIN* ? Value Reference Range ?INSULIN 53.6 H - uIU/mL * This lab was reviewed by Michael Aguilar on 02/27/2024 at 12:42 PM CANVASS MANAGER ?LAB: VITAMIN D, 25-OH (TOTAL D2/D3) ?LAB: DHEA Sulfate* ? Value Reference Range ?DHEA SULFATE 386 93-415 - m cg/dL * This lab was reviewed by Michael Aguilar on 02/27/2024 at 11:10 AM CANVASS MANAGER ?LAB: CELIAC DISEASE COMP PANEL W/GLIADIN AB (IGG)* ? Value Reference Range ?TISSUE TRANSGLUTAMINASE AB, IGA <1.0 - U/mL * ?IMMUNOGLOBULIN A 150 47-310 - mg/dL * This lab was reviewed by Michael Aguilar on 02/27/2024 at 11:10 AM CANVASS MANAGER ?LAB: TESTOSTERONE, TOTAL, MS* ? 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 Weight gain late 20s. Plan: 1. Works with [employer] 2. Rule out secondary reasons 3. 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 1 hr to reach here. Exam: Face flushed, palmar sweating present. ??2.?Hypertension? Start amLODIPine Besylate Tablet, 10 MG, 1 tablet, Orally, Once a day, 30 days, 30, Refills 3.?? * Procedure Codes:? * Preventive Medicine:? ??Counseling:?Counseling?Above Normal BMI Follow-up?Dietary management education, guidance, and counseling ?Below Normal BMI Follow-up?Lifestyle education regarding diet ?BMI Management?Yes ?BP Management:?PHYSICAL ACTIVITY RECOMMENDATION:?Recommendation to exercise ?WEIGHT REDUCTION RECOMMENDATION:?Target weight discussed ?PRE-HYPERTENSIVE FOLLOW-UP PLAN:?Follow-up 1 week ?FIRST HYPERTENSIVE BP READING FOLLOW-UP PLAN:?Follow-up 1 week ?LIFESTYLE RECOMMENDATION:?Hypertension education * Billing Information: * Visit Code:? 84105 Office Visit, New Pt., Level 5 Diabetics. * Procedure Codes:? * ASS MANAGER Sign off status: Completed true * Provider:?Nav Aguilar MD Date:?2023 Generated for Jemima del rosario/Cecille/eTransmitting on:?03/09/2024 02:40 AM CANVASS MANAGER History and Physical Notes * HPI (History of Present Illness) Category Sub-Category Detail Notes Category Not es Life Style Change Program HPI What do you feel weight may be holding you back from doing?: Bcos of comorbid conditions Weight related Co-Morbidities: Yes ?Sleep Disorders: Insomnia, Sleep Apnea ?Cardiovascular Disease: HTN, Hyperlipid emia Life Milestones/Events and Weight Change : No Eating Habits: Emotional eat ing, Stress Easting Healthy eating approach that worked in the past: Cooking meals at home, Tracking activity and calories Working conditions: Shift work [employer] in [employer] How many hours on an average do you slee p?: 8 Do you eat three meals a day?: No Which meals do you eat?: Lunch, Dinner Do you eats snacks: Yes What do you drink?: Water Weight history: Early 20s: 180 20-30 lbs weight gain every 3-4 years patient expected weight goal: 180 Physical Examination Category Sub-Category Detail Notes Section Note s HEENT Head: normocephalic, atraumatic Eyes: unremarkable Fundi: Nose: unremarkable Throat: clear, no erythema o r exudate Tympanic membrane(s): Mouth: moist mucus membrane s Ears: unremarkable, TM's n ormal bilaterally Sinuses: Lips: Teeth/Gums: NECK General: supple Thyroid: unremarkable Cervical lymph nodes: unremarkable Muscles: Carotid bruit: JVD: none C-spine Neck Mass: EXTREMITIES Edema: none Cyanosis: Clubbing: Pulses: 0 Skin: Upper Extremities: Lower Extremities: BACK Spine: unremarkable Straight Leg Raising test: Tenderness: Spasm: ROM: FROM without pain Neurologic exam: General: HEART PMI: Rhythm: regular Murmurs: none Heart sounds: normal S1S2 Rate: regular ABDOMEN General: soft Scars: Guarding: Tenderness: none Masses: Liver, Spleen: Inguinal nodes: Hernia: Rebound tenderness: Bowel sounds: normoactive Distention: none Ascites: Bruits: NEUROLOGICAL Sensory: normal sensation Motor: normal strength bila terally Reflexes: 2+ bilaterally and s ymmetric Babinski: Gait: normal Cranial Nerves: Romberg: Orientation: Cognition: Animal Fluency: Folstein MMSE: Cerebellar: Tremor: Monofilament testing: General Exam MUSCULOSKELETAL Shoulder: Elbow: Hand: Wrist: Finger: Hip: Knee: Ankle: Foot: Toe: Leg: Arm: SKIN Moles: Hemangioma: General: Rash: Acne: Wart: Skin Lesion(s): Suture site: Laceration: Nails: abrasion GENERAL General Appearence: well-appearing, no ac kaltag distress Ill-appearance: Hygiene: Mental Status: alert and oriented Mood/Affect: Speech: Race: LYMPH NODES Cervical: Supraclavicular: Axillary: Epitrochlear: Inguinal: Popliteal: LUNGS Effort: Rate: Airflow: Auscultation: CTA bilaterally, no wheezing/rhonchi/rales Oxygen use: Percussion: Peaked Flows: BREASTS General: no masses, tenderness, skin changes, or nipple abnormality Breast Mass: Nipple Abnormality: Axilla: no palpable masses Skin: Exam deferred EYES Fundi: Pupils: Extraocular Movements: Sclera: Conjunctiva: Cornea: Eyelids: Nystagmus: Periorbital: Visual Acuity: Ptosis: Visual Dudley: Cataract(s)
--- OUTSIDE RECORDS SUMMARY | 2024-03-09 02:41 | XMS_ITS | Patient Health Record ---
Author Organization [facility] Address [address] [address] Care Team Providers Care Field Support Specialist Name Role Phone Nav Aguilar Primary Care Provider [phone] Allergies No Known Allergies Results Component Value Reference Range Notes ACTH, PLASMA (Not yet review ed by provider) Interpretation:High Performing Lab:[facility], [address], [place], [address] Errol Ferrell M.D.,PhD Notes/Report: Received Date: NON-FASTING; NON-FASTING; NON-FASTING; NON-FASTING; NON-FAST FASTING:YES FASTING: YES ACTH, PLASMA 625 6-50 pg/mL Reference range applies only to specimens collected between 7am-10am. TSH Reviewed date:02/27/2024 11:16:39 AM Interpretation:Normal Performing Lab:[facility], [address] [place], [address] Juliet Kelley MD Notes/Report: Received Date: NON-FASTING; NON-FASTING; NON-FASTING; NON-FASTING; NON-FAST FASTING:YES FASTING: YES TSH 1.41 0.40-4.50 mIU/L Hemoglobin A1C Reviewed date:03/03/2024 10:25:47 AM Interpretation:5.9 Performing Lab:[facility], [address] [place], [address] Juliet Kelley MD Notes/Report: Received Date: NON-FASTING; [...] Reviewed date:03/03/2024 10:25:47 AM Interpretation:5.9 Performing Lab:[facility], [address] [place], [address] Juliet Kelley MD Notes/Report: Received Date: NON-FASTING; [...] date:02/27/2024 11:10:56 AM Interpretation: Normal Performing Lab:[facility], [address] [place], [address] Juliet Kelley MD Notes/Report: Received Date: NON-FASTING; [...] Reviewed date:02/27/2024 11:10:56 AM Interpretation: Normal Performing Lab:[place], [facility], [address] [facility], [place], [address] Juliet Kelley MD Notes/Report: Received Date: NON-FASTING; [...] date:02/27/2024 11:10:56 AM Interpretation: Normal Performing Lab:[facility]/[place],, [address] [place], [address] Ning Hyatt MD,PhD,JESSICA Notes/Report: Received Date: NON-FASTING; NON-FASTING; NON-FASTING; NON-FASTING; NON-FAST FASTING:YES FASTING: YES DHEA, UNCONJUGATED 064 027-3487 ng/dL This test was developed and its analytical performance characteristics have been determined by [facility]. It has not been cleared or approved by FDA. This assay has been validated pursuant to the CLIA regulations and is used for clinical purposes. Lipid Panel, Fasting Reviewed date:02/27/2024 11:10:56 AM Interpretation:High Performing Lab:[place], [facility], [address] [place], [address] Juliet Kelley MD Notes/Report: Received Date: NON-FASTING; [...] equation in the estimation of LDL-C. Yusuf SHIN et al. SILVIO. 2013;310(19): 1804-7294 (http://education.GANTEC.ImageProtect/faq/JCX639) CHOL/HDLC RATIO 3.6 <5.0 (calc) NON HDL CHOLESTEROL 169 <130 mg/dL (calc) For patients with diabetes plus 1 major ASCVD risk factor, treating to a non-HDL-C goal of <100 mg/dL (LDL-C of <70 mg/dL) is considered a therapeutic option. T4, FREE Reviewed date:02/27/2024 11:10:56 AM Interpretation: Normal Performing Lab:[facility], [address] [place], [address] Juliet Kelley MD Notes/Report: Received Date: NON-FASTING; NON-FASTING; NON-FASTING; NON-FASTING; NON-FAST FASTING:YES FASTING: YES T4, FREE 1.2 0.8-1.8 ng/dL CORTISOL LC/MS Reviewed date:02/27/2024 12:42:18 PM Interpretation:High Normal Performing Lab:VER[facility]ICA [facility]/[place] [facility],, [address] [place], [address] Ning Hyatt MD,PhD,JESSICA Notes/Report: Received Date: NON-FASTING; NON-FASTING; NON-FASTING; NON-FASTING; NON-FAST FASTING:YES FASTING: YES CORTISOL, TOTAL, LC/MS 17.6 Adult Reference Ranges for Cortisol, Total: 8-10 AM 4.6-20.6 mcg/dL 4-6 PM 1.8-13.6 mcg/dL Cortisol Response to ACTH Peak >20.0 mcg/dL Peak >16.0 mcg/dL after IM injection This test was developed and its analytical performance characteristics have been determined by [facility]. It has not been cleared or approved by FDA. This assay has been validated pursuant to the CLIA regulations and is used for clinical purposes. INSULIN Reviewed date:02/27/2024 12:42:11 PM Interpretation:High Performing Lab:[facility], [address] [place], [address] Juliet Kelley MD Notes/Report: Received Date: NON-FASTING; NON-FASTING; NON-FASTING; NON-FASTING; NON-FAST FASTING:YES FASTING: YES INSULIN 53.6 Reference Range < or = 18.4 Risk: Optimal < or = 18.4 Moderate NA High >18.4 Adult cardiovascular event risk category cut points (optimal, moderate, high) are based on Insulin Reference Interval studies performed at [facility] in 2021. VITAMIN D, 25-OH (TOTAL D2/D 3) Reviewed date:02/27/2024 11:14:49 AM Interpretation:Low Performing Lab:[facility], [address] [facility] [place], [address] Juliet Kelley MD Notes/Report: Received Date: NON-FASTING; [...] D, (D2,D3), LC/MS/MS is recommended: order code 14568 (patients >2yrs). See Note 1 Note 1 For additional information, please refer to http://education.Gatfol Technology/faq/BVL569 (This link is being provided for informational/ educational purposes only.) DHEA Sulfate Reviewed date:02/27/2024 11:10:56 AM Interpretation: Normal Performing Lab:[facility], [address] [facility] [place], [address] Juliet Kelley MD Notes/Report: Received Date: NON-FASTING; NON-FASTING; NON-FASTING; NON-FASTING; NON-FAST FASTING:YES FASTING: YES DHEA SULFATE 386 93-415 mcg/dL CELIAC DISEASE COMP PANEL W/ GLIADIN AB (IGG) Reviewed date:02/27/2024 11:10:56 AM Interpretation: Normal Performing Lab:, [facility], [address] [place], [address] Timoteo Aquino Notes/Report: Received Date: NON-FASTING; NON-FASTING; [...] Reviewed date:02/27/2024 11:10:56 AM Interpretation: Normal Performing Lab:[facility], [facility], [facility] [address], [place], [address] Becca Wills MD,PhD Notes/Report: Received Date: [id number] NON-FASTING; NON-FASTING; NON-FASTING; NON-FASTING; NON-FAST FASTING:YES FASTING: YES TESTOSTERONE, TOTAL, MS 903 053-0514 ng/dL Men with clinically significant hypogonadal symptoms and testosterone values repeatedly in the range of the 200-300 ng/dL or less, may benefit from testosterone treatment after adequate risk and benefits counseling. For additional information, please refer to https://education.Farmainstant/faq/TotalTest osteroneLCMSMS (This link is being provided for informational/educational purposes only.) (Note) This test was developed and its analytical performance characteristics have been determined by [facility]. It has not been cleared or approved by the FDA. This assay has been validated pursuant to the CLIA regulations and is used for clinical purposes. [facility] [address] [address],[address] [facility] [address] Becca Wills MD, PhD Reason For Referral No Information Medications Medication SIG (Take, Route, Frequency, Duration) Notes Start Date End Date Status amLODIPine Besylate 10 MG 1 tablet Orall y Once a day for 30 days 02/11/2024 Active dexAMETHasone 1 MG 1 tablet Orally at 1 1 pm for 1 days 02/27/2024 Active dexAMETHasone 1 MG 1 tablet Orally at 1 1 pm for 1 days 02/11/2024 Active dexAMETHasone 4 MG 2 tablet Orally at 1 1 pm for 1 days 02/27/2024 Active Ergocalciferol 50 MCG (2000 UT) 1 capsule Orally Once a day for 90 days 02/27/2024 Active Ergocalciferol 1.25 MG (99759 UT) 1 capsule Orally twice weekly for 30 days 02/27/2024 Active Social History Tobacco Use: Social History Observation Description Date Details (start date - stop date) Never Smoker NA - NA Tobacco Control (Standard) Question Answer Notes Tobacco use: Nonsmoker Problems Problem Type SNOMED Code ICD Code Onset Dates Problem Status W/U Status Risk Notes Problem Laboratory test result abnormal ([id number]) Abnormal laboratory test (R89.9) Active confirmed Vital Signs Blood pressure diastolic 100 mm Hg 02/11/2024 Height 70.5 in 02/11/2024 Blood pressure systolic 140 mm Hg 02/11/2024 Weight 328.4 lbs 02/11/2024 BMI 46.45 kg/m2 02/11/2024 Encounters Encounter Location Date Provider Diagnosis [facility] [address] [address] 02/11/2024 Nav Raju Abnormal weight gain R63.5 and Hypertension I10 [facility] [address] [address] 01/20/2024 Nav Raju [facility] [address] [address] 02/27/2024 Nav Raju Abnormal laboratory test R89.9 Assessments Encounter Date Diagnosis (ICD Code) Assessment Notes Treatment Notes Treatment Clinical Notes Section Notes 02/11/2024 Abnormal weight gain (ICD-10 - R63.5) Assessment: 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 Weight gain late 20s. Plan: 1. Works with [facility] 2. Rule out secondary reasons 3. 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 1 [address] to reach here. Exam: Face flushed, palmar sweating present. 02/11/2024 Hypertension (ICD-10 - I10) 02/27/2024 Abnormal laboratory test (ICD-10 - R89.9) Plan Of Treatment Pending Test Test Name Order Date Sex Hormone Binding Globulin 02/27/2024 FSH AND LH 02/27/2024 IGF I, LC/MS 02/27/2024 ACTH, PLASMA 02/27/2024 ACTH, PLASMA 02/11/2024 GLUCOSE, PLASMA FASTING 02/11/2024 TESTOSTERONE, FREE, LC/MS/MS 02/27/2024 Prolactin, Serum (ICMA) 02/27/2024 CORTISOL LC/MS 02/27/2024 Dexamethasone level ([facility] [id number]) 2024 TESTOSTERONE, TOTAL, MS 02/27/2024 Future Test Test Name Order Date CORTISOL LC/MS 02/27/2024 Insurance Providers Payer Name Payer Address Payer Phone Subscriber Number Group Number Insured Name Patient Relationship to Insured Coverage Start Date Coverage End Date [facility] [id number] [place] [address] [phone] [id number] TIMUR BEY Self - patient is the insured Medical (General) History Medical History History ICD Code Sleep Apnea Surgical History Surgery Date(Month/Year) Ear Operation Hospitalization History Reason Date(Month/Year) Torn meniscus and LCL 2020
--- OUTSIDE RECORDS SUMMARY | 2024-03-09 03:37 | XMS_ITS | Continuity of Care Document ---
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 Name Role Phone [facility] Unavailable Unavailable Problems [...] Diagnosis [facility] ASSESSMENT, PRE-DEPLOYMENT, DOCUMENTED ON VL3443 Active 4 Diagnosis [facility] Hyperlipidemia Active 4 Diagnosis [facility] Obesity, class 3 Active 4 Diagnosis [facility] Encounter for issue of other medical certificate [id number] for issue of repeat prescription Inactive 1 Condition [facility] Encounter for immunization Inactive 1 Condition DoD [...] Active Condition DoD ASSESSMENT, PRE-DEPLOYMENT, DOCUMENTED ON RU8940 Active Condition Ambulatory Pharmacy Chondromalacia, left knee [...] (EAR), SANDOZ, 7.5 ml DROP BTL Active [id number] 02/25/20 2 3 2022 7.5 Pharmac y Data Transac tion Service Facilit y dexAMETHaso ne 0.5 mg tablet See Instruct ions, Oral, # 2 EA, 0 total refill(s ), Hard Stop Oral (given by mouth) Complet ed 02/13/2024 2.0 Ambulat ory Pharmac y Diclofenac Sodium 0.01mg/mg, Gel/Jelly, Topical Avoid exposure to sun.For external use.Do not take if . Active 05/29/2024 [id number] 2023 100 [facility] meloxicam 15 mg oral tablet 1 tab(s), Oral, Daily, # 30 tab(s), 0 total refill(s ), Maintena nce, 1 tab(s) Oral Daily, Pharmacy : [facility] Oral (given by mouth) Discont inued 08/01/2023 30.0 [facility] MUPIROCIN (MUPIROCIN) , 2%, OINT.(GM), TOPICAL, TEVA [place], 22 g TUBE Active [id number] 2022 22 Pharmac y Data Transac [...] of 32 grams per day, Pharmacy : [facility] Discont inued 06/26/2023 100.0 [facility] Allergies, Adverse Reactions, Alerts Combined list of allergies from Department of Defense and Veterans Affairs facilities. It does not include entries that were removed or entered in error. Substance Category Reaction Severity Reaction type Status Date Reported Comments Source CECLOR (CEFACLOR) Drug allergy (disorder) Unknown active 0 [place] [address] cefaclor Propensity to adverse reactions to substance Unknown Active 0 Ambulatory Pharmacy Immunizations Combined list of available immunizations from the Department of Defense and Veterans Affairs facilities. 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 Status Comments Source influenza virus vaccine, inactivated 2023 IHSAN HORTA [id number] complet ed influenza virus vaccine, inactivat ed 12/18/23 Recorded [facility] influenza virus vaccine, inactivated 2022 IHSAN HORTA Shoul r[place], right (delt oid) [id number] 150 [employer], [employer] complet ed influenza virus vaccine, inactivat ed 01/07/23 Given 0055C[facility] SARS-COV-2 (COVID-19) vaccine, mRNA, spike protein, LNP, preservative free, 30 mcg/0.3mL dose 2 2021 [id number] Pfizer, Inc (PFR) complet ed SARS-COV- 2 (COVID-19 ) vaccine, mRNA, spike protein, LNP, preservat danyell free, 30 mcg/0.3mL dose DoD COVID Vaccine Pfizer 2021 ALEXRGARCIAFA NTAUZZI [id number] 208 complet ed Result Comment: Route: Unknown Manufactu rer: [employer]ceive[employer] Inc (PFR) 0055C-3 [facility]th [facility] Influenza, injectable, quadrivalent, preservative free 1 2020 [id number] 150 Gushcloud (SKB) complet ed Influenza , injectabl e, quadrival ent, preservat danyell free DoD influenza, injectable, quadrivalent- pf 2020 ALEXRGARCIAFA NTAUZZI [id number] 150 complet ed Result Comment: Route: Unknown Manufactu rer: [employer]King (SKB) 0055C-3 [facility] SARS-CoV-2 (COVID-19) Ad26 vaccine, rec 2020 [id number] complet ed SARS-CoV- 2 (COVID-19 ) Ad26 vaccine, rec 05/05/20 Given Ambulat ory Pharmac y SARS-COV-2 (COVID-19) vaccine, vector non-replicati ng, recombinant spike protein-Ad26, preservative free, 0.5 mL 1 2020 [id number] 212 [facility] (JSN) comple t ed SARS-COV- 2 (COVID-19 ) vaccine, vector non-repli cating, recombina nt spike protein-A d26, preservat danyell free, 0.5 mL DoD influenza, injectable, quadrivalent- pf 2019 [id number] 150 Seqirus complet ed influenza , injectabl e, quadrival ent-pf 12/25/19 Given Ambulat ory Pharmac y Influenza, injectable, quadrivalent, preservative free 1 2019 [id number] 506 150 Seqirus (SEQ) complet ed Influenza , injectabl e, quadrival ent, preservat danyell free DoD influenza, seasonal, [place], quadrivalent, 0.5mL dose, no preservative 1 2019 [id number] 201 Sanofi Pasteur (PMC) complet ed influenza , seasonal, [place], quadrival ent, 0.5mL dose, no preservat danyell DoD poliovirus vaccine, inactivated 2019 [id number] 10 sanofi pasteur complet ed polioviru s vaccine, inactivat ed 08/05/19 Given Ambulat ory Pharmac y measles virus vaccine 0 2019 05 () Not Given measles virus vaccine DoD rubella virus vaccine 0 2019 06 () Not Given rubella virus vaccine DoD mumps virus vaccine 0 2019 07 () Not Given mumps virus vaccine DoD poliovirus vaccine, inactivated 2 2019 [id number] 10 Sanofi Pasteur (PMC) complet ed polioviru s vaccine, inactivat ed DoD typhoid Vi capsular polysaccharid e vac 2019 [id number] 101 sanofi pasteur complet ed typhoid Vi capsular polysacch aride vac 07/07/19 Given Ambulat ory Pharmac y yellow fever vaccine 2019 [id number] 37 sanofi pasteur complet ed yellow fever vaccine 07/07/19 Given Ambulat ory Pharmac y yellow fever vaccine 1 2019 [id number] 37 Sanofi Pasteur (PMC) complet ed yellow fever vaccine DoD typhoid Vi capsular polysaccharid e vaccine 2 2019 [id number] 101 Sanofi Pasteur (PMC) complet ed typhoid Vi capsular polysacch aride vaccine DoD tetanus-dipht h toxoids (Td) adult/adol 2019 [id number] 09 sanofi pasteur complet ed tetanus-d iphth toxoids (Td) adult/ado l 04/23/19 Given Ambulat ory Pharmac y tetanus and diphtheria toxoids, adsorbed, preservative free, for adult use (2 Lf of tetanus toxoid and 2 Lf of diphtheria toxoid) 2 2019 [id number] 09 Sanofi Pasteur (PMC) complet ed tetanus and diphtheri a toxoids, adsorbed, preservat danyell free, for adult use (2 Lf of tetanus toxoid and 2 Lf of diphtheri a toxoid) DoD influenza, injectable, quadrivalent- pf 2018 [id number] 517 150 Seqirus complet ed influenza , injectabl e, quadrival ent-pf 12/25/18 Given Ambulat ory Pharmac y Influenza, injectable, quadrivalent, preservative free 11 10/31/ 2019 [id number] 517 150 Seqirus (SEQ) complet ed Influenza [...] Ambulat ory Pharmac y Influenza, injectable, Madin Proctor Canine Kidney, preservative free, quadrivalent 9 [id number] 171 Seqirus (SEQ) comple t ed Influenza , injectabl e, Madin Beverly Canine Kidney, preservat danyell free, quadrival ent DoD anthrax vaccine 2015 [id number] 24 Emergent Biosolutions complet ed anthrax vaccine 02/13/16 Given Ambulat ory Pharmac y anthrax vaccine 3 2015 [id number] 24 Emergent BioDefense Operations [place] (MIP) complet ed anthrax vaccine DoD influenza, seasonal, injectable-pf 2015 [id number] 140 GlaxoSmithKli ne complet ed influenza , seasonal, injectabl e-pf 12/30/15 Given Ambulat ory Pharmac y Influenza, seasonal, injectable, preservative free 8 2015 CS979 140 SmithKline (SKB) complet ed Influenza , seasonal, injectabl e, preservat danyell free DoD anthrax vaccine 2015 [id number] 24 Emergent Biosolutions complet ed anthrax vaccine 08/09/15 Given Ambulat ory Pharmac y anthrax vaccine 2 2015 [id number] 24 Emergent [employer] [place] (MIP) complet ed anthrax vaccine DoD anthrax vaccine 2015 [id number] 24 Emergent Biosolutions complet ed anthrax vaccine 06/17/15 Given Ambulat ory Pharmac y vaccinia (smallpox) vaccine 2015 VV03-01 9-C 75 sanofi pasteur complet ed vaccinia (smallpox ) vaccine 06/17/15 Given Ambulat ory Pharmac y anthrax vaccine 1 2015 [id number] 24 Emergent BioDefense [facility] ([facility]) complet ed anthrax vaccine DoD vaccinia (smallpox) vaccine 0 2015 VV03-01 9-C 75 Sanofi Pasteur (PMC) complet ed vaccinia (smallpox ) vaccine DoD Stateless Encephalitis IM 2015 [id number] 4E 134 Valneva complet ed Stateless Encephali tis IM 06/02/15 Given Ambulat ory Pharmac y Stateless Encephalitis vaccine for intramuscular administratio n 3 2015 [id number] 4E 134 Sky Storage Biomedical (INT) complet ed Stateless Encephali tis vaccine for intramusc ular administr ation DoD influenza, live, intranasal,qu adrivalent 2014 [id number] 149 Signicast Inc comple t ed influenza , live, [...] DoD influenza, live, intranasal, quadrivalent 7 2014 [id number] 149 Stor Networks, Inc. (MED) complet ed influenza , live, intranasa l, quadrival ent DoD Stateless Encephalitis IM 2014 [id number] 3E 134 Valneva complet ed Stateless Encephali tis IM 05/14/14 Given Ambulat ory Pharmac y Stateless Encephalitis vaccine for intramuscular administratio n 2 2014 [id number] 3E 134 IntercInk361 Biomedical (INT) complet ed Stateless Encephali tis vaccine for intramusc ular administr ation DoD Stateless Encephalitis IM 2014 [id number] 0E 134 Valneva complet ed Stateless Encephali tis IM 03/19/14 Given Ambulat ory Pharmac y Stateless Encephalitis vaccine for intramuscular administratio n 0 2014 [id number] 0E 134 Intercell Biomedical (INT) complet ed Stateless Encephali tis vaccine for intramusc ular administr ation DoD influenza, live, intranasal,qu adrivalent 2013 [id number] 149 Medimmune Inc comple t ed influenza , live, intranasa l,quadriv alent 12/16/13 Given Ambulat ory Pharmac y influenza, live, intranasal, quadrivalent 6 2013 [id number] 149 MedImmune, Inc. (MED) complet ed influenza , live, intranasa l, quadrival ent DoD influenza, live, intranasal,qu adrivalent 2012 [id number] 149 Medimmune Inc comple t ed influenza , live, intranasa l,quadriv alent 12/01/12 Given Ambulat ory Pharmac y influenza, live, intranasal, quadrivalent 0 2012 [id number] 149 MedImmune, Inc. (MED) complet ed influenza , live, intranasa l, quadrival ent DoD measles virus vaccine 0 2012 05 () Not Given measles virus vaccine DoD rubella virus vaccine 0 2012 06 () Not Given rubella virus vaccine DoD influenza virus vaccine, live 2011 [id number] 111 Medimmune Inc comple t ed influenza virus vaccine, live 11/30/11 Given Ambulat ory Pharmac y influenza virus vaccine, live, attenuated, for intranasal use 1 2011 [id number] 111 MedImmune, Inc. (MED) complet ed influenza virus vaccine, live, attenuate d, for intranasa l use DoD influenza virus vaccine, live 2010 [id number] 111 Medimmune Inc comple t ed influenza virus vaccine, live 11/21/10 Given Ambulat ory Pharmac y influenza virus vaccine, live, attenuated, for intranasal use 3 2010 [id number] 111 MedImmune, Inc. (MED) complet ed influenza virus vaccine, live, attenuate d, for intranasa l use DoD hepatitis A-hepatitis B vaccine 2009 [id number] [id number] 104 GlaxoSmithKli vt complet ed hepatitis A-hepatit is B vaccine 01/31/10 Given Ambulat ory Pharmac y hepatitis A and hepatitis B vaccine 3 2009 [id number] 6BB 104 [facility] ([facility]B) complet ed hepatitis A and hepatitis B vaccine DoD influenza virus vaccine, live 2009 [id number] 111 Medimmune Inc comple t ed influenza virus vaccine, live 01/17/10 Given Ambulat ory Pharmac y influenza virus vaccine, live, attenuated, for intranasal use 1 2009 [id number] 111 Stor Networks, Inc. (MED) complet ed influenza virus vaccine, [...] vaccine DoD tuberculin purified protein derivative 2009 [id number] 96 sanofi pasteur complet ed tuberculi n purified protein derivativ e 03/13/09 Given Ambulat ory Pharmac y meningococcal A,C,Y,W-135 (MCV4P) 2009 [id number] 114 sanofi pasteur complet ed meningoco ccal A,C,Y,W-1 35 (MCV4P) 03/11/09 Given Ambulat ory Pharmac y influenza virus vaccine,split 2009 [id number] 15 CSL Behring complet ed influenza virus vaccine,s plit 03/11/09 Given Ambulat ory Pharmac y poliovirus vaccine, inactivated 2009 D0052 10 sanofi pasteur complet ed polioviru s vaccine, inactivat ed 03/11/09 Given Ambulat ory Pharmac y Novel influenza-H1N 1-09, injectable 2009 [id number] 1 127 Novartis Pharmaceutica complet ed Novel influenza -D5T7-55, injectabl e 03/11/09 Given Ambulat ory Pharmac y tetanus, diphtheria, acellular pertu is 2009 [id number] 5CA 115 GlaxoSmithKli ne complet ed tetanus, diphtheri a, acellular pertussis 03/11/09 Given Ambulat ory Pharmac y poliovirus vaccine, inactivated 1 2009 D0052 10 Sanofi Pasteur (PMC) complet ed polioviru s vaccine, inactivat ed DoD influenza virus vaccine, split virus (incl. purified surface antigen)-reti red CODE 1 2009 [id number] 1A 15 SnapSense Modular Robotics, Servergy. (CS) complet ed influenza virus vaccine, split virus (incl. purified surface antigen)- retired CODE DoD meningococcal polysaccharid e (groups A, C, Y and W-135) diphtheria toxoid conjugate vaccine (MCV4P) 1 2009 [id number] 114 Sanofi Pasteur (PMC) complet ed meningoco ccal polysacch aride (groups A, C, Y and W-135) diphtheri a toxoid conjugate vaccine (MCV4P) DoD tetanus toxoid, reduced diphtheria toxoid, and acellular pertu is vaccine, adsorbed 1 2009 [id number] 5CA 115 Gushcloud (SKB) complet ed tetanus toxoid, reduced diphtheri a toxoid, and acellular pertussis vaccine, adsorbed DoD Novel influenza-H1N 1-09, injectable 1 2009 [id number] 1 127 Novartis Helidyne Scotty. (NOV) complet ed Novel influenza -G0E3-98, injectabl e DoD Results Combined list of [...] Prevention' s HIV diagnostic algorithm. Refer to [facility] Lab Guide for additional information : [email or web address]/ [email or web address] x Testing performed by [employer] inaLennon Linesalana richardson. Ambulator y Pharmacy Chemistry eGFR CKD [...] ADM Date DC Date Status Disposition Source [place] [address](Opt ometry Clinic [facility]) OUTPATIENT [id number] SAMINA WEST 03/18 Released w/o Limitations [facility] [place] [address](O ptometr y Clinic [facility]) [place] [address]([facility]) OUTPATIENT [id number] -0900 F/U BILAT KNEE PAIN (320/20 2) JEFFERSON AGUILAR 04/05 Released with Work/Duty Limitations [facility] [place] [address]([facility] d) [facility] ([facility])(Hea lthcare Integrato rs) OUTPATIENT [id number] FTAC Feb 03 RICKY CHONG 02/01 Released w/o Limitations [facility] ([facility])(H ealthca re Integra tors) [facility] Medical [facility])(Sco tt Flight Medicine Tm) OUTPATIENT [id number] FTAC - Vitals KWABENA MEDINA 02/02 Released w/o Limitations [facility] ([facility])(S cott Flight Medicin e Tm) [address] [place] [address] Group [facility] ([facility])(Fam autumn Med Tm B Non-AD BCC) OUTPATIENT [id number] [facility]/PHA RAMIN JARRELL 02/12 Released w/o Limitations [address] [place] [address] Group [facility] ([facility])(F amily Med Tm B Non-AD BCC) [address] [place] [address] Group [facility] ([facility])(Fam autumn Med Tm B Non-AD BCC) OUTPATIENT [id number] PHA Require ments RAMIN JARRELL 02/22 Released w/o Limitations [facility] ([facility])(F amily Med Tm B Non-AD BCC) [facility] ([facility])(Fam autumn Med Tm B Non-AD BCC) OUTPATIENT [id number] f/u for back issues, er visit [phone] RAMIN JARRELL 06/13 Released w/o Limitations [address] [place] [address] Group [facility] ([facility])(F amily Med Tm B Non-AD BCC) [address] [place] [address] [facility] ([facility])(Fam autumn Med Tm B Non-AD BCC) OUTPATIENT [id number] right foot, big toe pain, ROLDAN BEJARANO 01/24 Released with Work/Duty Limitations [facility] ([facility])(F amily Med Tm B Non-AD BCC) [address] [place] [address] [facility] ([facility])(Phy sical Therapy) OUTPATIENT [id number] right great toe HERSON CHOE 01/24 Released with Work/Duty Limitations [address] [place] [address] Group [facility] ([facility])(P hysical Therapy ) [address] [place] [address] [facility] ([facility])(Fam autumn Med Tm B Non-AD BCC) TELE CONSULT [id number] Notes Entered by: YAIMA MARTIN 30 Jan 2012 1030 ------- ------- ------- ------- -- Network Results -Podiat ry 2 ROLDAN BEJARANO 01/[address] [place] [address] [facility] ([facility])(F amily Med Tm B Non-AD BCC) [address] [place] [address] [facility] ([facility])(Fam autumn Med Tm B Non-AD BCC) TELE CONSULT [id number] Notes Entered by: JEANCARLOS SMITH 09 Mar 2012 193 ------- ------- ------- ------- -- DHC/PHA ROLDAN BEJARANO 03/10 [facility] ([facility])(F amily Med Tm B Non-AD BCC) [employer] [facility])(Fam autumn Med Tm B Non-AD BCC) OUTPATIENT [id number] 3 yr face to face PHA [id number] ROLDAN BEJARANO 03/24 Released w/o Limitations [facility])(F amily Med Tm B Non-AD BCC) [employer]([facility] dent Health Clinic) OUTPATIENT [id number] elizabeth pope/TRENTON Emmanuel 07/01 Released w/o Limitations [employer]([facility]) [employer] [employer] [facility](Opt ometry Clinic) OUTPATIENT [id number] eYE EXAM SABAS GUIDRY 12/15 Released w/o Limitations [employer](O ptometr y Clinic) [employer]([facility]) OUTPATIENT [id number] Notes Entered by: FIDEL VILLEGAS 16 Apr 2013 08 ------- ------- ------- ------- -- FIDLE Neal 04/15 Released w/o Limitations [employer](P ublic Health) [facility](Opt ometry Clinic) OUTPATIENT [id number] SHRADDHA Heck 05/14 Released w/o Limitations [employer] [facility](O ptometr y Clinic) [employer]([facility]) OUTPATIENT [id number] Notes Entered by: JUDY FRANKLIN 24 May 2014 1231 ------- ------- ------- ------- -- JUDY WEAVER 05/24 Released w/o Limitations [employer](P ublic Health) [employer] [facility](Aer omedical Services) OUTPATIENT [id number] Notes Entered by: SELWYN MULLINS 05 Jan 2015 1553 ------- ------- ------- ------- -- Finger pain ANGEL LUISDee JEANCARLOS Knowles 01/05 Released w/o Limitations [facility](A eromedi [facility] Service s) [facility]) OUTPATIENT [id number] Notes Entered by: ROCCO AGUILAR 23 Jun 2015 1516 ------- ------- ------- ------- -- Web Manuel COLBY AGUILAR 06/22 Released w/o Limitations [facility](Critical access hospital) [facility]) OUTPATIENT [id number] Notes Entered by: KATELYNN LEPE 30 Jan 2016 1055 ------- ------- ------- ------- -- Blurry Vision MARY HUMPHRIES 01/29 Released w/o Limitations [facility]) [facility]) TELE CONSULT [id number] Notes Entered by: Mario RODRIGUEZ 22 May 2016 1347 ------- ------- ------- ------- -- PCS DAISYAN STEWART VILLAVICENCIO 05/22 Other Not Elsewhere Classified [facility](Critical access hospital) [facility]) OUTPATIENT [id number] Notes Entered by: Benson BARDALES 13 Jul 2016 1456 ------- ------- ------- ------- -- PRASAD KIM 07/13 Released w/o Limitations [facility](Critical access hospital) [facility](In and Out Hayes Jara) TELE CONSULT [id number] Notes Entered by: CARA HOLLAND 01 Aug 20164 ------- ------- ------- ------- -- Medical Out-Pro cessing CARA HOLLAND 08/01 Advice Assessment [employer] [facility](I n and Out Process ing [place]) [facility] In & Out-Proce ssing Clinic) TELE CONSULT [id number] Notes Entered by: FIDELIA LASSITER 15 Sep 2016 1728 ------- ------- ------- ------- -- Chema warner In Process ing LUCIANA LASSITER 09/15 [facility] In & Out-Pro cessing Clinic) [facility] Clinical Pharmacy Care) OUTPATIENT [id number] Notes Entered by: OLVIN BOOTH ED 02 Jan 2017 0844 ------- ------- ------- ------- -- cold clinic ROBERTO CARLOS SANTIAGO 01/02 [facility]ased [facility]/o Limitations [facility] Clinica l Pharmac y Care) [place] [facility] ([facility] OUTPATIENT [id number] right ankle pain MINNIE STUART 09/02 Released w/o Limitations [place] [facility] ([facility])) [facility] OP Medicine Clinic) OUTPATIENT [id number] Notes Entered by: CELESTE GIPSON 23 Sep 2017 1310 ------- ------- ------- ------- -- CELESTE Guevara 09/23 Released w/o Limitations [facility] Base OP Medicin e Clinic) [facility] Element C-1) OUTPATIENT [id number] PARIS MURRY 09/24 Released w/o Limitations [facility] Element C-1) [facility] Emergency Room) OUTPATIENT [id number] Notes Entered by: AMOR LEW 29 Jan 2018 1155 ------- ------- ------- ------- -- 27y/o M Clogged ear STEF BARRERA 01/29 Released w/o Limitations [facility] Emergen cy Room) [facility] Element C-1) OUTPATIENT [id number] 9 ! 1200 ongoing R ankle issues HERSON MARY 03/07 Released w/o Limitations [facility] Element C-1) [facility] Element C-1) TELE CONSULT [id number] Notes Entered by: BHARATI TYSON 12 Mar 2018 1046 ------- ------- ------- ------- -- Profile extensi on IRWIN KONG 03/12 [facility] Element C-1) [facility] Physical Therapy) OUTPATIENT [id number] right ankle pain STEVE LUNDBERG 04/08 Released w/o Limitations [facility](N Physica l Therapy ) [facility] Physical Therapy) OUTPATIENT [id number] r ankle STEVE ULNDBERG 08/01 Released w/o Limitations [facility](N Physica l Therapy ) [facility] Physical Therapy) OUTPATIENT [id number] L knee, R ankle FTR w/ KIRSTEN Campos 08/12 Released w/o Limitations [facility](N Physica l Therapy ) [facility] Physical Therapy) OUTPATIENT [id number] KEVYN NICHOLS 08/18 Released w/o Limitations [facility](N Physica l Therapy ) [facility] Physical Therapy) OUTPATIENT [id number] STEVE LUNDBERG 09/03 Released w/o Limitations [facility] Physica l Therapy ) [facility] Base OP Medicine Clinic) OUTPATIENT [id number] Notes Entered by: VASIEL BARDALES 10 Sep 2018 1031 ------- ------- ------- ------- -- A VASILE BARDALES 09/10 Released w/o Limitations [facility] [facility]) OUTPATIENT [id number] [facility] L[facility] 09/30 Released w/o Limitations [facility]) OUTPATIENT [id number] [facility] LIV 10/02 Released w/o Limitations [facility] Disenroll ment) OUTPATIENT [id number] VIRTUAL PHA ARJUN BEN M 10/08 Released w/o Limitations [facility] Dis[facility] OUTPATIENT [id number] [facility] LIV 10/14 Released w/o Limitations [facility]) OUTPATIENT [id number] [facility] LIV 10/16 Released w/o Limitations [facility]) OUTPATIENT [id number] [facility] LIV 10/23 Released w/o Limitations [facility]) OUTPATIENT [id number] lower back follow up/Maj Lundberg's patient MARLYS HENAO 11/05 Released w/o Limitations [facility]) OUTPATIENT [id number] [facility] 11/17 Released w/o Limitations [facility] OUTPATIENT [id number] knee ETHEL CHAUHANDee GUILLERMO 11/20 Released w/o Limitations [facility]) OUTPATIENT [id number] knee LUCIANA BELL LIV 11/24 Released w/o Limitations [facility]) OUTPATIENT [id number] Resched uled Nov MARLYS HENAO 12/09 Released w/o Limitations [facility] OUTPATIENT [id number] alter g TIENKIRSTEN 01/16 Released w/o Limitations [facility]) OUTPATIENT [id number] 9 AlterG (sched more Txs & sched f/u /Col ) SANDRA MCCLAIN 03/05 Released w/o Limitations [facility]) OUTPATIENT [id number] Fatmata DAVIS, MCKEON D 03/10 Released w/o Limitations [facility]) OUTPATIENT [id number] AlterG DAVIS, MCKEON D 03/13 Released w/o Limitations [facility]) OUTPATIENT [id number] 7 SegundoLUCIANA REMY LIV 03/17 Released w/o Limitations [facility]) OUTPATIENT [id number] SegundoLUCIANA REMY LIV 03/19 Released w/o Limitations [facility]) OUTPATIENT [id number] LINDA Hoffman 03/26 Released w/o Limitations [facility]) OUTPATIENT [id number] ftr followi carin Pope (Col Henao's patient ) NOE HOWELL 04/02 Released w/o Limitations [facility] OUTPATIENT [id number] L knee MCCLAIN, SANDRA C 04/15 Released w/o Limitations [facility] OUTPATIENT [id number] 9 L knee MCCLAIN, SANDRA C 04/17 Released w/o Limitations [facility] ) [facility] Opt[facility] ) OUTPATIENT [id number] annual eye exam/gl COLBY Macario 04/23 Released w/o Limitations [facility] Optomet [facility]) [facility](N Physical Therapy) OUTPATIENT [id number] L knee w in clinic ftr, not post op allowed by NOE Burnett 04/24 Released w/o Limitations [facility](N Physica l Therapy ) [facility]) TELE CONSULT [id number] Notes Entered by: DESHAWN MILES MIN 08 Jul 2019 0853 ------- ------- ------- ------- -- 422 - PCS RAMAN Shaw 07/07 [facility]) [facility]) OUTPATIENT [id number] DRDONNELL [id number] VASILE BARDALES 07/12 Released w/o Limitations [facility] Base OP Medicin e Clinic) Theater Facility OUTPATIENT [id number] Theater Provider 11/26 Released w/o Limitations [facility] OUTPATIENT [id number] Theater Provider 11/29 Released w/o Limitations [facility] OUTPATIENT [id number] Theater Provider 12/27 Released w/o Limitations [facility] OUTPATIENT [id number] Theater Provider 01/03 Released w/o Limitations [facility] OUTPATIENT [id number] Theater Provider 03/10 Released w/o Limitations [facility] OUTPATIENT [id number] Theater Provider 03/24 Released with Work/Duty Limitations [facility] OUTPATIENT [id number] Theater Provider 05/05 Released w/o Limitations [facility] OUTPATIENT [id number] Theater Provider 05/07 Admitted Theater Facilit y [facility]) OUTPATIENT [id number] MHA/PHA LAMINE Mcgovern 05/11 Released w/o Limitations [facility]) Theater Facility OUTPATIENT [id number] Theater Provider 05/16 Released with Work/Duty Limitations [facility] OUTPATIENT [id number] Theater Provider 05/16 Released with Work/Duty Limitations [facility] OUTPATIENT [id number] 2 Theater Provider 08/30 Released w/o Limitations Theater Facilit y [facility] [place]) OUTPATIENT [id number] 5 Flores BELLA 2 RATNA MARES 10/12 [facility]ased w/o Limitations [facility]) [facility] Flight Medicine) OUTPATIENT [id number] physica l therapy referra l (cont issue from [facility]) OLVIN ROBINS 10/14 Released w/o Limitations [facility] [place] [facility] Flight Medicin e) [facility] [place] Physical Medicine) OUTPATIENT [id number] JASMYN RODRIGUEZ PT 11/24 Released w/o Limitations [facility] [place] [facility]in [facility]) [facility] Physical Medicine) OUTPATIENT [id number] With TSgt Nohemi at the gym 929 JEANCARLOS RECINOS 11/28 Released w/o Limitations [facility] [place] [facility] Medicin [facility]) [facility] [place]) OUTPATIENT [id number] 1 JENA [id number] RATNA MARES P 12/11 Released w/o Limitations [facility] [place] [facility]) [facility]( Pandemic Virus) TELE CONSULT [id number] Notes Entered by: Magnolia GAGE 10 Mar 2021 1311 ------- ------- ------- ------- -- KARELY SERRANO 03/10 [facility] [place] [facility]) [facility] [place] Physical Medicine) OUTPATIENT [id number] JASMYN RODRIGUEZ PT 04/20 Released w/o Limitations [facility] [place] [facility] Medicin [facility]) [facility] [place]) OUTPATIENT [id number] Notes Entered by: SE TAWANA MARES P 27 Apr 2021 1354 ------- ------- ------- ------- -- flores krishna [facility] [phone] RATNA MARES 04/27 Released w/o Limitations [facility] [place] [facility]) [facility] [place] Physical Medicine) OUTPATIENT [id number] JASMYN RODRIGUEZ PT 05/30 Released w/o Limitations [place] [facility] Medicin [facility]) [facility] [place]) OUTPATIENT [id number] PHAQ REVIEW [place] [facility] 06/13 Released w/o Limitations [facility] [place] [facility] [place] Physical Medicine) TELE CONSULT [id number] RAYMONDJASMYN TORRES PT 07/19 [place] [facility] Phys[facility] l Medicin e) [place] Physical Medicine) OUTPATIENT [id number] Previou s Col Skabelu nd patient DANILO HERNÁNDEZ 08/09 Released w/o Limitations [facility] [place] [facility] Phys[facility] Medicin e) [place] Physical Medicine) OUTPATIENT [id number] DANILO HERNÁNDEZ 08/23 Released w/o Limitations [facility] [place] [facility] Phys[facility] Medicin e) [facility] [place]( B Optometry ) OUTPATIENT [id number] 5 roucatalina jonas eye exam/ 5 [id number] SABAS GUIDRY 09/15 Released w/o Limitations [facility] [place] [facility] Optomet ry) [place] BHOP) OUTPATIENT [id number] sleep disorde r MOI GANT 10/02 Released w/o Limitations [facility] [place] [facility] BHOP) [facility] [place]) TELE CONSULT [id number] Notes Entered by: JOHN PAUL LIND 04 Oct 2021 0838 ------- ------- ------- ------- -- Sleep Apnea Inquiry WILLA VAIL JR 10/03 [facility] [place] [facility] [place] Physical Medicine) OUTPATIENT [id number] RENEA ZABALA 10/12 Released w/o Limitations [facility] [place] [facility] Phys[facility] Medicin e) [facility] [place] Pandemic Virus) TELE CONSULT [id number] Notes Entered by: RAMSEY WHEELER 16 Oct 2021 1131 ------- ------- ------- ------- -- BML-FAWADShailesh AGUIRREMEDELMINNIE AgudeloAISHA 10/16 Released to Self Care [facility] [place] [facility]) [facility] [place]) OUTPATIENT [id number] [phone] Dr. Loni méndez said to message you to get a sleep study done WILLA VAIL JR 11/15 Released w/o Limitations [facility] [place] [facility] [place]) OUTPATIENT [id number] [phone] Follow Up with PCM ОЛЕГ Mojica 01/03 Released w/o Limitations [facility] [facility] [place] TELE CONSULT [id number] Notes Entered by: JOSHUA CHAPIN UNITejinder 09 Jan 2022 0905 ------- ------- ------- ------- -- Report from Sleep Clinic [facility] 022 WILLA VAIL JR 01/09 [facility] [place] [facility] [place]) OUTPATIENT [id number] Notes Entered by: LILIAN HANKS 11 Jan 2022 0837 ------- ------- ------- ------- -- 3-day BP check [place] 01/10 Released w/o Limitations [facility] [place] [facility] [place]) OUTPATIENT [id number] SM yes// appt f/u ОЛЕГ STEWART 01/29 Released w/o Limitations [facility] [place] [facility] [place]) OUTPATIENT [id number] [phone] Maj Stewart request ed a face to face meeting ОЛЕГ STEWART 02/06 Released w/o Limitations [facility] [place] [facility] [place] Nutrition al Medicine) OUTPATIENT [id number] Essenti al (primar y) hyperte nsKAREN Paniagua 02/09 Released w/o Limitations [facility] [place] [facility] Nutriti onal Medicin e) [facility] [place]) TELE CONSULT [id number] Notes Entered by: ОЛЕГ STEWART 09 Feb 2022 1656 ------- ------- ------- ------- -- Lab results ОЛЕГ STEWART 02/09 [facility] [place] Nutrition al Medicine) OUTPATIENT [id number] Weight Managem ent f/u BALA GLASS 03/19 Released w/o Limitations [facility] [place] [facility]rit[facility]al Medicin e) [facility] [place]) TELE CONSULT [id number] Notes Entered by: ОЛЕГ STEWART 19 Mar 2022 1348 ------- ------- ------- ------- -- Lab results KATH WADDELL 03/19 Referred for Appointment [facility] [place] [facility] Physical Medicine) OUTPATIENT [id number] RENEA ZABALA 04/04 Released w/o Limitations [facility] [place] [facility] Physica l Medicin e) [facility] [place] Nutrition al Medicine) OUTPATIENT [id number] Weight loss f/u BALA GLASS 05/10 Released w/o Limitations [facility] [place] [facility]rit[facility]al Medicin e) [facility] [place]) OUTPATIENT [id number] (rebmonica mack ) f/u appt/ 7 [phone] ОЛЕГ STEWART 06/12 Released w/o Limitations [facility] [place] [facility] [place]) OUTPATIENT [id number] Notes Entered by: SE TAWANA MARES P 13 Jun 2022 0821 ------- ------- ------- ------- -- flores krishna [facility] [phone] RATNA MARES 06/12 Released w/o Limitations [facility] [place] [facility]) [facility] Nutrition al Medicine) OUTPATIENT [id number] Weight Managem ent f/u BALA GLASS 07/02 Released w/o Limitations [facility] [place] [facility](B Nutriti onal Medicin e) [facility] [place] Nutrition al Medicine) OUTPATIENT [id number] 1 weight loss f/u BALA GLASS 08/31 Released w/o Limitations [place] [facility](B Nutriti onal Medicin e) [place]) OUTPATIENT [id number] PHAQ WILLA DAS JR 08/31 Released w/o Limitations [facility] [place] [facility] [place] Physical Medicine) OUTPATIENT [id number] JAY ARMSTRONG 09/04 Released w/o Limitations [place] [facility] Physica l Medicin e) [place] Physical Medicine) OUTPATIENT [id number] JAY ARMSTRONG 09/21 Released w/o Limitations [place] [facility] Phys[facility] l Medicin e) [place] Physical Medicine) OUTPATIENT [id number] JAY ARMSTRONG 09/26 Released w/o Limitations [place] [facility] Physica l Medicin e) [id number] th MEDGRP-Ne michelle Between Visit [id number] 01/29 Discharge Disposition: Home or Self Care [facility]Mar[facility] Outpatient [id number] [facility] er for issue of other medical certifi pierce [place] RPUTNAM 02/09 Discharge Disposition: Home or Self Care 7379C-L [facility] [id number] Obesity , class 3 CHIKIS MMENDOZA 02/09 Discharge Disposition: Home or Self Care [address] [place] [address] [facility] [id number] Essenti al (primar y) hyperte nsion,O bstruct danyell sleep apnea (adult) (pediat ghanshyam), AURELIA Sagastume, PRE-DEP LOYMENT BARBARA ON [id number], Hyperli pidemia , unspeci fied,Mo rbid (severe ) obesity due to excess calorie s SANDRA ORGAN 02/11 Discharge Disposition: Home or Self Care [address] [place] [address] [facility] [id number] Morbid (severe ) obesity due to excess calorie s,Obstr uctive sleep apnea (adult) (pediat ghanshyam) SANDRA ORGAN 02/13 Discharge Disposition: Home or Self Care [address] [place] [address] Procedures Combined list of: 1) Procedures from Department of Veterans Affairs facilities going back up to thelast 18 months, not all VA non-surgical procedures are included; 2) All procedures from the Department of Defense facilities. Procedure Procedure Type Code Date Perfomer Comments Sourc e ADMINISTRATION OF PATIENT-FOCUSED HEALTH RISK ASSESSMENT INSTRUMENT (EG, HEALTH HAZARD APPRAISAL) WITH SCORING AND DOCUMENTATION, PER STANDARDIZED INSTRUMENT 2016 [facility] INCISION AND DRAINAGE OF ABSCESS (EG, CARBUNCLE, SUPPURATIVE HIDRADENITIS, CUTANEOUS OR SUBCUTANEOUS ABSCESS, CYST, FURUNCLE, OR PARONYCHIA); SIMPLE OR SINGLE 2014 DoD OPHTHALMIC ULTRASOUND, ECHOGRAPHY, DIAGNOSTIC; CORNEAL PACHYMETRY, UNILATERAL OR BILATERAL (DETERMINATION OF CORNEAL THICKNESS) 2014 DoD FITTING OF SPECTACLES, EXCEPT FOR APHAKIA; MONOFOCAL 2012 DoD THERAPEUTIC PROCEDURE, 1 OR MORE AREAS, EACH 15 MINUTES; GAIT TRAINING (INCLUDES STAIR CLIMBING) 2011 [facility] ADMINISTRATION OF PATIENT-FOCUSED HEALTH RISK ASSESSMENT INSTRUMENT (EG, HEALTH HAZARD APPRAISAL) WITH SCORING AND DOCUMENTATION, PER STANDARDIZED INSTRUMENT 2020 [facility] FITTING OF SPECTACLES, EXCEPT FOR APHAKIA; MONOFOCAL 2009 [facility] THERAPEUTIC, PROPHYLACTIC, OR DIAGNOSTIC INJECTION (SPECIFY SUBSTANCE OR DRUG); SUBCUTANEOUS OR INTRAMUSCULAR 2009 [facility] THERAPEUTIC PROCEDURE, 1 OR MORE AREAS, EACH 15 MINUTES; THERAPEUTIC EXERCISES TO DEVELOP STRENGTH AND ENDURANCE, RANGE OF MOTION AND FLEXIBILITY 2022 [facility] THERAPEUTIC PROCEDURE, 1 OR MORE AREAS, EACH 15 MINUTES; THERAPEUTIC EXERCISES TO DEVELOP STRENGTH AND ENDURANCE, RANGE OF MOTION AND FLEXIBILITY 2022 [facility] ADMINISTRATION OF PATIENT-FOCUSED HEALTH RISK ASSESSMENT INSTRUMENT (EG, HEALTH HAZARD APPRAISAL) WITH SCORING AND DOCUMENTATION, PER STANDARDIZED INSTRUMENT 2022 [facility] THERAPEUTIC PROCEDURE,1 OR MORE AREAS,EACH 15 MINUTES;NEUROMUSCULA R REEDUCATION OF MOVEMENT,BALANCE,FLAT SORTER PROCESSOR RDINATION,KINESTHETI C SENSE,POSTURE,AND/OR PROPRIOCEPTION FOR SITTING AND/OR STANDING ACTIVITIES 2022 [facility] MEDICAL NUTRITION THERAPY; RE-ASSESSMENT AND INTERVENTION, INDIVIDUAL, [id number] WITH THE PATIENT, EACH 15 MINUTES 2022 [facility] MEDICAL NUTRITION THERAPY; RE-ASSESSMENT AND INTERVENTION, INDIVIDUAL, [id number] WITH THE PATIENT, EACH 15 MINUTES 2022 [facility] ADMINISTRATION OF PATIENT-FOCUSED HEALTH RISK ASSESSMENT INSTRUMENT (EG, HEALTH HAZARD APPRAISAL) WITH SCORING AND DOCUMENTATION, PER STANDARDIZED INSTRUMENT 2022 [facility] MEDICAL NUTRITION THERAPY; RE-ASSESSMENT AND INTERVENTION, INDIVIDUAL, [id number] WITH THE PATIENT, EACH 15 MINUTES 2022 [facility] THERAPEUTIC PROCEDURE,1 OR MORE AREAS,EACH 15 MINUTES;NEUROMUSCULA R REEDUCATION OF MOVEMENT,BALANCE,FLAT SORTER PROCESSOR RDINATION,KINESTHETI C SENSE,POSTURE,AND/OR PROPRIOCEPTION FOR SITTING AND/OR STANDING ACTIVITIES 2022 [facility] TELE ASSESS & MGT SRV PROV QUAL NONPHYS HLTH CARE PRO TO EST PAT,PARENT,GUARD NOT ORIG REL ASSESS & MGT SRV PROV W/IN PREV 7 DAYS NOR LEAD ASSESS & MGT SRV/PX W/IN NXT 24 HR/SOON APT;5-10 MIN MED DIS 2022 [facility] MEDICAL NUTRITION THERAPY; GROUP (2 OR MORE INDIVIDUAL(S)), EACH 30 MINUTES 2021 [facility] ELECTROCARDIOGRAM, ROUTINE ECG WITH AT LEAST 12 LEADS; WITH INTERPRETATION AND REPORT 2021 [facility] THERAPEUTIC PROCEDURE, 1 OR MORE AREAS, EACH 15 MINUTES; THERAPEUTIC EXERCISES TO DEVELOP STRENGTH AND ENDURANCE, RANGE OF MOTION AND FLEXIBILITY 2021 [facility] BRIEF EMOTIONAL/BEHAVIORAL ASSESSMENT (EG, DEPRESSION INVENTORY, ATTENTION-DEFICIT/HY PERACTIVITY DISORDER [ADHD] SCALE), WITH SCORING AND DOCUMENTATION, PER STANDARDIZED INSTRUMENT 2021 [facility] OPHTHALMIC ULTRASOUND, ECHOGRAPHY, DIAGNOSTIC; CORNEAL PACHYMETRY, UNILATERAL OR BILATERAL (DETERMINATION OF CORNEAL THICKNESS) 2021 [facility] NEEDLE INSERTION(S) WITHOUT INJECTION(S); 3 OR MORE MUSCLES 2021 [facility] NEEDLE INSERTION(S) WITHOUT INJECTION(S); 1 OR 2 MUSCLE(S) 2021 [facility] ADMINISTRATION OF PATIENT-FOCUSED HEALTH RISK ASSESSMENT INSTRUMENT (EG, HEALTH HAZARD APPRAISAL) WITH SCORING AND DOCUMENTATION, PER STANDARDIZED INSTRUMENT 2021 [facility] RE-EVAL,PHYSICAL THERAPY EST PLAN OF CARE,REQ:EXAM,REV,HX & USE,STAND TESTS &MARGY REQ;REV PLAN OF CARE USING STAND PAT ASSESS INSTR &/MARGY ASSESS FUNC OUTCOME TYP,20 MIN SPENT [id number] W PAT&/FAM 2021 [facility] BRIEF COMM TECH-BASE SERV,E.G. VIRT CHK-IN,BY PHYS/OTH [...] ENDURANCE, RANGE OF MOTION AND FLEXIBILITY 2020 [facility] ADMINISTRATION OF PATIENT-FOCUSED HEALTH RISK ASSESSMENT INSTRUMENT (EG, HEALTH HAZARD APPRAISAL) WITH SCORING AND DOCUMENTATION, PER STANDARDIZED INSTRUMENT 2020 [facility] ADMINISTRATION OF PATIENT-FOCUSED HEALTH RISK ASSESSMENT INSTRUMENT (EG, HEALTH HAZARD APPRAISAL) WITH SCORING AND DOCUMENTATION, PER STANDARDIZED INSTRUMENT 2019 [facility] PSYCHOLOGICAL OR NEUROPSYCHOLOGICAL TEST ADMINISTRATION, WITH SINGLE AUTOMATED, STANDARDIZED INSTRUMENT VIA ELECTRONIC PLATFORM, WITH AUTOMATED RESULT ONLY 2019 [facility] PSYCHIATRIC EVALUATION OF HOSPITAL RECORDS, OTHER PSYCHIATRIC REPORTS, PSYCHOMETRIC AND/OR PROJECTIVE TESTS, AND OTHER ACCUMULATED DATA FOR MEDICALDIAGNOSTIC PURPOSES 2019 DoD THERAPEUTIC PROCEDURE, 1 OR MORE AREAS, EACH 15 MINUTES; GAIT TRAINING (INCLUDES STAIR CLIMBING) 2019 [facility] FITTING OF SPECTACLES, EXCEPT FOR APHAKIA; MONOFOCAL 2019 DoD THERAPEUTIC PROCEDURE,1 OR MORE AREAS,EACH 15 MINUTES;NEUROMUSCULA R REEDUCATION OF MOVEMENT,BALANCE,FLAT SORTER PROCESSOR RDINATION,KINESTHETI C SENSE,POSTURE,AND/OR PROPRIOCEPTION FOR SITTING AND/OR STANDING ACTIVITIES 2019 DoD THERAPEUTIC PROCEDURE,1 OR MORE AREAS,EACH 15 MINUTES;NEUROMUSCULA R REEDUCATION OF MOVEMENT,BALANCE,FLAT SORTER PROCESSOR RDINATION,KINESTHETI C SENSE,POSTURE,AND/OR PROPRIOCEPTION FOR SITTING AND/OR [...] MORE AREAS,EACH 15 MINUTES;NEUROMUSCULA R REEDUCATION OF MOVEMENT,BALANCE,FLAT SORTER PROCESSOR RDINATION,KINESTHETI C SENSE,POSTURE,AND/OR PROPRIOCEPTION FOR SITTING AND/OR STANDING ACTIVITIES 2018 DoD THERAPEUTIC PROCEDURE,1 OR MORE AREAS,EACH 15 MINUTES;NEUROMUSCULA R REEDUCATION OF MOVEMENT,BALANCE,FLAT SORTER PROCESSOR RDINATION,KINESTHETI C SENSE,POSTURE,AND/OR PROPRIOCEPTION FOR SITTING AND/OR STANDING ACTIVITIES 2018 DoD THERAPEUTIC PROCEDURE,1 OR MORE AREAS,EACH 15 MINUTES;NEUROMUSCULA R REEDUCATION OF MOVEMENT,BALANCE,FLAT SORTER PROCESSOR RDINATION,KINESTHETI C SENSE,POSTURE,AND/OR PROPRIOCEPTION FOR SITTING AND/OR STANDING ACTIVITIES 2018 DoD STRAPPING; KNEE 2018 DoD THERAPEUTIC ACTIVITIES, DIRECT (ONE-ON-ONE) PATIENT CONTACT (USE OF DYNAMIC ACTIVITIES TO IMPROVE FUNCTIONAL PERFORMANCE), EACH 15 MINUTES 2018 DoD THERAPEUTIC ACTIVITIES, DIRECT (ONE-ON-ONE) PATIENT CONTACT (USE OF DYNAMIC ACTIVITIES TO IMPROVE FUNCTIONAL PERFORMANCE), EACH 15 MINUTES 2018 [facility] ADMINISTRATION OF PATIENT-FOCUSED HEALTH RISK ASSESSMENT INSTRUMENT [...] IMPROVE FUNCTIONAL PERFORMANCE), EACH 15 MINUTES 2018 [facility] ONLINE ASSESS &MANAG SERV PROVIDE,A QUAL NONPHYS HCP TO AN ESTABLISHED PAT/GUARDIAN,NOT ORIGINAT [facility] RELAT ASSESS &MANAG SERV PROVIDE W/IN THE PREV 7 DAYS,USE THE [employer] 2018 [facility] RE-EVAL,PHYSICAL THERAPY EST PLAN OF CARE,REQ:EXAM,REV,HX & USE,STAND TESTS &MARGY REQ;REV PLAN OF CARE USING STAND PAT ASSESS INSTR &/MARGY ASSESS FUNC OUTCOME TYP,20 MIN SPENT [id number] W PAT&/FAM 2018 [facility] THERAPEUTIC PROCEDURE, 1 OR MORE AREAS, EACH 15 MINUTES; THERAPEUTIC EXERCISES TO DEVELOP STRENGTH AND ENDURANCE, RANGE OF MOTION AND FLEXIBILITY 2018 [facility] THERAPEUTIC PROCEDURE, 1 OR MORE AREAS, EACH 15 MINUTES; THERAPEUTIC EXERCISES TO DEVELOP STRENGTH AND ENDURANCE, RANGE OF MOTION AND FLEXIBILITY 2018 [facility] THERAPEUTIC PROCEDURE, 1 OR MORE AREAS, EACH 15 MINUTES; THERAPEUTIC EXERCISES TO DEVELOP STRENGTH AND ENDURANCE, RANGE OF MOTION AND FLEXIBILITY 2018 [facility] CRUTCHES UNDERARM, OTHER THAN WOOD, ADJUSTABLE OR FIXED, PAIR, WITH PADS, TIPS AND HANDGRIPS 2018 [facility] THERAPEUTIC PROCEDURE, 1 OR MORE AREAS, EACH 15 MINUTES; THERAPEUTIC EXERCISES TO DEVELOP STRENGTH AND ENDURANCE, RANGE OF MOTION AND FLEXIBILITY 2018 [facility] ADMINISTRATION OF PATIENT-FOCUSED HEALTH RISK ASSESSMENT INSTRUMENT (EG, HEALTH HAZARD APPRAISAL) WITH SCORING AND DOCUMENTATION, PER STANDARDIZED INSTRUMENT 2017 [facility] Corneal Pachymetry, Bilateral With Interpret And Report Corneal Pachymetry, Bilateral With Interpret And Report [id number] 2014 SHRADDHA MCCRACKEN [facility] Spectacles Services Fitting Monofocal Except For Aphakia Spectacles Services Fitting Monofocal Except For Aphakia 83210 2014 SHRADDHA MCCRACKEN Determination Of Refractive State Determination Of Refractive State 81287 2014 SHRADDHA MCCRACKEN Ophthalmological Prior Patient Start Comprehensive Care Ophthalmological Prior Patient Start Comprehensive Care [id number] 2014 SHRADDHA MCCRACKEN [facility] Spectacles Services Fitting Monofocal Except For Aphakia Spectacles Services Fitting Monofocal Except For Aphakia 08534 2012 SABAS GUIDRY Determination Of Refractive State Determination Of Refractive State 24065 2012 SABAS GUIDRY Ophthalmological New Patient Start Comprehensive Care Ophthalmological New Patient Start Comprehensive Care 90205 2012 SABAS GUIDRY [facility] Physical Therapy Gait Training Physical Therapy Gait Training 93334 2011 HERSON CHOE Gait training 20 minutes DoD Spectacles Services Fitting Monofocal Except For Aphakia Spectacles Services Fitting Monofocal Except For Aphakia 94153 2009 SAMINA WEST [facility] Physical Therapy Neuromuscular Re-education Physical Therapy Neuromuscular Re-education 82546 2019 SANDRA MCCLAIN Physical Therapy: ___ Se ion Segments, 15 Minutes Each Physical Therapy: ___ Session Segments, 15 Minutes Each 04985 2019 SANDRA MCCLAIN Physical Therapy Gait Training Physical Therapy Gait Training 47092 2019 SANDRA MCCLAIN PT A e ment Kinetic Training PT Assessment Kinetic Training 59304 2018 [facility] Aquatic Exercises Aquatic Exercises 15095 10/23 [facility] A e ment Kinetic Training PT Assessment Kinetic Training 45593 [facility] Aquatic Exercises Aquatic Exercises 85025 10/16 [facility] PT A e ment Kinetic Training PT Assessment Kinetic Training 29118 2018 [facility] Aquatic Exercises Aquatic Exercises 35240 10/14 [facility] Preventive Medicine Administration Of Health Risk Questionnaire Patient-Focused Preventive Medicine Administration Of Health Risk Questionnaire Patient-Focused 94670 2018 NEENA MCDONNELL [facility] PT A e ment Kinetic Training PT Assessment Kinetic Training 40474 2018 [facility] Aquatic Exercises Aquatic Exercises 10142 10/02 [facility] PT A e ment Kinetic Training PT Assessment Kinetic Training 59385 2018 [facility] Aquatic Exercises Aquatic Exercises 99426 09/30 [facility] Preventive Medicine Administration Of Health Risk Questionnaire Patient-Focused Preventive Medicine Administration Of Health Risk Questionnaire Patient-Focused 56710 2018 VASILE BARDALES [employer] [facility] Svc Qual Nonphys Healthcare Prof Up To 7 Days Estab Patient Internet Med Svc Qual Nonphys Healthcare Prof Up To 7 Days Estab Patient 52288 2018 VASILE BARDALES Physical Therapy Service Re-Evaluation Physical Therapy Service Re-Evaluation 80744 2018 STEVE LUNDBERG Physical Therapy: ___ Se ion Segments, 15 Minutes Each Physical Therapy: ___ Session Segments, 15 Minutes Each 22002 2018 NICHOLS, PEDRO [facility] Physical Therapy: ___ Se ion Segments, 15 Minutes Each Physical Therapy: ___ Session Segments, 15 Minutes Each 95853 2018 TIEN KIRSTEN EAGLE [facility] Physical Therapy: ___ Se ion Segments, 15 Minutes Each Physical Therapy: ___ Session Segments, 15 Minutes Each 77155 2018 STEVE LUNDBERG [facility] Physical Therapy Service Evaluation Low Complexity Physical Therapy Service Evaluation Low Complexity 61045 2018 STEVE LUNDBERG Physical Therapy: ___ Se ion Segments, 15 Minutes Each Physical Therapy: ___ Session Segments, 15 Minutes Each 57884 2018 STEVE LUNDBERG Osteopathic Manip Treatment (OMT) 1-2 Body Regions Involved Osteopathic Manip Treatment (OMT) 1-2 Body Regions Involved 41690 2018 STEVE LUNDBERG Physical Therapy Service Evaluation Low Complexity Physical Therapy Service Evaluation Low Complexity 70724 2018 STEVE LUNDBERG Preventive Medicine Administration Of Health Risk Questionnaire Patient-Focused Preventive Medicine Administration Of Health Risk Questionnaire Patient-Focused 43038 2017 CELESTE GIPSON Internet Med Svc Qual Nonphys Healthcare Prof Up To 7 Days Estab Patient Internet Med Svc Qual Nonphys Healthcare Prof Up To 7 Days Estab Patient 66007 2017 CELESTE GIPSON Preventive Medicine Administration Of Health Risk Questionnaire Patient-Focused Preventive Medicine Administration Of Health Risk Questionnaire Patient-Focused 69123 2016 PRASAD STONE [facility] Incision And Drainage Of Skin Absce , Simple Incision And Drainage Of Skin Abscess, Simple 45631 2014 JEANCARLOS CARRERA [facility] Preventive Medicine Administration Of Health Risk Questionnaire Patient-Focused Preventive Medicine Administration Of Health Risk Questionnaire Patient-Focused 55875 LAMINE MENDOZA [facility] Physical Therapy Service Re-Evaluation Physical Therapy Service Re-Evaluation 48838 MARLYS HENAO Orthopedic Strapping Knee Orthopedic Strapping Knee 67223 MARLYS HENAO Physical Therapy: ___ Se ion Segments, 15 Minutes Each Physical Therapy: ___ Session Segments, 15 Minutes Each 57271 LUCIANA BELL [facility] Physical Therapy Neuromuscular Re-education Physical Therapy Neuromuscular Re-education 60350 LUCIANA BELL [facility] Physical Therapy Gait Training Physical Therapy Gait Training 99601 KIRSTEN CHAUHAN [facility] Ophthalmological New Patient Start Comprehensive Care Ophthalmological New Patient Start Comprehensive Care 13907 TREVON COLBY PIETRO [facility] Determination Of Refractive State Determination Of Refractive State 31686 COLBY LESTER [facility] Spectacles Services Fitting Monofocal Except For Aphakia Spectacles Services Fitting Monofocal Except For Aphakia 42828 COLBY LESTER [facility] Psychiatric Diagnostic Evaluation Review of Records and Reports Psychiatric Diagnostic Evaluation Review of Records and Reports 33936 AILYN ROA [facility] Psychometric Neuropsych Testing Battery Admin By Computer Psychometric Neuropsych Testing Battery Admin By Computer 22647 URSULA COLES [facility] Physical Therapy Service Evaluation Moderate Complexity Physical Therapy Service Evaluation Moderate Complexity 43299 JASMYN RODRIGUEZ PT [facility] Brief communication technology-based service, e.g. virtual check-in, [...] minutes of medical discu ion RATNA MARES [facility] Musculoskeletal Needle Insertion Without Injection 1 Or 2 Muscles Musculoskeletal Needle Insertion Without Injection 1 Or 2 Muscles 09955 DANILO HERNÁNDEZ [facility] Patient Training And Self-Care Skills Each 15 Minutes Patient Training And Self-Care Skills Each 15 Minutes 21626 DANILO HERNÁNDEZ [facility] Musculoskeletal Needle Insertion Without Injection 3 Or More Muscles Musculoskeletal Needle Insertion Without Injection 3 Or More Muscles 38902 DANILO HERNÁNDEZ [facility] Scanning Computerized Ophthalmic Diagnostic Imaging Optic Nerve Scanning Computerized Ophthalmic Diagnostic Imaging Optic Nerve 10425 SABAS GUIDRY [facility] Corneal Pachymetry Corneal Pachymetry 22764 SABAS GUIDRY [facility] Health Behavior Intervention Individual Initial 30 Minutes Health Behavior Intervention Individual Initial 30 Minutes 13300 MOI GANT [facility] Health Behavior A e ment / Re-A e ment Health Behavior Assessment / Re-Assessment 52738 MOI GANT [facility] Psychometric Emotional / Behavioral A e ment Psychometric Emotional / Behavioral Assessment 29875 MOI GANT [facility] Electrocardiogram Electrocardiogram 32978 ОЛЕГ STEWART [facility] Medical Nutrition Therapy Group (2 or More Individuals) Each 30 Minutes Medical Nutrition Therapy Group (2 or More Individuals) Each 30 Minutes 48472 KAREN PANDA [facility] Non-Physician Phone Call To Patient/Provider Brief (5-10min) Non-Physician Phone Call To Patient/Provider Brief (5-10min) 53262 KATH WADDELL 1.) Contact number: [phone] 2.) Verified pt by full name and 3.) Provider has reviewed results and authorized steamtable attendant railroad to release results to the patient 4.) [...] and had no further questions or concerns [facility] Medical Nutrition Therapy Re-a e ment And Intervention Each 15 Minutes Medical Nutrition Therapy Re-assessment And Intervention Each 15 Minutes 29968 BALA GLASS [facility] Physical Therapy Service Evaluation Low Complexity Physical Therapy Service Evaluation Low Complexity 81819 JAY ARMSTRONG [facility] No data available for this section Ambulato [...] and Plan Extracted from:Title : Virtual MHA/PHA [facility] Clinic Note Author: SHELTON ISIDRO NP [...] at this time no tasking or consults needed.?Associate Account Director is?aware of services available (911, ?One source, [employer] [facility], Walk in , Walk in ER, Notify chain of command, etc) and how to contact them if needed. Associate Account Director denies suicidal and homicidal ideation.? ? Preventative [...] at age 35. Compared medications reported by Associate Account Director to active medication list in?MHSG/JLV and any variances were documented.? ? Any complaints or issues identified while conducting the PHA have been addressed and or referred back to the Associate Account Director's PCM for care. ? ? 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 Profile for RUMA, deployable with waiver until 09/12/2024.?Associate Account Director advised to follow up with PCM, Behavioral Health, /911, or [facility] as needed for continuation of care, and/or further evaluation during exacerbations of physical and/or psychological illness or injury. See PHA document for additional information. Sixteen?minutes of total time spent reviewing records, discussing health concerns and preventative health measures with Associate Account Director. ? ? Extracted from:Title: [facility] Obesity Author: KWABENA CHOE PA Date: 12/11/23 1.?Morbid obesity 33? y/o ADAF male with morbid obesity (BMI 47).? Concern for underlying metabolic disorder.? Has previously completed group lifestyle balance course.? Discussed that weight loss could greatly aid in relief of chronic knee pain.? Recommend further evaluation with endocrinology, consult placed. - Follow-up appointment made with [facility] - F/u with PCM after Endo evaluation ? Ordered: Referral Request 2.0 - DoD ? 2.?BMI 30+ - obesity see above Ordered: Referral Request 2.0 - DoD ? Capt Kwabena Choe, BSC, PAMercedesC [facility]) Geovani CALLAWAY? ? Please note that this dictation was completed with computer voice recognition software, My 1%. Quite often unanticipated grammatical, syntax, homophones, and other interpretive errors are inadvertently transcribed by the computer software. Please disregard these errors and excuse any errors that have escaped final proofreading.? If are any questions regarding documentation, please contact this provider directly.? ? ? Extracted from:Title: [facility] Virtual MHA/PHA Author: ROSALINA CORRALES MD Date: 09/13/23 1.?EXAM/ASSESSMENT, OCCUPATIONAL, CURBER PERIODIC HEALTH ASSESSMENT (PHA) ? PHA Type:?Non-Fly? Qualification:? ? World Wide Qualified? Profile:? None? IMR Status:? Green? Waivers:? None? Arming Status: ? 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 ? Reviewed expediter service order's PHAQ and EHR for the past twelve months?to include?reported height, weight, current medical conditions and deployment related health problems, traumatic brain injury screening,?medications, allergies,?immunizations, medical readiness laboratory tests and occupational health records.? Completed screenings and provided patient education as appropriate. ? MHA completed in [facility] and copied to this record.? Associate Account Director is aware of services available ([phone], One source, [facility], [employer],?, , embedded squadron resources,?emergency room, first shirt or others in?chain of command, etc) and how to contact them if needed. Associate Account Director denies suicidal and homicidal ideation. ? Preventative services reviewed and discussed per age, race, and gender. Reviewed immunization history and assessed immunization status. Reviewed physical activity,?sexual risk factors and previous STD testing date, including HIV. Reviewed readiness labs and occupational health examinations required. Compared medications reported by Associate Account Director to active medication list in MHSG/JLV and any variances were reconciled. ? Time spent in pt care, counseling and reviewing chart was approximately?20min. Patient informed PHA complete and ASIMS updated. Any complaints or issues identified while conducting the PHA have been addressed and/or the expediter service order was instructed to return to their PCM for care. ? ? ? //SIGNED// ROSALINA CORRALES, [employer], [employer], [employer], FS? Family Physician/Flight Surgeon Phase 2 Medical Readiness Cell [employer]? (P) [phone] ? 2.?Hyperlipidemia April 2023 NEM=598, moderate HLP, not in statin benefit but will be due for 1 year repeat abnormal Fasting lipids UTD -to f/u with PCM ??annually, sooner as needed ? ? 3.?Prediabetes 2022 CphS2e=3.8, c/w prediabetes -counseled aerobic exercise and modest weight loss would greatly help with prediabetes -annual HgbA1c UTD -to f/u with PCM annually, sooner as needed ? 4.?Obstructive sleep apnea, Severe (2021 QJE=488) 27 Nov 2021 PSG with FIB=386, severe RUMA, has been on CPAP in interim but will need DW469 for AHI>15 -message sent to PCM team, and member CC'd at his request ? ? BASE Geovani Extracted from:Title: [facility] - Obesity/Pain of Left Knee Author: [...] room/urgent care for any urgent/emergent concerns or call?[phone] and leave message with the clinic for any other concerns. Patient can also access [email or web address] at [email or web address]/ to leave message with PCM Team. ? Please note that this dictation was completed with Shut Down dictation microphone and software and unintentional errors may be present. Efforts were made to check spelling and grammatical errors. ?If there are questions about the note please do not hesitate to ask. ? Capt Ivette Angeles PA-C [facility] [address] [employer], [place] ? Future Appointments Appointment Date: 04/06/2024 11:00:00 AM Scheduled Provider: CHIKIS HENDERSON LCSW Location: [address] [place] [address] Appointment Type: FTR Future Scheduled TestsLaboratoryHIV-1/O/2 01/30/24Isohemagglutinin, Point Titer [id number] 01/30/24Repository Sample, Serum 01/30/24Physical TherapyPhysical Therapy (PT) Outpatient Additional Treatment 03/12/23 03/09/2024 Ambulatory Pharmacy Functional Status Combined list of recent functional and cognitive assessments recorded at [employer] (VA).VA Functional Temple Measurement (FIM) Scale: 1 = Total Assistance (Subject = 0% +), 2 = Maximal Assistance (Subject = 25% +), 3 = Moderate Assistance (Subject = 50% +), 4 = Minimal Assistance (Subject = 75% +), 5 = Supervision, 6 = Modified Temple (Device), 7 = Complete Temple (Timely, Safely). Assessment Date/Time Source Assessment Type Assessment Skill Assessment Score Assessment Details No data available for this section
--- OUTSIDE RECORDS SUMMARY | 2024-03-09 03:39 | XMS_ITS | Continuity of Care Document ---
Author Name [facility] Organization [facility] Care Team Providers Care Social Studies Teacher Name Role Phone [facility] Unavailable Unavailable Problems [...] Diagnosis [facility] ASSESSMENT, PRE-DEPLOYMENT, DOCUMENTED ON [id number] Active 4 Diagnosis [facility] Hyperlipidemia Active 4 Diagnosis [facility] Obesity, class 3 Active 4 Diagnosis [facility] Encounter for issue of other medical certificate [id number] for issue of repeat prescription Inactive [...] 9 Condition DoD ASSESSMENT, PRE-DEPLOYMENT, DOCUMENTED ON [id number] Active Condition Ambulatory Pharmacy Chondromalacia, left knee Active Condition Ambulatory Pharmacy Hyperlipidemia Active Condition [facility] Hypertension Active Condition [facility] Morbid obesity Active Condition [facility] Obstructive sleep apnea Active Condition Ambulatory [facility] Prediabetes Active Condition Ambulatory Pharmacy Cellulitis of left finger Active Condition [facility] 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 Inactive Condition DoD refractive error - hypermetropia Active Condition DoD visit for: services flight physical Active Condition DoD upper respiratory infection Inactive Condition [facility] Outpatient Physician Consultation Active Condition DoD closed fracture phalanges right first toe Inactive Condition DoD closed fracture right first toe proximal phalanx Inactive Condition [facility] visit for: screening exam hypertension Inactive Condition DoD visit for: services physical Active Condition DoD Patient Education Active Condition [facility] Guidance: Concerns About Unsafe Sexual Practices Inactive Condition [facility] visit for: administrative purpose Inactive Condition [...] (EAR), SANDOZ, 7.5 ml DROP BTL Active [id number] 02/25/20 2 3 2022 7.5 Pharmac y Data Transac tion Service Facilit y dexAMETHaso ne 0.5 mg tablet See Instruct ions, Oral, # 2 EA, 0 total refill(s ), Hard Stop Oral (given by mouth) Complet ed 02/13/2024 2.0 Ambulat ory Pharmac y Diclofenac Sodium 0.01mg/mg, Gel/Jelly, Topical Avoid exposure to sun.For external use.Do not take if . Active 05/29/2024 [id number] 2023 100 [facility] meloxicam 15 mg oral tablet 1 tab(s), Oral, Daily, # 30 tab(s), 0 total refill(s ), Maintena nce, 1 tab(s) Oral Daily, Pharmacy : [facility] Oral (given by mouth) Discont inued 08/01/2023 30.0 0055[facility] MUPIROCIN (MUPIROCIN) , 2%, OINT.(GM), TOPICAL, TEVA [place], 22 g TUBE Active [id number] 2022 22 Pharmac y Data Transac [...] of 32 grams per day, Pharmacy : [facility] Discont inued 06/26/2023 100.0 [facility] Allergies, Adverse Reactions, Alerts Combined list of allergies from Department of Defense and Veterans Affairs facilities. It does not include entries that were removed or entered in error. Substance Category Reaction Severity Reaction type Status Date Reported Comments Source CECLOR (CEFACLOR) Drug allergy (disorder) Unknown active 0 [place] [address] cefaclor Propensity to adverse reactions to substance Unknown Active 0 Ambulatory Pharmacy Immunizations Combined list of available immunizations from the Department of Defense and Veterans Affairs facilities. Immunization Series Date Given Administered By Site Reaction Lot Number CVX Code Drug Plan Coordinator Status Comments Source influenza virus vaccine, inactivated 2023 IHSAN HORTA [id number] complet ed influenza virus vaccine, inactivat ed 12/18/23 Recorded [facility] influenza virus vaccine, inactivated 2022 IHSAN Floydul [place], right (delt oid) [id number] 150 [place] [employer] complet ed influenza virus vaccine, inactivat ed 01/07/23 Given 0055C[facility] COVID Vaccine Pfizer 2021 IHSNA HORTA [id number] complet ed Result Comment: Route: Unknown Manufactu rer: Pfizer, Inc (PFR) 0055C-3 [facility] SARS-COV-2 (COVID-19) vaccine, mRNA, spike protein, LNP, preservative free, 30 mcg/0.3mL dose 2 2021 [id number] 208 Pfizer, Inc (PFR) complet ed SARS-COV- 2 (COVID-19 ) vaccine, mRNA, spike protein, LNP, preservat danyell free, 30 mcg/0.3mL dose DoD influenza, injectable, quadrivalent- pf 2020 MOHSENJEROMEASPENDARSHANAMagnus RULA [id number] 150 complet ed Result Comment: Route: Unknown Manufactu rer: [employer] e (SKB) 0055C[facility] Influenza, injectable, quadrivalent, preservative free 1 2020 [id number] 150 [facility] (SKB) complet ed Influenza , injectabl e, quadrival ent, preservat danyell free DoD SARS-CoV-2 (COVID-19) Ad26 vaccine, rec 2020 [id number] complet ed SARS-CoV- 2 (COVID-19 ) Ad26 vaccine, rec 05/05/20 Given Ambulat ory Pharmac y SARS-COV-2 (COVID-19) vaccine, vector non-replicati ng, recombinant spike protein-Ad26, preservative free, 0.5 mL 1 2020 [id number] 212 [facility] (JSN) comple t ed SARS-COV- 2 (COVID-19 ) vaccine, vector non-repli cating, recombina nt spike protein-A d26, preservat danyell free, 0.5 mL DoD influenza, injectable, quadrivalent- pf 2019 [id number] 150 Seq[employer] complet ed influenza , injectabl e, quadrival ent-pf 12/25/19 Given Ambulat ory Pharmac y Influenza, injectable, quadrivalent, preservative free 1 2019 [id number] 506 150 Seqirus (SEQ) complet ed Influenza , injectabl e, quadrival ent, preservat danyell free DoD influenza, seasonal, [place], quadrivalent, 0.5mL dose, no preservative 1 2019 [id number] 201 Sanofi Pasteur (PMC) complet ed influenza , seasonal, [place], quadrival ent, 0.5mL dose, no preservat danyell DoD poliovirus vaccine, inactivated 2019 [id number] 10 sanofi pasteur complet ed polioviru s vaccine, inactivat ed 08/05/19 Given Ambulat ory Pharmac y measles virus vaccine 0 2019 05 () Not Given measles virus vaccine DoD rubella virus vaccine 0 2019 06 () Not Given rubella virus vaccine DoD mumps virus vaccine 0 2019 07 () Not Given mumps virus vaccine DoD poliovirus vaccine, inactivated 2 2019 [id number] 10 Sanofi Pasteur (PMC) complet ed polioviru s vaccine, inactivat ed DoD typhoid Vi capsular polysaccharid e vac 2019 [id number] 101 sanofi pasteur complet ed typhoid Vi capsular polysacch aride vac 07/07/19 Given Ambulat ory Pharmac y yellow fever vaccine 2019 [id number] 37 sanofi pasteur complet ed yellow fever vaccine 07/07/19 Given Ambulat ory Pharmac y yellow fever vaccine 1 2019 [id number] 37 Sanofi Pasteur (PMC) complet ed yellow fever vaccine DoD typhoid Vi capsular polysaccharid e vaccine 2 2019 [id number] 101 Sanofi Pasteur (PMC) complet ed typhoid Vi capsular polysacch aride vaccine DoD tetanus-dipht h toxoids (Td) adult/adol 2019 [id number] 09 sanofi pasteur complet ed tetanus-d iphth toxoids (Td) adult/ado l 04/23/19 Given Ambulat ory Pharmac y tetanus and diphtheria toxoids, adsorbed, preservative free, for adult use (2 Lf of tetanus toxoid and 2 Lf of diphtheria toxoid) 2 2019 [id number] 09 Sanofi Pasteur (PMC) complet ed tetanus and diphtheri a toxoids, adsorbed, preservat danyell free, for adult use (2 Lf of tetanus toxoid and 2 Lf of diphtheri a toxoid) DoD influenza, injectable, quadrivalent- pf 2018 [id number] 517 150 Seqirus complet ed influenza , injectabl e, quadrival ent-pf 12/25/18 Given Ambulat ory Pharmac y Influenza, injectable, quadrivalent, preservative free 11 10/31/ 2019 [id number] 517 150 Seqirus (SEQ) complet ed Influenza [...] Ambulat ory Pharmac y Influenza, injectable, Madin [place] Canine Kidney, preservative free, quadrivalent 9 [id number] 171 Seqirus (SEQ) comple t ed Influenza , injectabl e, Madin [place] Canine Kidney, preservat danyell free, quadrival ent DoD anthrax vaccine 2015 [id number] 24 Emergent Biosolutions complet ed anthrax vaccine 02/13/16 Given Ambulat ory Pharmac y anthrax vaccine 3 2015 [id number] 24 Emergent BioDef[employer] Operations [place] (MIP) complet ed anthrax vaccine DoD influenza, seasonal, injectable-pf 2015 [id number] 140 GlaxoSmithKli ne complet ed influenza , seasonal, injectabl e-pf 12/30/15 Given Ambulat ory Pharmac y Influenza, seasonal, injectable, preservative free 8 2015 [id number] 140 SmithKline (SKB) complet ed Influenza , seasonal, injectabl e, preservat danyell free DoD anthrax vaccine 2015 [id number] 24 Emergent Biosolutions complet ed anthrax vaccine 08/09/15 Given Ambulat ory Pharmac y anthrax vaccine 2 2015 [id number] 24 Emergent [employer] Operations [place] (MIP) complet ed anthrax vaccine DoD anthrax vaccine 2015 [id number] 24 Emergent Biosolutions complet ed anthrax vaccine 06/17/15 Given Ambulat ory Pharmac y vaccinia (smallpox) vaccine 2015 VV03-01 9-C 75 sanofi pasteur complet ed vaccinia (smallpox ) vaccine 06/17/15 Given Ambulat ory Pharmac y anthrax vaccine 1 2015 [id number] 24 Emergent BioDefense [facility] complet ed anthrax vaccine DoD vaccinia (smallpox) vaccine 0 2015 VV03-01 9-C 75 Sanofi Pasteur (PMC) complet ed vaccinia (smallpox ) vaccine DoD [place] Encephalitis IM 2015 [id number] 4E 134 Valneva complet ed [place] Encephali tis IM 06/02/15 Given Ambulat ory Pharmac y [place] Encephalitis vaccine for intramuscular administratio n 3 2015 [id number] 4E 134 microDimensions Biomedical (INT) complet ed [place] Encephali tis vaccine for intramusc ular administr ation DoD influenza, live, intranasal,qu adrivalent 2014 [id number] 149 Digilab Inc comple t ed influenza , live, [...] DoD influenza, live, intranasal, quadrivalent 7 2014 [id number] 149 Pingpigeon, Inc. (MED) complet ed influenza , live, intranasa l, quadrival ent DoD [place] Encephalitis IM 2014 [id number] 3E 134 Valneva complet ed [place] Encephali tis IM 05/14/14 Given Ambulat ory Pharmac y [place] Encephalitis vaccine for intramuscular administratio n 2 2014 [id number] 3E 134 IntercVesta [employer] Biomedical (INT) complet ed [place] Encephali tis vaccine for intramusc ular administr ation DoD [place] Encephalitis IM 2014 [id number] 0E 134 Valneva complet ed [place] Encephali tis IM 03/19/14 Given Ambulat ory Pharmac y [place] Encephalitis vaccine for intramuscular administratio n 0 2014 [id number] 0E 134 Intercell Biomedical (INT) complet ed [place] Encephali tis vaccine for intramusc ular administr ation DoD influenza, live, intranasal,qu adrivalent 2013 [id number] 149 Medimmune Inc comple t ed influenza , live, intranasa l,quadriv alent 12/16/13 Given Ambulat ory Pharmac y influenza, live, intranasal, quadrivalent 6 2013 [id number] 149 MedImmune, Inc. (MED) complet ed influenza , live, intranasa l, quadrival ent DoD influenza, live, intranasal,qu adrivalent 2012 [id number] 149 Medimmune Inc comple t ed influenza , live, intranasa l,quadriv alent 12/01/12 Given Ambulat ory Pharmac y influenza, live, intranasal, quadrivalent 0 2012 [id number] 149 MedImmune, Inc. (MED) complet ed influenza , live, intranasa l, quadrival ent DoD measles virus vaccine 0 2012 05 () Not Given measles virus vaccine DoD rubella virus vaccine 0 2012 06 () Not Given rubella virus vaccine DoD influenza virus vaccine, live 2011 [id number] 111 Medimmune Inc comple t ed influenza virus vaccine, live 11/30/11 Given Ambulat ory Pharmac y influenza virus vaccine, live, attenuated, for intranasal use 1 2011 [id number] 111 MedImmune, Inc. (MED) complet ed influenza virus vaccine, live, attenuate d, for intranasa l use DoD influenza virus vaccine, live 2010 [id number] 111 Medimmune Inc comple t ed influenza virus vaccine, live 11/21/10 Given Ambulat ory Pharmac y influenza virus vaccine, live, attenuated, for intranasal use 3 2010 [id number] 111 MedImmune, Inc. (MED) complet ed influenza virus vaccine, live, attenuate d, for intranasa l use DoD hepatitis A-hepatitis B vaccine 2009 [id number] [id number] 104 GlaxoSmithKli nd complet ed hepatitis A-hepatit is B vaccine 01/31/10 Given Ambulat ory Pharmac y hepatitis A and hepatitis B vaccine 3 2009 [id number] [id number] 104 [facility] ([facility] ed hepatitis A and hepatitis B vaccine DoD influenza virus vaccine, live 2009 [id number] 111 Medimmune Inc comple t ed influenza virus vaccine, live 01/17/10 Given Ambulat ory Pharmac y influenza virus vaccine, live, attenuated, for intranasal use 1 2009 [id number] 111 Pingpigeon, Inc. (MED) complet ed influenza virus vaccine, [...] vaccine DoD tuberculin purified protein derivative 2009 [id number] 96 sanofi pasteur complet ed tuberculi n purified protein derivativ e 03/13/09 Given Ambulat ory Pharmac y meningococcal A,C,Y,W-135 (MCV4P) 2009 [id number] 114 sanofi pasteur complet ed meningoco ccal A,C,Y,W-1 35 (MCV4P) 03/11/09 Given Ambulat ory Pharmac y influenza virus vaccine,split 2009 [id number] 1A 15 CSL Behring complet ed influenza virus vaccine,s plit 03/11/09 Given Ambulat ory Pharmac y poliovirus vaccine, inactivated 2009 D0052 10 sanofi pasteur complet ed polioviru s vaccine, inactivat ed 03/11/09 Given Ambulat ory Pharmac y Novel influenza-H1N 1-09, injectable 2009 [id number] 1 127 Novartis Pharmaceutica complet ed Novel influenza -Q1E4-05, injectabl e 03/11/09 Given Ambulat ory Pharmac y tetanus, diphtheria, acellular pertu is 2009 [id number] 5CA 115 GlaxoSmithKli ne complet ed tetanus, diphtheri a, acellular pertussis 03/11/09 Given Ambulat ory Pharmac y poliovirus vaccine, inactivated 1 2009 D0052 10 Sanofi Pasteur (PMC) complet ed polioviru s vaccine, inactivat ed DoD influenza virus vaccine, split virus (incl. purified surface antigen)-reti red CODE 1 2009 [id number] 1A 15 Knok [employer], [employer]. (CS) complet ed influenza virus vaccine, split virus (incl. purified surface antigen)- retired CODE DoD meningococcal polysaccharid e (groups A, C, Y and W-135) diphtheria toxoid conjugate vaccine (MCV4P) 1 2009 [id number] 114 Sanofi Pasteur (PMC) complet ed meningoco ccal polysacch aride (groups A, C, Y and W-135) diphtheri a toxoid conjugate vaccine (MCV4P) DoD tetanus toxoid, reduced diphtheria toxoid, and acellular pertu is vaccine, adsorbed 1 2009 [id number] 115 [facility] (SKB) complet ed tetanus toxoid, reduced diphtheri a toxoid, and acellular pertussis vaccine, adsorbed DoD Novel influenza-H1N 1-09, injectable 1 2009 [id number] 1 127 Novartis Sorbisense Scotty. (NOV) complet ed Novel influenza -G3R0-87, injectabl e DoD Results Combined list of [...] Prevention' s HIV diagnostic algorithm. Refer to [facility] Lab Guide for additional information : [email or web address] x Testing performed by [employer] inaMission Developmentalana richardson. Ambulator y Pharmacy Chemistry eGFR CKD [...] ADM Date DC Date Status Disposition [place] [address](Opt ometry Clinic [facility]) OUTPATIENT [id number] SAMINA WEST 03/18 Released w/o Limitations [facility] [place] [address](O ptometr y Clinic [facility]) [place] [address]([facility]) OUTPATIENT [id number] -0900 F/U BILAT KNEE PAIN (320/20 2) JEFFERSON AGUILAR 04/05 Released with Work/Duty Limitations [facility] [place] [address]([facility] d) [facility] ([facility]Hea lthcare Integrato rs) OUTPATIENT [id number] FTAC Feb 03 RICKY CHONG 02/01 Released w/o Limitations [facility] ([facility])(H ealthca re Integra tors) [facility]Sco tt Flight Medicine Tm) OUTPATIENT [id number] FTAC - Vitals KWABENA MEDINA 02/02 Released w/o Limitations [facility] ([facility])(S cott Flight Medicin e Tm) [address] [place] [address] Group [facility] ([facility])(Fam autumn Med Tm B Non-AD BCC) OUTPATIENT [id number] [facility]/PHA RAMIN JARRELL 02/12 Released w/o Limitations [address] [place] [address] Group [facility] ([facility])(F amily Med Tm B Non-AD BCC) [address] [place] [address] Group [facility] ([facility])(Fam autumn Med Tm B Non-AD BCC) OUTPATIENT [id number] PHA Require ments RAMIN JARRELL 02/22 Released w/o Limitations [facility] ([facility])(F amily Med Tm B Non-AD BCC) [facility] ([facility])(Fam autumn Med Tm B Non-AD BCC) OUTPATIENT [id number] f/u for back issues, er visit [phone] RAMIN JARRELL 06/13 Released w/o Limitations [address] [place] [address] Group [facility] ([facility])(F amily Med Tm B Non-AD BCC) [address] [place] [address] [facility] ([facility])(Fam autumn Med Tm B Non-AD BCC) OUTPATIENT [id number] right foot, big toe pain, ROLDAN BEJARANO 01/24 Released with Work/Duty Limitations [facility] ([facility])(F amily Med Tm B Non-AD BCC) [address] [place] [address] [facility] ([facility])(Phy sical Therapy) OUTPATIENT [id number] right great toe HERSON CHOE 01/24 Released with Work/Duty Limitations [address] [place] [address] Group [facility] ([facility])(P hysical Therapy ) [address] [place] [address] [facility] ([facility])(Fam autumn Med Tm B Non-AD BCC) TELE CONSULT [id number] Notes Entered by: YAIMA MARTIN 30 Jan 2012 1030 ------- ------- ------- ------- -- Network Results -Podiat ry 2 ROLDAN BEJARANO 01/[address] [place] [address] [facility] ([facility])(F amily Med Tm B Non-AD BCC) [address] [place] [address] [facility] ([facility])(Fam autumn Med Tm B Non-AD BCC) TELE CONSULT [id number] Notes Entered by: JEANCARLOS SMITH 09 Mar 2012 193 ------- ------- ------- ------- -- DHC/PHA ROLDAN BEJARANO 03/10 [facility] ([facility])(F amily Med Tm B Non-AD BCC) [employer] ([facility])(Fam autumn Med Tm B Non-AD BCC) OUTPATIENT [id number] 3 yr face to face PHA [id number] [phone] ROLDAN BEJARANO 03/24 Released w/o Limitations [facility] ([facility])(F amily Med Tm B Non-AD BCC) [employer]([facility]) OUTPATIENT [id number] elizabeth pope/TRENTON Emmanuel 07/01 Released w/o Limitations [employer]([facility]) [facility] [employer] [facility](Opt ometry Clinic) OUTPATIENT [id number] eYE EXAM SABAS GUIDRY 12/15 Released w/o Limitations [employer] [employer] [facility](O ptometr y Clinic) [employer] [employer] [facility]) OUTPATIENT [id number] Notes Entered by: FIDEL VILLEGAS 16 Apr 2013 08 ------- ------- ------- ------- -- FIDEL Neal 04/15 Released w/o Limitations [employer] [employer](P ublic Health) [facility](Opt ometry Clinic) OUTPATIENT [id number] SHRADDHA Heck 05/14 Released w/o Limitations [employer](O ptometr y Clinic) [employer]([facility]) OUTPATIENT [id number] Notes Entered by: JUDY FRANKLIN 24 May 2014 1231 ------- ------- ------- ------- -- JUDY WEAVER 05/24 Released w/o Limitations [employer] [employer] [facility](P ublic Health) [employer] [facility](Aer omedical Services) OUTPATIENT [id number] Notes Entered by: SELWYN MULLINS 05 Jan 2015 1553 ------- ------- ------- ------- -- Finger pain ANGEL LUISDee JEANCARLOS Knowles 01/05 Released w/o Limitations [facility](A [facility] Service s) [facility]) OUTPATIENT [id number] Notes Entered by: ROCCO AGUILAR 23 Jun 2015 1516 ------- ------- ------- ------- -- Web Manuel COLBY AGUILAR 06/22 Released w/o Limitations [facility]) [facility]) OUTPATIENT [id number] Notes Entered by: KATELYNN LEPE 30 Jan 2016 1055 ------- ------- ------- ------- -- Blurry Vision MARY HUMPHRIES 01/29 Released w/o Limitations [facility]) [facility]) TELE CONSULT [id number] Notes Entered by: Mario RODRIGUEZ 22 May 2016 1347 ------- ------- ------- ------- -- PCS DAISYAN STEWART VILLAVICENCIO 05/22 Other Not Elsewhere Classified [facility]) [facility]) OUTPATIENT [id number] Notes Entered by: Benson BARDALES 13 Jul 2016 1456 ------- ------- ------- ------- -- PRASAD KIM 07/13 Released w/o Limitations [facility]) [facility](In and Out Hayes Jara) TELE CONSULT [id number] Notes Entered by: CARA HOLLAND 01 Aug 20164 ------- ------- ------- ------- -- Medical Out-Pro cessing CARA HOLLAND 08/01 Advice Assessment [employer](I n and Out Process ing [place]) [facility] In & Out-Proce ssing Clinic) TELE CONSULT [id number] Notes Entered by: FIDELIA LASSITER 15 Sep 2016 1728 ------- ------- ------- ------- -- Chema warner In Process ing LUCIANA LASSITER 09/15 [facility] In & Out-Pro cessing Clinic) [facility] Clinical Pharmacy Care) OUTPATIENT [id number] Notes Entered by: OLVIN BOOTH ED 02 Jan 2017 0844 ------- ------- ------- ------- -- cold clinic ROBERTO CARLOS SANTIAGO 01/02 Released w/o Limitations [facility] Clinica l Pharmac y Care) [facility] ([facility] OUTPATIENT [id number] right ankle pain MINNIE STUART 09/02 Released w/o Limitations [facility])) [facility] OP Medicine Clinic) OUTPATIENT [id number] Notes Entered by: CELESTE GIPSON 23 Sep 2017 1310 ------- ------- ------- ------- -- CELESTE Guevara 09/23 [facility]ased w/[facility] Limitations [facility] Base OP Medicin e Clinic) [facility] Element C-1) OUTPATIENT [id number] PARIS MURRY 09/24 Released w/o Limitations [facility] Element C-1) [facility] Emergency Room) OUTPATIENT [id number] Notes Entered by: AMOR LEW 29 Jan 2018 1155 ------- ------- ------- ------- -- 27y/o M Clogged ear STEF BARRERA 01/29 Released w/o Limitations [facility] Emergen cy Room) [facility] Element C-1) OUTPATIENT [id number] 9 ! 1200 ongoing R ankle issues HERSON MARY 03/07 Released w/o Limitations [facility] Element C-1) [facility] Element C-1) TELE CONSULT [id number] Notes Entered by: BHARATI TYSON 12 Mar 2018 1046 ------- ------- ------- ------- -- Profile extensi on IRWIN KONG 03/12 [facility] Element C-1) [facility] [facility] OUTPATIENT [id number] right ankle pain STEVE LUNDBERG 04/08 Released w/o Limitations [facility] ) [facility] Physical Therapy) OUTPATIENT [id number] r ankle STEVE LUNDBERG 08/01 Released w/o Limitations [facility] Physical Therapy) OUTPATIENT [id number] L knee, R ankle FTR w/ KIRSTEN Campos 08/12 Released w/o Limitations [facility] Physical Therapy) OUTPATIENT [id number] KEVYN NICHOLS 08/18 Released w/o Limitations [facility] Physical Therapy) OUTPATIENT [id number] STEVE LUNDBERG 09/03 Released w/o Limitations [facility] ) [facility]) OUTPATIENT [id number] Notes Entered by: VASILE BARDALES 10 Sep 2018 1031 ------- ------- ------- ------- -- A VASILE BARDALES 09/10 Released w/o Limitations [facility]) [facility] Physical [facility]) OUTPATIENT [id number] [facility] 09/30 Released w/o Limitations [facility] ) [facility] Physical [facility]) OUTPATIENT [id number] [facility] 10/02 Released w/o Limitations [facility] ) [facility] Disenroll ment) OUTPATIENT [id number] VIRTUAL PHA ARJUN BEN M 10/08 Released w/o Limitations [facility] Disen[facility]ment) [facility] Physical [facility]) OUTPATIENT [id number] [facility] 10/14 Released w/o Limitations [facility] ) [facility] OUTPATIENT [id number] [facility] 10/16 Released w/o Limitations [facility] ) [facility] Physical [facility]) OUTPATIENT [id number] [facility] 10/23 Released w/o Limitations [facility] ) [facility] Physical [facility]) OUTPATIENT [id number] lower back follow up/Maj Lundberg's patient MARLYS HENAO 11/05 Released w/o Limitations [facility] ) [facility]) OUTPATIENT [id number] [facility] LIV 11/17 Released w/o Limitations [facility] ) [facility] Physical [facility]) OUTPATIENT [id number] knee ETHEL CHAUHANDee GUILLERMO 11/20 Released w/o Limitations [facility] ) [facility] Physical [facility]) OUTPATIENT [id number] knee LUCIANA BELL LIV 11/24 Released w/o Limitations [facility] ) [facility] Physical [facility]) OUTPATIENT [id number] Resched uled Nov MARLYS HENAO 12/09 Released w/o Limitations [facility] ) [facility] Physical [facility] OUTPATIENT [id number] alter g TIENKIRSTEN 01/16 Released w/o Limitations [facility] ) [facility] Physical [facility]) OUTPATIENT [id number] AlterG (sched more Txs & sched f/u /Col ) SANDRA MCCLAIN 03/05 Released w/o Limitations [facility] ) [facility]) OUTPATIENT [id number] Fatmata DAVIS, MCKEON D 03/10 Released w/o Limitations [facility] ) [facility]) OUTPATIENT [id number] AlterG DAVIS, MCKEON D 03/13 Released w/o Limitations [facility] ) [facility] Physical [facility]) OUTPATIENT [id number] SegundoLUCIANA REMY LIV 03/17 Released w/o Limitations [facility] ) [facility] Physical [facility]) OUTPATIENT [id number] SegundoLUCIANA REMY LIV 03/19 Released w/o Limitations [facility] ) [facility] Physical [facility]) OUTPATIENT [id number] LINDA Hoffman 03/26 Released w/o Limitations [facility] ) [facility]) OUTPATIENT [id number] ftr followi carin Pope (Col Henao's patient ) NOE HOWELL 04/02 Released w/o Limitations [facility] ) [facility]) OUTPATIENT [id number] L knee MCCLAIN, SANDRA C 04/15 Released w/o Limitations [facility] ) [facility] Physical [facility]) OUTPATIENT [id number] L knee MCCLAIN, SANDRA C 04/17 Released w/o Limitations [facility] ) [facility] Optometry ) OUTPATIENT [id number] annual eye exam/gl COLBY Macario 04/23 Released w/o Limitations [facility] Optomet [facility]) [facility] Physical [facility]) OUTPATIENT [id number] L knee w in clinic ftr, not post op allowed by NOE Burnett 04/24 Released w/o Limitations [facility] ) [facility] Medicine Clinic) TELE CONSULT [id number] Notes Entered by: DESHAWN MILES MIN 08 Jul 2019 0853 ------- ------- ------- ------- -- 422 - PCS RAMAN Shaw 07/07 [facility] OP Medicin [facility] Clinic) [facility] Medicine [facility]) OUTPATIENT [id number] DRDONNELL [id number] VASILE BARDALES 07/12 Released w/o Limitations [facility] Base OP Medicin e Clinic) Theater Facility OUTPATIENT [id number] Theater Provider 11/26 Released w/o Limitations [facility] OUTPATIENT [id number] Theater Provider 11/29 Released w/o Limitations [facility] OUTPATIENT [id number] Theater Provider 12/27 Released w/o Limitations [facility] OUTPATIENT [id number] Theater Provider 01/03 Released w/o Limitations [facility] OUTPATIENT [id number] Theater Provider 03/10 Released w/o Limitations [facility] OUTPATIENT [id number] Theater Provider 03/24 Released with Work/Duty Limitations [facility] OUTPATIENT [id number] Theater Provider 05/05 Released w/o Limitations [facility] Facility OUTPATIENT [id number] Theater Provider 05/07 Admitted Theater Facilit y [facility]) OUTPATIENT [id number] MHA/PHA LAMINE Mcgovern 05/11 Released w/o Limitations [facility]) Theater Facility OUTPATIENT [id number] Theater Provider 05/16 Released with Work/Duty Limitations [facility] Facility OUTPATIENT [id number] Theater Provider 05/16 Released with Work/Duty Limitations [facility] Theater Facility OUTPATIENT [id number] Theater Provider 08/30 Released w/o Limitations Theater Facilit y [place] [facility] Clinic) OUTPATIENT [id number] 5 Flores BELLA 2 RATNA MARES 10/12 [place]ased w/o Limitations [place] [facility]) [place] [facility] Flight Medicine) OUTPATIENT [id number] 1 physica l therapy referra l (cont issue from [facility]) OLVIN ROBINS 10/14 Released w/o Limitations [place] [facility] Flight Medicin e) [place] [facility] Physical Medicine) OUTPATIENT [id number] JASMYN RODRIGUEZ PT 11/24 [place]ased w/o Limitations [place] [facility] [place] [facility] Physical Medicine) OUTPATIENT [id number] With TSgt Nohemi at the gym 929 JEANCARLOS RECINOS 11/28 [place]ased w/o Limitations [place] [facility] [place] [facility]) OUTPATIENT [id number] 1 JENA [id number] RATNA MARES P 12/11 Released w/o Limitations [place] [facility]) [place] Pandemic Virus) TELE CONSULT [id number] Notes Entered by: Magnolia GAGE 10 Mar 2021 1311 ------- ------- ------- ------- -- KARELY SERRANO 03/10 [place] [facility]) [place] [facility] Physical Medicine) OUTPATIENT [id number] JASMYN RODRIGUEZ PT 04/20 [place]ased w/o Limitations [place] [facility]) [place] [facility]) OUTPATIENT [id number] Notes Entered by: SE TAWANA MARES P 27 Apr 2021 1354 ------- ------- ------- ------- -- flores krishna [facility] [phone] RATNA MARES 04/27 [place]ased w/o Limitations [place]) [place] [facility] Physical Medicine) OUTPATIENT [id number] JASMYN RODRIGUEZ PT 05/30 Released w/o Limitations [place] [facility] [place] [facility]) OUTPATIENT [id number] PHAQ REVIEW [place] 06/13 [place]ased w/o Limitations [place] [facility] [place] [facility] Physical Medicine) TELE CONSULT [id number] RAYMONDJASMYN TORRES PT 07/19 [place] [facility] [place] [facility] Physical Medicine) OUTPATIENT [id number] Previou s Col [place] patient DANILO HERNÁNDEZ 08/09 Released w/o Limitations [place] [facility] [place] [facility] Physical Medicine) OUTPATIENT [id number] DANILO HERNÁNDEZ 08/23 Released w/o Limitations [place] [facility]) [place] B Optometry ) OUTPATIENT [id number] roucatalina jonas eye exam/ 5 7213 SABAS GUIDRY 09/15 Released w/o Limitations [place] [facility] Opt[facility]) [place] [facility] BHOP) OUTPATIENT [id number] 3 sleep disorde r MOI GANT 10/02 Released w/o Limitations [place] [facility] [facility]) TELE CONSULT [id number] Notes Entered by: JOHN PAUL LIND 04 Oct 2021 0838 ------- ------- ------- ------- -- Sleep Apnea Inquiry WILLA VAIL JR 10/03 [place] [facility]) [place] [facility] Physical Medicine) OUTPATIENT [id number] RENEA ZABALA 10/12 Released w/o Limitations [place] [facility]in [facility]) [place] Pandemic Virus) TELE CONSULT [id number] Notes Entered by: RAMSEY WHEELER 16 Oct 2021 1131 ------- ------- ------- ------- -- BML-FAWADShailesh AGUIRREMEDELMINNIE AgudeloAISHA 10/16 Released to Self Care [place] [facility] [place]) OUTPATIENT [id number] [phone] Dr. Loni méndez said to message you to get a sleep study done WILLA VAIL JR 11/15 [place]ased w/o Limitations [place] [facility]) [place] [facility] Jackson Medicine [facility]) OUTPATIENT [id number] [phone] Follow Up with PCM ОЛЕГ Mojica 01/03 [place]ased w/o Limitations [place] [facility]) [place] [facility]) TELE CONSULT [id number] Notes Entered by: JOSHUA CHAPIN UNITejinder 09 Jan 2022 0905 ------- ------- ------- ------- -- Report from Sleep Clinic [facility] 022 WILLA VAIL JR 01/09 [place] [facility] [place]) OUTPATIENT [id number] Notes Entered by: LILIAN HANKS 11 Jan 2022 0837 ------- ------- ------- ------- -- 3-day BP check [place] 01/10 [place]ased w/o Limitations [place] [facility]) [place] [facility]) OUTPATIENT [id number] SM yes// appt f/u ОЛЕГ STEWART 01/29 [place]ased w/o Limitations [place] [facility]) [place] [facility]) OUTPATIENT [id number] [phone] Maj Stewart request ed a face to face meeting ОЛЕГ STEWART 02/06 [place]ased w/o Limitations [place] [facility]) [place] [facility] Nutrition al Medicine) OUTPATIENT [id number] Essenti al (primar y) hyperte nsKAREN Paniagua 02/09 [place]ased w/o Limitations [place] [facility]al Medicin [facility]) [place] [facility]) TELE CONSULT [id number] Notes Entered by: ОЛЕГ STEWART 09 Feb 2022 1656 ------- ------- ------- ------- -- Lab results ОЛЕГ STEWART 02/09 [place] [facility]) [place] [facility] Nutrition al Medicine) OUTPATIENT [id number] Weight Managem ent f/u BALA GLASS 03/19 [place]ased w/o Limitations [place] [facility] Medicin [facility]) [place] [facility]) TELE CONSULT [id number] Notes Entered by: ОЛЕГ STEWART 19 Mar 2022 1348 ------- ------- ------- ------- -- Lab results KATH WADDELL 03/19 [place] for Appointment [place] [facility]) [place] [facility] Physical Medicine) OUTPATIENT [id number] RENEA ZABALA 04/04 Released w/o Limitations [place] [facility] Physica l Medicin e) [place] [facility] Nutrition al Medicine) OUTPATIENT [id number] Weight loss f/u BALA GLASS 05/10 [place]ased w/o Limitations [place] [facility]al Medicin e) [place] [facility]) OUTPATIENT [id number] (rebmonica mack ) f/u appt/ 6 0070 ОЛЕГ STEWART 06/12 [place]ased [place] Limitations [place]) [place] [facility]) OUTPATIENT [id number] Notes Entered by: SE TAWANA MARES P 13 Jun 2022 0821 ------- ------- ------- ------- -- flores krishna [facility] [phone] RATNA MARES 06/12 [place]ased w/o Limitations [place] [facility]) [place] [facility] Nutrition al Medicine) OUTPATIENT [id number] Weight Managem ent f/u BALA GLASS 07/02 [place]ased w/o Limitations [place]B Nutriti [facility]al Medicin e) [place] [facility] Nutrition al Medicine) OUTPATIENT [id number] weight loss f/u BALA GLASS 08/31 [place]ased w/o Limitations [place]al Medicin e) [place] [facility]) OUTPATIENT [id number] PHAQ WILLA DAS JR 08/31 [place]ased w/o Limitations [place]) [place] [facility] Physical Medicine) OUTPATIENT [id number] JAY ARMSTRONG 09/04 Released w/o Limitations [place] Medicin [facility]) [place] [facility] Physical Medicine) OUTPATIENT [id number] JAY ARMSTRONG 09/21 Released w/o Limitations [place] Phys[facility] Medicin e) [place] [facility] Physical Medicine) OUTPATIENT [id number] JAY ARMSTRONG 09/26 Released w/o Limitations [place] Phys[facility] l Medicin e) [id number] th MEDGRP-Wa michelle Between Visit [id number] 01/29 Discharge Disposition: Home or Self Care [address] [facility]379[facility]-Marielena [facility] Outpatient [id number] [facility] er for issue of other medical certifi pierce PEOPLES RPUTNAM 02/09 Discharge Disposition: Home or Self Care 7379C-L [facility] [id number] Obesity , class 3 CHIKIS MMENDOZA 02/09 Discharge Disposition: Home or Self Care [address] [place] [address] [facility] [id number] Essenti al (primar y) hyperte nsion,O bstruct danyell sleep apnea (adult) (pediat ghanshyam), AURELIA Sagastume, PRE-DEP LOYMENT , BARBARA DIAMOND ON [id number], Hyperli pidemia , unspeci fied,Mo rbid (severe ) obesity due to excess calorie s SANDRA ORGAN 02/11 Discharge Disposition: Home or Self Care [address] [place] [address] [facility] [id number] Morbid (severe ) obesity due to excess calorie s,Obstr uctive sleep apnea (adult) (pediat ghanshyam) SANDRA ORGAN 02/13 Discharge Disposition: Home or Self Care [address] [place] [address] Procedures Combined list of: 1) Procedures from [...] MINUTES; GAIT TRAINING (INCLUDES STAIR CLIMBING) 2011 [facility] ADMINISTRATION OF PATIENT-FOCUSED HEALTH RISK ASSESSMENT INSTRUMENT (EG, HEALTH HAZARD APPRAISAL) WITH SCORING AND DOCUMENTATION, PER STANDARDIZED INSTRUMENT 2020 [facility] FITTING OF SPECTACLES, EXCEPT FOR APHAKIA; MONOFOCAL 2009 [facility] THERAPEUTIC, PROPHYLACTIC, OR DIAGNOSTIC INJECTION (SPECIFY SUBSTANCE OR DRUG); SUBCUTANEOUS OR INTRAMUSCULAR 2009 [facility] THERAPEUTIC PROCEDURE, 1 OR MORE AREAS, EACH 15 MINUTES; THERAPEUTIC EXERCISES TO DEVELOP STRENGTH AND ENDURANCE, RANGE OF MOTION AND FLEXIBILITY 2022 [facility] THERAPEUTIC PROCEDURE, 1 OR MORE AREAS, EACH 15 MINUTES; THERAPEUTIC EXERCISES TO DEVELOP STRENGTH AND ENDURANCE, RANGE OF MOTION AND FLEXIBILITY 2022 [facility] ADMINISTRATION OF PATIENT-FOCUSED HEALTH RISK ASSESSMENT INSTRUMENT (EG, HEALTH HAZARD APPRAISAL) WITH SCORING AND DOCUMENTATION, PER STANDARDIZED INSTRUMENT 2022 [facility] THERAPEUTIC PROCEDURE,1 OR MORE AREAS,EACH 15 MINUTES;NEUROMUSCULA R REEDUCATION OF MOVEMENT,BALANCE,RN CHRONIC RDINATION,KINESTHETI C SENSE,POSTURE,AND/OR PROPRIOCEPTION FOR SITTING AND/OR STANDING ACTIVITIES 2022 [facility] MEDICAL NUTRITION THERAPY; RE-ASSESSMENT AND INTERVENTION, INDIVIDUAL, [id number] WITH THE PATIENT, EACH 15 MINUTES 2022 [facility] MEDICAL NUTRITION THERAPY; RE-ASSESSMENT AND INTERVENTION, INDIVIDUAL, [id number] WITH THE PATIENT, EACH 15 MINUTES 2022 [facility] ADMINISTRATION OF PATIENT-FOCUSED HEALTH RISK ASSESSMENT INSTRUMENT (EG, HEALTH HAZARD APPRAISAL) WITH SCORING AND DOCUMENTATION, PER STANDARDIZED INSTRUMENT 2022 [facility] MEDICAL NUTRITION THERAPY; RE-ASSESSMENT AND INTERVENTION, INDIVIDUAL, [id number] WITH THE PATIENT, EACH 15 MINUTES 2022 [facility] THERAPEUTIC PROCEDURE,1 OR MORE AREAS,EACH 15 MINUTES;NEUROMUSCULA R REEDUCATION OF MOVEMENT,BALANCE,RN CHRONIC RDINATION,KINESTHETI C SENSE,POSTURE,AND/OR PROPRIOCEPTION FOR SITTING AND/OR STANDING ACTIVITIES 2022 [facility] TELE ASSESS & MGT SRV PROV QUAL NONPHYS HLTH CARE PRO TO EST PAT,PARENT,GUARD NOT ORIG REL ASSESS & MGT SRV PROV W/IN PREV 7 DAYS NOR LEAD ASSESS & MGT SRV/PX W/IN NXT 24 HR/SOON APT;5-10 MIN MED DIS 2022 [facility] MEDICAL NUTRITION THERAPY; GROUP (2 OR MORE INDIVIDUAL(S)), EACH 30 MINUTES 2021 [facility] ELECTROCARDIOGRAM, ROUTINE ECG WITH AT LEAST 12 LEADS; WITH INTERPRETATION AND REPORT 2021 [facility] THERAPEUTIC PROCEDURE, 1 OR MORE AREAS, EACH 15 MINUTES; THERAPEUTIC EXERCISES TO DEVELOP STRENGTH AND ENDURANCE, RANGE OF MOTION AND FLEXIBILITY 2021 [facility] BRIEF EMOTIONAL/BEHAVIORAL ASSESSMENT (EG, DEPRESSION INVENTORY, ATTENTION-DEFICIT/HY PERACTIVITY DISORDER [ADHD] SCALE), WITH SCORING AND DOCUMENTATION, PER STANDARDIZED INSTRUMENT 2021 [facility] OPHTHALMIC ULTRASOUND, ECHOGRAPHY, DIAGNOSTIC; CORNEAL PACHYMETRY, UNILATERAL OR BILATERAL (DETERMINATION OF CORNEAL THICKNESS) 2021 [facility] NEEDLE INSERTION(S) WITHOUT INJECTION(S); 3 OR MORE MUSCLES 2021 [facility] NEEDLE INSERTION(S) WITHOUT INJECTION(S); 1 OR 2 MUSCLE(S) 2021 [facility] ADMINISTRATION OF PATIENT-FOCUSED HEALTH RISK ASSESSMENT INSTRUMENT (EG, HEALTH HAZARD APPRAISAL) WITH SCORING AND DOCUMENTATION, PER STANDARDIZED INSTRUMENT 2021 [facility] RE-EVAL,PHYSICAL THERAPY EST PLAN OF CARE,REQ:EXAM,REV,HX & USE,STAND TESTS &MARGY REQ;REV PLAN OF CARE USING STAND PAT ASSESS INSTR &/MARGY ASSESS FUNC OUTCOME TYP,20 MIN SPENT [id number] W PAT&/FAM 2021 [facility] BRIEF COMM TECH-BASE SERV,E.G. VIRT CHK-IN,BY [...] ENDURANCE, RANGE OF MOTION AND FLEXIBILITY 2020 [facility] ADMINISTRATION OF PATIENT-FOCUSED HEALTH RISK ASSESSMENT INSTRUMENT (EG, HEALTH HAZARD APPRAISAL) WITH SCORING AND DOCUMENTATION, PER STANDARDIZED INSTRUMENT 2020 [facility] ADMINISTRATION OF PATIENT-FOCUSED HEALTH RISK ASSESSMENT INSTRUMENT (EG, HEALTH HAZARD APPRAISAL) WITH SCORING AND DOCUMENTATION, PER STANDARDIZED INSTRUMENT 2019 [facility] PSYCHOLOGICAL OR NEUROPSYCHOLOGICAL TEST ADMINISTRATION, WITH SINGLE AUTOMATED, STANDARDIZED INSTRUMENT VIA ELECTRONIC PLATFORM, WITH AUTOMATED RESULT ONLY 2019 [facility] PSYCHIATRIC EVALUATION OF HOSPITAL RECORDS, OTHER PSYCHIATRIC REPORTS, PSYCHOMETRIC AND/OR PROJECTIVE TESTS, AND OTHER ACCUMULATED DATA FOR MEDICALDIAGNOSTIC PURPOSES 2019 [facility] THERAPEUTIC PROCEDURE, 1 OR MORE AREAS, EACH 15 MINUTES; GAIT TRAINING (INCLUDES STAIR CLIMBING) 2019 [facility] FITTING OF SPECTACLES, EXCEPT FOR APHAKIA; MONOFOCAL 2019 [facility] THERAPEUTIC PROCEDURE,1 OR MORE AREAS,EACH 15 MINUTES;NEUROMUSCULA R REEDUCATION OF MOVEMENT,BALANCE,RN CHRONIC RDINATION,KINESTHETI C SENSE,POSTURE,AND/OR PROPRIOCEPTION FOR SITTING AND/OR STANDING ACTIVITIES 2019 [facility] THERAPEUTIC PROCEDURE,1 OR MORE AREAS,EACH 15 MINUTES;NEUROMUSCULA R REEDUCATION OF MOVEMENT,BALANCE,RN CHRONIC RDINATION,KINESTHETI C SENSE,POSTURE,AND/OR PROPRIOCEPTION FOR SITTING AND/OR [...] MORE AREAS,EACH 15 MINUTES;NEUROMUSCULA R REEDUCATION OF MOVEMENT,BALANCE,RN CHRONIC RDINATION,KINESTHETI C SENSE,POSTURE,AND/OR PROPRIOCEPTION FOR SITTING AND/OR STANDING ACTIVITIES 2018 [facility] THERAPEUTIC PROCEDURE,1 OR MORE AREAS,EACH 15 MINUTES;NEUROMUSCULA R REEDUCATION OF MOVEMENT,BALANCE,RN CHRONIC RDINATION,KINESTHETI C SENSE,POSTURE,AND/OR PROPRIOCEPTION FOR SITTING AND/OR STANDING ACTIVITIES 2018 [facility] THERAPEUTIC PROCEDURE,1 OR MORE AREAS,EACH 15 MINUTES;NEUROMUSCULA R REEDUCATION OF MOVEMENT,BALANCE,RN CHRONIC RDINATION,KINESTHETI C SENSE,POSTURE,AND/OR PROPRIOCEPTION FOR SITTING AND/OR STANDING ACTIVITIES 2018 [facility] STRAPPING; KNEE 2018 [facility] THERAPEUTIC ACTIVITIES, DIRECT (ONE-ON-ONE) PATIENT CONTACT (USE OF DYNAMIC ACTIVITIES TO IMPROVE FUNCTIONAL PERFORMANCE), EACH 15 MINUTES 2018 [facility] THERAPEUTIC ACTIVITIES, DIRECT (ONE-ON-ONE) PATIENT CONTACT (USE OF DYNAMIC ACTIVITIES TO IMPROVE FUNCTIONAL PERFORMANCE), EACH 15 MINUTES 2018 [facility] ADMINISTRATION OF PATIENT-FOCUSED HEALTH RISK ASSESSMENT INSTRUMENT (EG, HEALTH HAZARD APPRAISAL) WITH SCORING AND DOCUMENTATION, PER STANDARDIZED INSTRUMENT 2018 [facility] THERAPEUTIC ACTIVITIES, DIRECT (ONE-ON-ONE) PATIENT CONTACT (USE OF DYNAMIC ACTIVITIES TO IMPROVE FUNCTIONAL PERFORMANCE), EACH 15 MINUTES 2018 [facility] THERAPEUTIC ACTIVITIES, DIRECT (ONE-ON-ONE) PATIENT CONTACT (USE OF DYNAMIC ACTIVITIES TO IMPROVE FUNCTIONAL PERFORMANCE), EACH 15 MINUTES 2018 [facility] THERAPEUTIC ACTIVITIES, DIRECT (ONE-ON-ONE) PATIENT CONTACT (USE OF DYNAMIC ACTIVITIES TO IMPROVE FUNCTIONAL PERFORMANCE), EACH 15 MINUTES 2018 [facility] ONLINE ASSESS &MANAG SERV PROVIDE,A QUAL NONPHYS HCP TO AN ESTABLISHED PAT/GUARDIAN,[facility] ASS[facility] &MANAG SERV PROVIDE W/IN THE PREV 7 DAYS,USE THE [employer] 2018 [facility] RE-EVAL,PHYSICAL THERAPY EST PLAN OF CARE,REQ:EXAM,REV,HX & USE,STAND TESTS &MARGY REQ;REV PLAN OF CARE USING STAND PAT ASSESS INSTR &/MARGY ASSESS FUNC OUTCOME TYP,20 MIN SPENT ECHO-FY-OAPD W PAT&/FAM 2018 [facility] THERAPEUTIC PROCEDURE, 1 OR MORE AREAS, EACH 15 MINUTES; THERAPEUTIC EXERCISES TO DEVELOP STRENGTH AND ENDURANCE, RANGE OF MOTION AND FLEXIBILITY 2018 [facility] THERAPEUTIC PROCEDURE, 1 OR MORE AREAS, EACH 15 MINUTES; THERAPEUTIC EXERCISES TO DEVELOP STRENGTH AND ENDURANCE, RANGE OF MOTION AND FLEXIBILITY 2018 [facility] THERAPEUTIC PROCEDURE, 1 OR MORE AREAS, EACH 15 MINUTES; THERAPEUTIC EXERCISES TO DEVELOP STRENGTH AND ENDURANCE, RANGE OF MOTION AND FLEXIBILITY 2018 [facility] Hospital CRUTCHES UNDERARM, OTHER THAN WOOD, ADJUSTABLE OR FIXED, PAIR, WITH PADS, TIPS AND HANDGRIPS 2018 [facility] THERAPEUTIC PROCEDURE, 1 OR MORE AREAS, EACH 15 MINUTES; THERAPEUTIC EXERCISES TO DEVELOP STRENGTH AND ENDURANCE, RANGE OF MOTION AND FLEXIBILITY 2018 [facility] ADMINISTRATION OF PATIENT-FOCUSED HEALTH RISK ASSESSMENT INSTRUMENT (EG, HEALTH HAZARD APPRAISAL) WITH SCORING AND DOCUMENTATION, PER STANDARDIZED INSTRUMENT 2017 [facility] Corneal Pachymetry, Bilateral With Interpret And Report Corneal Pachymetry, Bilateral With Interpret And Report 69368 2014 SHRADDHA MCCRACKEN [facility] Spectacles Services Fitting Monofocal Except For Aphakia Spectacles Services Fitting Monofocal Except For Aphakia 66835 2014 SHRADDHA MCCRACKEN [facility] Determination Of Refractive State Determination Of Refractive State 05498 2014 SHRADDHA MCCRACKEN Ophthalmological Prior Patient Start Comprehensive Care Ophthalmological Prior Patient Start Comprehensive Care 62005 2014 SHRADDHA MCCRACKEN [facility] Spectacles Services Fitting Monofocal Except For Aphakia Spectacles Services Fitting Monofocal Except For Aphakia 37066 2012 SABAS GUIDRY Determination Of Refractive State Determination Of Refractive State 60991 2012 SABAS GUIDRY Ophthalmological New Patient Start Comprehensive Care Ophthalmological New Patient Start Comprehensive Care 45552 2012 SABAS GUIDRY Physical Therapy Gait Training Physical Therapy Gait Training 76826 2011 CHOE, HERSON G Gait training 20 minutes DoD Spectacles Services Fitting Monofocal Except For Aphakia Spectacles Services Fitting Monofocal Except For Aphakia 31814 2009 SAMINA WEST [facility] Physical Therapy Neuromuscular Re-education Physical Therapy Neuromuscular Re-education 05065 2019 SANDRA MCCLAIN Physical Therapy: ___ Se ion Segments, 15 Minutes Each Physical Therapy: ___ Session Segments, 15 Minutes Each 72655 2019 SANDRA MCCLAIN Physical Therapy Gait Training Physical Therapy Gait Training 29591 2019 SANDRA MCCLAIN PT A e ment Kinetic Training PT Assessment Kinetic Training 36162 2018 [facility] Aquatic Exercises Aquatic Exercises 50172 10/23 [facility] PT A e ment Kinetic Training PT Assessment Kinetic Training 46943 2018 [facility] Aquatic Exercises Aquatic Exercises 55824 10/16 [facility] PT A e ment Kinetic Training PT Assessment Kinetic Training 93735 2018 [facility] Aquatic Exercises Aquatic Exercises 63046 10/14 [facility] Preventive Medicine Administration Of Health Risk Questionnaire Patient-Focused Preventive Medicine Administration Of Health Risk Questionnaire Patient-Focused 41302 2018 NEENA MCDONNELL [facility] PT A e ment Kinetic Training PT Assessment Kinetic Training 38020 2018 [facility] Aquatic Exercises Aquatic Exercises 54125 10/02 [facility] PT A e ment Kinetic Training PT Assessment Kinetic Training 14294 2018 [facility] Aquatic Exercises Aquatic Exercises 44944 09/30 [facility] Preventive Medicine Administration Of Health Risk Questionnaire Patient-Focused Preventive Medicine Administration Of Health Risk Questionnaire Patient-Focused 13355 2018 VASILE BARDALES Internet Med Svc Qual Nonphys Healthcare Prof Up To 7 Days Estab Patient Internet Med Svc Qual Nonphys Healthcare Prof Up To 7 Days Estab Patient 32124 2018 VASILE BARDALES Physical Therapy Service Re-Evaluation Physical Therapy Service Re-Evaluation 18269 2018 STEVE LUNDBERG Physical Therapy: ___ Se ion Segments, 15 Minutes Each Physical Therapy: ___ Session Segments, 15 Minutes Each 02300 2018 KEVYN NICHOLS [facility] Physical Therapy: ___ Se ion Segments, 15 Minutes Each Physical Therapy: ___ Session Segments, 15 Minutes Each 77123 2018 KIRSTEN CHAUHAN [facility] Physical Therapy: ___ Se ion Segments, 15 Minutes Each Physical Therapy: ___ Session Segments, 15 Minutes Each 99841 2018 STEVE LUNDBERG [facility] Physical Therapy Service Evaluation Low Complexity Physical Therapy Service Evaluation Low Complexity 49124 2018 STEVE LUNDBERG [facility] Physical Therapy: ___ Se ion Segments, 15 Minutes Each Physical Therapy: ___ Session Segments, 15 Minutes Each 66977 2018 STEVE LUNDBERG Osteopathic Manip Treatment (OMT) 1-2 Body Regions Involved Osteopathic Manip Treatment (OMT) 1-2 Body Regions Involved 15259 2018 STEVE LUNDBERG [facility] Physical Therapy Service Evaluation Low Complexity Physical Therapy Service Evaluation Low Complexity 86693 2018 STEVE LUNDBERG [facility] Preventive Medicine Administration Of Health Risk Questionnaire Patient-Focused Preventive Medicine Administration Of Health Risk Questionnaire Patient-Focused 89899 2017 CELESTE GIPSON Internet Med Svc Qual Nonphys Healthcare Prof Up To 7 Days Estab Patient Internet Med Svc Qual Nonphys Healthcare Prof Up To 7 Days Estab Patient 26312 2017 CELESTE GIPSON Preventive Medicine Administration Of Health Risk Questionnaire Patient-Focused Preventive Medicine Administration Of Health Risk Questionnaire Patient-Focused 56654 2016 PRASAD STONE [facility] Incision And Drainage Of Skin Absce , Simple Incision And Drainage Of Skin Abscess, Simple 92008 2014 JEANCARLOS CARRERA [facility] Preventive Medicine Administration Of Health Risk Questionnaire Patient-Focused Preventive Medicine Administration Of Health Risk Questionnaire Patient-Focused 36760 LAMINE MENDOZA [facility] Physical Therapy Service Re-Evaluation Physical Therapy Service Re-Evaluation 07510 MARLYS HENAO Orthopedic Strapping Knee Orthopedic Strapping Knee 69108 MARLYS HENAO [facility] Physical Therapy: ___ Se ion Segments, 15 Minutes Each Physical Therapy: ___ Session Segments, 15 Minutes Each 69123 LUCIANA BELL [facility] Neuromuscular Re-education Physical Therapy Neuromuscular Re-education 54226 [facility] Physical Therapy Gait Training Physical Therapy Gait Training 14418 KIRSTEN CHAUHAN [facility] Ophthalmological New Patient Start Comprehensive Care Ophthalmological New Patient Start Comprehensive Care 18506 BEVERLYCOLBY DE LA ROSA PIETRO [facility] Determination Of Refractive State Determination Of Refractive State 50213 TREVON COLBY PIETRO [facility] Spectacles Services Fitting Monofocal Except For Aphakia Spectacles Services Fitting Monofocal Except For Aphakia 53524 SHAMIR LESTEREW PIETRO [facility] Psychiatric Diagnostic Evaluation Review of Records and Reports Psychiatric Diagnostic Evaluation Review of Records and Reports 66124 AILYN ROA [facility] Psychometric Neuropsych Testing Battery Admin By Computer Psychometric Neuropsych Testing Battery Admin By Computer 70158 URSULA COLES [facility] Physical Therapy Service Evaluation Moderate Complexity Physical Therapy Service Evaluation Moderate Complexity 55983 JASMYN RODRIGUEZ PT [facility] Brief communication technology-based service, e.g. virtual [...] minutes of medical discu ion RATNA MARES [facility] Musculoskeletal Needle Insertion Without Injection 1 Or 2 Muscles Musculoskeletal Needle Insertion Without Injection 1 Or 2 Muscles 83844 DANILO HERNÁNDEZ [facility] Patient Training And Self-Care Skills Each 15 Minutes Patient Training And Self-Care Skills Each 15 Minutes 54511 DANILO HERNÁNDEZ [facility] Musculoskeletal Needle Insertion Without Injection 3 Or More Muscles Musculoskeletal Needle Insertion Without Injection 3 Or More Muscles 77758 DANILO HERNÁNDEZ [facility] Scanning Computerized Ophthalmic Diagnostic Imaging Optic Nerve Scanning Computerized Ophthalmic Diagnostic Imaging Optic Nerve 85473 SABAS GUIDRY [facility] Corneal Pachymetry Corneal Pachymetry 10698 SABAS GUIDRY [facility] Health Behavior Intervention Individual Initial 30 Minutes Health Behavior Intervention Individual Initial 30 Minutes 50985 MOI GANT [facility] Health Behavior A e ment / Re-A e ment Health Behavior Assessment / Re-Assessment 07906 MOI GANT [facility] Psychometric Emotional / Behavioral A e ment Psychometric Emotional / Behavioral Assessment 48903 MOI GANT [facility] Electrocardiogram Electrocardiogram 45998 ОЛЕГ STEWART [facility] Medical Nutrition Therapy Group (2 or More Individuals) Each 30 Minutes Medical Nutrition Therapy Group (2 or More Individuals) Each 30 Minutes 86883 KAREN PANDA [facility] Non-Physician Phone Call To Patient/Provider Brief (5-10min) Non-Physician Phone Call To Patient/Provider Brief (5-10min) 94203 KATH WADDELL 1.) Contact number: [phone] 2.) Verified pt by full name and 3.) Provider has reviewed results and authorized steam hand to release results to the patient 4.) [...] and had no further questions or concerns [facility] Medical Nutrition Therapy Re-a e ment And Intervention Each 15 Minutes Medical Nutrition Therapy Re-assessment And Intervention Each 15 Minutes 65796 BALA GLASS [facility] Physical Therapy Service Evaluation Low Complexity Physical Therapy Service Evaluation Low Complexity 50300 JAY ARMSTRONG [facility] Social History Combined list of available smoking, tobacco, and other social history from Department of Defense and Veterans Affairs facilities. Social History Type Response Date Comment [facility] e Male 06/09/2020 Ambulatory Pha rmacy Tobacco [...] at this time no tasking or consults needed.?Heart Doctor is?aware of services available (911, ?One source, Commissary Assistant Services, Walk in , Walk in ER, Notify chain of command, etc) and how to contact them if needed. Heart Doctor denies suicidal and homicidal ideation.? ? Preventative [...] at age 35. Compared medications reported by Heart Doctor to active medication list in?[facility]/JLV and any variances were documented.? ? Any complaints or issues identified while conducting the PHA have been addressed and or referred back to the Heart Doctor's PCM for care. ? ? 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 See PHA document for additional information. Sixteen?minutes of total time spent reviewing records, discussing health concerns and preventative health measures with Heart Doctor. ? ? Extracted from:Title: [facility] Obesity Author: KWABENA CHOE PA Date: 12/11/23 1.?Morbid obesity 33? y/o ADAF male with morbid obesity (BMI 47).? Concern for underlying metabolic disorder.? Has previously completed group lifestyle balance course.? Discussed that weight loss could greatly aid in relief of chronic knee pain.? Recommend further evaluation with endocrinology, consult placed. - Follow-up appointment made with [facility] - F/u with PCM after Endo evaluation ? Ordered: Referral Request 2.0 - DoD ? 2.?BMI 30+ - obesity see above Ordered: Referral Request 2.0 - DoD ? Capt Kwabena Choe, BSC, PAMercedesC [facility] ([facility]) Geovani CALLAWAY? ? Please note that this dictation was completed with computer voice recognition software, Amplifinity. Quite often unanticipated grammatical, syntax, homophones, and other interpretive errors are inadvertently transcribed by the computer software. Please disregard these errors and excuse any errors that have escaped final proofreading.? If are any questions regarding documentation, please contact this provider directly.? ? ? Extracted from:Title: [facility] Virtual MHA/PHA Author: ROSALINA CORRALES MD Date: 09/13/23 1.?EXAM/ASSESSMENT, OCCUPATIONAL, CRITICAL CARE PARAMEDIC PERIODIC HEALTH ASSESSMENT (PHA) ? PHA Type:?Non-Fly? Qualification:? ? World Wide Qualified? Profile:? None? IMR Status:? Green? Waivers:? None? Arming Status: ? family member caretaker does not arm? 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 ? Reviewed health equipment servicer's PHAQ and EHR for the past twelve months?to include?reported height, weight, current medical conditions and deployment related health problems, traumatic brain injury screening,?medications, allergies,?immunizations, medical readiness laboratory tests and occupational health records.? Completed screenings and provided patient education as appropriate. ? MHA completed in [facility] and copied to this record.? Heart Doctor is aware of services available ([phone], One source, [facility], Commissary Assistant,?, , embedded squadron resources,?emergency room, first shirt or others in?chain of command, etc) and how to contact them if needed. Heart Doctor denies suicidal and homicidal ideation. ? Preventative services reviewed and discussed per age, race, and gender. Reviewed immunization history and assessed immunization status. Reviewed physical activity,?sexual risk factors and previous STD testing date, including HIV. Reviewed readiness labs and occupational health examinations required. Compared medications reported by Heart Doctor to active medication list in [facility]G/JLV and any variances were reconciled. ? Time spent in pt care, counseling and reviewing chart was approximately?20min. Patient informed PHA complete and ASIMS updated. Any complaints or issues identified while conducting the PHA have been addressed and/or the health equipment servicer was instructed to return to their PCM for care. ? ? ? //SIGNED// ROSALINA CORRALES, Lt Col, [employer], [employer], FS? Family Physician/Flight Surgeon Phase 2 Medical Readiness Cell [employer]? (P) [phone] ? 2.?Hyperlipidemia April 2023 HNH=230, moderate HLP, not in statin benefit but will be due for 1 year repeat abnormal Fasting lipids UTD -to f/u with PCM ??annually, sooner as needed ? ? 3.?Prediabetes 2022 BqqR0z=4.8, c/w prediabetes -counseled aerobic exercise and modest weight loss would greatly help with prediabetes -annual HgbA1c UTD -to f/u with PCM annually, sooner as needed ? 4.?Obstructive sleep apnea, Severe (2021 OOG=245) 27 Nov 2021 PSG with ZLX=710, severe RUMA, has been on CPAP in interim but will need DW469 for AHI>15 -message sent to PCM team, and member CC'd at his request ? ? BASE Geovani Extracted from:Title: [facility] - Obesity/Pain of Left Knee Author: [...] room/urgent care for any urgent/emergent concerns or call?[phone] and leave message with the clinic for any other concerns. Patient can also access HIT Community at [email or web address] to leave message with PCM Team. ? Please note that this dictation was completed with [employer] dictation microphone and software and unintentional errors may be present. Efforts were made to check spelling and grammatical errors. ?If there are questions about the note please do not hesitate to ask. ? Capt Ivette Angeles PA-C [facility] [address], [place] ? Future Appointments Appointment Date: 04/06/2024 11:00:00 AM Scheduled Provider: CHIKIS HENDERSON LCSW Location: [address] [place] [address] Appointment Type: FTR Future Scheduled TestsLaboratoryHIV-1/O/2 01/30/24Isohemagglutinin, Point Titer [id number] 01/30/24Repository Sample, Serum 01/30/24Physical TherapyPhysical Therapy (PT) Outpatient Additional Treatment 03/12/23 03/09/2024 Ambulatory Pharmacy Functional Status Combined list of recent functional and cognitive assessments recorded at Department of Defense and Veterans Affairs (VA).VA Functional [place] Measurement (FIM) Scale: 1 = Total Assistance (Subject = 0% +), 2 = Maximal Assistance (Subject = 25% +), 3 = Moderate Assistance (Subject = 50% +), 4 = Minimal Assistance (Subject = 75% +), 5 = Supervision, 6 = Modified [place] (Device), 7 = Complete [place] (Timely, Safely). Assessment Date/Time Source Assessment Type Assessment Skill Assessment Score Assessment Details No data available for this section
== END 2024-03-02 20:20 | disposition home or self-care (01) ==
PROVIDERS: Student in an Organized Health Care Education/Training Program; Emergency Provider Physician Assistant
DX: J06.9 Acute upper respiratory infection, unspecified (principal); Z20.822 Contact with and (suspected) exposure to COVID-19; I10 Essential (primary) hypertension
CPT/HCPCS: 71046; 87637; 99283

== ENCOUNTER 2024-12-10 14:29 | Outpatient (CLI) | payer OTHER, SELFPAY ==
--- NOTE | 2024-12-10 14:35 | ECG_ITS ---
Test Date: 2024-12-10 14:41:11 Measurements Intervals [place] Rate: 111 P: 38 NC: 148 QRS: 77 QRSD: 92 T: 27 QT: 328 QTc: 447 Interpretive Statements SINUS TACHYCARDIA DELAYED PRECORDIAL R/S TRANSITION BASELINE ARTIFACT- I, II, III, AVR, AVL, AVF, V1, V3-V4 ABNORMAL ECG No previous ECG available for comparison Electronically Signed On 12-10-2024 14:54:49 CDT by Pablo Byers D.O.
--- OUTSIDE RECORDS SUMMARY | 2024-12-10 16:37 | XMS_ITS | Encounter Summary ---
Author Organization [facility] Healthcare Address [address] [place] [address] Care Team Providers Care Materials Handling Equipment Operator Name Role Phone Mercedes Weiner Primary Care Pr ovider Reason for Visit * Reason Onset Date Comments Prior Auth 12/10/2024 Trulicity; Zepbo und Encounter Details Date Type Department Care Team (Late st Contact Info) Description 12/10/2024 [place] [facility] [place] [facility] [address], [place] [address] [place] [address] [facility] [address] [place] [address] Prior Auth (Trulicity; Zepbound) Social History Tobacco Use Types Packs/Day Years Used Date Smoking Tobacco: Never Smokeless Tobacco: Never Sex and Gender Information Value Date Recorded Sex Assigned at Not on file Legal Sex Male 10:07 AM CDT Gender Identity Not on file Sexual Orientation Not on file documented as of this encounter Miscellaneous Notes * Telephone Encounter - Diana Smiley MA - 12/10/2024 12:57 PM CDT Prior auth for Zepbound started in [facility] Manrique: [id number] * Telephone Encounter - Clement Simon MD - 12/10/2024 11:46 AM CDT Can we write an appeal letter ? This is a pt with morbid obesity ( appeal for Zepbound or Wegovy ) * Telephone Encounter - Diana Smiley MA - 12/10/2024 11:38 AM CDT Prior auth for Trulicity submitted electronically through [employer] and denied, Coverage is only approved for pt's with a diagnosis of type 2 diabetes. documented in this encounter Plan of Treatment Not on file documented as of this encounter Visit Diagnoses Not on filedocumented in this encounter Care Teams Materials Handling Equipment Operator Relationship Specialty Start Date End Date Mercedes Weiner PA [address] [place] [address] PCP - General Physician Drill Setup Operator 12/02/24 documented as of this encounter
--- OUTSIDE RECORDS SUMMARY | 2024-12-10 16:37 | XMS_ITS | Patient Health Record ---
Author Organization [facility] Address [address] [address] Care Team Providers Care Finish Repairer Name Role Phone Nav Aguilar Primary Care Provider Allergies No Known Allergies Results Component Value Reference Range Notes TESTOSTERONE, TOTAL, MS Reviewed date:02/27/2024 11:10:56 AM Interpretation: Normal Performing Lab:[facility], [facility] [address], [address], [place], [address] Becca Wills MD,PhD Notes/Report: FASTING: YES FASTING:YES NON-FASTING; NON-FASTING; NON-FASTING; NON-FASTING; NON-FAST Received Date: TESTOSTERONE, TOTAL, MS [phone] ng/dL Men with clinically significant hypogonadal symptoms and testosterone values repeatedly in the range of the 200-300 ng/dL or less, may benefit from testosterone treatment after adequate risk and benefits counseling. For additional information, please refer to https://education.[employer].Newsle/faq/TotalTest osteroneLCMSMS (This link is being provided for informational/educational purposes only.) (Note) This test was developed and its analytical performance characteristics have been determined by [facility]. It has not been cleared or approved by the FDA. This assay has been validated pursuant to the CLIA regulations and is used for clinical purposes. MD [facility] [address] [facility] [address] [facility] [id number] Becca Wills MD, PhD CELIAC DISEASE COMP PANEL W/ GLIADIN AB (IGG) Reviewed date:02/27/2024 11:10:56 AM Interpretation: Normal Performing Lab:, [facility], [address] [place], [address] Timoteo Aquino Notes/Report: FASTING: YES FASTING:YES NON-FASTING; NON-FASTING; NON-FASTING; NON-FASTING; NON-FAST Received Date: INTERPRETATION No serological evidence for celiac disease is present. tTg may normalize in individuals with celiac disease who maintain a gluten free diet. If high suspicion of celiac disease, consider HLA DQ2 and DQ8 testing to rule out celiac disease. TISSUE TRANSGLUTAMINASE AB, IGA <1.0 Value Interpretation ----- <15.0 Antibody not detected > or = 15.0 Antibody detected IMMUNOGLOBULIN A 150 47-310 mg/dL DHEA Sulfate Reviewed date:02/27/2024 11:10:56 AM Interpretation: Normal Performing Lab:[facility], [address] [place], [address] Juliet Kelley MD Notes/Report: Received Date: NON-FASTING; NON-FASTING; NON-FASTING; NON-FASTING; NON-FAST FASTING:YES FASTING: YES DHEA SULFATE 386 93-415 mcg/dL VITAMIN D, 25-OH (TOTAL D2/D 3) Reviewed date:02/27/2024 11:14:49 AM Interpretation:Low Performing Lab:[facility], [address] [place], [address] Juliet Kelley MD Notes/Report: Received Date: NON-FASTING; [...] D, (D2,D3), LC/MS/MS is recommended: order code [id number] (patients >2yrs). See Note 1 Note 1 For additional information, please refer to http://education.[employer]x/faq/VPJ586 (This link is being provided for informational/ educational purposes only.) INSULIN Reviewed date:02/27/2024 12:42:11 PM Interpretation:High Performing Lab:[facility], [address] [place], [address] Juliet Kelley MD Notes/Report: Received Date: NON-FASTING; NON-FASTING; NON-FASTING; NON-FASTING; NON-FAST FASTING:YES FASTING: YES INSULIN 53.6 Reference Range < or = 18.4 Risk: Optimal < or = 18.4 Moderate NA High >18.4 Adult cardiovascular event risk category cut points (optimal, moderate, high) are based on Insulin Reference Interval studies performed at [facility] in 2021. CORTISOL LC/MS Reviewed date:02/27/2024 12:42:18 PM Interpretation:High Normal Performing Lab:[facility],, [address] [place], [address] Ning Hyatt MD,PhD,JESSICA Notes/Report: Received Date: NON-FASTING; NON-FASTING; NON-FASTING; NON-FASTING; NON-FAST FASTING:YES FASTING: YES CORTISOL, TOTAL, LC/MS 17.6 Adult Reference Ranges for Cortisol, Total: 8-10 AM 4.6-20.6 mcg/dL 4-6 PM 1.8-13.6 mcg/dL Cortisol Response to ACTH Peak >20.0 mcg/dL Peak >16.0 mcg/dL after IM injection This test was developed and its analytical performance characteristics have been determined by [facility]. It has not been cleared or approved by FDA. This assay has been validated pursuant to the CLIA regulations and is used for clinical purposes. T4, FREE Reviewed date:02/27/2024 11:10:56 AM Interpretation: Normal Performing Lab:[facility], [address], [place], [address] Juliet Kelley MD Notes/Report: Received Date: NON-FASTING; NON-FASTING; NON-FASTING; NON-FASTING; NON-FAST FASTING:YES FASTING: YES T4, FREE 1.2 0.8-1.8 ng/dL Lipid Panel, Fasting Reviewed date:02/27/2024 11:10:56 AM Interpretation:High Performing Lab:[place], [facility], [address] [facility] [place], [address] Juliet Kelley MD Notes/Report: Received Date: NON-FASTING; [...] LDL-C. Yusuf SS et al. SILVIO. 2013;310(19): 8962-3419 (http://education.NETpeas/faq/QBU193) CHOL/HDLC RATIO 3.6 <5.0 (calc) NON HDL CHOLESTEROL 169 <130 mg/dL (calc) For patients with diabetes plus 1 major ASCVD risk factor, treating to a non-HDL-C goal of <100 mg/dL (LDL-C of <70 mg/dL) is considered a therapeutic option. ACTH, PLASMA Reviewed date:03/26/2024 01:19:34 PM Interpretation:High Performing Lab:[facility], [address], [place], [address] Errol Ferrell M.D.,PhD Notes/Report: Received Date: NON-FASTING; NON-FASTING; NON-FASTING; NON-FASTING; NON-FAST FASTING:YES FASTING: YES ACTH, PLASMA 625 6-50 pg/mL Reference range applies only to specimens collected between 7am-10am. DHEA, LC/MS/MS Reviewed date:02/27/2024 11:10:56 AM Interpretation: Normal Performing Lab:[facility],, [address] [place], [address] Ning Hyatt MD,PhD,JESSICA Notes/Report: Received Date: [id number] NON-FASTING; NON-FASTING; NON-FASTING; NON-FASTING; NON-FAST FASTING:YES FASTING: YES DHEA, UNCONJUGATED 525 683-1890 ng/dL This test was developed and its analytical performance characteristics have been determined by [facility]. It has not been cleared or approved by FDA. This assay has been validated pursuant to the CLIA regulations and is used for clinical purposes. CBC (H/H, RBC, INDICES, WBC, PLT) Reviewed date:02/27/2024 11:10:56 AM Interpretation: Normal Performing Lab:[facility], [address] [place], [address] Juliet Kelley MD Notes/Report: Received Date: [id number] NON-FASTING; NON-FASTING; NON-FASTING; NON-FASTING; NON-FAST FASTING:YES FASTING: [...] 300 140-400 Thousand/uL MPV 10.2 7.5-12.5 fL CMP (Comp Metabolic Panel) Reviewed date:02/27/2024 11:10:56 AM Interpretation: Normal Performing Lab:[place], [facility], [address] [place], [address] Juliet Kelley MD Notes/Report: Received Date: NON-FASTING; [...] 33 10-40 U/L ALT 73 9-46 U/L Hemoglobin A1C Reviewed date:03/03/2024 10:25:47 AM Interpretation:5.9 Performing Lab:[facility], [address] [place], [address] Juliet Kelley MD Notes/Report: Received Date: NON-FASTING; [...] A1c for diagnosis of diabetes for children. TSH Reviewed date:02/27/2024 11:16:39 AM Interpretation:Normal Performing Lab:[facility], [address] [place], [address] Juliet Kelley MD Notes/Report: Received Date: [id number] NON-FASTING; NON-FASTING; NON-FASTING; NON-FASTING; NON-FAST FASTING:YES FASTING: YES TSH 1.41 0.40-4.50 mIU/L Hemoglobin A1C Reviewed date:03/03/2024 10:25:47 AM Interpretation:5.9 Performing Lab:[facility], [address] [place], [address] Juliet Kelley MD Notes/Report: Received Date: [id number] NON-FASTING; NON-FASTING; NON-FASTING; NON-FASTING; NON-FAST FASTING:YES FASTING: [...] A1c for diagnosis of diabetes for children. Reason For Referral No Information Medications Medication SIG (Take, Route, Frequency, Duration) Notes Start Date End Date Status amLODIPine Besylate 10 MG 1 tablet Orall y Once a day; Duration: 30 days 02/11/2024 Active dexAMETHasone 1 MG 1 tablet Orally at 1 1 pm; Duration: days 02/27/2024 Active dexAMETHasone 1 MG 1 tablet Orally at 1 1 pm; Duration: 02/11/2024 Active dexAMETHasone 4 MG 2 tablet Orally at 1 1 pm; Duration: 1 days 02/27/2024 Active Ergocalciferol 50 MCG (2000 UT) 1 capsule Orally Once a day; Duration: days 02/27/2024 Active Ergocalciferol 1.25 MG (77261 UT) 1 capsule Orally twice weekly; Duration: 30 days 02/27/2024 Active Social History Tobacco Use: Social History Observation Description Date Details (start date - stop date) Never Smoker NA - NA Tobacco Control (Standard) Question Answer Notes Tobacco use: Nonsmoker Problems Problem Type SNOMED Code ICD Code Onset Dates Problem Status W/U Status Risk Notes Problem Laboratory test result abnormal ([id number]) Abnormal laboratory test (R89.9) Active confirmed Vital Signs Blood pressure diastolic 100 mm Hg 02/11/2024 Height 70.5 in 02/11/2024 Blood pressure systolic 140 mm Hg 02/11/2024 Weight 328.4 lbs 02/11/2024 BMI 46.45 kg/m2 02/11/2024 Encounters Encounter Location Date Provider Diagnosis [facility] [address] [address] 02/11/2024 Nav Aguilar Abnormal weight gain R63.5 and Hypertension I10 [facility] [address] [address] 01/20/2024 Nav Zaidu [facility] [address] [address] 02/27/2024 Nav Aguilar Abnormal laboratory test R89.9 Assessments Encounter Date Diagnosis (ICD Code) Assessment Notes Treatment Notes Treatment Clinical Notes Section Notes 02/11/2024 Abnormal weight gain (ICD-10 - R63.5) Assessment: 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 Weight gain late 20s. Plan: 1. Works with [employer] 2. Rule out secondary reasons 3. [...] IGF I, LC/MS 02/27/2024 ACTH, PLASMA 02/27/2024 GLUCOSE, PLASMA FASTING 02/11/2024 TESTOSTERONE, FREE, LC/MS/MS 02/27/2024 Prolactin, Serum (ICMA) 02/27/2024 CORTISOL LC/MS 02/27/2024 Dexamethasone level ([facility] [id number]) 2024 TESTOSTERONE, TOTAL, MS 02/27/2024 Future Test Test Name Order Date CORTISOL LC/MS 02/27/2024 CORTISOL LC/MS 03/09/2024 Dexamethasone level ([facility] [id number]) 2024 Insurance Providers Payer Name Payer Address Payer Phone Subscriber Number Group Number Insured Name Patient Relationship to Insured Coverage Start Date Coverage End Date [employer] [address] [place] [address] [id number] TIMUR PONCE Self - patient is the insured Medical (General) History Medical History History ICD Code Sleep Apnea Surgical History Surgery Date(Month/Year) Ear Operation Hospitalization History Reason Date(Month/Year) Torn meniscus and LCL 2020
--- OUTSIDE RECORDS SUMMARY | 2024-12-10 16:37 | XMS_ITS | Clinical Summary ---
Author Organization [facility] [place] [address] [place] [address] Care Team Providers Care Client Relation Specialist Name Role Phone Mercedes Weiner Primary Care Pr ovider Allergies Active Allergy Reactions Criticality Noted Date Comments Cefaclor Rash Medium 04/05/2009 Medications amLODIPine (NORVASC) 10 mg tablet Take 1 tablet (10 mg total) by mouth 4 02/10/20 25 Active amLODIPine (NORVASC) 10 mg tablet daily 4 Active ergocalciferol (VITAMIN D) 50,000 unit capsule 1 capsule (50,000 Units total) 5 Active dulaglutide (TRULICITY) 0.75 mg/0.5 mL pen injector Inject 0.5 mL (0.75 mg total) under the skin every 7 days 2 mL 3 5 Active tirzepatide, weight loss, (Zepbound) 5 mg/0.5 mL solution vialIndications :Metabolic syndrome Inject 0.5 mL (5 mg total) under the skin every 7 days 2 mL 3 5 12/10/19 25 Discontinu ed(Alterna te therapy) tirzepatide (Mounjaro) 2.5 mg/0.5 mL pen injector injectionIndica tions:Metabolic syndrome Inject 0.5 mL (2.5 mg total) under the skin once a week 2 mL 5 12/10/19 25 Discontinu ed(Alterna te therapy) Active Problems Problem Noted Date Diagnosed Date Sprain of anterior cruciate ligament of knee 09/2024 Prediabetes 12/02/2024 Obstructive sleep apnea 12/02/2024 Hypertension 12/02/2024 Hyperopia 12/02/2024 Hyperlipidemia 12/02/2024 Chondromalacia, left knee 12/02/2024 Cellulitis of left finger 12/02/2024 Abnormal laboratory test result 12/02/2024 Common cold 11/11/2024 Morbid obesity 10/13/2024 Obesity, class 3 10/12/2024 Sprain of other specified pa rts of left knee, initial encounter 03/24/2020 Left knee pain 12/28/2019 Encounters Date Type Department Care Team Description 12/10/2024 Telephone [facility] [address] [address] Clement Simon MD Prior Auth (Trulicity; Zepbound) 12/04/2024 Telephone [facility] [address] [address] Clement Simon MD Prior Auth (Mounjaro; Zepbound) 12/02/2024 3:50 PM CDT Lab [address] [address] Metabolic syndrome 12/02/2024 2:30 PM CDT Office Visit [facility] [address] [address] Clement Simon MD Metabolic syndrome (Primary Dx) 11/05/[address] [facility] Diabetes [facility] Endocrinology [address] [place] [phone] Gifty Townsend MD New Referral to Endocrinology from Last 3 Months Immunizations Immunization Administration Dates Next Due Anthrax 02/13/2016,08/09/2015,06/17/2015 H1N1 Inj 03/11/2009 Hep A / Hep B 01/31/2010,05/02/2009,03/17/2009 IPV 08/05/2019,03/11/2009 Influenza LAIV (Nasal) 12/22/2014,2013,12/01/2012,11/29,11/21/2010,01/17/2010 Influenza, Quadrivalent, Spl it, Preservative Free, Intramuscular 01/07/2023,01/02/2021,12/25/2019,12/25,12/16/2017 Influenza, Split 03/11/2009 Influenza, Trivalent, Cell Culture-based MDCK, Preservative Free, Antibiotic Free, Intramuscular 12/18/2023,12/10/2016 Influenza, Trivalent, Preser vative Free, Intramuscular 12/30/2015 Influenza, Unspecified 12/18/2023 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,05/14/2014,0 03/19/2014 Meningococcal MCV4P (Menactra) 03/11/2009 PPD TEST 03/13/2009 Smallpox 06/17/2015 Td, adsorbed 04/23/2019 Tdap 03/11/2009 Typhoid Inactivated 07/07/2019,12/22/2014 Yellow Fever 07/07/2019 Social History Tobacco Use Types Packs/Day Years Used Date Smoking Tobacco: Never Smokeless Tobacco: Never Tobacco Cessation:Counseling Given: Not Answered Sex and Gender Information Value Date Recorded Sex Assigned at Not on file Legal Sex Male 10:07 AM CDT Gender Identity Not on file Sexual Orientation Not on file Obstetrics History Last Filed Vital Signs Vital Sign Reading Time Taken Comments Blood Pressure 126/70 12/02/2024 2:53 PM CDT Pulse 68 12/02/2024 2:53 PM CDT Temperature - - Respiratory Rate 14 12/02/2024 2:53 PM CDT Oxygen Saturation - - Inhaled Oxygen Concentration - - Weight 145.7 kg (321 lb 3.2 oz) 12/02/2024 2:53 PM CDT Height 175.3 cm (5' 9) 12/02/2024 2:53 PM CDT Body Mass Index 47.43 12/02/2024 2:53 PM CDT Plan of Treatment Health Maintenance Due Date Last Done Comments Depression Screening 1990 Hepatitis C Screening 1990 Regular Well Visit/Exam 18-64 2008 Varicella Vaccines (1 of 2 - 13+ 2-dose series) 01/19/2015 HPV Vaccines (1 - 3-dose SCDM series) 2017 Covid-19 Vaccine (3 - season) 2024 03/31/2021, 05/05/2020 Influenza Vaccine (#1) 2024 4, 12/18/2023, 01/07/2023, Additional history exists DTaP/Tdap/Td Vaccine (3 - Td or Tdap) 04/23/2029 04/23/2019, 03/11/2009 Hepatitis B Screening Completed 01/31/2010 , 05/02/2009, 03/17/2009 Pneumococcal vaccine <65 Aged Out No longer eligible based on patient's age to complete this topic Procedures Procedure Name Priority Date/Time Associated Diagnosis Comments EGFR Routine 12/02/2024 3:50 PM CDT Metabolic syndrome DIFFERENTIAL AUTO Routine 12/02/2024 3:5 0 PM CDT Metabolic syndrome COMPREHENSIVE METABOLIC PANEL Routine 12/02/2024 3:50 PM CDT Metabolic syndrome LIPID PANEL Routine 12/02/2024 3:50 PM CDT Metabolic syndrome CBC WITH AUTO DIFFERENTIAL Routine 12/02/2024 3:50 PM CDT Metabolic syndrome POCT GLUCOSE Routine 12/02/2024 2:30 PM CDT Metabolic syndrome POCT HEMOGLOBIN A1C Routine 12/02/2024 2 :30 PM CDT Metabolic syndrome from Last 3 Months Results * eGFR (12/02/2024 3:50 PM CDT) eGFR 86 >=60 mL/min/1. 73 m2 Comment: Interpretive Data Reference Interval Normal >/= 90 mL/min/1.73m2 Mildly decreased* 60 - 89 mL/min/1.73m2 Mildly to moderately decreased 45 - 59 mL/min/1.73m2 Moderately to severely decreased 30 - 44 mL/min/1.73m2 Severely decreased 15 - 29 mL/min/1.73m2 Kidney Failure < 15 mL/min/1.73m2 *Relative to young adult level Estimated glomerular filtration rate is determined by the 2020 CKD-EPI equation recommended by the National Kidney Foundation (A Unifying Approach to GFR Estimation: Recommendations of the NKF-ASK Task Force on Reassessing the Inclusion of Race in Diagnosing Kidney Disease, JASN 2020). The CKD-EPI equation should not be used for patients with unstable renal function and has not been validated in children and those over 70. Current interpretive data was last reviewed 2020. Blood 12/02/2024 3:50 PM CDT 12/02/2024 9:24 PM CDT us Clement Simon MD LAB BLOOD ORDERABLES Final Resul t [facility] [address] Department [place] [address] * (ABNORMAL) Differential, auto (12/02/2024 3:50 PM CDT) Neutrophil abs 7.81(H) 1.50 - 6.50 K/cumm Imm gran abs 0.09 0.00 - 0.10 K/cumm [facility] Lymphocyte abs 2.82 0.80 - 3.30 K/cumm [facility] Monocyte abs 0.86(H) 0.20 - 0.80 K/cumm [facility] Eosinophil abs 0.12 0.00 - 0.50 K/cumm [facility] Basophil abs 0.05 0.00 - 0.10 K/cumm [facility] Neutrophil pct 66.5 % [facility] Comment: Interpretive Data Percent cell count reference ranges are not reported, since discordance with absolute values may lead to misinterpretation of CBC data. Current Interpretive Data was last revised on 2017. Imm gran pct 0.8 % [facility] Comment: Interpretive Data Percent cell count reference ranges are not reported, since discordance with absolute values may lead to misinterpretation of CBC data. Current Interpretive Data was last revised on 2017. Lymphocyte pct 24.0 % [facility] Comment: Interpretive Data Percent cell count reference ranges are not reported, since discordance with absolute values may lead to misinterpretation of CBC data. Current Interpretive Data was last revised on 2017. Monocyte pct 7.3 % [facility] Comment: Interpretive Data Percent cell count reference ranges are not reported, since discordance with absolute values may lead to misinterpretation of CBC data. Current Interpretive Data was last revised on 2017. Eosinophil pct 1.0 % [facility] Comment: Interpretive Data Percent cell count reference ranges are not reported, since discordance with absolute values may lead to misinterpretation of CBC data. Current Interpretive Data was last revised on 2017. Basophil pct 0.4 % [facility] Comment: Interpretive Data Percent cell count reference ranges are not reported, since discordance with absolute values may lead to misinterpretation of CBC data. Current Interpretive Data was last revised on 2017. Blood 12/02/2024 3:50 PM CDT 12/02/2024 8:47 PM CDT Clement Simon MD LAB BLOOD ORDERABLES Final Resul t [facility] [address] Department [place] [address] * (ABNORMAL) CBC with auto differential (12/02/2024 3:50 PM CDT) WBC 11.75(H) 3.80 - 9.90 K/cumm Hgb 16.6 13.0 - 17.5 g/dL [facility] Hct 50.5(H) 38.9 - 50.3 % [facility] Plt 299 150 - 400 K/cumm [facility] MPV 9.5 9.1 - 12.3 fL [facility] RBC 5.59 4.30 - 5.80 M/cumm [facility] MCV 90.3 81.3 - 96.4 fL [facility] MCH 29.7 27.1 - 33.3 pg [facility] MCHC 32.9 32.3 - 35.7 g/dL [facility] RDW CV 12.7 11.1 - 14.9 % [facility] RDW SD 42.0 35.7 - 48.1 fL [facility] NRBC abs 0.00 0.00 - 0.01 K/cumm [facility] Blood 12/02/2024 3:50 PM CDT 12/02/2024 8:47 PM CDT Clement Simon MD LAB BLOOD ORDERABLES Final Resul t [facility] [address] Department of Laboratories [place] [id number] * (ABNORMAL) Lipid panel (12/02/2024 3:50 PM CDT) Cholesterol 214(H) 30 - 199 mg/dL Comment: Interpretive Data Ages < or = 19 years Acceptable: <170 mg/dL Borderline high: 170-199 mg/dL High: >or= 200 mg/dL Ages > or = 20 years Desirable: <200 mg/dL Borderline high: 200-239 mg/dL High: >or= 240 mg/dL Literature References: 1. Expert Panel on Integrated Guidelines for Cardiovascular Health and Risk Reduction in Children and Adolescents. Pediatrics 2011;128:S213 2. NCEP Expert Panel. Circulation 2004;110:227 Current Interpretive Data was last revised on 2017. Triglycerides 133 <=149 mg/dL [facility] Comment: Interpretive Data Ages < or = 9 years Acceptable: <75 mg/dL Borderline high: 75-99 mg/dL High: >or= 100 mg/dL Ages 10 to 20 years Acceptable: <90 mg/dL Borderline high: 90-129 mg/dL High: >or= 130 mg/dL Ages > or = 20 years Desirable: <150 mg/dL Borderline high: 150-199 mg/dL High: 200-499 mg/dL Very high: >or= 499 mg/dL Literature References: 1. Expert Panel on Integrated Guidelines for Cardiovascular Health and Risk Reduction in Children and Adolescents. Pediatrics 2011;128:S213 2. NCEP Expert Panel. Circulation 2004;110:227 Current Interpretive Data was last revised on 2017. HDL 45 >=40 mg/dL [facility] Comment: Interpretive Data Ages < or = 19 years Acceptable: >45 mg/dL Borderline low: 40-45 mg/dL Low: <40 mg/dL Ages > or = 20 years Desirable: >or= 60 mg/dL Low: <40 mg/dL Literature References: 1. Expert Panel on Integrated Guidelines for Cardiovascular Health and Risk Reduction in Children and Adolescents. Pediatrics 2011;128:S213 2. NCEP Expert Panel. Circulation 2004;110:227 Current Interpretive Data was last revised on 2017. LDL, calculated 145(H) <=129 mg/dL [facility] Comment: Interpretive Data Ages < or = 19 years Acceptable: <110 mg/dL Borderline high: 110-129 mg/dL High: >or= 130 mg/dL Ages > or = 20 years Optimal: <100 mg/dL Near optimal: 100-129 mg/dL Borderline high: 130-159 mg/dL High: >160 mg/dL Calculated using the Ike LDL-C estimating equation. This equation was implemented on 2023. Prior to this date LDL-C was estimated using the Friedewald equation. Literature References: 1. Expert Panel on Integrated Guidelines for Cardiovascular Health and Risk Reduction in Children and Adolescents. Pediatrics 2011;128:S213 2. NCEP Expert Panel. Circulation 2004;110:227 3. Ike Silva et al. SILVIO Cardiol. 2019June 25;5(5):540-548. doi: 10.1001/jamacardio.2020.0013 Current Interpretive Data was last revised on 2023. Non-HDL Cholesterol 169 mg/dL [facility] Comment: Interpretive Data Ages < or = 19 years Acceptable: <120 mg/dL Borderline high: 120-144 mg/dL High: >145 mg/dL Ages > or = 20 years When triglycerides are >200 mg/dL, Non-HDL cholesterol is a secondary target of therapy with treatment goals that are 30 mg/dL greater than the LDL cholesterol target. Literature References: 1. Expert Panel on Integrated Guidelines for Cardiovascular Health and Risk Reduction in Children and Adolescents. Pediatrics 2011;128:S213 2. NCEP Expert Panel. Circulation 2004;110:227 Current Interpretive Data was last revised on 2017. Chol/HDL ratio 5 [facility] Blood 12/02/2024 3:50 PM CDT 12/02/2024 8:47 PM CDT Narrative [facility] - 12/02/2024 9:46 PM CDT These lab test should be done fasting. This means do not eat or drink for at least 12 hours prior to getting your blood drawn. us Clement Simon MD LAB BLOOD ORDERABLES Final Resul t [facility] [address] Department [place] [address] * Comprehensive metabolic panel (12/02/2024 3:50 PM CDT) Sodium 138 135 - 145 mmol/L Potassium, pl 4.6 3.3 - 4.9 mmol/L [facility] Chloride 101 97 - 110 mmol/L [facility] CO2 24 22 - 32 mmol/L [facility] Anion gap 13 2 - 15 mmol/L [facility] BUN 11 6 - 25 mg/dL [facility] Creatinine 1.15 0.80 - 1.30 mg/dL [facility] Glucose 97 70 - 199 mg/dL [facility] Comment: Interpretive Data Fasting glucose >/= 126 mg/dl is diagnostic for diabetes. Fasting is defined as no caloric intake for at least 8 hours. Fasting glucose between 100 mg/dl to 125 mg/dl is diagnostic of prediabetes. In a patient with classic symptoms of hyperglycemia or hyperglycemic crisis, a random glucose >/= 200 mg/dl is diagnostic for diabetes. In the absence of unequivocal hyperglycemia, results should be confirmed by repeat testing. The classification and Diagnosis of Diabetes Diabetes Care 202; 46: S19-S40. Current interpretive data was last revised 2022. Calcium 9.4 8.5 - 10.3 mg/dL [facility] Bilirubin, total 0.5 0.1 - 1.2 mg/dL [facility] Protein, pl 7.3 6.5 - 8.5 g/dL [facility] Albumin 4.3 3.5 - 5.0 g/dL [facility] Alk phos 87 40 - 130 Units/L [facility] ALT 39 7 - 55 Units/L [facility] AST 28 10 - 50 Units/L [facility] Blood 12/02/2024 3:50 PM CDT 12/02/2024 8:47 PM CDT us Clement Simon MD LAB BLOOD ORDERABLES Final Resul t [facility] [address] Department [place] [address] * (ABNORMAL) POCT hemoglobin A1c (12/02/2024 2:30 PM CDT) Hemoglobin A1C, POC 5.8(A) 4.0 - 5.6 % Blood 12/02/2024 2:30 PM CDT us Clement Simon MD POINT OF CARE TEST ORDERABLES Fi nal Result * POCT glucose (12/02/2024 2:30 PM CDT) Glucose Blood, POC 124 Normal Fasting 70 - 100, Random <200 mg/dL Blood 12/02/2024 2:30 PM CDT us Clement Simon MD POINT OF CARE TEST ORDERABLES Fi nal Result from Last 3 Months Insurance [facility] Care Teams Client Relation Specialist Relationship Specialty Start Date End Date Mercedes Weiner PA [address] [place] [address] PCP - General Physician Sampling Theory Teacher 12/02/24
--- OUTSIDE RECORDS SUMMARY | 2024-12-10 16:37 | XMS_ITS | Encounter Summary ---
Author Organization [facility] Healthcare Address [address] [place] [address] Care Team Providers Care Veterinary Medical Officer Name Role Phone Mercedes Weiner Primary Care Pr ovider Reason for Referral * Medication Prior Authorization - Denied Specialty Diagnoses / Procedures Referred By Martin [place] [address] [address] Phone: tel: fax: Referral ID Status Reason Start Date Expiration Date Visits Re quested Visits Authorized [id number] Denied 1 1 Reason for Visit * Reason Onset Date Comments Prior Auth 12/04/[address] Encounter Details Date Type Department Care Team (Late st Contact Info) Description 12/04/2024 Telephone [facility] [id number] [place] [address] [place] [id number] [address] Prior Auth (Lj; Tani) Social History Tobacco Use Types Packs/Day Years Used Date Smoking Tobacco: Never Smokeless Tobacco: Never Sex and Gender Information Value Date Recorded Sex Assigned at Not on file Legal Sex Male 10:07 AM CDT Gender Identity Not on file Sexual Orientation Not on file documented as of this encounter Ordered Prescriptions Prescription Sig Dispense Quantity Refills Last Filled Start Date End Date dulaglutide (TRULICITY) 0.75 mg/0.5 mL pen injector Inject 0.5 mL (0.75 mg total) under the skin every 7 days 2 mL 3 12/09/2024 documented in this encounter Miscellaneous Notes * Addendum Note - Sandra Smiley MA - 12/09/2024 7:05 AM CDTAddended by: SANDRA SMILEY on: 12/09/2024 07:05 AM Modules accepted: Orders * Telephone Encounter - Sandra Smiley MA - 12/09/2024 7:05 AM CDT Trulicity sent to [facility] * Telephone Encounter - Clement Simon MD - 12/07/2024 4:15 PM CDT Okay to send Trulicity 0.75 mg weekly * Telephone Encounter - Sandra Smiley MA - 12/04/2024 10:14 AM CDT Denial received for Mounjaro. Formulary alternative is Trulicity. * Telephone Encounter - Sandra Smiley MA - 12/04/2024 7:41 AM CDT Prior auth for Mounjaro submitted electronically through [employer]. Message received electronically from pt's insurance plan stating Zepbound is not covered by the pt's plan. documented in this encounter Plan of Treatment Not on file documented as of this encounter Visit Diagnoses Not on filedocumented in this encounter Discontinued Medications Medication Sig Discontinue Reason Start Date End Da te tirzepatide, weight loss, (Zepbound) 5 mg/0.5 mL solution vialIndications:Metaboli c syndrome Inject 0.5 mL (5 mg total) under the skin every 7 days Alternate therapy 12/02/2024 12/09/2024 tirzepatide (Mounjaro) 2.5 mg/0.5 mL pen injector injectionIndications:Met abolic syndrome Inject 0.5 mL (2.5 mg total) under the skin once a week Alternate therapy 12/02/2024 12/09/2024 documented as of this encounter Care Teams Veterinary Medical Officer Relationship Specialty Start Date End Date Mercedes Weiner PA [address] [place] [address] PCP - General Physician Radial Arm Saw Operator 12/02/24 documented as of this encounter
== END 2024-12-10 14:30 | disposition home or self-care (01) ==
LOC: ANHSURGERY 14:32
PROVIDERS: Visit Provider Orthopaedic Surgery
DX: I10 Essential (primary) hypertension (principal); Z01.818 Encounter for other preprocedural examination; R94.31 Abnormal electrocardiogram [ECG] [EKG]
CPT/HCPCS: 93005

== ENCOUNTER 2024-12-15 00:17 | Day surgery (SDC) | payer OTHER, SELFPAY ==
--- NOTE | 2024-12-08 15:01 | SUR.PREOP ---
[facility] has started construction of its new state of the art ER which will open Spring 2026. With this, we anticipate parking may be a challenge for some our surgical patients and families. Parking spaces are limited but are available for all Surgical, obstetrics, and ER patients sharing this lot. If you arrive and find you are having a hard time finding a parking space, please note that we understand the challenges, please drive around the hospital and park near Hospital Entrance 1. When you enter this entrance, you can ask a volunteer to direct or take you back to the surgical waiting area to check in. We appreciate everyone?s understanding of these expected challenges while we build for your future. Report to the Outpatient Waiting Room, entrance under the green pavilion located off [address], at time _10am___ on date _12/15/24 . Planned Procedure Time: _12pm____.? Time changes happen often and if your time is changed the preop area will call you the afternoon before. - You and your visitor will be asked to self-screen and do not enter if you have any COVID symptoms. Please call surgeon if you need to reschedule. - A mask is optional within the hospital at this time. Patients may have clear liquids (water, carbonated beverages, clear teas, apple juice) until 3 hours prior to surgery with a maximum of 20 ounces. - No food from midnight until time of surgery and no smoking, or chewing tobacco (or any form of nicotine). No chewing gum, candy or mints. Take only the following medications with a SIP of water on the morning of surgery: ____none DO NOT STOP ANY OF YOUR OTHER PRESCRIPTION MEDICATIONS PRIOR TO SURGERY EXCEPT THE FOLLOWING Hold all vitamins and supplements for 3 days per anesthesiologist. Medications to discontinue per physician __None Date to take last dose__N/a Please no make-up, nail hebrew, hairspray, perfume, deodorant, or body powder the day of surgery.? No jewelry (including any body piercings) or valuables the day of surgery, leave them at home.? Please take a shower or bath the night before, or the morning of, surgery with an antibacterial soap.? Wear comfortable, loose fitting clothing.? - Jewelry must be removed prior to entering the operating room.? Rings and piercings that are not removed may be cut off. - The hospital will not accept responsibility for valuables.? - Please leave all valuables, including medications, at home the day of surgery. If you are going home after surgery, a licensed salesperson driver must drive you home.? - NO public transportation without another adult if you receive anesthesia. - We recommend that an adult stay with you for 24 hours following discharge. - We also recommend that you do not drive, make important decision, drink alcoholic beverages, or take any drugs that were not prescribed by your health care provider for at least 24 hours after your discharge time. For Pediatric surgeries, we recommend two adults accompany the child home. Follow any additional instructions given to you from your surgeon. Telephone instructions given to ___Drew____and asked if any additional questions and then verbalized understanding. Patient advised to call surgeon office or pre surgery nurse liaison [phone] if any additional questions.
[2024-12-08 15:17] VITALS: BMI 46.0
[2024-12-15] VITALS (9 sets, daily range): BP systolic 93–150; BP diastolic 61–86; PULSE 95–103; RESP 16–20; TEMP 36.1–36.7; O2SAT 94–100
--- OUTSIDE RECORDS SUMMARY | 2024-12-15 00:20 | XMS_ITS | Encounter Summary ---
Author Organization [facility] Healthcare Address [address] [place] [address] Care Team Providers Care Tow Truck Operator Name Role Phone Mercedes Weiner Primary Care Pr ovider Reason for Visit * Reason Onset Date Comments Prior Auth 12/10/2024 Trulicity; Zepbo und Encounter Details Date Type Department Care Team (Late st Contact Info) Description 12/10/2024 Telephone [facility] [place] [address] [facility] [address], [place] [address] [place] [address] [facility] [address] [place] [address] Prior Auth (Trulicity; Zepbound) Social [...] CDT Prior auth for Zepbound started in [facility] Manrique: [id number] * Telephone Encounter - Clement Simon MD - 12/10/2024 11:46 AM CDT Can we write an appeal letter ? This is a pt with morbid obesity ( appeal for Zepbound or [employer] ) * Telephone Encounter - Diana Smiley MA - 12/10/2024 11:38 AM CDT Prior auth for Trulicity submitted electronically through [employer] and denied, Coverage is only approved for pt's with a diagnosis of type 2 diabetes. documented in this encounter Plan of Treatment Not on file documented as of this encounter Visit Diagnoses Not on filedocumented in this encounter Care Teams Tow Truck Operator Relationship Specialty Start Date End Date Mercedes Weiner PA [address] [place] [address] PCP - General Physician Hand Molder Meat 12/02/24 documented as of this encounter
--- OUTSIDE RECORDS SUMMARY | 2024-12-15 00:20 | XMS_ITS | Patient Health Record ---
Author Organization [facility] Address [address] [address] Care Team Providers Care Senior Chemical Engineer Name Role Phone Nav Aguilar Primary Care Provider Allergies No Known Allergies Results Component Value Reference Range Notes TSH Reviewed date:02/27/2024 11:16:39 AM Interpretation:Normal Performing Lab:[place], [facility], [address] [place], [address] Najma-Majo Kelley MD Notes/Report: FASTING: YES FASTING:YES NON-FASTING; NON-FASTING; NON-FASTING; NON-FASTING; NON-FAST Received Date: TSH 1.41 0.40-4.50 mIU/L DHEA, LC/MS/MS Reviewed date:02/27/2024 11:10:56 AM Interpretation: Normal Performing Lab:[place], [facility],, [address] [place], [address] Ning Hyatt MD,PhD,JESSICA Notes/Report: Received Date: NON-FASTING; NON-FASTING; NON-FASTING; NON-FASTING; NON-FAST FASTING:YES FASTING: YES DHEA, UNCONJUGATED [phone] ng/dL This test was developed and its analytical performance characteristics have been determined by [facility]. It has not been cleared or approved by FDA. This assay has been validated pursuant to the CLIA regulations and is used for clinical purposes. T4, FREE Reviewed date:02/27/2024 11:10:56 AM Interpretation: Normal Performing Lab:[facility], [address] [place], [address] Juliet Kelley MD Notes/Report: Received Date: NON-FASTING; NON-FASTING; NON-FASTING; NON-FASTING; NON-FAST FASTING:YES FASTING: YES T4, FREE 1.2 0.8-1.8 ng/dL CORTISOL LC/MS Reviewed date:02/27/2024 12:42:18 PM Interpretation:High Normal Performing Lab:[place] [facility],, [address] [place], [address] Ning Hyatt MD,PhD,JESSICA Notes/Report: FASTING: YES FASTING:YES NON-FASTING; NON-FASTING; NON-FASTING; NON-FASTING; NON-FAST Received Date: CORTISOL, TOTAL, LC/MS 17.6 Adult Reference Ranges for Cortisol, Total: 8-10 AM 4.6-20.6 mcg/dL 4-6 PM 1.8-13.6 mcg/dL Cortisol Response to ACTH Peak >20.0 mcg/dL Peak >16.0 mcg/dL after IM injection This test was developed and its analytical performance characteristics have been determined by [facility]. It has not been cleared or approved by FDA. This assay has been validated pursuant to the CLIA regulations and is used for clinical purposes. INSULIN Reviewed date:02/27/2024 12:42:11 PM Interpretation:High Performing Lab:[facility], [address] [place], [address] Juliet Kelley MD Notes/Report: Received Date: NON-FASTING; NON-FASTING; NON-FASTING; NON-FASTING; NON-FAST FASTING:YES FASTING: YES INSULIN 53.6 Reference Range < or = 18.4 Risk: Optimal < or = 18.4 Moderate NA High >18.4 Adult cardiovascular event risk category cut points (optimal, moderate, high) are based on Insulin Reference Interval studies performed at [facility] in 2021. DHEA Sulfate Reviewed date:02/27/2024 11:10:56 AM Interpretation: Normal Performing Lab:[facility], [address] [facility], [place], [address] Juliet Kelley MD Notes/Report: Received Date: NON-FASTING; NON-FASTING; NON-FASTING; NON-FASTING; NON-FAST FASTING:YES FASTING: YES DHEA SULFATE 386 93-415 mcg/dL CELIAC DISEASE COMP PANEL W/ GLIADIN AB (IGG) Reviewed date:02/27/2024 11:10:56 AM Interpretation: Normal Performing Lab:, [facility] [facility], [address] [place], [address] Timoteo Aquino Notes/Report: Received Date: NON-FASTING; NON-FASTING; [...] date:02/27/2024 11:10:56 AM Interpretation: Normal Performing Lab:Z[facility], [facility], [address] [place] [address], [address], [place], [address] Becca Wills MD,PhD Notes/Report: Received Date: NON-FASTING; NON-FASTING; NON-FASTING; NON-FASTING; NON-FAST FASTING:YES FASTING: YES TESTOSTERONE, TOTAL, MS 857 548-2282 ng/dL Men with clinically significant hypogonadal symptoms and testosterone values repeatedly in the range of the 200-300 ng/dL or less, may benefit from testosterone treatment after adequate risk and benefits counseling. For additional information, please refer to https://education.Edevate/faq/TotalTest osteroneLCMSMS (This link is being provided for informational/educational purposes only.) (Note) This test was developed and its analytical performance characteristics have been determined by [facility] [employer] It has not been cleared or approved by the FDA. This assay has been validated pursuant to the CLIA regulations and is used for clinical purposes. [facility] [address] [address],[address] [facility] [address] Becca Wills MD, PhD Hemoglobin A1C Reviewed date:03/03/2024 10:25:47 AM Interpretation:5.9 Performing Lab:[facility], [address] [place], [address] Juliet Kelley MD Notes/Report: Received Date: NON-FASTING; [...] date:02/27/2024 11:10:56 AM Interpretation: Normal Performing Lab:[facility], [address] [place], [address] Juliet Kelley MD Notes/Report: Received Date: NON-FASTING; [...] date:02/27/2024 11:10:56 AM Interpretation: Normal Performing Lab:[facility], [address] [place], [address] Juliet Kelley MD Notes/Report: Received Date: NON-FASTING; [...] 300 140-400 Thousand/uL MPV 10.2 7.5-12.5 fL ACTH, PLASMA Reviewed date:03/26/2024 01:19:34 PM Interpretation:High Performing Lab:[facility], [address], [place], [address] Errol Ferrell M.D.,PhD Notes/Report: Received Date: NON-FASTING; NON-FASTING; NON-FASTING; NON-FASTING; NON-FAST FASTING:YES FASTING: YES ACTH, PLASMA 625 6-50 pg/mL Reference range applies only to specimens collected between 7am-10am. Lipid Panel, Fasting Reviewed date:02/27/2024 11:10:56 AM Interpretation:High Performing Lab:[facility], [address] [place], [address] Juliet Kelley MD Notes/Report: Received Date: NON-FASTING; [...] LDL-C. Yusuf SS et al. SILVIO. 2013;310(19): 6479-6456 (http://Document Agility.Trusted Insight/faq/WPM307) CHOL/HDLC RATIO 3.6 <5.0 (calc) NON HDL CHOLESTEROL 169 <130 mg/dL (calc) For patients with diabetes plus 1 major ASCVD risk factor, treating to a non-HDL-C goal of <100 mg/dL (LDL-C of <70 mg/dL) is considered a therapeutic option. VITAMIN D, 25-OH (TOTAL D2/D 3) Reviewed date:02/27/2024 11:14:49 AM Interpretation:Low Performing Lab:[facility], [address] [place], [address] Juliet Kelley MD Notes/Report: Received Date: [id number] NON-FASTING; NON-FASTING; NON-FASTING; NON-FASTING; NON-FAST FASTING:YES FASTING: [...] D, (D2,D3), LC/MS/MS is recommended: order code 20960 (patients >2yrs). See Note 1 Note 1 For additional information, please refer to http://education.Meldium/faq/UHA269 (This link is being provided for informational/ educational purposes only.) Hemoglobin A1C Reviewed date:03/03/2024 10:25:47 AM Interpretation:5.9 Performing Lab:[place]ANN[place], [facility], [address] [place], [address] Juliet Kelley MD Notes/Report: Received Date: NON-FASTING; [...] 1 pm; Duration: 1 days 02/27/2024 Active dexAMETHasone 1 MG 1 tablet Orally at 1 1 pm; Duration: days 02/11/2024 Active dexAMETHasone 4 MG 2 tablet Orally at 1 1 pm; Duration: 1 days 02/27/2024 Active Ergocalciferol 50 MCG (2000 UT) 1 capsule Orally Once a day; Duration: 90 days 02/27/2024 Active Ergocalciferol 1.25 MG (57739 UT) 1 capsule Orally twice weekly; Duration: 30 days 02/27/2024 Active Social History Tobacco Use: Social History Observation Description Date Details (start date - stop date) Never Smoker NA - NA Tobacco Control (Standard) Question Answer Notes Tobacco use: Nonsmoker Problems Problem Type SNOMED Code ICD Code Onset Dates Problem Status W/U Status Risk Notes Problem Laboratory test result abnormal ([id number]) Abnormal laboratory test (R89.9) Active confirmed Vital Signs Blood pressure diastolic 100 mm Hg 02/11/2024 Height 70.5 in 02/11/2024 Blood pressure systolic 140 mm Hg 02/11/2024 Weight 328.4 lbs 02/11/2024 BMI 46.45 kg/m2 02/11/2024 Encounters Encounter Location Date Provider Diagnosis [facility] [address] [address] 02/11/2024 Nav Aguilar Abnormal weight gain R63.5 and Hypertension I10 [facility] [address] [address] 01/20/2024 Nav Zaidu [facility] [address] [address] 02/27/2024 Nav Aguilar Abnormal laboratory test R89.9 Assessments Encounter Date Diagnosis (ICD Code) Assessment Notes Treatment Notes Treatment Clinical Notes Section Notes 02/11/2024 Abnormal weight gain (ICD-10 - R63.5) Assessment: 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 Weight gain late 20s. Plan: 1. Works with [employer] 2. Rule out secondary reasons 3. [...] 02/27/2024 CORTISOL LC/MS 02/27/2024 Dexamethasone level ([facility] [id number]) 2024 TESTOSTERONE, TOTAL, MS 02/27/2024 Future Test Test Name Order Date CORTISOL LC/MS 02/27/2024 CORTISOL LC/MS 03/09/2024 Dexamethasone level ([facility] [id number]) 2024 Insurance Providers Payer Name Payer Address Payer Phone Subscriber Number Group Number Insured Name Patient Relationship to Insured Coverage Start Date Coverage End Date [facility] [address] [place] [address] [id number] TIMUR PONCE Self - patient is the insured Medical (General) History Medical History History ICD Code Sleep Apnea Surgical History Surgery Date(Month/Year) Ear Operation Hospitalization History Reason Date(Month/Year) Torn meniscus and LCL 2020
--- OUTSIDE RECORDS SUMMARY | 2024-12-15 00:20 | XMS_ITS | Clinical Summary ---
Author Organization [facility] [address] Address [address] [facility] [address] [place] [address] Care Team Providers Care Development Technical Lead Name Role Phone Mercedes Weiner Primary Care [...] Date Type Department Care Team Description 12/10/2024 Results Follow-Up [facility] [address] [address] Clement Simon MD CBC with auto differential, Lipid panel, Comprehensive metabolic panel, Additional followed-up results: 2 12/10/2024 Telephone [facility] [address] [address] Clement Simon MD Prior Auth (Trulicity; Zepbound) 12/04/2024 Telephone [facility] [address] [address] Clement Simon MD Prior Auth (Mounjaro; Zepbound) 12/02/2024 3:50 PM CDT Lab [address] [address] Metabolic syndrome 12/02/2024 2:30 PM CDT Office Visit [facility] [address] [address] Clement Simon MD Metabolic syndrome (Primary Dx) 11/05/2024 Telephone [facility] Diabetes and Endocrinology [address] [place] [address] Gifty Townsend MD New Referral to [...] vative Free, Intramuscular 12/30/2015 Influenza, Unspecified 12/18/2023 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 The CKD-EPI equation should not be used for patients with unstable renal function and has not been validated in children and those over 70. Current interpretive data was last reviewed 2020. Blood 12/02/2024 3:50 PM CDT 12/02/2024 9:24 PM CDT us Clement Simon MD LAB BLOOD ORDERABLES Final Resul t [facility] [address] Department [place] [address] * (ABNORMAL) Differential, auto (12/02/2024 3:50 PM CDT) Neutrophil abs 7.81(H) 1.50 - 6.50 K/cumm Imm gran abs 0.09 0.00 - 0.10 K/cumm [facility] Lymphocyte abs 2.82 0.80 - 3.30 K/cumm [facility] Monocyte abs 0.86(H) 0.20 - 0.80 K/cumm [facility] Eosinophil abs 0.12 0.00 - 0.50 K/cumm [facility] Basophil abs 0.05 0.00 - 0.10 K/cumm [facility] Neutrophil pct 66.5 % [facility] Comment: Interpretive Data Percent cell count reference ranges are not reported, since discordance with absolute values may lead to misinterpretation of CBC data. Current Interpretive Data was last revised on 2017. Imm gran pct 0.8 % [facility] Comment: Interpretive Data Percent cell count reference ranges are not reported, since discordance with absolute values may lead to misinterpretation of CBC data. Current Interpretive Data was last revised on 2017. Lymphocyte pct 24.0 % [facility] Comment: Interpretive Data Percent cell count reference ranges are not reported, since discordance with absolute values may lead to misinterpretation of CBC data. Current Interpretive Data was last revised on 2017. Monocyte pct 7.3 % [facility] Comment: Interpretive Data Percent cell count reference ranges are not reported, since discordance with absolute values may lead to misinterpretation of CBC data. Current Interpretive Data was last revised on 2017. Eosinophil pct 1.0 % [facility] Comment: Interpretive Data Percent cell count reference ranges are not reported, since discordance with absolute values may lead to misinterpretation of CBC data. Current Interpretive Data was last revised on 2017. Basophil pct 0.4 % [facility] Comment: Interpretive Data Percent cell count reference ranges are not reported, since discordance with absolute values may lead to misinterpretation of CBC data. Current Interpretive Data was last revised on 2017. Blood 12/02/2024 3:50 PM CDT 12/02/2024 8:47 PM CDT us Clement Simon MD LAB BLOOD ORDERABLES Final Resul t [facility] [address] Department [place] [address] * (ABNORMAL) CBC with auto differential (12/02/2024 3:50 PM CDT) WBC 11.75(H) 3.80 - 9.90 K/cumm Hgb 16.6 13.0 - 17.5 g/dL [facility] Hct 50.5(H) 38.9 - 50.3 % [facility] Plt 299 150 - 400 K/cumm [facility] MPV 9.5 9.1 - 12.3 fL [facility] RBC 5.59 4.30 - 5.80 M/cumm [facility] MCV 90.3 81.3 - 96.4 fL [facility] MCH 29.7 27.1 - 33.3 pg [facility] MCHC 32.9 32.3 - 35.7 g/dL [facility] RDW CV 12.7 11.1 - 14.9 % [facility] RDW SD 42.0 35.7 - 48.1 fL [facility] NRBC abs 0.00 0.00 - 0.01 K/cumm [facility] Blood 12/02/2024 3:50 PM CDT 12/02/2024 8:47 PM CDT us Clement Simon MD LAB BLOOD ORDERABLES Final Resul t [facility] [address] Department of Laboratories [place] [phone] * (ABNORMAL) Lipid panel (12/02/2024 3:50 PM [...] on 2017. Triglycerides 133 <=149 mg/dL [facility] Comment: Interpretive Data Ages < or = [...] on 2017. HDL 45 >=40 mg/dL [facility] Comment: Interpretive Data Ages < or = [...] 3. Ike Silva et al. SILVIO Cardiol. 2020 June 25;5(5):540-548. doi: [email or web address].2020.0013 Current Interpretive Data was last revised on 2023. Non-HDL Cholesterol 169 mg/dL [facility] Comment: Interpretive Data Ages < or = [...] revised on 2017. Chol/HDL ratio 5 [facility] Blood 12/02/2024 3:50 PM CDT 12/02/2024 8:47 PM CDT Narrative [facility] - 12/02/2024 9:46 PM CDT These lab test should be done fasting. This means do not eat or drink for at least 12 hours prior to getting your blood drawn. Clement Simon MD LAB BLOOD ORDERABLES Final Resul t [facility] [address] Department [place] [address] * Comprehensive metabolic panel (12/02/2024 3:50 PM [...] classification and Diagnosis of Diabetes Diabetes Care 2021; 46: S19-S40. Current interpretive data was last [...] BLOOD ORDERABLES Final Resul t [facility] [address] Department [place] [address] * (ABNORMAL) POCT hemoglobin A1c (12/02/2024 2:30 PM CDT) Hemoglobin A1C, POC 5.8(A) 4.0 - 5.6 % Blood 12/02/2024 2:30 PM CDT Clement Simon MD POINT OF CARE TEST ORDERABLES Fi nal Result * POCT glucose (12/02/2024 2:30 PM CDT) Glucose Blood, POC 124 Normal Fasting 70 - 100, Random <200 mg/dL Blood 12/02/2024 2:30 PM CDT Clement Simon MD POINT OF CARE TEST ORDERABLES Fi nal Result from Last 3 Months Insurance [facility] Care Teams Development Technical Lead Relationship Specialty Start Date End Date Mercedes Weiner PA [address] [place] [address] PCP - General Physician Supervisor Sewing Room 12/02/24
[2024-12-15] MEDS: CELECOXIB 200 MG CAPSULE PO (10:25)
[2024-12-15] MEDS: ACETAMINOPHEN 500 MG TABLET 1000 MG PO (10:25)
[2024-12-15] MEDS: LACTATED RINGERS 1,000 ML 30 ML IV CONT ×2 (10:30→15:55)
--- NOTE | 2024-12-15 11:15 | WPDHPUPDATE1 ---
History and Physical Update Update Date/Time: 12/15/24 11:15 History and Physical has been reviewed, including an updated exam of the patient. There are NO changes in the patient's condition. Risks, benefits, and alternatives have been discussed and questions answered. Patient agrees to proceed with procedure.
--- NOTE | 2024-12-15 11:42 | P.PNAN_ITS ---
Anes - Initial Pre Proc Eval Procedure: Operation Date: 12/15/24 12:00 Proposed Procedures p Left Anterior Cruciate Ligament Reconstruction with Allograft - Willy Ocampo MD Date/Time: 12/15/24 11:42 Surgeon: Willy Ocampo MD Pre Op Diagnosis: left knee ACL rupture Patient Data Age: 34 Gender: M Height: 1.75 m Weight: 144.4 kg Last Vital Signs Temp 36.1 C L 12/15/24 10:02 Pulse 100 12/15/24 10:02 Resp 20 12/15/24 10:02 BP 150/84 H 12/15/24 10:02 Pulse Ox 97 12/15/24 10:02 O2 Del Method Room Air 12/15/24 10:02 Allergies Allergy/AdvReac Type Severity Reaction Status Date / Time cefaclor (From Ceclor) AdvReac Mild Hives as Verified 12/15/24 10:07 Home Medications ?Medication ?Instructions ?Recorded ?Confirmed ?Type No Home Medications 12/08/24 12/08/24 H istory Patient hx anesthesia problems: none Family hx anesthesia problems: none Results Review: All pre-operative results and documents have been reviewed as part of the pre- operative evaluation. 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 Informed Consent: The patient's anesthetic plan and its attendant risks and benefits were discussed with the patient/family/POA. Questions were solicited and answers provided to the satisfaction of the patient/family/POA.
[2024-12-15] MEDS: CLINDAMYCIN 900 MG/D5W 50 ML 900 MG/50 ML PIGGYBACK 50 MG IVPB (12:07)
[2024-12-15] MEDS: BUPivacaine HCL 0.5% 10 ML AMP 30 ML INFILTRATE (13:04)
--- NOTE | 2024-12-15 16:11 | W.PM.PROC2 ---
Procedure Note - Detailed Date of Procedure 12/15/24 Pre-op Diagnosis left knee ACL rupture, Medial meniscus tear Post-op Diagnosis Same Procedure Performed LEFT ACL RECONSTRUCTION, PARTIAL MEDIAL MENISCECTOMY Surgeon Willy Ocampo MD Anesthesia General Description of Procedure PATIENT WAS TAKEN TO THE OR. GENERAL ANESTHESIA WAS INDUCED. THE LEFT KNEE WAS TAKEN THROUGH A RANGE OF MOTION AND A PIVOT SHIFT TEST WAS PREFORMED AND THIS WAS POSITIVE. A LACHMANS TEST AND ANTERIOR DRAWER TESTS WERE ALSO PREFORMED AND BOTH SHOWED LAXITY OF THE ACL. THE LEFT LEG WAS PREPPED AND DRAPED STERILE. TROCARS WERE PLACED IN THE USUAL FASHION. CAMERA WAS INTRODUCED. THERE WAS MODERATE CHONDROMALACIA TO THE PATELLA FEMORAL JOINT. MOST OF THE LESION WAS ON THE PATELLAR SURFACE THERE WAS A LOT OF SYNOVITIS IN THIS COMPARTMENT WELL. THE MEDIAL COMPARTMENT SHOWED MILD CHONDROMALACIA TO THE MED FEMORAL CONDYLE. THERE WAS A LARGE TEAR TO THE MEDIAL MENISCUS. THE TEAR APPEARED TO BE AN OLD BUCKET HANDLE TEAR EXTENDING FROM THE POSTERIOR HORN TO THE ANTERIOR HORN. THERE WAS NO CONTINUITY BETWEEN THE ANTERIOR HORN AND POSTERIOR HORN. THE MENISCAL TISSUE WAS COMPLEX IN NATURE AND WAS NOT REPARABLE. MOST OF THE MENISCUS WAS RESECTED. NEXT THE INTERCONDYLAR NOTCH WAS ENTERED. THE ACL WAS COMPLETELY RUPTURED FROM THE ORIGIN. THE PCL WAS INTACT. THE LATERAL MENISCUS WAS NOT TORN. THE LATERAL COMPARTMENT HAD NO CHONDROMALACIA. THE ACL REMNANTS WERE THEN THEN DEBRIDED UNTIL THE PCL WAS IDENTIFIED AND THE SUPERIOR LATERAL NOTCH WAS IDENTIFIED. A NOTCH PLASTY WAS PREFORMED UNTIL THE OVER THE TOP POSITION WAS SEEN. A MEDIAL INCISION WAS MADE MEDIAL TO THE TIBIAL TUBERCLE AND DISSECTION CONTINUED DOWN TO BONE. A TIBIAL ACL GUIDE WAS PLACE UP AGAINST THE PCL AND WAS SET AT 55 DEG POSITION. A GUIDE PIN WAS DRILLED THROUGH THE GUIDE EXITING JUST ANTERIOR TO THE PCL STUMP. A 10 MM TIBIAL TUNNEL WAS DRILLED. A #7 BACK WALL GUIDE WAS PLACED OVER THE GUIDE PIN AT THE 2 O'CLOCK POSITION ON THE FEMUR. A 10 MM FEMORAL TUNNEL WAS DRILLED TO 25 MM. AN ALLOGRAFT WAS ATTACHED TO AN ARTHREX TIGHT ROPE SYSTEM. THE ALLOGRAFT WAS PASSED THROUGH THE TIBIAL AND FEMORAL TUNNELS. THE TIGHT ROPE WAS THEN TIGHTENED AND THE ENDO BUTTON WAS SECURED OVER THE SUPERIOR LATERAL FEMORAL CORTEX. WITH THE KNEE AT 30 DEG OF FLEXION AND TENSION ON THE TIBIAL SIDE OF THE ALLOGRAFT, A 25 MM BY 9 MM TISSUE INTERFERENCE SCREW WAS PLACED IN THE TIBIAL TUNNEL OVER A GUIDE WIRE. THE SCREW HAD AN EXCELLENT BITE. THE KNEE WAS TAKEN THROUGH A RANGE OF MOTION AND THE ACL WAS VERY STABLE. USING A SWIVEL LOCK ANCHOR, THE INTERNAL BRACE SUTURE WAS SECURED TO THE TIBIAL SHAFT. SYNOVECTOMY WAS PREFORMED IN THE PATELLO FEMORAL JOINT AND IN THE MEDIAL COMPARTMENT. THEN THE PATELLA AND TROCHLEA UNDERWENT CHONDROPLASTY. THE SURFACE WAS SMOOTH AND THE PATELLA TRACKED WITHOUT TILT. THE INSTRUMENTS WERE REMOVED AFTER THOROUGH IRRIGATION OF THE KNEE JOINT. THE WOUNDS WERE WASHED. THE TROCAR WOUNDS WERE APPROXIMATED WITH 4-0 NYLON. THE TIBIA WOUND WAS APPROXIMATED WITH 0 VICRYL, 2-0 VICRYL AND 3-0 QUILL SUTURE. THE WOUNDS WERE WASHED. DERMABOND AND THEN A STERILE DRESSING WAS APPLIED. A BRACE WAS PLACED.PATIENT WAS EXTUBATED. Estimated Blood Loss 50 Drains No Complications No immediate complications Condition Stable Disposition PACU
[2024-12-15] MEDS: fentaNYL CITRATE INJ (*CRX) 100 MCG/2 ML VIAL 25 MCG IV PUSH ×3 (16:32→16:53)
[2024-12-15] MEDS: KETOROLAC 30 MG/ML VIAL (*BKC) IV PUSH (16:51)
[2024-12-15] MEDS: ONDANSETRON INJ 4 MG/2 ML VIAL IV PUSH (17:20)
[2024-12-15] MEDS: oxyCODONE HCL (*CRX) 5 MG TAB IR PO (17:36)
== END 2024-12-15 18:41 | disposition home or self-care (01) ==
PROVIDERS: Visit Provider Orthopaedic Surgery
PROC: (CPT 29888; principal; 2024-12-15 12:00)
DX: S83.512A Sprain of anterior cruciate ligament of left knee, initial encounter (principal); S83.212A Bucket-handle tear of medial meniscus, current injury, left knee, initial encounter; M65.862 Other synovitis and tenosynovitis, left lower leg; M22.42 Chondromalacia patellae, left knee; X58.XXXA Exposure to other specified factors, initial encounter; Y93.64 Activity, baseball
CPT/HCPCS: 29881; 29888; A9270; C1713; J1885; J2003; J2250; J2405; J2704; J3010; J7120; L1830